=== PATIENT | female | born 1960 | race American Indian/Alaskan Native ===

== ENCOUNTER 2020-08-31 18:46 | Inpatient (IN) | payer OTHER ==
--- NOTE | 2020-08-31 21:41 | XRay Report ---
CHEST 1 VIEW INDICATION: weakness COMPARISON: (none FINDINGS: SUPPORT DEVICES: None. HEART / MEDIASTINUM: No significant abnormality. LUNGS / PLEURA: Bronchovascular markings are prominent. Increased lung volumes are noted. No pneumoth orax. ADDITIONAL FINDINGS: IMPRESSION: 1. Prominent bronchovascular markings. Increased lung volumes-COPD Signer Name: Sreekanth Galvan MD Signed: 08/31/2020 9:37 PM Workstation Name: [id number]
[2020-08-31 21:43] LABS: Basophils % (Auto) 0.4 % (0.0-1.8); Hemoglobin 7.6 gm/dl (10.1-14.3); Lymphocytes # (Auto) 0.9 K/mm3 (1.2-5.4); Mean Corpuscular HGB Conc 33 % (30-34); Mean Corpuscular Volume 99 fl (79-97); Monocytes # (Auto) 0.8 K/mm3 (0.0-0.8); Monocytes % (Auto) 8.8 % (0.0-7.3); Platelet Count 153 K/mm3 (140-440); Red Blood Count 2.32 M/mm3 (3.65-5.03); Red Cell Distribution Width 18.9 % (13.2-15.2)
--- NOTE | 2020-08-31 21:53 | Emergency Department Report ---
- General Chief complaint: Weakness Stated complaint: WEAKNESS Time Seen by Provider: 08/31/20 21:11 Source: patient, EMS Mode of arrival: Stretcher Limitations: No Limitations - History of Present Illness Initial comments: 60-year-old female, history of hypertension, presents to ED with generalized weakness for several weeks. Patient states her sister made her come to the ED today to be evaluated. Patient denies any headache, fever, chest pain, shortness of breath, abdominal pain, vomiting, diarrhea, urinary frequency. Patient has obvious periorbital edema. She states it has been present for quite some time. Patient states "I am swollen all over." MD Complaint: generalized weakness -: week(s) (1) Location: generalized Consistency: constant Improves with: none Worsens with: none Associated Symptoms: denies: chest pain, fever/chills, headaches, nausea/vomiting, shortness of breath - Related Data Home Medications Medication Instructions Recorded Confirmed Last Taken Lasix TAB 40 mg PO ONCE 09/01/20 09/01/20 08/31/20 Lopressor 50 mg PO BID 09/01/20 09/01/20 08/31/20 Pantoprazole 40 mg PO ONCE 09/01/20 09/01/20 08/31/20 amLODIPine 10 mg PO ONCE 09/01/20 09/01/20 08/31/20 hydrALAZINE 25 mg PO TID 09/01/20 09/01/20 08/31/20 Allergies Allergy/AdvReac Type Severity Reaction Status Date / Time No Known Allergies Allergy Unverified 08/31/20 22:07 ED Review of Systems ROS: Stated complaint: WEAKNESS Other details as noted in HPI Comment: All other systems reviewed and negative Constitutional: denies: fever Respiratory: denies: cough, shortness of breath Cardiovascular: edema. denies: chest pain Gastrointestinal: denies: abdominal pain, vomiting, diarrhea Genitourinary: denies: frequency Neurological: denies: headache ED Past Medical Hx - Past Medical History Previous Medical History?: Yes Hx Hypertension: Yes - Social History Smoking Status: Never Smoker Substance Use Type: None - Medications Home Medications: Home Medications Medication Instructions Recorded Confirmed Last Taken Type Lasix TAB 40 mg PO ONCE 09/01/20 09/01/20 08/31/20 History Lopressor 50 mg PO BID 09/01/20 09/01/20 08/31/20 History Pantoprazole 40 mg PO ONCE 09/01/20 09/01/20 08/31/20 History amLODIPine 10 mg PO ONCE 09/01/20 09/01/20 08/31/20 History hydrALAZINE 25 mg PO TID 09/01/20 09/01/20 08/31/20 History ED Physical Exam - General Limitations: No Limitations General appearance: alert, in no apparent distress - Head Head exam: Present: atraumatic, normocephalic - Eye Eye exam: Present: other (Periorbital edema bilaterally) - ENT ENT exam: Present: mucous membranes moist - Neck Neck exam: Present: normal inspection - Respiratory Respiratory exam: Present: normal lung sounds bilaterally. Absent: respiratory distress - Cardiovascular Cardiovascular Exam: Present: regular rate, normal rhythm - GI/Abdominal GI/Abdominal exam: Present: soft. Absent: distended, tenderness - Extremities Exam Extremities exam: Present: other (Slight edema to bilateral hands; no significant edema to lower extremities) - Neurological Exam Neurological exam: Present: alert, oriented X3 - Psychiatric Psychiatric exam: Present: normal affect, normal mood - Skin Skin exam: Present: warm, dry, intact, normal color ED Course Vital Signs 08/31/20 08/31/20 08/31/20 21:00 21:15 21:31 Temperature 98.7 F Pulse Rate 86 82 86 Pulse Rate [ Apical] Pulse Rate [ Left Radial] Pulse Rate [ Right Radial] Respiratory 12 20 13 Rate Blood Pressure 153/75 153/75 Blood Pressure 155/85 [Left] O2 Sat by Pulse 98 Oximetry 08/31/20 08/31/20 08/31/20 21:45 22:01 22:15 Temperature Pulse Rate 83 78 80 Pulse Rate [ Apical] Pulse Rate [ Left Radial] Pulse Rate [ Right Radial] Respiratory 22 22 21 Rate Blood Pressure 153/75 153/75 153/75 Blood Pressure [Left] O2 Sat by Pulse Oximetry 08/31/20 08/31/20 08/31/20 22:31 22:45 23:01 Temperature Pulse Rate 87 97 H 91 H Pulse Rate [ Apical] Pulse Rate [ Left Radial] Pulse Rate [ Right Radial] Respiratory 12 21 19 Rate Blood Pressure 153/75 153/75 153/75 Blood Pressure [Left] O2 Sat by Pulse Oximetry 08/31/20 08/31/20 08/31/20 23:15 23:31 23:45 Temperature Pulse Rate 96 H 89 85 Pulse Rate [ Apical] Pulse Rate [ Left Radial] Pulse Rate [ Right Radial] Respiratory 17 13 17 Rate Blood Pressure 153/75 153/75 153/71 Blood Pressure [Left] O2 Sat by Pulse Oximetry 09/01/20 09/01/20 09/01/20 00:00 00:15 00:30 Temperature Pulse Rate 83 92 H 98 H Pulse Rate [ Apical] Pulse Rate [ Left Radial] Pulse Rate [ Right Radial] Respiratory 15 12 14 Rate Blood Pressure 139/71 137/82 162/84 Blood Pressure [Left] O2 Sat by Pulse Oximetry 09/01/20 09/01/20 09/01/20 00:45 01:00 01:15 Temperature Pulse Rate 87 85 85 Pulse Rate [ Apical] Pulse Rate [ Left Radial] Pulse Rate [ Right Radial] Respiratory 19 20 20 Rate Blood Pressure 164/79 180/86 180/86 Blood Pressure [Left] O2 Sat by Pulse Oximetry 09/01/20 09/01/20 09/01/20 01:30 02:00 05:00 Temperature Pulse Rate 87 90 81 Pulse Rate [ Apical] Pulse Rate [ Left Radial] Pulse Rate [ Right Radial] Respiratory 17 21 19 Rate Blood Pressure 159/81 172/84 147/80 Blood Pressure [Left] O2 Sat by Pulse Oximetry 09/01/20 09/01/20 09/01/20 05:24 06:00 07:00 Temperature Pulse Rate 86 87 Pulse Rate [ Apical] Pulse Rate [ Left Radial] Pulse Rate [ Right Radial] Respiratory 19 19 Rate Blood Pressure 166/85 186/91 Blood Pressure [Left] O2 Sat by Pulse 85 Oximetry 09/01/20 09/01/20 09/01/20 07:56 08:01 08:53 Temperature 98.9 F Pulse Rate 93 H Pulse Rate [ 98 H Apical] Pulse Rate [ 98 H Left Radial] Pulse Rate [ 98 H Right Radial] Respiratory 19 17 Rate Blood Pressure 153/88 Blood Pressure [Left] O2 Sat by Pulse 98 Oximetry 09/01/20 09/01/20 09/01/20 09:00 09:11 09:21 Temperature Pulse Rate 88 91 H 87 Pulse Rate [ Apical] Pulse Rate [ Left Radial] Pulse Rate [ Right Radial] Respiratory 17 17 18 Rate Blood Pressure 162/75 162/75 162/75 Blood Pressure [Left] O2 Sat by Pulse Oximetry 09/01/20 09/01/20 09/01/20 09:31 09:41 09:51 Temperature Pulse Rate 94 H 86 87 Pulse Rate [ Apical] Pulse Rate [ Left Radial] Pulse Rate [ Right Radial] Respiratory 10 L 17 14 Rate Blood Pressure 143/75 143/75 162/75 Blood Pressure [Left] O2 Sat by Pulse Oximetry 09/01/20 09/01/20 09/01/20 10:00 10:11 10:21 Temperature Pulse Rate 86 86 89 Pulse Rate [ Apical] Pulse Rate [ Left Radial] Pulse Rate [ Right Radial] Respiratory 17 17 19 Rate Blood Pressure 139/74 139/74 139/74 Blood Pressure [Left] O2 Sat by Pulse Oximetry 09/01/20 09/01/20 09/01/20 10:30 10:41 10:51 Temperature Pulse Rate 84 87 84 Pulse Rate [ Apical] Pulse Rate [ Left Radial] Pulse Rate [ Right Radial] Respiratory 18 18 20 Rate Blood Pressure 148/79 148/79 148/79 Blood Pressure [Left] O2 Sat by Pulse Oximetry 09/01/20 09/01/20 09/01/20 11:00 11:11 11:14 Temperature Pulse Rate 83 86 77 Pulse Rate [ Apical] Pulse Rate [ Left Radial] Pulse Rate [ Right Radial] Respiratory 19 18 17 Rate Blood Pressure 159/78 159/78 Blood Pressure 159/78 [Left] O2 Sat by Pulse 100 Oximetry 09/01/20 11:21 Temperature Pulse Rate 76 Pulse Rate [ Apical] Pulse Rate [ Left Radial] Pulse Rate [ Right Radial] Respiratory 19 Rate Blood Pressure 159/78 Blood Pressure [Left] O2 Sat by Pulse Oximetry ED Medical Decision Making - Lab Data Result diagrams: 09/01/20 11:02 09/01/20 00:09 - EKG Data -: EKG Interpreted by Pa EKG shows normal: sinus rhythm, axis, intervals, QRS complexes, ST-T waves Rate: normal - EKG Data Interpretation: no acute changes - Radiology Data Radiology results: report reviewed, image reviewed - Medical Decision Making 60-year-old female, only history of hypertension, presents to ED with generalized weakness for several weeks. O2 sats 85% on room air. Patient placed on 2 L O2 via nasal cannula. She is afebrile. Chest x-ray shows evidence of COPD with some increased bronchovascular markings. On exam, patient has periorbital edema and some trace edema to bilateral hands. Patient states this edema has been present for "a while." BNP is elevated. Labs show evidence of hypokalemia with potassium of 2.9. With decreased O2 sats and elevated BNP, Lasix given, as patient may have some pulmonary edema that is not on x-ray. Patient also has elevated troponin. EKG shows no ST changes. Patient denies any chest pain. Aspirin given. Patient will be admitted to hospitalist, Dr. Sanders, for further management. - Differential Diagnosis Infection, electrolyte abnormality, dehydration Critical care attestation.: If time is entered above; I have spent that time in minutes in the direct care of this critically ill patient, excluding procedure time. ED Disposition Clinical Impression: Hypoxia, Hypokalemia, Elevated troponin Disposition: OP ADMIT IP TO THIS HOSP Is pt being admited?: Yes Condition: Stable Time of Disposition: 05:25
[2020-08-31 21:59] LABS: INR 1.25 (0.87-1.13)
[2020-08-31 22:00] LABS: Partial Thromboplastin Time 37.3 Sec. (24.2-36.6)
[2020-08-31 22:07] LABS: Free T4 (Free Thyroxine) 0.82 ng/dL (0.76-1.46)
[2020-08-31 22:09] LABS: BUN/Creatinine Ratio TNR
[2020-08-31 22:10] LABS: Alanine Aminotransferase TNR units/L (7-56); Albumin TNR g/dL (3.9-5); Blood Urea Nitrogen TNR mg/dL (7-17); Calcium TNR mg/dL (8.4-10.2)
[2020-08-31 22:11] LABS: Hemolysis Index TNR
[2020-09-01 00:48] LABS: Alanine Aminotransferase 7 units/L (7-56); Albumin 1.6 g/dL (3.9-5); BUN/Creatinine Ratio 12; Blood Urea Nitrogen 13 mg/dL (7-17); Calcium 6.2 mg/dL (8.4-10.2); Hemolysis Index 2
[2020-09-01] MEDS ORDERED: POTASSIUM CHLORIDE ER 20 MEQ TAB PO ONE (01:46)
[2020-09-01 01:48] LABS: Bacteria,Urine 2+ /HPF (Negative); Bilirubin,Urine NEG (Negative); Blood,Urine LG (Negative); Color,Urine Yellow (Yellow); Mucus,Urine FEW /HPF
[2020-09-01 02:31] LABS: Chol/HDL Ratio 3.52 %; HDL Cholesterol 21 mg/dL (40-59); LDL Cholesterol,Direct 20 mg/dL (50-130)
[2020-09-01] MEDS ORDERED: FUROSEMIDE 40 MG/4 ML INJ IV ONE (04:55)
[2020-09-01] MEDS ORDERED: ASPIRIN 325 MG TAB PO ONE (04:57)
--- NOTE | 2020-09-01 07:09 | History and Physical Report ---
History of Present Illness Date of examination: 09/01/20 Date of admission: 09/01/20 05:26 Chief complaint: And generalized weakness and low oxygen saturation History of present illness: 60-year-old female with history of hypertension and not a non-smoker comes in fo r generalized weakness and swelling of the lower extremities. But during my examination the swelling of the lower extremities was minimal. Patient had low oxygen saturations of 85% on room air in the emergency room. There is no cough no shortness of breath. No fever. No exposure to coronavirus. No diarrhea vomiting etc. Patient says that she is swollen all over but physical exam did not show any swelling. No exposure to coronavirus. - Past Medical History Previous Medical History?: Yes --Hypertension: Yes Surgical history not available Family history Htn - Social History Smoking Status: Never Smoker Substance Use Type: None Review of Systems ROS: Stated complaint: WEAKNESS Other details as noted in HPI Comment: All other systems reviewed and negative Constitutional: denies: fever Respiratory: denies: cough, shortness of breath Cardiovascular: edema. denies: chest pain Gastrointestinal: denies: abdominal pain, vomiting, diarrhea Genitourinary: denies: frequency Neurological: denies: headache Medications and Allergies Allergies Allergy/AdvReac Type Severity Reaction Status Date / Time No Known Allergies Allergy Unverified 08/31/20 22:07 Exam - Constitutional Vitals: Temp Pulse Resp BP Pulse Ox 98.7 F 81 19 147/80 85 08/31/20 21:00 09/01/20 05:00 09/01/20 05:00 09/01/20 05:00 09/01/20 05:24 General appearance: Present: no acute distress, well-nourished - EENT Eyes: Present: PERRL ENT: hearing intact, clear oral mucosa - Neck Neck: Present: supple, normal ROM - Respiratory Respiratory effort: normal Respiratory: bilateral: CTA - Cardiovascular Heart rate: 78 Rhythm: regular Heart Sounds: Present: S1 & S2. Absent: rub, click - Extremities Extremities: no ischemia, pulses intact, pulses symmetrical, No edema Extremity abnormal: other (Slight swelling of both lower extremities present) Peripheral Pulses: within normal limits - Abdominal General gastrointestinal: Present: soft, non-tender, non-distended, normal bowel sounds Female genitourinary: Present: normal - Rectal Rectal Exam: deferred - Integumentary Integumentary: Present: clear, warm, dry - Musculoskeletal Musculoskeletal: gait normal, strength equal bilaterally - Psychiatric Psychiatric: appropriate mood/affect, intact judgment & insight - Neurologic Neurologic: CNII-XII intact, moves all extremities - Allied Health Allied health notes reviewed: nursing, case management HEART Score - HEART Score History: Moderately suspicious Age: 45-65 Risk factors: 1-2 risk factors Troponin: Troponin T 0.067 ng/mL (0.00-0.029) H 09/01/20 03:07 Troponin: 1-3x normal limit - Critical Actions Critical Actions: 4-6 pts:12-16.6% risk of adverse cardiac event. Should be ad mitted Results - Labs CBC & Chem 7: 08/31/20 21:20 09/01/20 00:09 Labs: Laboratory Last Values WBC 9.3 K/mm3 (4.5-11.0) 08/31/20 21:20 RBC 2.32 M/mm3 (3.65-5.03) L 08/31/20 21:20 Hgb 7.6 gm/dl (10.1-14.3) L 08/31/20 21:20 Hct 23.0 % (30.3-42.9) L 08/31/20 21:20 MCV 99 fl (79-97) H 08/31/20 21:20 MCH 33 pg (28-32) H 08/31/20 21:20 MCHC 33 % (30-34) 08/31/20 21:20 RDW 18.9 % (13.2-15.2) H 08/31/20 21:20 Plt Count 153 K/mm3 (140-440) 08/31/20 21:20 Lymph % (Auto) 10.0 % (13.4-35.0) L 08/31/20 21:20 [place] % (Auto) 8.8 % (0.0-7.3) H 08/31/20 21:20 Eos % (Auto) 0.0 % (0.0-4.3) 08/31/20 21:20 Baso % (Auto) 0.4 % (0.0-1.8) 08/31/20 21: Lymph # (Auto) 0.9 K/mm3 (1.2-5.4) L 08/31/20 21:20 [place] # (Auto) 0.8 K/mm3 (0.0-0.8) 08/31/20 21:20 Eos # (Auto) 0.0 K/mm3 (0.0-0.4) 08/31/20 21:20 Baso # (Auto) 0.0 K/mm3 (0.0-0.1) 08/31/20 21:20 Seg Neutrophils % 80.8 % (40.0-70.0) H 08/31/20 21:20 Seg Neutrophils # 7.5 K/mm3 (1.8-7.7) 08/31/20 21:20 PT 15.7 Sec. (12.2-14.9) H 08/31/20 21:20 INR 1.25 (0.87-1.13) H 08/31/20 21:20 APTT 37.3 Sec. (24.2-36.6) H 08/31/20 21:20 Sodium 140 mmol/L (137-145) 09/01/20 00:09 Potassium 2.9 mmol/L (3.6-5.0) L* 09/01/20 00:09 Chloride 102.6 mmol/L (98-107) 09/01/20 00:09 Carbon Dioxide 31 mmol/L (22-30) H 09/01/20 00:09 Anion Gap 9 mmol/L 09/01/20 00:09 BUN 13 mg/dL (7-17) 09/01/20 00:09 Creatinine 1.1 mg/dL (0.6-1.2) 09/01/20 00:09 Estimated GFR > 60 ml/min 09/01/20 00:09 BUN/Creatinine Ratio 12 % 09/01/20 00:09 Glucose 107 mg/dL (65-100) H 09/01/20 00:09 Calcium 6.2 mg/dL (8.4-10.2) L 09/01/20 00:09 Total Bilirubin 0.80 mg/dL (0.1-1.2) 09/01/20 00:09 AST 49 units/L (5-40) H 09/01/20 00:09 ALT 7 units/L (7-56) 09/01/20 00:09 Alkaline Phosphatase 91 units/L (35-129) 09/01/20 00:09 Troponin T 0.067 ng/mL (0.00-0.029) H 09/01/20 03:07 NT-Pro-B Natriuret Pep 2196 pg/mL (0-900) H 09/01/20 00:09 Total Protein 7.2 g/dL (6.3-8.2) 09/01/20 00:09 Albumin 1.6 g/dL (3.9-5) L 09/01/20 00:09 Albumin/Globulin Ratio 0.3 % 09/01/20 00:09 Triglycerides 105 mg/dL (2-149) 09/01/20 00:09 Cholesterol 74 mg/dL (50-199) 09/01/20 00:09 LDL Cholesterol Direct 20 mg/dL (50-130) L 09/01/20 00:09 HDL Cholesterol 21 mg/dL (40-59) L 09/01/20 00:09 Cholesterol/HDL Ratio 3.52 % 09/01/20 00:09 TSH 2.030 mlU/mL (0.270-4.200) 08/31/20 21:20 Free T4 0.82 ng/dL (0.76-1.46) 08/31/20 21:20 Urine Color Yellow (Yellow) 09/01/20 01:00 Urine Turbidity Clear (Clear) 09/01/20 01:00 Urine pH 5.0 (5.0-7.0) 09/01/20 01:00 Ur Specific Malcolm 1.013 (1.003-1.030) 09/01/20 01:00 Urine Protein 100 mg/dl mg/dL (Negative) 09/01/20 01:00 Urine Glucose (UA) Neg mg/dL (Negative) 09/01/20 01:00 Urine Ketones Neg mg/dL (Negative) 09/01/20 01:00 Urine Blood Lg (Negative) 09/01/20 01:00 Urine Nitrite Neg (Negative) 09/01/20 01:00 Urine Bilirubin Neg (Negative) 09/01/20 01:00 Urine Urobilinogen 2.0 mg/dL (<2.0) 09/01/20 01:00 Ur Leukocyte Esterase Neg (Negative) 09/01/20 01:00 Urine WBC (Auto) 5.0 /HPF (0.0-6.0) 09/01/20 01:00 Urine RBC (Auto) 20.0 /HPF (0.0-6.0) 09/01/20 01:00 U Epithel Cells (Auto) < 1.0 /HPF (0-13.0) 09/01/20 01:00 Urine Bacteria (Auto) 2+ /HPF (Negative) 09/01/20 01:00 Urine Mucus Few /HPF 09/01/20 01:00 Short CBC 08/31/20 Range/Units 21:20 WBC 9.3 (4.5-11.0) K/mm3 Hgb 7.6 L (10.1-14.3) gm/dl Hct 23.0 L (30.3-42.9) % Plt Count 153 (140-440) K/mm3 BMP 08/31/20 09/01/20 21:20 00:09 Sodium TNR 140 Potassium TNR 2.9 L* Chloride TNR 102.6 Carbon Dioxide TNR 31 H BUN TNR 13 Creatinine TNR 1.1 Glucose TNR 107 H Calcium TNR 6.2 L Cardiac Enzymes 08/31/20 09/01/20 09/01/20 Range/Units 21:20 00:09 03:07 Troponin T TNR 0.074 H 0.067 H Liver Function 08/31/20 09/01/20 Range/Units 21:20 00:09 Total Bilirubin TNR 0.80 AST TNR 49 H ALT TNR 7 Alkaline Phosphatase TNR 91 Albumin TNR 1.6 L Urine 09/01/20 Range/Units 01:00 Urine Color Yellow (Yellow) Urine pH 5.0 (5.0-7.0) Ur Specific Malcolm 1.013 (1.003-1.030) Urine Protein 100 mg/dl (Negative) mg/dL Urine Glucose (UA) Neg (Negative) mg/dL - Imaging and Cardiology EKG: report reviewed (Sinus rhythm, heart rate of 83/min no acute ST-T wave changes.) Chest x-ray: report reviewed Imaging and Cardiology: CXR IMPRESSION: 1. Prominent bronchovascular markings. Increased lung volumes-COPD Assessment and Plan Advance Directives: Yes (Full code) VTE prophylaxis?: Chemical Plan of care discussed with patient/family: Yes - Patient Problems (1) NSTEMI (non-ST elevated myocardial infarction) Current Visit: Yes Status: Acute Plan to address problem: No EKG changes Patient started IV heparin Cardiology consult requested (2) Elevated troponin Current Visit: Yes Status: Acute Plan to address problem: May be nonspecific but heparin started and cardiology consult requested (3) Hypokalemia Current Visit: Yes Status: Acute Plan to address problem: Supplemented (4) Hypocalcemia Current Visit: Yes Status: Acute Plan to address problem: Supplemented (5) Malnutrition Current Visit: Yes Status: Chronic Qualifiers: Protein-calorie malnutrition severity: severe Plan to address problem: Albumin is 1.6 Dietitian consult requested (6) CHF (congestive heart failure) Current Visit: Yes Status: Chronic Qualifiers: Heart failure type: combined systolic and diastolic Plan to address problem: BNP is 2197 Echocardiogram for ejection fraction and valvular function (7) COPD (chronic obstructive pulmonary disease) Current Visit: Yes Status: Chronic Plan to address problem: Will get a blood gas and duo nebs as needed (8) DVT prophylaxis Current Visit: Yes Status: Acute Plan to address problem: On heparin and GI prophylaxis
[2020-09-01] MEDS ORDERED: METOCLOPRAMIDE 10 MG/2 ML INJ IV PRN (07:24)
[2020-09-01] MEDS ORDERED: ACETAMINOPHEN 325 MG TAB PO PRN (07:24)
[2020-09-01] MEDS ORDERED: HYDROmorphone 1 MG/1 ML INJ IV PRN (07:24)
[2020-09-01] MEDS ORDERED: ONDANSETRON 4 MG/2 ML INJ IV PRN (07:24)
[2020-09-01] MEDS ORDERED: HEPARIN 10,000 UNITS/10 ML VIAL IV NR (07:27)
[2020-09-01] MEDS ORDERED: IPRATROPIUM/ALBUTEROL SULFATE 3 ML AMPUL.NEB IH PRN (07:29)
[2020-09-01] MEDS ORDERED: CALCIUM GLUCONATE 2,000 MG in SODIUM CHLORIDE 0.9% 100 ML IV ONE (08:00)
[2020-09-01] MEDS ORDERED: HEPARIN/ 0.45% NACL DRIP 25,000 UNIT/500 ML BAG IV SCH (08:00)
[2020-09-01] MEDS ORDERED: ALBUTEROL 2.5 MG/3 ML NEBU IH PRN (08:28)
[2020-09-01] MEDS ORDERED: HEPARIN 10,000 UNITS/10 ML VIAL IV PRN (09:00)
--- NOTE | 2020-09-01 09:22 | Consultation ---
History of Present Illness Consult date: 09/01/20 Requesting physician: GEORGETTE JURADO Consult reason: abnormal cardiac enzymes History of present illness: Patient is a 60-year-old being consulted for elevated cardiac enzymes. Unfortunately patient is a very poor historian. Patient presented to the hospital with generalized weakness and swelling both on her face and legs. She was noted to have mildly elevated cardiac enzymes and hence cardiology has been consulted. Patient reports no prior cardiac problems. She reports she has been gradually gaining weight and lately has noticed significant swelling of her face. She reports no chest pain. She reports she gets occasional shortness of breath but apparently is not very active. There are no symptoms of orthopnea or PND. No prior cardiac evaluations. Denies history of drug abuse or alcohol abuse. Past History Past Medical History: other (No known past medical history) Medications and Allergies Allergies Allergy/AdvReac Type Severity Reaction Status Date / Time No Known Allergies Allergy Unverified 08/31/20 22:07 Active Meds: Active Medications Acetaminophen (Acetaminophen 325 Mg Tab) 650 mg PO Q4H PRN PRN Reason: Pain MILD(1-3)/Fever >100.5/LORA Albuterol (Albuterol 2.5 Mg/3 Ml Nebu) 2.5 mg IH Q4HRT PRN PRN Reason: Shortness Of Breath Famotidine (Famotidine 20 Mg Tab) 20 mg PO BID CINTHIA Heparin Sodium (Porcine) (Heparin 10,000 Units/10 Ml Vial) 2,400 unit 40 unit/kg (2400 unit) IV Q6H PRN PRN Reason: Anti-Xa Assay < 0.1 units/ml Hydromorphone HCl (Hydromorphone 1 Mg/1 Ml Inj) 0.25 mg IV Q3H PRN PRN Reason: Pain, Moderate (4-6) Potassium Chloride (Kcl 10meq/100ml) 10 meq in 100 mls @ 100 mls/hr IV Q1H CINTHIA Stop: 09/01/20 12:59 Heparin Sodium/Sodium Chloride (Heparin/ 0.45% Nacl-25,000 Unit/500 Ml) 25,000 unit in 500 mls @ 18 mls/hr IV TITRATE CINTHIA; Protocol Metoclopramide HCl (Metoclopramide 10 Mg/2 Ml Inj) 10 mg IV Q6H PRN PRN Reason: Nausea And Vomiting Ondansetron HCl (Ondansetron 4 Mg/2 Ml Inj) 4 mg IV Q8H PRN PRN Reason: Nausea And Vomiting Oxycodone/Acetaminophen (Oxycodone /Acetaminophen 5-325mg Tab) 1 tab PO Q6H PRN PRN Reason: Pain, Moderate (4-6) Potassium Chloride (Potassium Chloride Er 20 Meq Tab) 40 meq PO Q4H CINTHIA Stop: 09/01/20 16:31 Sodium Chloride (Sodium Chloride 0.9% 10 Ml Flush Syringe) 10 ml IV BID CINTHIA Sodium Chloride (Sodium Chloride 0.9% 10 Ml Flush Syringe) 10 ml IV PRN PRN PRN Reason: LINE FLUSH Review of Systems All systems: negative (As mentioned in the H&P) Physical Examination Vital Signs Temp Pulse Resp BP Pulse Ox 98.7 F 88 16 155/85 98 08/31/20 21:00 08/31/20 21:00 08/31/20 21:00 08/31/20 21:00 08/31/20 21:00 General appearance: other (Anasarca noted) HEENT: Positive: Normocephaly Neck: Positive: neck supple Cardiac: Positive: Reg Rate and Rhythm Lungs: Positive: clear to auscultation Neuro: Positive: Grossly Intact Abdomen: Positive: Unremarkable Female genitourinary: deferred Extremities: Present: +1 Edema (Bilaterally) Results 08/31/20 21:09/01/20 00:09 Cardiac Enzymes 08/31/20 09/01/20 Range/Units 21:20 00:09 AST TNR 49 H Coagulation 08/31/20 Range/Units 21:20 PT 15.7 H (12.2-14.9) Sec. INR 1.25 H (0.87-1.13) APTT 37.3 H (24.2-36.6) Sec. Lipids 09/01/20 Range/Units 00:09 Triglycerides 105 (2-149) mg/dL Cholesterol 74 (50-199) mg/dL HDL Cholesterol 21 L (40-59) mg/dL Cholesterol/HDL Ratio 3.52 % CBC 08/31/20 Range/Units 21:20 WBC 9.3 (4.5-11.0) K/mm3 RBC 2.32 L (3.65-5.03) M/mm3 Hgb 7.6 L (10.1-14.3) gm/dl Hct 23.0 L (30.3-42.9) % Plt Count 153 (140-440) K/mm3 Lymph # (Auto) 0.9 L (1.2-5.4) K/mm3 [place] # (Auto) 0.8 (0.0-0.8) K/mm3 Eos # (Auto) 0.0 (0.0-0.4) K/mm3 Baso # (Auto) 0.0 (0.0-0.1) K/mm3 Comprehensive Metabolic Panel 08/31/20 09/01/20 Range/Units 21:20 00:09 Sodium TNR 140 Potassium TNR 2.9 L* Chloride TNR 102.6 Carbon Dioxide TNR 31 H BUN TNR 13 Creatinine TNR 1.1 Glucose TNR 107 H Calcium TNR 6.2 L AST TNR 49 H ALT TNR 7 Alkaline Phosphatase TNR 91 Total Protein TNR 7.2 Albumin TNR 1.6 L EKG interpretations - Telemetry EKG Rhythm: Sinus Rhythm (No acute ST-T wave changes noted) Assessment and Plan Impression 1. Elevated cardiac enzymes likely non-MT troponin etiology unclear 2. Anasarca elevated BNP likely congestive heart failure new onset 3. Severe hypoalbuminemia this with anemia will have to rule out nephrotic syndrome 4. Severe hypokalemia 5. Hypocalcemia studious in the setting of low albumin 6. Severe anemia Plan 1. Discontinue heparin no need for heparin 2. Cautious use of IV diuretics in the setting of hypokalemia. 3. Once potassium is replaced then consider diuresis 4. Diuresis will be held with replacing albumin 5. Evaluate for causes of hypoalbuminemia 6. 2D echo to evaluate LV function
[2020-09-01] MEDS: POTASSIUM CHLORIDE ER 20 MEQ TAB PO SCH ×3 (09:41→17:19)
--- NOTE | 2020-09-01 10:29 | Progress Note ---
Assessment and Plan Assessment and plan: Acute hypoxic respiratory failure. Etiology secondary to volume overload/mild CHF and COPD exacerbation. Continue O2 to maintain sats greater than 92% Acute COPD exacerbation. Patient has never had diagnosis of COPD but she is a poor historian. Patient does report 30 pack year history. Hypoalbuminemia. Nephrology consultation for 24-hour urine possible nephrotic syndrome Elevated troponin. ?NSTEMI. Follow-up echocardiogram. Cardiology following. Hypokalemia. Replete potassium. Hypocalcemia. Replete calcium. Anemia. Check Hemoccult of stool and transfuse for hemoglobin less than 7. History Interval history: No new issues overnight. Hospitalist Physical - Constitutional Vitals: Temp Pulse Resp BP Pulse Ox 98.9 F 93 H 17 153/88 85 09/01/20 08:53 09/01/20 08:01 09/01/20 08:01 09/01/20 08:01 09/01/20 05:24 General appearance: Present: other (Anasarca noted) - EENT Eyes: Present: PERRL, EOM intact ENT: hearing intact, clear oral mucosa, dentition normal - Neck Neck: Present: supple, normal ROM - Respiratory Respiratory effort: normal Respiratory: bilateral: CTA - Cardiovascular Rhythm: regular Heart Sounds: Present: S1 & S2. Absent: gallop, rub - Extremities Extremities: no ischemia, No edema, Full ROM - Abdominal General gastrointestinal: soft, non-tender, non-distended, normal bowel sounds - Integumentary Integumentary: Present: clear, warm, dry - Neurologic Neurologic: CNII-XII intact, moves all extremities HEART Score - HEART Score Age: 45-65 Risk factors: 1-2 risk factors Troponin: Troponin T 0.067 ng/mL (0.00-0.029) H 09/01/20 03:07 Troponin: 1-3x normal limit - Critical Actions Critical Actions: 4-6 pts:12-16.6% risk of adverse cardiac event. Should be admitted Results - Labs CBC & Chem 7: 08/31/20 21:20 09/01/20 00:09 Labs: Laboratory Last Values WBC 9.3 K/mm3 (4.5-11.0) 08/31/20 21:20 RBC 2.32 M/mm3 (3.65-5.03) L 08/31/20 21:20 Hgb 7.6 gm/dl (10.1-14.3) L 08/31/20 21:20 Hct 23.0 % (30.3-42.9) L 08/31/20 21:20 MCV 99 fl (79-97) H 08/31/20 21:20 MCH 33 pg (28-32) H 08/31/20 21:20 MCHC 33 % (30-34) 08/31/20 21:20 RDW 18.9 % (13.2-15.2) H 08/31/20 21:20 Plt Count 153 K/mm3 (140-440) 08/31/20 21:20 Lymph % (Auto) 10.0 % (13.4-35.0) L 08/31/20 21:20 [place] % (Auto) 8.8 % (0.0-7.3) H 08/31/20 21:20 Eos % (Auto) 0.0 % (0.0-4.3) 08/31/20 21: Baso % (Auto) 0.4 % (0.0-1.8) 08/31/20 21:20 Lymph # (Auto) 0.9 K/mm3 (1.2-5.4) L 08/31/20 21:20 Cascade # (Auto) 0.8 K/mm3 (0.0-0.8) 08/31/20 21:20 Eos # (Auto) 0.0 K/mm3 (0.0-0.4) 08/31/20 21:20 Baso # (Auto) 0.0 K/mm3 (0.0-0.1) 08/31/20 21: Seg Neutrophils % 80.8 % (40.0-70.0) H 08/31/20 21:20 Seg Neutrophils # 7.5 K/mm3 (1.8-7.7) 08/31/20 21:20 PT 15.7 Sec. (12.2-14.9) H 08/31/20 21:20 INR 1.25 (0.87-1.13) H 08/31/20 21:20 APTT 37.3 Sec. (24.2-36.6) H 08/31/20 21:20 Sodium 140 mmol/L (137-145) 09/01/20 00:09 Potassium 2.9 mmol/L (3.6-5.0) L* 09/01/20 00:09 Chloride 102.6 mmol/L (98-107) 09/01/20 00:09 Carbon Dioxide 31 mmol/L (22-30) H 09/01/20 00:09 Anion Gap 9 mmol/L 09/01/20 00:09 BUN 13 mg/dL (7-17) 09/01/20 00:09 Creatinine 1.1 mg/dL (0.6-1.2) 09/01/20 00:09 Estimated GFR > 60 ml/min 09/01/20 00:09 BUN/Creatinine Ratio 12 % 09/01/20 00:09 Glucose 107 mg/dL (65-100) H 09/01/20 00:09 Calcium 6.2 mg/dL (8.4-10.2) L 09/01/20 00:09 Total Bilirubin 0.80 mg/dL (0.1-1.2) 09/01/20 00:09 AST 49 units/L (5-40) H 09/01/20 00:09 ALT 7 units/L (7-56) 09/01/20 00:09 Alkaline Phosphatase 91 units/L (35-129) 09/01/20 00:09 Troponin T 0.067 ng/mL (0.00-0.029) H 09/01/20 03:07 NT-Pro-B Natriuret Pep 2196 pg/mL (0-900) H 09/01/20 00:09 Total Protein 7.2 g/dL (6.3-8.2) 09/01/20 00:09 Albumin 1.6 g/dL (3.9-5) L 09/01/20 00:09 Albumin/Globulin Ratio 0.3 % 09/01/20 00:09 Triglycerides 105 mg/dL (2-149) 09/01/20 00:09 Cholesterol 74 mg/dL (50-199) 09/01/20 00:09 LDL Cholesterol Direct 20 mg/dL (50-130) L 09/01/20 00:09 HDL Cholesterol 21 mg/dL (40-59) L 09/01/20 00:09 Cholesterol/HDL Ratio 3.52 % 09/01/20 00:09 TSH 2.030 mlU/mL (0.270-4.200) 08/31/20 21:20 Free T4 0.82 ng/dL (0.76-1.46) 08/31/20 21:20 Urine Color Yellow (Yellow) 09/01/20 01:00 Urine Turbidity Clear (Clear) 09/01/20 01:00 Urine pH 5.0 (5.0-7.0) 09/01/20 01:00 Ur Specific Perry 1.013 (1.003-1.030) 09/01/20 01:00 Urine Protein 100 mg/dl mg/dL (Negative) 09/01/20 01:00 Urine Glucose (UA) Neg mg/dL (Negative) 09/01/20 01:00 Urine Ketones Neg mg/dL (Negative) 09/01/20 01:00 Urine Blood Lg (Negative) 09/01/20 01:00 Urine Nitrite Neg (Negative) 09/01/20 01:00 Urine Bilirubin Neg (Negative) 09/01/20 01:00 Urine Urobilinogen 2.0 mg/dL (<2.0) 09/01/20 01:00 Ur Leukocyte Esterase Neg (Negative) 09/01/20 01:00 Urine WBC (Auto) 5.0 /HPF (0.0-6.0) 09/01/20 01:00 Urine RBC (Auto) 20.0 /HPF (0.0-6.0) 09/01/20 01:00 U Epithel Cells (Auto) < 1.0 /HPF (0-13.0) 09/01/20 01:00 Urine Bacteria (Auto) 2+ /HPF (Negative) 09/01/20 01:00 Urine Mucus Few /HPF 09/01/20 01:00 Active Medications - Current Medications Current Medications: Generic Name Dose Route Start Last Admin Trade Name Freq PRN Reason Stop Dose Admin Acetaminophen 650 mg 09/01/20 07:24 Acetaminophen 325 Mg Tab PO Q4H PRN Pain MILD(1-3)/Fever >100.5/LORA Albuterol 2.5 mg 09/01/20 08:28 Albuterol 2.5 Mg/3 Ml Nebu IH Q4HRT PRN Shortness Of Breath Famotidine 20 mg 09/01/20 10:00 Famotidine 20 Mg Tab PO BID CINTHIA Heparin Sodium (Porcine) 5,000 unit 09/01/20 14:00 Heparin 5,000 Unit/1 Ml Vial SUB-Q Q8HR CINTHIA Hydromorphone HCl 0.25 mg 09/01/20 07:24 Hydromorphone 1 Mg/1 Ml Inj IV Q3H PRN Pain, Moderate (4-6) Potassium Chloride 10 meq in 100 mls @ 100 mls/hr 09/01/20 09:00 Kcl 10meq/100ml IV 09/01/20 12:59 Q1H CINTHIA Metoclopramide HCl 10 mg 09/01/20 07:24 Metoclopramide 10 Mg/2 Ml Inj IV Q6H PRN Nausea And Vomiting Ondansetron HCl 4 mg 09/01/20 07:24 Ondansetron 4 Mg/2 Ml Inj IV Q8H PRN Nausea And Vomiting Oxycodone/Acetaminophen 1 tab 09/01/20 09:00 Oxycodone /Acetaminophen 5-325mg Tab PO Q6H PRN Pain, Moderate (4-6) Potassium Chloride 40 meq 09/01/20 08:30 09/01/20 09:41 Potassium Chloride Er 20 Meq Tab PO 09/01/20 16:31 40 meq Q4H CINTHIA Administration Sodium Chloride 10 ml 09/01/20 10:00 Sodium Chloride 0.9% 10 Ml Flush Syringe IV BID CINTHIA Sodium Chloride 10 ml 09/01/20 07:24 Sodium Chloride 0.9% 10 Ml Flush Syringe IV PRN PRN LINE FLUSH
[2020-09-01 12:11] LABS: Hemoglobin 6.4 gm/dl (10.1-14.3)
[2020-09-01 12:21] LABS: INR 1.31 (0.87-1.13)
[2020-09-01 12:29] LABS: % Iron Saturation 120.41 %
[2020-09-01] MEDS: cefTRIAXone/NS 1 GM/50 ML 1 GM/50 ML BAG IV SCH (13:00)
[2020-09-01] MEDS: HEPARIN 5,000 UNIT/1 ML VIAL SUB-Q SCH ×2 (13:00→22:17)
[2020-09-01] MEDS: FAMOTIDINE 20 MG TAB PO SCH ×2 (13:01→22:15)
[2020-09-01] MEDS: methylPREDNISolone Sod Succinate 40 MG/1 ML INJ IV SCH ×2 (13:02→22:15)
[2020-09-01] MEDS: IPRATROPIUM/ALBUTEROL SULFATE 3 ML AMPUL.NEB IH SCH (13:05)
[2020-09-01] MEDS: POTASSIUM CHLORIDE 10 MEQ 10 MEQ/100 ML BAG IV SCH ×4 (14:00→17:20)
[2020-09-01] MEDS ORDERED: SODIUM CHLORIDE 0.9% 500 ML 500 ML IV SCH (15:04)
--- NOTE | 2020-09-01 15:27 | Consultation ---
History of Present Illness - Reason for Consult Consult date: 09/01/20 other (Low albumin) - History of Present Illness The patient is a 60 YO AAF with history significant for Hypertension, Anemia, Fatty Liver, HFpEF and Tobacco smoking who presented to [facility] ED with c/o generalized weakness and swelling of the lower extremities. Patient is a very poor historian due to AMS. Patient had low oxygen saturations of 85% on room air in the emergency room. Patient denies any cough, shortness of breath, fever, chills, cp, N, V, D, abd pain or exposure to coronavirus. On further evaluation he was found to have Acute hypoxic respiratory failure 2/2 volume overload & COPD exacerbation, Hypoalbuminemia and elevated troponin. Nephrology was consulted to r/o renal cause for hypoalbuminemia. Past History Past Medical History: other (No known past medical history) Medications and Allergies Allergies Allergy/AdvReac Type Severity Reaction Status Date / Time No Known Allergies Allergy Unverified 08/31/20 22:07 Home Medications Medication Instructions Recorded Confirmed Last Taken Type Lasix TAB 40 mg PO ONCE 09/01/20 09/01/20 08/31/20 History Lopressor 50 mg PO BID 09/01/20 09/01/20 08/31/20 History Pantoprazole 40 mg PO ONCE 09/01/20 09/01/20 08/31/20 History amLODIPine 10 mg PO ONCE 09/01/20 09/01/20 08/31/20 History hydrALAZINE 25 mg PO TID 09/01/20 09/01/20 08/31/20 History Active Meds: Active Medications Acetaminophen (Acetaminophen 325 Mg Tab) 650 mg PO Q4H PRN PRN Reason: Pain MILD(1-3)/Fever >100.5/LORA Albuterol (Albuterol 2.5 Mg/3 Ml Nebu) 2.5 mg IH Q4HRT PRN PRN Reason: Shortness Of Breath Albuterol/Ipratropium (Ipratropium/Albuterol Sulfate 3 Ml Ampul.Neb) 1 ampul IH Q6HRT [facility], [facility]1983 Last Admin: 09/01/20 13:05 Dose: 1 ampul Documented by: Famotidine (Famotidine 20 Mg Tab) 20 mg PO BID [facility], [facility]1983 Last Admin: 09/01/20 13:01 Dose: 20 mg Documented by: Heparin Sodium (Porcine) (Heparin 5,000 Unit/1 Ml Vial) 5,000 unit SUB-Q Q8HR [facility], [facility]1983 Last Admin: 09/01/20 13:00 Dose: 5,000 unit Documented by: Hydromorphone HCl (Hydromorphone 1 Mg/1 Ml Inj) 0.25 mg IV Q3H PRN PRN Reason: Pain, Moderate (4-6) Ceftriaxone Sodium (Rocephin/Ns 1 Gm/50 Ml) 1 gm in 50 mls @ 100 mls/hr IV Q24H [facility], [facility]1983; Protocol Last Admin: 09/01/20 13:00 Dose: 100 mls/hr Documented by: Sodium Chloride (Nacl 0.9% 500 Ml) 500 mls @ 0 mls/hr IV ONCE [facility], [facility]1983 Methylprednisolone Sodium Succinate (Methylprednisolone Sod Succinate 40 Mg/1 Ml Inj) 40 mg IV Q8HR [facility], [facility] Last Admin: 09/01/20 13:02 Dose: 40 mg Documented by: Metoclopramide HCl (Metoclopramide 10 Mg/2 Ml Inj) 10 mg IV Q6H PRN PRN Reason: Nausea And Vomiting Ondansetron HCl (Ondansetron 4 Mg/2 Ml Inj) 4 mg IV Q8H PRN PRN Reason: Nausea And Vomiting Oxycodone/Acetaminophen (Oxycodone /Acetaminophen 5-325mg Tab) 1 tab PO Q6H PRN PRN Reason: Pain, Moderate (4-6) Potassium Chloride (Potassium Chloride Er 20 Meq Tab) 40 meq PO Q4H [facility] Stop: 09/01/20 16:31 Last Admin: 09/01/20 14:13 Dose: 40 meq Documented by: Sodium Chloride (Sodium Chloride 0.9% 10 Ml Flush Syringe) 10 ml IV BID [facility], [facility]1983 Last Admin: 09/01/20 13:01 Dose: 10 ml Documented by: Sodium Chloride (Sodium Chloride 0.9% 10 Ml Flush Syringe) 10 ml IV PRN PRN PRN Reason: LINE FLUSH Review of Systems ROS unobtainable: due to mental status Exam - Vital Signs Vital signs: Vital Signs Temp Pulse Resp BP Pulse Ox 98.7 F 88 16 155/85 98 08/31/20 21:00 08/31/20 21:00 08/31/20 21:00 08/31/20 21:00 08/31/20 21:00 Results - Lab Results 09/01/20 11:02 09/01/20 00:09 Most recent lab results Calcium 6.2 mg/dL (8.4-10.2) L 09/01/20 00:09 Assessment and Plan 1. Hypoalbuminemia: Albumin level 1.6 on admission. During the recent admission (06/2020) to [facility] albumin level was between 1.4 and 1.6. UA showed minimal proteinuria. Urine protein quantification ordered. Likely secondary to Liver disease. 2. FEN: Volume overload, on Lasix. Replete K. Monitor lytes and volume status. 3. Acute hypoxic respiratory failure, POA: 2/2 volume overload/CHF and COPD exacerbation. Continue O2 to maintain sats greater than 92%. 4. Acute COPD exacerbation: Patient does report 30 pack year history. Per primary. 5. HFpEF: Seen by Cards. 6. Elevated troponin: Cardiology following. 7. Acute on chronic anemia: PRBC ordered. 8. Acute metabolic encephalopathy. Will sign off. Please call with any questions. Subjective: Patient was seen and examined at the bedside. Examination: General appearance: well-developed, appears stated age, no distress HEENT: ATNC, facial plethora noted Neck: neck supple, trachea midline Respiratory: Clear to Auscultation Heart: S1S2, no murmur Abdomen: soft, normoactive bowel sounds, not tender, not distended Integumentary: no obvious rash Neurologic: alert, confused, moving extremities Musculoskeletal: no joint swelling or edema noted
[2020-09-02] MEDS: LOSARTAN 50 MG TAB PO SCH ×2 (02:21→10:34)
[2020-09-02] MEDS: amLODIPine 10 MG TAB PO SCH ×2 (02:21→10:34)
[2020-09-02] MEDS: IPRATROPIUM/ALBUTEROL SULFATE 3 ML AMPUL.NEB IH SCH ×5 (03:50→20:02)
[2020-09-02] MEDS: methylPREDNISolone Sod Succinate 40 MG/1 ML INJ IV SCH ×3 (05:28→23:33)
[2020-09-02] MEDS: HEPARIN 5,000 UNIT/1 ML VIAL SUB-Q SCH ×3 (05:29→23:33)
--- NOTE | 2020-09-02 08:39 | Progress Note ---
Assessment and Plan Echocardiogram 06/2020 - EF normal, grade 1 diastolic dysfunction mild to moderate pulmonary hypertension Impression 1. Elevated cardiac enzymes likely non-DE troponin 2. Anasarca elevated BNP likely congestive heart failure possibly diastolic congestive heart failure. Recent echo at [facility] revealed normal LV systolic function grade 1 diastolic dysfunction mild pulmonary hypertension. Patient also has liver disease anemia thrombocytopenia and hypoalbuminemia likely secondary to liver disease 3. Severe hypoalbuminemia probably secondary to liver disease patient with history of remote alcohol abuse 4. Severe hypokalemia 5. Hypocalcemia Spurious in the setting of low albumin 6. Severe anemia 7. Hypertension uncontrolled Plan 1. Start patient on spironolactone in view of the elevated blood pressure and persistent hypokalemia. Continue amlodipine and losartan. Blood pressure still elevated start carvedilol. 2. Cautious use of IV diuretics in the setting of hypokalemia. 3. Replete potassium 4. Consider IV albumin with diuretics 5. No need to repeat echocardiogram echo recently done at [facility], report as above Subjective Date of service: 09/02/20 Principal diagnosis: Anasarca Interval history: Patient reports she is feeling much better. Wants to go home Objective Vital Signs Temp Pulse Pulse Pulse Pulse Pulse Resp 09/02/20 08:00 97.8 F 68 18 09/02/20 04:59 98.4 F 66 20 09/02/20 04:29 98.3 F 73 20 09/02/20 04:22 75 09/02/20 03:59 98.8 F 75 20 09/02/20 03:29 98.8 F 75 20 09/02/20 02:59 98.7 F 88 20 09/02/20 02:44 98.6 F 79 20 09/02/20 02:21 79 09/01/20 23:15 98.4 F 110 H 20 09/01/20 23:00 66 09/01/20 21:05 78 09/01/20 20:10 99.0 F 93 H 20 09/01/20 19:56 98 H 98 H 98 H 19 09/01/20 19:21 57 L 13 09/01/20 19:11 55 L 13 09/01/20 19:00 55 L 26 H 09/01/20 18:51 53 L 20 09/01/20 18:41 53 L 18 12/26/20 18:31 52 L 19 09/01/20 18:29 55 L 13 09/01/20 17:19 97.9 F 91 H 18 09/01/20 15:56 67 09/01/20 13:08 77 09/01/20 11:30 77 20 09/01/20 11:21 76 19 09/01/20 11:14 77 17 09/01/20 11:11 86 18 09/01/20 11:00 83 19 09/01/20 10:51 84 20 09/01/20 10:41 87 18 09/01/20 10:30 84 18 09/01/20 10:21 89 19 09/01/20 10:11 86 17 09/01/20 10:00 86 17 09/01/20 09:51 87 14 09/01/20 09:41 86 17 09/01/20 09:31 94 H 10 L 09/01/20 09:21 87 18 09/01/20 09:11 91 H 17 09/01/20 09:00 88 17 09/01/20 08:53 98.9 F Resp BP BP Pulse Ox 09/02/20 08:00 170/97 100 09/02/20 04:59 183/104 98 09/02/20 04:29 188/102 99 09/02/20 04:22 182/99 09/02/20 03:59 182/99 100 09/02/20 03:29 181/97 100 09/02/20 02:59 177/102 100 09/02/20 02:44 182/96 09/02/20 02:21 182/96 09/01/20 23:15 127/77 99 09/01/20 23:00 09/01/20 21:05 18 09/01/20 20:10 168/99 99 09/01/20 19:56 99 09/01/20 19:21 249/106 94 09/01/20 19:11 249/106 95 09/01/20 19:00 249/106 96 09/01/20 18:51 234/105 95 09/01/20 18:41 151/82 09/01/20 18:31 151/82 09/01/20 18:29 151/82 09/01/20 17:19 176/90 100 09/01/20 15:56 09/01/20 13:08 18 09/01/20 11:30 151/82 09/01/20 11:21 159/78 09/01/20 11:14 159/78 100 09/01/20 11:11 159/78 09/01/20 11:00 159/78 09/01/20 10:51 148/79 09/01/20 10:41 148/79 09/01/20 10:30 148/79 09/01/20 10:21 139/74 09/01/20 10:11 139/74 09/01/20 10:00 139/74 09/01/20 09:51 162/75 09/01/20 09:41 143/75 09/01/20 09:31 143/75 09/01/20 09:21 162/75 09/01/20 09:11 162/75 09/01/20 09:00 162/75 09/01/20 08:53 - Physical Examination Narrative exam: Anasarca noted HEENT: Positive: Normocephaly Neck: Positive: neck supple Cardiac: Positive: Reg Rate and Rhythm Lungs: Positive: clear to auscultation Neuro: Positive: Grossly Intact Abdomen: Positive: Unremarkable Extremities: Present: +1 Edema (Bilaterally) - Labs and Meds Coagulation 09/01/20 Range/Units 11:02 PT 16.3 H (12.2-14.9) Sec. INR 1.31 H (0.87-1.13) APTT 40.0 H (24.2-36.6) Sec. CBC 09/01/20 Range/Units 11:02 Hgb 6.4 L (10.1-14.3) gm/dl Hct 19.0 L* (30.3-42.9) % Plt Count 131 L (140-440) K/mm3 - Imaging and Cardiology EKG: report reviewed (Sinus rhythm, heart rate of 83/min no acute ST-T wave changes.)
--- NOTE | 2020-09-02 09:18 | Progress Note ---
Assessment and Plan Assessment and plan: Acute hypoxic respiratory failure. Etiology secondary to volume overload/mild CHF and COPD exacerbation. Continue O2 to maintain sats greater than 92% Acute COPD exacerbation. Patient has never had diagnosis of COPD but she is a poor historian. Patient does report 30 pack year history. Hypoalbuminemia. Nephrology consultation for 24-hour urine possible nephrotic syndrome Elevated troponin. ?NSTEMI. Follow-up echocardiogram. Cardiology following. Hypokalemia. Replete potassium. Hypocalcemia. Replete calcium. Anemia. Check Hemoccult of stool and transfuse for hemoglobin less than 7. 09/02/2020. Cardiology started the patient on spironolactone. Continue Norvasc and losartan for blood pressure control. Albumin level on admission 1.6. During a recent admission (06/2020) to [facility] albumin level was between 1.4 and 1.6. Urinalysis at that time showed minimal proteinuria. Continue steroids, bronchodilators/nebulizers for COPD. History Interval history: No new issues overnight. Hospitalist Physical - Constitutional Vitals: Temp Pulse Resp BP Pulse Ox 97.8 F 68 18 170/97 100 09/02/20 08:00 09/02/20 08:00 09/02/20 08:00 09/02/20 08:00 09/02/20 08:00 General appearance: Present: other (Anasarca noted) - EENT Eyes: Present: PERRL, EOM intact ENT: hearing intact, clear oral mucosa, dentition normal - Neck Neck: Present: supple, normal ROM - Respiratory Respiratory effort: normal Respiratory: bilateral: CTA - Cardiovascular Rhythm: regular Heart Sounds: Present: S1 & S2. Absent: gallop, rub - Extremities Extremities: no ischemia, No edema, Full ROM - Abdominal General gastrointestinal: soft, non-tender, non-distended, normal bowel sounds - Integumentary Integumentary: Present: clear, warm, dry - Neurologic Neurologic: CNII-XII intact, moves all extremities HEART Score - HEART Score Age: 45-65 Risk factors: 1-2 risk factors Troponin: Troponin T 0.067 ng/mL (0.00-0.029) H 09/01/20 03:07 Troponin: 1-3x normal limit - Critical Actions Critical Actions: 4-6 pts:12-16.6% risk of adverse cardiac event. Should be admitted Results - Labs CBC & Chem 7: 09/01/20 11:02 09/01/20 00:09 Labs: Laboratory Last Values WBC 9.3 K/mm3 (4.5-11.0) 08/31/20 21: RBC 2.32 M/mm3 (3.65-5.03) L 08/31/20 21:20 Hgb 6.4 gm/dl (10.1-14.3) L 09/01/20 11:02 Hct 19.0 % (30.3-42.9) L* 09/01/20 11:02 MCV 99 fl (79-97) H 08/31/20 21:20 MCH 33 pg (28-32) H 08/31/20 21: MCHC 33 % (30-34) 08/31/20 21: RDW 18.9 % (13.2-15.2) H 08/31/20 21:20 Plt Count 131 K/mm3 (140-440) L 09/01/20 11:02 Lymph % (Auto) 10.0 % (13.4-35.0) L 08/31/20 21:20 [place] % (Auto) 8.8 % (0.0-7.3) H 08/31/20 21: Eos % (Auto) 0.0 % (0.0-4.3) 08/31/20 21: Baso % (Auto) 0.4 % (0.0-1.8) 08/31/20 21: Lymph # (Auto) 0.9 K/mm3 (1.2-5.4) L 08/31/20 21: [place] # (Auto) 0.8 K/mm3 (0.0-0.8) 08/31/20 21:20 Eos # (Auto) 0.0 K/mm3 (0.0-0.4) 08/31/20 21: Baso # (Auto) 0.0 K/mm3 (0.0-0.1) 08/31/20 21: Seg Neutrophils % 80.8 % (40.0-70.0) H 08/31/20 21: Seg Neutrophils # 7.5 K/mm3 (1.8-7.7) 08/31/20 21:20 PT 16.3 Sec. (12.2-14.9) H 09/01/20 11:02 INR 1.31 (0.87-1.13) H 09/01/20 11:02 APTT 40.0 Sec. (24.2-36.6) H 09/01/20 11:02 Sodium 140 mmol/L (137-145) 09/01/20 00:09 Potassium 2.9 mmol/L (3.6-5.0) L* 09/01/20 00:09 Chloride 102.6 mmol/L (98-107) 09/01/20 00:09 Carbon Dioxide 31 mmol/L (22-30) H 09/01/20 00:09 Anion Gap 9 mmol/L 09/01/20 00:09 BUN 13 mg/dL (7-17) 09/01/20 00:09 Creatinine 1.1 mg/dL (0.6-1.2) 09/01/20 00:09 Estimated GFR > 60 ml/min 09/01/20 00:09 BUN/Creatinine Ratio 12 % 09/01/20 00:09 Glucose 107 mg/dL (65-100) H 09/01/20 00:09 Hemoglobin A1c 4.1 % (4-6) 09/01/20 11:02 Calcium 6.2 mg/dL (8.4-10.2) L 09/01/20 00:09 Iron 59 ug/dL (37-170) 09/01/20 11:02 TIBC 49 mcg/dL (250-450) L 09/01/20 11:02 % Saturation 120.41 % 09/01/20 11:02 Transferrin 50 mg/dl (192-382) L 09/01/20 11:02 Total Bilirubin 0.80 mg/dL (0.1-1.2) 09/01/20 00:09 AST 49 units/L (5-40) H 09/01/20 00:09 ALT 7 units/L (7-56) 09/01/20 00:09 Alkaline Phosphatase 91 units/L (35-129) 09/01/20 00:09 Troponin T 0.067 ng/mL (0.00-0.029) H 09/01/20 03:07 NT-Pro-B Natriuret Pep 2196 pg/mL (0-900) H 09/01/20 00:09 Total Protein 7.2 g/dL (6.3-8.2) 09/01/20 00:09 Albumin 1.6 g/dL (3.9-5) L 09/01/20 00:09 Albumin/Globulin Ratio 0.3 % 09/01/20 00:09 Triglycerides 105 mg/dL (2-149) 09/01/20 00:09 Cholesterol 74 mg/dL (50-199) 09/01/20 00:09 LDL Cholesterol Direct 20 mg/dL (50-130) L 09/01/20 00:09 HDL Cholesterol 21 mg/dL (40-59) L 09/01/20 00:09 Cholesterol/HDL Ratio 3.52 % 09/01/20 00:09 Vitamin B12 1202 pg/mL (211-911) H 09/01/20 11:02 TSH 2.030 mlU/mL (0.270-4.200) 08/31/20 21:20 Free T4 0.82 ng/dL (0.76-1.46) 08/31/20 21:20 Urine Color Yellow (Yellow) 09/01/20 01:00 Urine Turbidity Clear (Clear) 09/01/20 01:00 Urine pH 5.0 (5.0-7.0) 09/01/20 01:00 Ur Specific [place] 1.013 (1.003-1.030) 09/01/20 01:00 Urine Protein 100 mg/dl mg/dL (Negative) 09/01/20 01:00 Urine Glucose (UA) Neg mg/dL (Negative) 09/01/20 01:00 Urine Ketones Neg mg/dL (Negative) 09/01/20 01:00 Urine Blood Lg (Negative) 09/01/20 01:00 Urine Nitrite Neg (Negative) 09/01/20 01:00 Urine Bilirubin Neg (Negative) 09/01/20 01:00 Urine Urobilinogen 2.0 mg/dL (<2.0) 09/01/20 01:00 Ur Leukocyte Esterase Neg (Negative) 09/01/20 01:00 Urine WBC (Auto) 5.0 /HPF (0.0-6.0) 09/01/20 01:00 Urine RBC (Auto) 20.0 /HPF (0.0-6.0) 09/01/20 01:00 U Epithel Cells (Auto) < 1.0 /HPF (0-13.0) 09/01/20 01:00 Urine Bacteria (Auto) 2+ /HPF (Negative) 09/01/20 01:00 Urine Mucus Few /HPF 09/01/20 01:00 Blood Type O POSITIVE 09/01/20 18:23 Antibody Screen Negative 09/01/20 18:23 Crossmatch See Detail 09/01/20 18:23 - Diagnostic Impressions Diagnostic Impressions: Echocardiogram 09/01/20 07:28 Transthoracic Echocardiogram Indication: Swelling BP: 147/80 HR: 118 Conclusions *Global left ventricular wall motion and contractility are within normal limits. *The estimated ejection fraction is 60-65%. *Abnormal left ventricular diastolic filling is observed, consistent with grade 1 diastolic dysfunction. *The right ventricular global systolic function is normal. Findings Left Ventricle: The left ventricular chamber size is normal. There is no left ventricular hypertrophy. Global left ventricular wall motion and contractility are within normal limits. Global left ventricular systolic function is normal. The estimated ejection fraction is 60-65%. Abnormal left ventricular diastolic filling is observed, consistent with impaired relaxation. Left Atrium: The left atrial chamber size is normal. Right Ventricle: The right ventricular cavity size is normal. The right ventricular global systolic function is normal. Right Atrium: The right atrial cavity size is normal. Aortic Valve: There is no evidence of aortic valve thickening. There is no evidence of aortic regurgitation. Mitral Valve: The mitral valve leaflets are mildly thickened. There is mild mitral regurgitation. Tricuspid Valve: The tricuspid valve leaflets are normal. There is trace tricuspid regurgitation. Pulmonic Valve: There is no evidence of pulmonic valve thickening. There is no evidence of pulmonic regurgitation. Pericardium: There is no pericardial effusion. Aorta: The aorta appears normal. Venous: The inferior vena cava appears normal in size. Measurements Chambers 2D Name Value Normal Range IVSd (2D) 0.93 cm (0.6 - 1.1) LVPWd (2D) 1.02 cm (0.6 - 1.1) LVIDd (2D) 3.88 cm (3.7 - 5.6) LVIDs (2D) 2.31 cm (2 - 3.8) LV FS (2D) 40.42 % - EF Teichholz (2D) 71.8 % - Ao root diameter (2D) 2.47 cm (2 - 3.7) Volumes/Mass Name Value Normal Range LA ESV SP 4CH (A/L) 41.67 ml - LA ESV SP 2CH (A/L) 65.13 ml - LA ESV BP (A/L) 52.57 ml - LA ESV BP (A/L) index 33.27 ml/m2 - LA ESV SP 4CH (MOD) 36.67 ml - LA ESV SP 2CH (MOD) 61.15 ml - LA ESV BP (MOD) 47.5 ml - LA ESV BP (MOD) index 30.06 ml/m2 - Diastolic/Systolic Function Name Value Normal Range MV E-wave Vmax 0.91 m/sec - MV deceleration time 205.61 msec - MV A-wave Vmax 0.88 m/sec - MV E:A ratio 1.04 ratio - Aortic Valve Name Value Normal Range AV Vmax 1.29 m/sec - AV VTI 22.77 cm - AV peak gradient 6.61 mmHg - AV mean gradient 3.23 mmHg - LVOT diameter 2.02 cm - LVOT Vmax 1.15 m/sec - LVOT VTI 23.01 cm - LVOT peak gradient 5.32 mmHg - LVOT mean gradient 2.65 mmHg - SV LVOT 73.73 ml - AUBREY (continuity Vmax) 2.87 cm2 - AUBREY (continuity VTI) 3.24 cm2 - Tricuspid Valve Name Value Normal Range TR Vmax 2.67 m/sec - TR peak gradient 29 mmHg - RAP 3 mmHg - RVSP 32 mmHg - IVC diameter 1.42 cm (1.2 - 2.3) Pulmonic Valve/Qp:Qs Name Value Normal Range PV Vmax 0.94 m/sec - PV peak gradient 3.51 mmHg - PV acceleration time 98.95 msec - [place]/IV: Voiding Method Incontinent IV Catheter Type [Left Hand] INT / Saline Lock Active Medications - Current Medications Current Medications: Generic Name Dose Route Start Last Admin Trade Name Freq PRN Reason Stop Dose Admin Acetaminophen 650 mg 09/01/20 07:24 Acetaminophen 325 Mg Tab PO Q4H PRN Pain MILD(1-3)/Fever >100.5/LORA Albuterol 2.5 mg 09/01/20 08:28 Albuterol 2.5 Mg/3 Ml Nebu IH Q4HRT PRN Shortness Of Breath Albuterol/Ipratropium 1 ampul 09/01/20 14:00 09/02/20 07:40 Ipratropium/Albuterol Sulfate 3 Ml Ampul.Neb IH 1 ampul Q6HRT CINTHIA Administration Amlodipine Besylate 10 mg 09/02/20 02:31 09/02/20 02:21 Amlodipine 10 Mg Tab PO 10 mg QDAY CINTHIA Administration Famotidine 20 mg 09/01/20 10:00 09/01/20 22:15 Famotidine 20 Mg Tab PO 20 mg BID CINTHIA Administration Heparin Sodium (Porcine) 5,000 unit 09/01/20 14:00 09/02/20 05:29 Heparin 5,000 Unit/1 Ml Vial SUB-Q 5,000 unit Q8HR CINTHIA Administration Hydromorphone HCl 0.25 mg 09/01/20 07:24 Hydromorphone 1 Mg/1 Ml Inj IV Q3H PRN Pain, Moderate (4-6) Ceftriaxone Sodium 1 gm in 50 mls @ 100 mls/hr 09/01/20 11:00 09/01/20 13:00 Rocephin/Ns 1 Gm/50 Ml IV 100 mls/hr Q24H CINTHIA Administration Protocol Sodium Chloride 500 mls @ 0 mls/hr 09/01/20 15:04 09/02/20 01:53 Nacl 0.9% 500 Ml IV 50 mls/hr ONCE CINTHIA Administration As Directed Labetalol HCl 10 mg 09/02/20 02:12 09/02/20 04:22 Labetalol 20 Mg/4 Ml Inj IV 10 mg Q2H PRN Administration Hypertension Losartan Potassium 100 mg 09/02/20 02:30 09/02/20 02:21 Losartan 50 Mg Tab PO 100 mg QDAY CINTHIA Administration Methylprednisolone Sodium Succinate 40 mg 09/01/20 14:00 09/02/20 05:28 Methylprednisolone Sod Succinate 40 Mg/1 Ml Inj IV 40 mg Q8HR CINTHIA Administration Metoclopramide HCl 10 mg 09/01/20 07:24 Metoclopramide 10 Mg/2 Ml Inj IV Q6H PRN Nausea And Vomiting Ondansetron HCl 4 mg 09/01/20 07:24 Ondansetron 4 Mg/2 Ml Inj IV Q8H PRN Nausea And Vomiting Oxycodone/Acetaminophen 1 tab 09/01/20 09:00 Oxycodone /Acetaminophen 5-325mg Tab PO Q6H PRN Pain, Moderate (4-6) Sodium Chloride 10 ml 09/01/20 10:00 09/01/20 22:17 Sodium Chloride 0.9% 10 Ml Flush Syringe IV 10 ml BID CINTHIA Administration Sodium Chloride 10 ml 09/01/20 07:24 Sodium Chloride 0.9% 10 Ml Flush Syringe IV PRN PRN LINE FLUSH Spironolactone 25 mg 09/02/20 10:00 Spironolactone 25 Mg Tab PO QDAY CINTHIA
[2020-09-02] MEDS: SPIRONOLACTONE 25 MG TAB PO SCH (10:34)
[2020-09-02] MEDS: FAMOTIDINE 20 MG TAB PO SCH ×2 (10:34→23:33)
[2020-09-02 14:09] LABS: Hematocrit 27.1 % (30.3-42.9); Hemoglobin 9.3 gm/dl (10.1-14.3); Mean Corpuscular HGB Conc 35 % (30-34); Mean Corpuscular Volume 97 fl (79-97); Platelet Count 158 K/mm3 (140-440); Red Blood Count 2.81 M/mm3 (3.65-5.03)
[2020-09-02 14:10] LABS: Red Cell Distribution Width 20.8 % (13.2-15.2)
[2020-09-02 14:26] LABS: Alanine Aminotransferase 8 units/L (7-56); Albumin 1.6 g/dL (3.9-5); BUN/Creatinine Ratio 18; Blood Urea Nitrogen 16 mg/dL (7-17); Calcium 7.3 mg/dL (8.4-10.2); Hemolysis Index 30
[2020-09-02 15:09] LABS: Band Neutrophils # (Manual) 0.1 K/mm3; Total Cells Counted 100
[2020-09-02 15:10] LABS: Anisocytosis 1+
[2020-09-02] MEDS: cefTRIAXone/NS 1 GM/50 ML 1 GM/50 ML BAG IV SCH (18:03)
[2020-09-02] MEDS ORDERED: MAGNESIUM SULFATE 1 GM in SODIUM CHLORIDE 0.9% 50 ML IV ONE (21:42)
[2020-09-03] MEDS: IPRATROPIUM/ALBUTEROL SULFATE 3 ML AMPUL.NEB IH SCH ×4 (01:36→20:50)
[2020-09-03 05:42] LABS: Hematocrit 34.6 % (30.3-42.9); Hemoglobin 11.7 gm/dl (10.1-14.3)
[2020-09-03] MEDS: methylPREDNISolone Sod Succinate 40 MG/1 ML INJ IV SCH ×3 (05:59→22:23)
[2020-09-03] MEDS: HEPARIN 5,000 UNIT/1 ML VIAL SUB-Q SCH ×3 (05:59→22:23)
[2020-09-03 06:01] LABS: Calcium 7.5 mg/dL (8.4-10.2); Hemolysis Index 4
[2020-09-03 06:19] LABS: BUN/Creatinine Ratio 20; Blood Urea Nitrogen 16 mg/dL (7-17)
--- NOTE | 2020-09-03 08:51 | Progress Note ---
Assessment and Plan Assessment and plan: Acute hypoxic respiratory failure. Etiology secondary to volume overload/mild CHF and COPD exacerbation. Continue O2 to maintain sats greater than 92% Acute COPD exacerbation. Patient has never had diagnosis of COPD but she is a poor historian. Patient does report 30 pack year history. Hypoalbuminemia. Nephrology consultation for 24-hour urine possible nephrotic syndrome Elevated troponin. ?NSTEMI. Follow-up echocardiogram. Cardiology following. Hypokalemia. Replete potassium. Hypocalcemia. Replete calcium. Anemia. Check Hemoccult of stool and transfuse for hemoglobin less than 7. 09/02/2020. Cardiology started the patient on spironolactone. Continue Norvasc and losartan for blood pressure control. Albumin level on admission 1.6. During a recent admission (06/2020) to [facility] albumin level was between 1.4 and 1.6. Urinalysis at that time showed minimal proteinuria. Continue steroids, bronchodilators/nebulizers for COPD. 08/26/2020. Respiratory failure has improved back to baseline. Patient currently satting 98% on room air. Etiology secondary to volume overload/diastolic heart failure & COPD exacerbation. Taper steroids. Nephrology was consulted to r/o renal cause for hypoalbuminemia. Consider IV albumin with diuretics as needed. Continue spironolactone per cardiology recommendations. Anemia resolved with 2 units PRBCs. H&H stable. No evidence of active bleeding. Cardiology following for elevated troponin and diastolic heart failure. History Interval history: No new issues overnight. Hospitalist Physical - Constitutional Vitals: Temp Pulse Resp BP Pulse Ox 97.7 F 74 18 184/97 98 09/03/20 07:33 09/03/20 08:00 09/03/20 07:38 09/03/20 07:33 09/03/20 07:38 General appearance: Present: other (Anasarca noted) - EENT Eyes: Present: PERRL, EOM intact ENT: hearing intact, clear oral mucosa, dentition normal - Neck Neck: Present: supple, normal ROM - Respiratory Respiratory effort: normal Respiratory: bilateral: CTA - Cardiovascular Rhythm: regular Heart Sounds: Present: S1 & S2. Absent: gallop, rub - Extremities Extremities: no ischemia, No edema, Full ROM - Abdominal General gastrointestinal: soft, non-tender, non-distended, normal bowel sounds - Integumentary Integumentary: Present: clear, warm, dry - Neurologic Neurologic: CNII-XII intact, moves all extremities HEART Score - HEART Score Age: 45-65 Risk factors: 1-2 risk factors Troponin: Troponin T 0.067 ng/mL (0.00-0.029) H 09/01/20 03:07 Troponin: 1-3x normal limit - Critical Actions Critical Actions: 4-6 pts:12-16.6% risk of adverse cardiac event. Should be admitted Results - Labs CBC & Chem 7: 09/03/20 04:59 09/03/20 04:59 Labs: Laboratory Last Values WBC 5.2 K/mm3 (4.5-11.0) 09/02/20 13:36 RBC 2.81 M/mm3 (3.65-5.03) L 09/02/20 13:36 Hgb 11.7 gm/dl (10.1-14.3) 09/03/20 04:59 Hct 34.6 % (30.3-42.9) D 09/03/20 04:59 MCV 97 fl (79-97) 09/02/20 13:36 MCH 33 pg (28-32) H 09/02/20 13:36 MCHC 35 % (30-34) H 09/02/20 13:36 RDW 20.8 % (13.2-15.2) H 09/02/20 13:36 Plt Count 159 K/mm3 (140-440) 09/03/20 04:59 Lymph % (Auto) 10.0 % (13.4-35.0) L 08/31/20 21:20 [place] % (Auto) 8.8 % (0.0-7.3) H 08/31/20 21:20 Eos % (Auto) 0.0 % (0.0-4.3) 08/31/20 21:20 Baso % (Auto) 0.4 % (0.0-1.8) 08/31/20 21:20 Lymph # (Auto) 0.9 K/mm3 (1.2-5.4) L 08/31/20 21:20 [place] # (Auto) 0.8 K/mm3 (0.0-0.8) 08/31/20 21:20 Eos # (Auto) 0.0 K/mm3 (0.0-0.4) 08/31/20 21:20 Baso # (Auto) 0.0 K/mm3 (0.0-0.1) 08/31/20 21:20 Add Manual Diff Complete 09/02/20 13:36 Total Counted 100 09/02/20 13:36 Seg Neutrophils % 80.8 % (40.0-70.0) H 08/31/20 21:20 Seg Neuts % (Manual) 92.0 % (40.0-70.0) H 09/02/20 13:36 Band Neutrophils % 2.0 % 09/02/20 13:36 Lymphocytes % (Manual) 4.0 % (13.4-35.0) L 09/02/20 13:36 Monocytes % (Manual) 2.0 % (0.0-7.3) 09/02/20 13:36 Nucleated RBC % Not Reportable 09/02/20 13:36 Seg Neutrophils # 7.5 K/mm3 (1.8-7.7) 08/31/20 21:20 Seg Neutrophils # Man 4.8 K/mm3 (1.8-7.7) 09/02/20 13:36 Band Neutrophils # 0.1 K/mm3 09/02/20 13:36 Lymphocytes # (Manual) 0.2 K/mm3 (1.2-5.4) L 09/02/20 13:36 Abs React Lymphs (Man) 0.0 K/mm3 09/02/20 13:36 Monocytes # (Manual) 0.1 K/mm3 (0.0-0.8) 09/02/20 13:36 Eosinophils # (Manual) 0.0 K/mm3 (0.0-0.4) 09/02/20 13:36 Basophils # (Manual) 0.0 K/mm3 (0.0-0.1) 09/02/20 13:36 Metamyelocytes # 0.0 K/mm3 09/02/20 13:36 Myelocytes # 0.0 K/mm3 09/02/20 13:36 Promyelocytes # 0.0 K/mm3 09/02/20 13:36 Blast Cells # 0.0 K/mm3 09/02/20 13:36 WBC Morphology Not Reportable 09/02/20 13:36 WBC Morphology TNR 09/02/20 13:36 Hypersegmented Neuts Not Reportable 09/02/20 13:36 Hyposegmented Neuts Not Reportable 09/02/20 13:36 Hypogranular Neuts Not Reportable 09/02/20 13:36 Smudge Cells Not Reportable 09/02/20 13:36 Toxic Granulation Not Reportable 09/02/20 13:36 Toxic Vacuolation Not Reportable 09/02/20 13:36 Dohle Bodies Not Reportable 09/02/20 13:36 Pelger-Huet Anomaly Not Reportable 09/02/20 13:36 Elsy Rods Not Reportable 09/02/20 13:36 Platelet Estimate Not Reportable 09/02/20 13:36 Clumped Platelets Not Reportable 09/02/20 13:36 Plt Clumps, EDTA Not Reportable 09/02/20 13:36 Large Platelets Not Reportable 09/02/20 13:36 Giant Platelets Not Reportable 09/02/20 13:36 Platelet Satelliting Not Reportable 09/02/20 13:36 Plt Morphology Comment Not Reportable 09/02/20 13:36 RBC Morphology Not Reportable 09/02/20 13:36 Dimorphic RBCs Not Reportable 09/02/20 13:36 Polychromasia Not Reportable 09/02/20 13:36 Hypochromasia Not Reportable 09/02/20 13:36 Poikilocytosis Not Reportable 09/02/20 13:36 Anisocytosis 1+ 09/02/20 13:36 Microcytosis Not Reportable 09/02/20 13:36 Macrocytosis Not Reportable 09/02/20 13:36 Spherocytes Not Reportable 09/02/20 13:36 Pappenheimer Bodies Not Reportable 09/02/20 13:36 Sickle Cells Not Reportable 09/02/20 13:36 Target Cells Not Reportable 09/02/20 13:36 Tear Drop Cells Not Reportable 09/02/20 13:36 Ovalocytes Not Reportable 09/02/20 13:36 Helmet Cells Not Reportable 09/02/20 13:36 [place] Bodies Not Reportable 09/02/20 13:36 [place] Rings Not Reportable 09/02/20 13:36 [place] Cells Not Reportable 09/02/20 13:36 Bite Cells Not Reportable 09/02/20 13:36 Crenated Cell Not Reportable 09/02/20 13:36 Elliptocytes Not Reportable 09/02/20 13:36 Acanthocytes (Spur) Not Reportable 09/02/20 13:36 Rouleaux Not Reportable 09/02/20 13:36 Hemoglobin C Crystals Not Reportable 09/02/20 13:36 Schistocytes Not Reportable 09/02/20 13:36 Malaria parasites Not Reportable 09/02/20 13:36 David Bodies Not Reportable 09/02/20 13:36 Hem Pathologist Commnt No 09/02/20 13:36 PT 16.3 Sec. (12.2-14.9) H 09/01/20 11:02 INR 1.31 (0.87-1.13) H 09/01/20 11:02 APTT 40.0 Sec. (24.2-36.6) H 09/01/20 11:02 Sodium 141 mmol/L (137-145) 09/03/20 04:59 Potassium 4.9 mmol/L (3.6-5.0) 09/03/20 04:59 Chloride 107.0 mmol/L (98-107) 09/03/20 04:59 Carbon Dioxide 25 mmol/L (22-30) 09/03/20 04:59 Anion Gap 14 mmol/L 09/03/20 04:59 BUN 16 mg/dL (7-17) 09/03/20 04:59 Creatinine 0.8 mg/dL (0.6-1.2) 09/03/20 04:59 Estimated GFR > 60 ml/min 09/03/20 04:59 BUN/Creatinine Ratio 20 % 09/03/20 04:59 Glucose 149 mg/dL (65-100) H 09/03/20 04:59 Hemoglobin A1c 4.1 % (4-6) 09/01/20 11:02 Calcium 7.5 mg/dL (8.4-10.2) L 09/03/20 04:59 Magnesium 1.70 mg/dL (1.7-2.3) 09/03/20 04:59 Iron 59 ug/dL (37-170) 09/01/20 11:02 TIBC 49 mcg/dL (250-450) L 09/01/20 11:02 % Saturation 120.41 % 09/01/20 11:02 Transferrin 50 mg/dl (192-382) L 09/01/20 11:02 Total Bilirubin 0.30 mg/dL (0.1-1.2) 09/02/20 13:36 AST 56 units/L (5-40) H 09/02/20 13:36 ALT 8 units/L (7-56) 09/02/20 13:36 Alkaline Phosphatase 112 units/L (35-129) 09/02/20 13:36 Troponin T 0.067 ng/mL (0.00-0.029) H 09/01/20 03:07 NT-Pro-B Natriuret Pep 2196 pg/mL (0-900) H 09/01/20 00:09 Total Protein 7.9 g/dL (6.3-8.2) 09/02/20 13:36 Albumin 1.6 g/dL (3.9-5) L 09/02/20 13:36 Albumin/Globulin Ratio 0.3 % 09/02/20 13:36 Triglycerides 105 mg/dL (2-149) 09/01/20 00:09 Cholesterol 74 mg/dL (50-199) 09/01/20 00:09 LDL Cholesterol Direct 20 mg/dL (50-130) L 09/01/20 00:09 HDL Cholesterol 21 mg/dL (40-59) L 09/01/20 00:09 Cholesterol/HDL Ratio 3.52 % 09/01/20 00:09 Vitamin B12 1202 pg/mL (211-911) H 09/01/20 11:02 TSH 2.030 mlU/mL (0.270-4.200) 08/31/20 21:20 Free T4 0.82 ng/dL (0.76-1.46) 08/31/20 21:20 Urine Color Yellow (Yellow) 09/01/20 01:00 Urine Turbidity Clear (Clear) 09/01/20 01:00 Urine pH 5.0 (5.0-7.0) 09/01/20 01:00 Ur Specific [place] 1.013 (1.003-1.030) 09/01/20 01:00 Urine Protein 100 mg/dl mg/dL (Negative) 09/01/20 01:00 Urine Glucose (UA) Neg mg/dL (Negative) 09/01/20 01:00 Urine Ketones Neg mg/dL (Negative) 09/01/20 01:00 Urine Blood Lg (Negative) 09/01/20 01:00 Urine Nitrite Neg (Negative) 09/01/20 01:00 Urine Bilirubin Neg (Negative) 09/01/20 01:00 Urine Urobilinogen 2.0 mg/dL (<2.0) 09/01/20 01:00 Ur Leukocyte Esterase Neg (Negative) 09/01/20 01:00 Urine WBC (Auto) 5.0 /HPF (0.0-6.0) 09/01/20 01:00 Urine RBC (Auto) 20.0 /HPF (0.0-6.0) 09/01/20 01:00 U Epithel Cells (Auto) < 1.0 /HPF (0-13.0) 09/01/20 01:00 Urine Bacteria (Auto) 2+ /HPF (Negative) 09/01/20 01:00 Urine Mucus Few /HPF 09/01/20 01:00 Blood Type O POSITIVE 09/01/20 18:23 Antibody Screen Negative 09/01/20 18:23 Crossmatch See Detail 09/01/20 18:23 - Diagnostic Impressions Diagnostic Impressions: Echocardiogram 09/01/20 07:28 Transthoracic Echocardiogram Indication: Swelling BP: 147/80 HR: 118 Conclusions *Global left ventricular wall motion and contractility are within normal limits. *The estimated ejection fraction is 60-65%. *Abnormal left ventricular diastolic filling is observed, consistent with grade 1 diastolic dysfunction. *The right ventricular global systolic function is normal. Findings Left Ventricle: The left ventricular chamber size is normal. There is no left ventricular hypertrophy. Global left ventricular wall motion and contractility are within normal limits. Global left ventricular systolic function is normal. The estimated ejection fraction is 60-65%. Abnormal left ventricular diastolic filling is observed, consistent with impaired relaxation. Left Atrium: The left atrial chamber size is normal. Right Ventricle: The right ventricular cavity size is normal. The right ventricular global systolic function is normal. Right Atrium: The right atrial cavity size is normal. Aortic Valve: There is no evidence of aortic valve thickening. There is no evidence of aortic regurgitation. Mitral Valve: The mitral valve leaflets are mildly thickened. There is mild mitral regurgitation. Tricuspid Valve: The tricuspid valve leaflets are normal. There is trace tricuspid regurgitation. Pulmonic Valve: There is no evidence of pulmonic valve thickening. There is no evidence of pulmonic regurgitation. Pericardium: There is no pericardial effusion. Aorta: The aorta appears normal. Venous: The inferior vena cava appears normal in size. Measurements Chambers 2D Name Value Normal Range IVSd (2D) 0.93 cm (0.6 - 1.1) LVPWd (2D) 1.02 cm (0.6 - 1.1) LVIDd (2D) 3.88 cm (3.7 - 5.6) LVIDs (2D) 2.31 cm (2 - 3.8) LV FS (2D) 40.42 % - EF Teichholz (2D) 71.8 % - Ao root diameter (2D) 2.47 cm (2 - 3.7) Volumes/Mass Name Value Normal Range LA ESV SP 4CH (A/L) 41.67 ml - LA ESV SP 2CH (A/L) 65.13 ml - LA ESV BP (A/L) 52.57 ml - LA ESV BP (A/L) index 33.27 ml/m2 - LA ESV SP 4CH (MOD) 36.67 ml - LA ESV SP 2CH (MOD) 61.15 ml - LA ESV BP (MOD) 47.5 ml - LA ESV BP (MOD) index 30.06 ml/m2 - Diastolic/Systolic Function Name Value Normal Range MV E-wave Vmax 0.91 m/sec - MV deceleration time 205.61 msec - MV A-wave Vmax 0.88 m/sec - MV E:A ratio 1.04 ratio - Aortic Valve Name Value Normal Range AV Vmax 1.29 m/sec - AV VTI 22.77 cm - AV peak gradient 6.61 mmHg - AV mean gradient 3.23 mmHg - LVOT diameter 2.02 cm - LVOT Vmax 1.15 m/sec - LVOT VTI 23.01 cm - LVOT peak gradient 5.32 mmHg - LVOT mean gradient 2.65 mmHg - SV LVOT 73.73 ml - AUBREY (continuity Vmax) 2.87 cm2 - AUBREY (continuity VTI) 3.24 cm2 - Tricuspid Valve Name Value Normal Range TR Vmax 2.67 m/sec - TR peak gradient 29 mmHg - RAP 3 mmHg - RVSP 32 mmHg - IVC diameter 1.42 cm (1.2 - 2.3) Pulmonic Valve/Qp:Qs Name Value Normal Range PV Vmax 0.94 m/sec - PV peak gradient 3.51 mmHg - PV acceleration time 98.95 msec - [place]/IV: Voiding Method External Female Catheter IV Catheter Type [Left Hand] INT / Saline Lock Active Medications - Current Medications Current Medications: Generic Name Dose Route Start Last Admin Trade Name Freq PRN Reason Stop Dose Admin Acetaminophen 650 mg 09/01/20 07:24 Acetaminophen 325 Mg Tab PO Q4H PRN Pain MILD(1-3)/Fever >100.5/LORA Albuterol 2.5 mg 09/01/20 08:28 Albuterol 2.5 Mg/3 Ml Nebu IH Q4HRT PRN Shortness Of Breath Albuterol/Ipratropium 1 ampul 09/01/20 14:00 09/03/20 07:38 Ipratropium/Albuterol Sulfate 3 Ml Ampul.Neb IH 1 ampul Q6HRT CINTHIA Administration Amlodipine Besylate 10 mg 09/02/20 02:31 09/02/20 10:34 Amlodipine 10 Mg Tab PO 10 mg QDAY CINTHIA Administration Famotidine 20 mg 09/01/20 10:00 09/02/20 23:33 Famotidine 20 Mg Tab PO 20 mg BID CINTHIA Administration Heparin Sodium (Porcine) 5,000 unit 09/01/20 14:00 09/03/20 05:59 Heparin 5,000 Unit/1 Ml Vial SUB-Q 5,000 unit Q8HR CINTHIA Administration Hydromorphone HCl 0.25 mg 09/01/20 07:24 Hydromorphone 1 Mg/1 Ml Inj IV Q3H PRN Pain, Moderate (4-6) Ceftriaxone Sodium 1 gm in 50 mls @ 100 mls/hr 09/01/20 11:00 09/02/20 18:03 Rocephin/Ns 1 Gm/50 Ml IV Not Given Q24H CINTHIA Protocol Sodium Chloride 500 mls @ 0 mls/hr 09/01/20 15:04 09/02/20 01:53 Nacl 0.9% 500 Ml IV 50 mls/hr ONCE CINTHIA Administration As Directed Labetalol HCl 10 mg 09/02/20 02:12 09/02/20 04:22 Labetalol 20 Mg/4 Ml Inj IV 10 mg Q2H PRN Administration Hypertension Losartan Potassium 100 mg 09/02/20 02:30 09/02/20 10:34 Losartan 50 Mg Tab PO 100 mg QDAY CINTHIA Administration Methylprednisolone Sodium Succinate 40 mg 09/01/20 14:00 09/03/20 05:59 Methylprednisolone Sod Succinate 40 Mg/1 Ml Inj IV 40 mg Q8HR CINTHIA Administration Metoclopramide HCl 10 mg 09/01/20 07:24 Metoclopramide 10 Mg/2 Ml Inj IV Q6H PRN Nausea And Vomiting Ondansetron HCl 4 mg 09/01/20 07:24 Ondansetron 4 Mg/2 Ml Inj IV Q8H PRN Nausea And Vomiting Oxycodone/Acetaminophen 1 tab 09/01/20 09:00 Oxycodone /Acetaminophen 5-325mg Tab PO Q6H PRN Pain, Moderate (4-6) Sodium Chloride 10 ml 09/01/20 10:00 09/02/20 23:34 Sodium Chloride 0.9% 10 Ml Flush Syringe IV 10 ml BID CINTHIA Administration Sodium Chloride 10 ml 09/01/20 07:24 Sodium Chloride 0.9% 10 Ml Flush Syringe IV PRN PRN LINE FLUSH Spironolactone 25 mg 09/02/20 10:00 09/02/20 10:34 Spironolactone 25 Mg Tab PO 25 mg QDAY CINTHIA Administration Nutrition/Malnutrition Assess - Dietary Evaluation Nutrition/Malnutrition Findings: Nutrition Notes Start: 09/02/20 10:16 Freq: Status: Active Protocol: Document 09/02/20 10:19 (Rec: 09/02/20 10:29 [email or web address]) Nutrition Notes Need for Assessment generated from: MD Order Initial or Follow up Assessment Current Diagnosis COPD,Hypertension Other Pertinent Diagnosis fatty liver disease, acute respiratory failure Current Diet Cardiac Labs/Tests 09/01: K 2.9 Pertinent Medications Solu Medrol NS at 50 ml/hr Height 5 ft Weight 61.23 kg Usual Body Weight 63.63 kg [place] Body Weight (kg) 45.45 BMI 26.3 Intake Prior to Admission Poor Weight change and time frame 3.7% wt loss in 2-3 months Weight Status Overweight Subjective/Other Information MD order for ONS. Pt with anascara due to fluid overload . Pt reports not eating well [employer] due to general feeling of sickness but unsure how much and for how long. Pt reports UBW of 140lbs 2-3 months ago. Pt states she ate 100% of meals yesterday and was eating breakfast at time of visit. Pt likes Ensures and would like to continue them. Burn Absent Trauma Absent GI Symptoms None Current % PO Good (75-100%) Minimum of two criteria No Energy Intake (non-severe) <75% Estimated Energy Requirement >7 days #1 Nutrition Diagnosis Inadequate oral intake Etiology chronic disease As Evidenced by Signs and Symptoms pt eating less than normal [employer] , 3.7% wt loss in 2-3 months Is patient on ventilator? No Is Patient Ambulatory and/or Out of Bed No REE-([facility]-confined to bed) 4949.580 Calculation Used for Recommendations [facility] Additional Notes Pro: 61-73g (1-1.2g/kg) Fluid: 1 ml/kcal or per MD Nutrition Intervention Change Diet Order: Continue Add Supplement/Snack (indicate name/kcal Ensure Enlive TID /protein ) Provides kCal: 1,050 Provides Protein (gm) 60 Goal #1 Meet at least 80% of protein and energy needs via PO intakes Anticipated Discharge Needs: Cardiac with ONS PRN Follow-Up By: 09/05/20 Additional Comments FU for stable intakes
--- NOTE | 2020-09-03 10:52 | Progress Note ---
Assessment and Plan Acute hypoxic respiratory failure Hypertension, uncontrolled Severe hypoalbuminemia Severe hypokalemia -resolved Severe anemia s/p transfusion of PRBCs Noncompliant with medications Normal LVEF 60-65% by echo this presentation. Subjective Date of service: 09/03/20 Principal diagnosis: Anasarca Interval history: Patient is resting in bed comfortably. She denies chest pain and unusual shortness of breath. There is no lower extremity edema. Blood pressure is uncontrolled, 184 systolic. Objective Vital Signs Temp Pulse Pulse Resp Resp BP BP 09/03/20 08:00 74 09/03/20 07:38 75 18 09/03/20 07:33 97.7 F 80 18 184/97 09/03/20 04:00 98.1 F 83 16 161/89 09/03/20 03:33 92 H 09/02/20 23:24 97.7 F 92 H 16 158/95 09/02/20 20:10 84 16 09/02/20 19:50 92 H 09/02/20 19:18 98.1 F 88 16 161/99 09/02/20 18:00 81 09/02/20 16:04 97.4 F L 95 H 18 157/99 09/02/20 11:44 98.1 F 81 18 144/95 Pulse Ox 09/03/20 08:00 09/03/20 07:38 98 09/03/20 07:33 97 09/03/20 04:00 99 09/03/20 03:33 09/02/20 23:24 95 09/02/20 20:10 94 09/02/20 19:50 09/02/20 19:18 95 09/02/20 18:00 09/02/20 16:04 94 09/02/20 11:44 97 - Physical Examination General: No Apparent Distress HEENT: Positive: PERRL Neck: Positive: neck supple Cardiac: Positive: Reg Rate and Rhythm Lungs: Positive: Decreased Breath Sounds Neuro: Positive: Grossly Intact Extremities: Absent: edema - Labs and Meds Cardiac Enzymes 09/02/20 Range/Units 13:36 AST 56 H (5-40) units/L CBC 09/02/20 09/03/20 Range/Units 13:36 04:59 WBC 5.2 (4.5-11.0) K/mm3 RBC 2.81 L (3.65-5.03) M/mm3 Hgb 9.3 L 11.7 (10.1-14.3) gm/dl Hct 27.1 L D 34.6 D (30.3-42.9) % Plt Count 158 159 (140-440) K/mm3 Comprehensive Metabolic Panel 09/02/20 09/03/20 Range/Units 13:36 04:59 Sodium 141 141 (137-145) mmol/L Potassium 5.3 H D 4.9 (3.6-5.0) mmol/L Chloride 107.0 107.0 (98-107) mmol/L Carbon Dioxide 27 25 (22-30) mmol/L BUN 16 16 (7-17) mg/dL Creatinine 0.9 0.8 (0.6-1.2) mg/dL Glucose 198 H 149 H (65-100) mg/dL Calcium 7.3 L D 7.5 L (8.4-10.2) mg/dL AST 56 H (5-40) units/L ALT 8 (7-56) units/L Alkaline Phosphatase 112 (35-129) units/L Total Protein 7.9 (6.3-8.2) g/dL Albumin 1.6 L (3.9-5) g/dL
[2020-09-03] MEDS: LOSARTAN 50 MG TAB PO SCH (11:19)
[2020-09-03] MEDS: FAMOTIDINE 20 MG TAB PO SCH ×2 (11:19→22:23)
[2020-09-03] MEDS: SPIRONOLACTONE 25 MG TAB PO SCH (11:20)
[2020-09-03] MEDS: amLODIPine 10 MG TAB PO SCH (11:20)
[2020-09-03] MEDS: cefTRIAXone/NS 1 GM/50 ML 1 GM/50 ML BAG IV SCH (15:41)
[2020-09-04 06:06] LABS: Hematocrit 32.4 % (30.3-42.9); Hemoglobin 10.7 gm/dl (10.1-14.3); Mean Corpuscular HGB Conc 33 % (30-34); Mean Corpuscular Volume 94 fl (79-97); Platelet Count 179 K/mm3 (140-440); Red Blood Count 3.44 M/mm3 (3.65-5.03); Red Cell Distribution Width 18.6 % (13.2-15.2)
[2020-09-04 06:11] LABS: Basophils % (Auto) 0.3 % (0.0-1.8); Lymphocytes # (Auto) 0.5 K/mm3 (1.2-5.4); Lymphocytes % (Auto) 8.4 % (13.4-35.0); Monocytes # (Auto) 0.5 K/mm3 (0.0-0.8); Monocytes % (Auto) 7.4 % (0.0-7.3)
[2020-09-04 06:19] LABS: BUN/Creatinine Ratio 27; Blood Urea Nitrogen 24 mg/dL (7-17); Calcium 7.7 mg/dL (8.4-10.2); Hemolysis Index 23
[2020-09-04] MEDS: HEPARIN 5,000 UNIT/1 ML VIAL SUB-Q SCH (06:38)
[2020-09-04] MEDS: methylPREDNISolone Sod Succinate 40 MG/1 ML INJ IV SCH ×3 (06:38→22:33)
[2020-09-04] MEDS: IPRATROPIUM/ALBUTEROL SULFATE 3 ML AMPUL.NEB IH SCH ×3 (08:15→21:16)
[2020-09-04] MEDS: FAMOTIDINE 20 MG TAB PO SCH ×2 (10:59→22:33)
[2020-09-04] MEDS: SPIRONOLACTONE 25 MG TAB PO SCH (10:59)
[2020-09-04] MEDS: amLODIPine 10 MG TAB PO SCH (11:00)
[2020-09-04] MEDS: cefTRIAXone/NS 1 GM/50 ML 1 GM/50 ML BAG IV SCH (11:00)
[2020-09-04] MEDS: oxyCODONE /ACETAMINOPHEN 5-325MG TAB PO PRN (11:03)
--- NOTE | 2020-09-04 15:48 | Progress Note ---
Assessment and Plan Assessment and plan: Acute hypoxic respiratory failure. Etiology secondary to volume overload/mild CHF and COPD exacerbation. Continue O2 to maintain sats greater than 92% Acute COPD exacerbation. Patient has never had diagnosis of COPD but she is a poor historian. Patient does report 30 pack year history. Hypoalbuminemia. Nephrology consultation for 24-hour urine possible nephrotic syndrome Elevated troponin. ?NSTEMI. Follow-up echocardiogram. Cardiology following. Hyperkalemia. Stop losartan for now. Hypocalcemia. Replete calcium. Anemia. Stool guaiac test still pending. Received 2 unit PRBCs her hemoglobin has remained stable since then. Patient will need follow-up with GI for routine colonoscopy and possible EGD. 09/02/2020. Cardiology started the patient on spironolactone. Continue Norvasc and losartan for blood pressure control. Albumin level on admission 1.6. During a recent admission (06/2020) to [facility] albumin level was between 1.4 and 1.6. Urinalysis at that time showed minimal proteinuria. Continue steroids, bronchodilators/nebulizers for COPD. 09/04. Labs reviewed. Discontinued losartan due to hyperkalemia. DC planning. History Interval history: No event noted overnight Hospitalist Physical - Physical exam Narrative exam: VITAL SIGNS: Reviewed. GENERAL: Awake HEAD: No signs of head trauma. EYES: Pupils are equal. Extraocular motions intact. MOUTH: Oropharynx is normal. NECK: No adenopathy, no JVD. CHEST: Chest with diminished breath sounds bilaterally. No wheezes, rales, or rhonchi. CARDIAC: normal S1 and S2, without murmurs, gallops, or rubs. ABDOMEN: Soft, non tender and non distended. No rebound or guarding, and no masses palpated. Bowel Sounds normal. MUSCULOSKELETAL: No edema NEUROLOGIC EXAM: Alert and oriented x3. No focal neurologic deficits SKIN: No obvious lesions - Constitutional Vitals: Temp Pulse Resp BP Pulse Ox 98.1 F 89 20 159/96 95 09/04/20 12:04 09/04/20 14:00 09/04/20 14:00 09/04/20 12:04 09/04/20 12:04 General appearance: Present: other (Anasarca noted) HEART Score - HEART Score Age: 45-65 Risk factors: 1-2 risk factors Troponin: Troponin T 0.067 ng/mL (0.00-0.029) H 09/01/20 03:07 Troponin: 1-3x normal limit - Critical Actions Critical Actions: 4-6 pts:12-16.6% risk of adverse cardiac event. Should be admitted Results - Labs CBC & Chem 7: 09/05/20 04:50 09/05/20 08:31 Labs: Laboratory Last Values WBC 6.2 K/mm3 (4.5-11.0) 09/04/20 05:23 RBC 3.44 M/mm3 (3.65-5.03) L 09/04/20 05:23 Hgb 10.7 gm/dl (10.1-14.3) 09/04/20 05:23 Hct 32.4 % (30.3-42.9) 09/04/20 05:23 MCV 94 fl (79-97) 09/04/20 05:23 MCH 31 pg (28-32) 09/04/20 05:23 MCHC 33 % (30-34) 09/04/20 05:23 RDW 18.6 % (13.2-15.2) H 09/04/20 05:23 Plt Count 179 K/mm3 (140-440) 09/04/20 05:23 Lymph % (Auto) 8.4 % (13.4-35.0) L 09/04/20 05:23 [place] % (Auto) 7.4 % (0.0-7.3) H 09/04/20 05:23 Eos % (Auto) 0.0 % (0.0-4.3) 09/04/20 05:23 Baso % (Auto) 0.3 % (0.0-1.8) 09/04/20 05:23 Lymph # (Auto) 0.5 K/mm3 (1.2-5.4) L 09/04/20 05:23 [place] # (Auto) 0.5 K/mm3 (0.0-0.8) 09/04/20 05:23 Eos # (Auto) 0.0 K/mm3 (0.0-0.4) 09/04/20 05:23 Baso # (Auto) 0.0 K/mm3 (0.0-0.1) 09/04/20 05:23 Add Manual Diff Complete 09/02/20 13:36 Total Counted 100 09/02/20 13:36 Seg Neutrophils % 83.9 % (40.0-70.0) H 09/04/20 05:23 Seg Neuts % (Manual) 92.0 % (40.0-70.0) H 09/02/20 13:36 Band Neutrophils % 2.0 % 09/02/20 13:36 Lymphocytes % (Manual) 4.0 % (13.4-35.0) L 09/02/20 13:36 Monocytes % (Manual) 2.0 % (0.0-7.3) 09/02/20 13:36 Nucleated RBC % Not Reportable 09/02/20 13:36 Seg Neutrophils # 5.2 K/mm3 (1.8-7.7) 09/04/20 05:23 Seg Neutrophils # Man 4.8 K/mm3 (1.8-7.7) 09/02/20 13:36 Band Neutrophils # 0.1 K/mm3 09/02/20 13:36 Lymphocytes # (Manual) 0.2 K/mm3 (1.2-5.4) L 09/02/20 13:36 Abs React Lymphs (Man) 0.0 K/mm3 09/02/20 13:36 Monocytes # (Manual) 0.1 K/mm3 (0.0-0.8) 09/02/20 13:36 Eosinophils # (Manual) 0.0 K/mm3 (0.0-0.4) 09/02/20 13:36 Basophils # (Manual) 0.0 K/mm3 (0.0-0.1) 09/02/20 13:36 Metamyelocytes # 0.0 K/mm3 09/02/20 13:36 Myelocytes # 0.0 K/mm3 09/02/20 13:36 Promyelocytes # 0.0 K/mm3 09/02/20 13:36 Blast Cells # 0.0 K/mm3 09/02/20 13:36 WBC Morphology Not Reportable 09/02/20 13:36 WBC Morphology TNR 09/02/20 13:36 Hypersegmented Neuts Not Reportable 09/02/20 13:36 Hyposegmented Neuts Not Reportable 09/02/20 13:36 Hypogranular Neuts Not Reportable 09/02/20 13:36 Smudge Cells Not Reportable 09/02/20 13:36 Toxic Granulation Not Reportable 09/02/20 13:36 Toxic Vacuolation Not Reportable 09/02/20 13:36 Dohle Bodies Not Reportable 09/02/20 13:36 Pelger-Huet Anomaly Not Reportable 09/02/20 13:36 Elsy Rods Not Reportable 09/02/20 13:36 Platelet Estimate Not Reportable 09/02/20 13:36 Clumped Platelets Not Reportable 09/02/20 13:36 Plt Clumps, EDTA Not Reportable 09/02/20 13:36 Large Platelets Not Reportable 09/02/20 13:36 Giant Platelets Not Reportable 09/02/20 13:36 Platelet Satelliting Not Reportable 09/02/20 13:36 Plt Morphology Comment Not Reportable 09/02/20 13:36 RBC Morphology Not Reportable 09/02/20 13:36 Dimorphic RBCs Not Reportable 09/02/20 13:36 Polychromasia Not Reportable 09/02/20 13:36 Hypochromasia Not Reportable 09/02/20 13:36 Poikilocytosis Not Reportable 09/02/20 13:36 Anisocytosis 1+ 09/02/20 13:36 Microcytosis Not Reportable 09/02/20 13:36 Macrocytosis Not Reportable 09/02/20 13:36 Spherocytes Not Reportable 09/02/20 13:36 Pappenheimer Bodies Not Reportable 09/02/20 13:36 Sickle Cells Not Reportable 09/02/20 13:36 Target Cells Not Reportable 09/02/20 13:36 Tear Drop Cells Not Reportable 09/02/20 13:36 Ovalocytes Not Reportable 09/02/20 13:36 Helmet Cells Not Reportable 09/02/20 13:36 Singleton-Needles Bodies Not Reportable 09/02/20 13:36 [place] Rings Not Reportable 09/02/20 13:36 Sen Cells Not Reportable 09/02/20 13:36 Bite Cells Not Reportable 09/02/20 13:36 Crenated Cell Not Reportable 09/02/20 13:36 Elliptocytes Not Reportable 09/02/20 13:36 Acanthocytes (Spur) Not Reportable 09/02/20 13:36 Rouleaux Not Reportable 09/02/20 13:36 Hemoglobin C Crystals Not Reportable 09/02/20 13:36 Schistocytes Not Reportable 09/02/20 13:36 Malaria parasites Not Reportable 09/02/20 13:36 David Bodies Not Reportable 09/02/20 13:36 Hem Pathologist Commnt No 09/02/20 13:36 PT 16.3 Sec. (12.2-14.9) H 09/01/20 11:02 INR 1.31 (0.87-1.13) H 09/01/20 11:02 APTT 40.0 Sec. (24.2-36.6) H 09/01/20 11:02 Sodium 136 mmol/L (137-145) L 09/04/20 05:23 Potassium 5.1 mmol/L (3.6-5.0) H 09/04/20 05:23 Chloride 104.0 mmol/L (98-107) 09/04/20 05:23 Carbon Dioxide 32 mmol/L (22-30) H D 09/04/20 05:23 Anion Gap 5 mmol/L 09/04/20 05:23 BUN 24 mg/dL (7-17) H 09/04/20 05:23 Creatinine 0.9 mg/dL (0.6-1.2) 09/04/20 05:23 Estimated GFR > 60 ml/min 09/04/20 05:23 BUN/Creatinine Ratio 27 % 09/04/20 05:23 Glucose 153 mg/dL (65-100) H 09/04/20 05:23 POC Glucose 144 mg/dL (70-105) H 09/04/20 07:17 Hemoglobin A1c 4.1 % (4-6) 09/01/20 11:02 Calcium 7.7 mg/dL (8.4-10.2) L 09/04/20 05:23 Magnesium 1.70 mg/dL (1.7-2.3) 09/03/20 04:59 Iron 59 ug/dL (37-170) 09/01/20 11:02 TIBC 49 mcg/dL (250-450) L 09/01/20 11:02 % Saturation 120.41 % 09/01/20 11:02 Transferrin 50 mg/dl (192-382) L 09/01/20 11:02 Total Bilirubin 0.30 mg/dL (0.1-1.2) 09/02/20 13:36 AST 56 units/L (5-40) H 09/02/20 13:36 ALT 8 units/L (7-56) 09/02/20 13:36 Alkaline Phosphatase 112 units/L (35-129) 09/02/20 13:36 Troponin T 0.067 ng/mL (0.00-0.029) H 09/01/20 03:07 NT-Pro-B Natriuret Pep 2196 pg/mL (0-900) H 09/01/20 00:09 Total Protein 7.9 g/dL (6.3-8.2) 09/02/20 13:36 Albumin 1.6 g/dL (3.9-5) L 09/02/20 13:36 Albumin/Globulin Ratio 0.3 % 09/02/20 13:36 Triglycerides 105 mg/dL (2-149) 09/01/20 00:09 Cholesterol 74 mg/dL (50-199) 09/01/20 00:09 LDL Cholesterol Direct 20 mg/dL (50-130) L 09/01/20 00:09 HDL Cholesterol 21 mg/dL (40-59) L 09/01/20 00:09 Cholesterol/HDL Ratio 3.52 % 09/01/20 00:09 Vitamin B12 1202 pg/mL (211-911) H 09/01/20 11:02 RBC Folic Acid >1000 ng/mL (>280) 09/01/20 11:02 TSH 2.030 mlU/mL (0.270-4.200) 08/31/20 21:20 Free T4 0.82 ng/dL (0.76-1.46) 08/31/20 21:20 Urine Color Yellow (Yellow) 09/01/20 01:00 Urine Turbidity Clear (Clear) 09/01/20 01:00 Urine pH 5.0 (5.0-7.0) 09/01/20 01:00 Ur Specific [place] 1.013 (1.003-1.030) 09/01/20 01:00 Urine Protein 100 mg/dl mg/dL (Negative) 09/01/20 01:00 Urine Glucose (UA) Neg mg/dL (Negative) 09/01/20 01:00 Urine Ketones Neg mg/dL (Negative) 09/01/20 01:00 Urine Blood Lg (Negative) 09/01/20 01:00 Urine Nitrite Neg (Negative) 09/01/20 01:00 Urine Bilirubin Neg (Negative) 09/01/20 01:00 Urine Urobilinogen 2.0 mg/dL (<2.0) 09/01/20 01:00 Ur Leukocyte Esterase Neg (Negative) 09/01/20 01:00 Urine WBC (Auto) 5.0 /HPF (0.0-6.0) 09/01/20 01:00 Urine RBC (Auto) 20.0 /HPF (0.0-6.0) 09/01/20 01:00 U Epithel Cells (Auto) < 1.0 /HPF (0-13.0) 09/01/20 01:00 Urine Bacteria (Auto) 2+ /HPF (Negative) 09/01/20 01:00 Urine Mucus Few /HPF 09/01/20 01:00 Nasal Screen MRSA (PCR) Negative (Negative) 09/01/20 15:58 Blood Type O POSITIVE 09/01/20 18:23 Antibody Screen Negative 09/01/20 18:23 Crossmatch See Detail 09/01/20 18:23 - Diagnostic Impressions Diagnostic Impressions: Echocardiogram 09/01/20 07:28 Transthoracic Echocardiogram Indication: Swelling BP: 147/80 HR: 118 Conclusions *Global left ventricular wall motion and contractility are within normal limits. *The estimated ejection fraction is 60-65%. *Abnormal left ventricular diastolic filling is observed, consistent with grade 1 diastolic dysfunction. *The right ventricular global systolic function is normal. Findings Left Ventricle: The left ventricular chamber size is normal. There is no left ventricular hypertrophy. Global left ventricular wall motion and contractility are within normal limits. Global left ventricular systolic function is normal. The estimated ejection fraction is 60-65%. Abnormal left ventricular diastolic filling is observed, consistent with impaired relaxation. Left Atrium: The left atrial chamber size is normal. Right Ventricle: The right ventricular cavity size is normal. The right ventricular global systolic function is normal. Right Atrium: The right atrial cavity size is normal. Aortic Valve: There is no evidence of aortic valve thickening. There is no evidence of aortic regurgitation. Mitral Valve: The mitral valve leaflets are mildly thickened. There is mild mitral regurgitation. Tricuspid Valve: The tricuspid valve leaflets are normal. There is trace tricuspid regurgitation. Pulmonic Valve: There is no evidence of pulmonic valve thickening. There is no evidence of pulmonic regurgitation. Pericardium: There is no pericardial effusion. Aorta: The aorta appears normal. Venous: The inferior vena cava appears normal in size. Measurements Chambers 2D Name Value Normal Range IVSd (2D) 0.93 cm (0.6 - 1.1) LVPWd (2D) 1.02 cm (0.6 - 1.1) LVIDd (2D) 3.88 cm (3.7 - 5.6) LVIDs (2D) 2.31 cm (2 - 3.8) LV FS (2D) 40.42 % - EF Teichholz (2D) 71.8 % - Ao root diameter (2D) 2.47 cm (2 - 3.7) Volumes/Mass Name Value Normal Range LA ESV SP 4CH (A/L) 41.67 ml - LA ESV SP 2CH (A/L) 65.13 ml - LA ESV BP (A/L) 52.57 ml - LA ESV BP (A/L) index 33.27 ml/m2 - LA ESV SP 4CH (MOD) 36.67 ml - LA ESV SP 2CH (MOD) 61.15 ml - LA ESV BP (MOD) 47.5 ml - LA ESV BP (MOD) index 30.06 ml/m2 - Diastolic/Systolic Function Name Value Normal Range MV E-wave Vmax 0.91 m/sec - MV deceleration time 205.61 msec - MV A-wave Vmax 0.88 m/sec - MV E:A ratio 1.04 ratio - Aortic Valve Name Value Normal Range AV Vmax 1.29 m/sec - AV VTI 22.77 cm - AV peak gradient 6.61 mmHg - AV mean gradient 3.23 mmHg - LVOT diameter 2.02 cm - LVOT Vmax 1.15 m/sec - LVOT VTI 23.01 cm - LVOT peak gradient 5.32 mmHg - LVOT mean gradient 2.65 mmHg - SV LVOT 73.73 ml - AUBREY (continuity Vmax) 2.87 cm2 - AUBREY (continuity VTI) 3.24 cm2 - Tricuspid Valve Name Value Normal Range TR Vmax 2.67 m/sec - TR peak gradient 29 mmHg - RAP 3 mmHg - RVSP 32 mmHg - IVC diameter 1.42 cm (1.2 - 2.3) Pulmonic Valve/Qp:Qs Name Value Normal Range PV Vmax 0.94 m/sec - PV peak gradient 3.51 mmHg - PV acceleration time 98.95 msec - [place]/IV: Voiding Method External Female Catheter IV Catheter Type [Left Forearm INT / Saline Lock ] IV Catheter Type [Left Hand] INT / Saline Lock Active Medications - Current Medications Current Medications: Generic Name Dose Route Start Last Admin Trade Name Freq PRN Reason Stop Dose Admin Acetaminophen 650 mg 09/01/20 07:24 Acetaminophen 325 Mg Tab PO Q4H PRN Pain MILD(1-3)/Fever >100.5/LORA Albuterol 2.5 mg 09/01/20 08:28 Albuterol 2.5 Mg/3 Ml Nebu IH Q4HRT PRN Shortness Of Breath Albuterol/Ipratropium 1 ampul 09/04/20 08:00 09/04/20 15:16 Ipratropium/Albuterol Sulfate 3 Ml Ampul.Neb IH 1 ampul TIDRT CINTHIA Administration Amlodipine Besylate 10 mg 09/02/20 02:31 09/04/20 11:00 Amlodipine 10 Mg Tab PO 10 mg QDAY CINTHIA Administration Famotidine 20 mg 09/01/20 10:00 09/04/20 10:59 Famotidine 20 Mg Tab PO 20 mg BID CINTHIA Administration Hydromorphone HCl 0.25 mg 09/01/20 07:24 Hydromorphone 1 Mg/1 Ml Inj IV Q3H PRN Pain, Moderate (4-6) Ceftriaxone Sodium 1 gm in 50 mls @ 100 mls/hr 09/01/20 11:00 09/04/20 11:00 Rocephin/Ns 1 Gm/50 Ml IV 09/05/20 11:29 100 mls/hr Q24H CINTHIA Administration Protocol Sodium Chloride 500 mls @ 0 mls/hr 09/01/20 15:04 09/02/20 01:53 Nacl 0.9% 500 Ml IV 50 mls/hr ONCE CINTHIA Administration As Directed Labetalol HCl 10 mg 09/02/20 02:12 09/04/20 11:05 Labetalol 20 Mg/4 Ml Inj IV 10 mg Q2H PRN Administration Hypertension Methylprednisolone Sodium Succinate 40 mg 09/01/20 14:00 09/04/20 14:56 Methylprednisolone Sod Succinate 40 Mg/1 Ml Inj IV 40 mg Q8HR CINTHIA Administration Metoclopramide HCl 10 mg 09/01/20 07:24 Metoclopramide 10 Mg/2 Ml Inj IV Q6H PRN Nausea And Vomiting Ondansetron HCl 4 mg 09/01/20 07:24 Ondansetron 4 Mg/2 Ml Inj IV Q8H PRN Nausea And Vomiting Oxycodone/Acetaminophen 1 tab 09/01/20 09:00 09/04/20 11:03 Oxycodone /Acetaminophen 5-325mg Tab PO 1 tab Q6H PRN Administration Pain, Moderate (4-6) Sodium Chloride 10 ml 09/01/20 10:00 09/04/20 11:00 Sodium Chloride 0.9% 10 Ml Flush Syringe IV 10 ml BID CINTHIA Administration Sodium Chloride 10 ml 09/01/20 07:24 09/04/20 06:39 Sodium Chloride 0.9% 10 Ml Flush Syringe IV 10 ml PRN PRN Administration LINE FLUSH Spironolactone 25 mg 09/02/20 10:00 09/04/20 10:59 Spironolactone 25 Mg Tab PO 25 mg QDAY CINTHIA Administration Nutrition/Malnutrition Assess - Dietary Evaluation Nutrition/Malnutrition Findings: Nutrition Notes Start: 09/02/20 10:16 Freq: Status: Active Protocol: Document 09/02/20 10:19 (Rec: 09/02/20 10:29 [id number]) Nutrition Notes Need for Assessment generated from: MD Order Initial or Follow up Assessment Current Diagnosis COPD,Hypertension Other Pertinent Diagnosis fatty liver disease, acute respiratory failure Current Diet Cardiac Labs/Tests 09/01: K 2.9 Pertinent Medications Solu Medrol NS at 50 ml/hr Height 5 ft Weight 61.23 kg Usual Body Weight 63.63 kg [place] Body Weight (kg) 45.45 BMI 26.3 Intake Prior to Admission Poor Weight change and time frame 3.7% wt loss in 2-3 months Weight Status Overweight Subjective/Other Information MD order for ONS. Pt with anascara due to fluid overload . Pt reports not eating well [employer] due to general feeling of sickness but unsure how much and for how long. Pt reports UBW of 140lbs 2-3 months ago. Pt states she ate 100% of meals yesterday and was eating breakfast at time of visit. Pt likes Ensures and would like to continue them. Burn Absent Trauma Absent GI Symptoms None Current % PO Good (75-100%) Minimum of two criteria No Energy Intake (non-severe) <75% Estimated Energy Requirement >7 days #1 Nutrition Diagnosis Inadequate oral intake Etiology chronic disease As Evidenced by Signs and Symptoms pt eating less than normal [employer] , 3.7% wt loss in 2-3 months Is patient on ventilator? No Is Patient Ambulatory and/or Out of Bed No REE-([place]-St. Jeor-confined to bed) 1329.581 Calculation [facility]ations [facility] Additional Notes Pro: 61-73g (1-1.2g/kg) Fluid: 1 ml/kcal or per MD Nutrition Intervention Change Diet Order: Continue Add Supplement/Snack (indicate name/kcal Ensure Enlive TID /protein ) Provides kCal: 1,050 Provides Protein (gm) 60 Goal #1 Meet at least 80% of protein and energy needs via PO intakes Anticipated Discharge Needs: Cardiac with ONS PRN Follow-Up By: 09/05/20 Additional Comments FU for stable intakes
[2020-09-05 05:45] LABS: Hematocrit 33.6 % (30.3-42.9)
[2020-09-05] MEDS: methylPREDNISolone Sod Succinate 40 MG/1 ML INJ IV SCH ×2 (06:45→22:00)
[2020-09-05] MEDS: IPRATROPIUM/ALBUTEROL SULFATE 3 ML AMPUL.NEB IH SCH ×3 (07:59→21:03)
[2020-09-05] MEDS: FAMOTIDINE 20 MG TAB PO SCH ×2 (11:00→22:00)
[2020-09-05] MEDS: amLODIPine 10 MG TAB PO SCH (11:00)
[2020-09-05] MEDS: SPIRONOLACTONE 25 MG TAB PO SCH (11:00)
[2020-09-05] MEDS: cefTRIAXone/NS 1 GM/50 ML 1 GM/50 ML BAG IV SCH (11:03)
[2020-09-05 11:22] LABS: BUN/Creatinine Ratio 34; Blood Urea Nitrogen 27 mg/dL (7-17); Calcium 8.1 mg/dL (8.4-10.2); Hemolysis Index 5
--- NOTE | 2020-09-05 13:16 | Progress Note ---
Assessment and Plan Assessment and plan: Acute hypoxic respiratory failure. Etiology secondary to volume overload/mild CHF and COPD exacerbation. Continue O2 to maintain sats greater than 92%. Improved. Taper steroids. Acute COPD exacerbation. Patient has never had diagnosis of COPD but she is a poor historian. Patient does report 30 pack year history. Taper steroids Hypoalbuminemia. Nephrology consultation for 24-hour urine possible nephrotic syndrome Elevated troponin. ?NSTEMI. Follow-up echocardiogram. Cardiology following. Hyperkalemia. Resolved Hypocalcemia. Replete calcium. Anemia. Stool guaiac test still pending. Received 2 unit PRBCs her hemoglobin has remained stable since then. Patient will need follow-up with GI for routine colonoscopy and possible EGD. Disposition : PT pending. DC planning 09/02/2020. Cardiology started the patient on spironolactone. Continue Norvasc and losartan for blood pressure control. Albumin level on admission 1.6. During a recent admission (06/2020) to [facility] albumin level was between 1.4 and 1.6. Urinalysis at that time showed minimal proteinuria. Continue steroids, bronchodilators/nebulizers for COPD. 09/04. Labs reviewed. Discontinued losartan due to hyperkalemia. DC planning. 09/05. BP is elevated. Patient was placed on aldactone as she was hypokalemic on admission. Since K has improved, will dc aldactone and resume losartan to help with her elevated BP. Taper steroids. PT ordered. History Interval history: No event noted overnight Labs ok Hospitalist Physical - Physical exam Narrative exam: VITAL SIGNS: Reviewed. GENERAL: Awake HEAD: No signs of head trauma. EYES: Pupils are equal. Extraocular motions intact. MOUTH: Oropharynx is normal. NECK: No adenopathy, no JVD. CHEST: Chest with diminished breath sounds bilaterally. No wheezes, rales, or rhonchi. CARDIAC: normal S1 and S2, without murmurs, gallops, or rubs. ABDOMEN: Soft, non tender and non distended. No rebound or guarding, and no masses palpated. Bowel Sounds normal. MUSCULOSKELETAL: No edema NEUROLOGIC EXAM: Alert and oriented x3. No focal neurologic deficits SKIN: No obvious lesions - Constitutional Vitals: Temp Pulse Resp BP Pulse Ox 97.9 F 71 16 190/106 99 09/05/20 04:30 09/05/20 12:00 09/05/20 04:30 09/05/20 08:42 09/05/20 04:30 General appearance: Present: other (Anasarca noted) HEART Score - HEART Score Age: 45-65 Risk factors: 1-2 risk factors Troponin: Troponin T 0.067 ng/mL (0.00-0.029) H 09/01/20 03:07 Troponin: 1-3x normal limit - Critical Actions Critical Actions: 4-6 pts:12-16.6% risk of adverse cardiac event. Should be admitted Results - Labs CBC & Chem 7: 09/05/20 04:50 09/05/20 08:31 Labs: Laboratory Last Values WBC 6.2 K/mm3 (4.5-11.0) 09/04/20 05:23 RBC 3.44 M/mm3 (3.65-5.03) L 09/04/20 05:23 Hgb 11.0 gm/dl (10.1-14.3) 09/05/20 04:50 Hct 33.6 % (30.3-42.9) 09/05/20 04:50 MCV 94 fl (79-97) 09/04/20 05:23 MCH 31 pg (28-32) 09/04/20 05:23 MCHC 33 % (30-34) 09/04/20 05:23 RDW 18.6 % (13.2-15.2) H 09/04/20 05:23 Plt Count 183 K/mm3 (140-440) 09/05/20 04:50 Lymph % (Auto) 8.4 % (13.4-35.0) L 09/04/20 05:23 Forrest % (Auto) 7.4 % (0.0-7.3) H 09/04/20 05:23 Eos % (Auto) 0.0 % (0.0-4.3) 09/04/20 05:23 Baso % (Auto) 0.3 % (0.0-1.8) 09/04/20 05:23 Lymph # (Auto) 0.5 K/mm3 (1.2-5.4) L 09/04/20 05:23 Forrest # (Auto) 0.5 K/mm3 (0.0-0.8) 09/04/20 05:23 Eos # (Auto) 0.0 K/mm3 (0.0-0.4) 09/04/20 05:23 Baso # (Auto) 0.0 K/mm3 (0.0-0.1) 09/04/20 05:23 Add Manual Diff Complete 09/02/20 13:36 Total Counted 100 09/02/20 13:36 Seg Neutrophils % 83.9 % (40.0-70.0) H 09/04/20 05:23 Seg Neuts % (Manual) 92.0 % (40.0-70.0) H 09/02/20 13:36 Band Neutrophils % 2.0 % 09/02/20 13:36 Lymphocytes % (Manual) 4.0 % (13.4-35.0) L 09/02/20 13:36 Monocytes % (Manual) 2.0 % (0.0-7.3) 09/02/20 13:36 Nucleated RBC % Not Reportable 09/02/20 13:36 Seg Neutrophils # 5.2 K/mm3 (1.8-7.7) 09/04/20 05:23 Seg Neutrophils # Man 4.8 K/mm3 (1.8-7.7) 09/02/20 13:36 Band Neutrophils # 0.1 K/mm3 09/02/20 13:36 Lymphocytes # (Manual) 0.2 K/mm3 (1.2-5.4) L 09/02/20 13:36 Abs React Lymphs (Man) 0.0 K/mm3 09/02/20 13:36 Monocytes # (Manual) 0.1 K/mm3 (0.0-0.8) 09/02/20 13:36 Eosinophils # (Manual) 0.0 K/mm3 (0.0-0.4) 09/02/20 13:36 Basophils # (Manual) 0.0 K/mm3 (0.0-0.1) 09/02/20 13:36 Metamyelocytes # 0.0 K/mm3 09/02/20 13:36 Myelocytes # 0.0 K/mm3 09/02/20 13:36 Promyelocytes # 0.0 K/mm3 09/02/20 13:36 Blast Cells # 0.0 K/mm3 09/02/20 13:36 WBC Morphology Not Reportable 09/02/20 13:36 WBC Morphology TNR 09/02/20 13:36 Hypersegmented Neuts Not Reportable 09/02/20 13:36 Hyposegmented Neuts Not Reportable 09/02/20 13:36 Hypogranular Neuts Not Reportable 09/02/20 13:36 Smudge Cells Not Reportable 09/02/20 13:36 Toxic Granulation Not Reportable 09/02/20 13:36 Toxic Vacuolation Not Reportable 09/02/20 13:36 Dohle Bodies Not Reportable 09/02/20 13:36 Pelger-Huet Anomaly Not Reportable 09/02/20 13:36 Elsy Rods Not Reportable 09/02/20 13:36 Platelet Estimate Not Reportable 09/02/20 13:36 Clumped Platelets Not Reportable 09/02/20 13:36 Plt Clumps, EDTA Not Reportable 09/02/20 13:36 Large Platelets Not Reportable 09/02/20 13:36 Giant Platelets Not Reportable 09/02/20 13:36 Platelet Satelliting Not Reportable 09/02/20 13:36 Plt Morphology Comment Not Reportable 09/02/20 13:36 RBC Morphology Not Reportable 09/02/20 13:36 Dimorphic RBCs Not Reportable 09/02/20 13:36 Polychromasia Not Reportable 09/02/20 13:36 Hypochromasia Not Reportable 09/02/20 13:36 Poikilocytosis Not Reportable 09/02/20 13:36 Anisocytosis 1+ 09/02/20 13:36 Microcytosis Not Reportable 09/02/20 13:36 Macrocytosis Not Reportable 09/02/20 13:36 Spherocytes Not Reportable 09/02/20 13:36 Pappenheimer Bodies Not Reportable 09/02/20 13:36 Sickle Cells Not Reportable 09/02/20 13:36 Target Cells Not Reportable 09/02/20 13:36 Tear Drop Cells Not Reportable 09/02/20 13:36 Ovalocytes Not Reportable 09/02/20 13:36 Helmet Cells Not Reportable 09/02/20 13:36 [place] Bodies Not Reportable 09/02/20 13:36 [place] Rings Not Reportable 09/02/20 13:36 [place] Cells Not Reportable 09/02/20 13:36 Bite Cells Not Reportable 09/02/20 13:36 Crenated Cell Not Reportable 09/02/20 13:36 Elliptocytes Not Reportable 09/02/20 13:36 Acanthocytes (Spur) Not Reportable 09/02/20 13:36 Rouleaux Not Reportable 09/02/20 13:36 Hemoglobin C Crystals Not Reportable 09/02/20 13:36 Schistocytes Not Reportable 09/02/20 13:36 Malaria parasites Not Reportable 09/02/20 13:36 David Bodies Not Reportable 09/02/20 13:36 Hem Pathologist Commnt No 09/02/20 13:36 PT 16.3 Sec. (12.2-14.9) H 09/01/20 11:02 INR 1.31 (0.87-1.13) H 09/01/20 11:02 APTT 40.0 Sec. (24.2-36.6) H 09/01/20 11:02 Sodium 137 mmol/L (137-145) 09/05/20 08:31 Potassium 4.8 mmol/L (3.6-5.0) 09/05/20 08:31 Chloride 101.2 mmol/L (98-107) 09/05/20 08:31 Carbon Dioxide 32 mmol/L (22-30) H 09/05/20 08:31 Anion Gap 9 mmol/L 09/05/20 08:31 BUN 27 mg/dL (7-17) H 09/05/20 08:31 Creatinine 0.8 mg/dL (0.6-1.2) 09/05/20 08:31 Estimated GFR > 60 ml/min 09/05/20 08:31 BUN/Creatinine Ratio 34 % 09/05/20 08:31 Glucose 275 mg/dL (65-100) H 09/05/20 08:31 POC Glucose 144 mg/dL (70-105) H 09/04/20 07:17 Hemoglobin A1c 4.1 % (4-6) 09/01/20 11:02 Calcium 8.1 mg/dL (8.4-10.2) L 09/05/20 08:31 Magnesium 1.70 mg/dL (1.7-2.3) 09/03/20 04:59 Iron 59 ug/dL (37-170) 09/01/20 11:02 TIBC 49 mcg/dL (250-450) L 09/01/20 11:02 % Saturation 120.41 % 09/01/20 11:02 Transferrin 50 mg/dl (192-382) L 09/01/20 11:02 Total Bilirubin 0.30 mg/dL (0.1-1.2) 09/02/20 13:36 AST 56 units/L (5-40) H 09/02/20 13:36 ALT 8 units/L (7-56) 09/02/20 13:36 Alkaline Phosphatase 112 units/L (35-129) 09/02/20 13:36 Troponin T 0.067 ng/mL (0.00-0.029) H 09/01/20 03:07 NT-Pro-B Natriuret Pep 2196 pg/mL (0-900) H 09/01/20 00:09 Total Protein 7.9 g/dL (6.3-8.2) 09/02/20 13:36 Albumin 1.6 g/dL (3.9-5) L 09/02/20 13:36 Albumin/Globulin Ratio 0.3 % 09/02/20 13:36 Triglycerides 105 mg/dL (2-149) 09/01/20 00:09 Cholesterol 74 mg/dL (50-199) 09/01/20 00:09 LDL Cholesterol Direct 20 mg/dL (50-130) L 09/01/20 00:09 HDL Cholesterol 21 mg/dL (40-59) L 09/01/20 00:09 Cholesterol/HDL Ratio 3.52 % 09/01/20 00:09 Vitamin B12 1202 pg/mL (211-911) H 09/01/20 11:02 RBC Folic Acid >1000 ng/mL (>280) 09/01/20 11:02 TSH 2.030 mlU/mL (0.270-4.200) 08/31/20 21:20 Free T4 0.82 ng/dL (0.76-1.46) 08/31/20 21:20 Urine Color Yellow (Yellow) 09/01/20 01:00 Urine Turbidity Clear (Clear) 09/01/20 01:00 Urine pH 5.0 (5.0-7.0) 09/01/20 01:00 Ur Specific [place] 1.013 (1.003-1.030) 09/01/20 01:00 Urine Protein 100 mg/dl mg/dL (Negative) 09/01/20 01:00 Urine Glucose (UA) Neg mg/dL (Negative) 09/01/20 01:00 Urine Ketones Neg mg/dL (Negative) 09/01/20 01:00 Urine Blood Lg (Negative) 09/01/20 01:00 Urine Nitrite Neg (Negative) 09/01/20 01:00 Urine Bilirubin Neg (Negative) 09/01/20 01:00 Urine Urobilinogen 2.0 mg/dL (<2.0) 09/01/20 01:00 Ur Leukocyte Esterase Neg (Negative) 09/01/20 01:00 Urine WBC (Auto) 5.0 /HPF (0.0-6.0) 09/01/20 01:00 Urine RBC (Auto) 20.0 /HPF (0.0-6.0) 09/01/20 01:00 U Epithel Cells (Auto) < 1.0 /HPF (0-13.0) 09/01/20 01:00 Urine Bacteria (Auto) 2+ /HPF (Negative) 09/01/20 01:00 Urine Mucus Few /HPF 09/01/20 01:00 Nasal Screen MRSA (PCR) Negative (Negative) 09/01/20 15:58 Blood Type O POSITIVE 09/01/20 18:23 Antibody Screen Negative 09/01/20 18:23 Crossmatch See Detail 09/01/20 18:23 - Diagnostic Impressions Diagnostic Impressions: Echocardiogram 09/01/20 07:28 Transthoracic Echocardiogram Indication: Swelling BP: 147/80 HR: 118 Conclusions *Global left ventricular wall motion and contractility are within normal limits. *The estimated ejection fraction is 60-65%. *Abnormal left ventricular diastolic filling is observed, consistent with grade 1 diastolic dysfunction. *The right ventricular global systolic function is normal. Findings Left Ventricle: The left ventricular chamber size is normal. There is no left ventricular hypertrophy. Global left ventricular wall motion and contractility are within normal limits. Global left ventricular systolic function is normal. The estimated ejection fraction is 60-65%. Abnormal left ventricular diastolic filling is observed, consistent with impaired relaxation. Left Atrium: The left atrial chamber size is normal. Right Ventricle: The right ventricular cavity size is normal. The right ventricular global systolic function is normal. Right Atrium: The right atrial cavity size is normal. Aortic Valve: There is no evidence of aortic valve thickening. There is no evidence of aortic regurgitation. Mitral Valve: The mitral valve leaflets are mildly thickened. There is mild mitral regurgitation. Tricuspid Valve: The tricuspid valve leaflets are normal. There is trace tricuspid regurgitation. Pulmonic Valve: There is no evidence of pulmonic valve thickening. There is no evidence of pulmonic regurgitation. Pericardium: There is no pericardial effusion. Aorta: The aorta appears normal. Venous: The inferior vena cava appears normal in size. Measurements Chambers 2D Name Value Normal Range IVSd (2D) 0.93 cm (0.6 - 1.1) LVPWd (2D) 1.02 cm (0.6 - 1.1) LVIDd (2D) 3.88 cm (3.7 - 5.6) LVIDs (2D) 2.31 cm (2 - 3.8) LV FS (2D) 40.42 % - EF Teichholz (2D) 71.8 % - Ao root diameter (2D) 2.47 cm (2 - 3.7) Volumes/Mass Name Value Normal Range LA ESV SP 4CH (A/L) 41.67 ml - LA ESV SP 2CH (A/L) 65.13 ml - LA ESV BP (A/L) 52.57 ml - LA ESV BP (A/L) index 33.27 ml/m2 - LA ESV SP 4CH (MOD) 36.67 ml - LA ESV SP 2CH (MOD) 61.15 ml - LA ESV BP (MOD) 47.5 ml - LA ESV BP (MOD) index 30.06 ml/m2 - Diastolic/Systolic Function Name Value Normal Range MV E-wave Vmax 0.91 m/sec - MV deceleration time 205.61 msec - MV A-wave Vmax 0.88 m/sec - MV E:A ratio 1.04 ratio - Aortic Valve Name Value Normal Range AV Vmax 1.29 m/sec - AV VTI 22.77 cm - AV peak gradient 6.61 mmHg - AV mean gradient 3.23 mmHg - LVOT diameter 2.02 cm - LVOT Vmax 1.15 m/sec - LVOT VTI 23.01 cm - LVOT peak gradient 5.32 mmHg - LVOT mean gradient 2.65 mmHg - SV LVOT 73.73 ml - AUBREY (continuity Vmax) 2.87 cm2 - AUBREY (continuity VTI) 3.24 cm2 - Tricuspid Valve Name Value Normal Range TR Vmax 2.67 m/sec - TR peak gradient 29 mmHg - RAP 3 mmHg - RVSP 32 mmHg - IVC diameter 1.42 cm (1.2 - 2.3) Pulmonic Valve/Qp:Qs Name Value Normal Range PV Vmax 0.94 m/sec - PV peak gradient 3.51 mmHg - PV acceleration time 98.95 msec - Sterling/IV: Voiding Method External Female Catheter IV Catheter Type [Left Forearm INT / Saline Lock ] IV Catheter Type [Left Hand] INT / Saline Lock Active Medications - Current Medications Current Medications: Generic Name Dose Route Start Last Admin Trade Name Freq PRN Reason Stop Dose Admin Acetaminophen 650 mg 09/01/20 07:24 Acetaminophen 325 Mg Tab PO Q4H PRN Pain MILD(1-3)/Fever >100.5/LORA Albuterol 2.5 mg 09/01/20 08:28 Albuterol 2.5 Mg/3 Ml Nebu IH Q4HRT PRN Shortness Of Breath Albuterol/Ipratropium 1 ampul 09/04/20 08:00 09/05/20 07:59 Ipratropium/Albuterol Sulfate 3 Ml Ampul.Neb IH 1 ampul TIDRT CINTHIA Administration Amlodipine Besylate 10 mg 09/02/20 02:31 09/05/20 11:00 Amlodipine 10 Mg Tab PO 10 mg QDAY CINTHIA Administration Famotidine 20 mg 09/01/20 10:00 09/05/20 11:00 Famotidine 20 Mg Tab PO 20 mg BID CINTHIA Administration Hydralazine HCl 50 mg 09/05/20 14:00 Hydralazine 25 Mg Tab PO Q8HR CINTHIA Hydromorphone HCl 0.25 mg 09/01/20 07:24 Hydromorphone 1 Mg/1 Ml Inj IV Q3H PRN Pain, Moderate (4-6) Sodium Chloride 500 mls @ 0 mls/hr 09/01/20 15:04 09/02/20 01:53 Nacl 0.9% 500 Ml IV 50 mls/hr ONCE CINTHIA Administration As Directed Methylprednisolone Sodium 100 mls @ 200 mls/hr 09/05/20 22:00 Succinate 40 mg/ Sodium IV Chloride Q12HR CINTHIA Labetalol HCl 10 mg 09/02/20 02:12 09/05/20 06:45 Labetalol 20 Mg/4 Ml Inj IV 10 mg Q2H PRN Administration Hypertension Losartan Potassium 50 mg 09/05/20 14:00 Losartan 50 Mg Tab PO QDAY CINTHIA Metoclopramide HCl 10 mg 09/01/20 07:24 Metoclopramide 10 Mg/2 Ml Inj IV Q6H PRN Nausea And Vomiting Ondansetron HCl 4 mg 09/01/20 07:24 Ondansetron 4 Mg/2 Ml Inj IV Q8H PRN Nausea And Vomiting Oxycodone/Acetaminophen 1 tab 09/01/20 09:00 09/04/20 11:03 Oxycodone /Acetaminophen 5-325mg Tab PO 1 tab Q6H PRN Administration Pain, Moderate (4-6) Sodium Chloride 10 ml 09/01/20 10:00 09/05/20 11:00 Sodium Chloride 0.9% 10 Ml Flush Syringe IV 10 ml BID CINTHIA Administration Sodium Chloride 10 ml 09/01/20 07:24 09/05/20 06:46 Sodium Chloride 0.9% 10 Ml Flush Syringe IV 10 ml PRN PRN Administration LINE FLUSH Nutrition/Malnutrition Assess - Dietary Evaluation Nutrition/Malnutrition Findings: Nutrition Notes Start: 09/02/20 10:16 Freq: Status: Active Protocol: Document 09/05/20 11:05 LM (Rec: 09/05/20 11:09 LM [id number]) Nutrition Notes Initial or Follow up Reassessment Current Diagnosis COPD,Hypertension Other Pertinent Diagnosis fatty liver disease, acute respiratory failure Current Diet Cardiac Labs/Tests Na 136 K 5.1 BUN 24 Pertinent Medications Solu-Medrol Height 5 ft Weight 56.5 kg [place] Body Weight (kg) 45.45 BMI 24.3 Weight change and time frame Wt change noted Weight Status Appropriate Subjective/Other Information Pt stated she ate all of her breakfast this AM and is drinking Ensure and enjoys them. Percent of energy/protein needs met: 100%/100% Burn Absent Trauma Absent GI Symptoms None Current % PO Good (75-100%) Minimum of two criteria No Energy Intake (non-severe) <75% Estimated Energy Requirement >7 days #1 Nutrition Diagnosis Inadequate oral intake As Evidenced by Signs and Symptoms Pt eating 100% Diagnosis Progress(for reassessment Improved documentation) Is patient on ventilator? No Is Patient Ambulatory and/or Out of Bed No REE-([facility]-confined to bed) 7932.184 Calculation Used for Recommendations [facility] Additional Notes Pro: 61-73g (1-1.2g/kg) Fluid: 1 ml/kcal or per MD Nutrition Intervention Change Diet Order: Continue Add Supplement/Snack (indicate name/kcal D/C until K in normal range /protein ) Goal #1 Meet at least 80% of protein and energy needs via PO intakes Anticipated Discharge Needs: Cardiac with ONS PRN Follow-Up By: 09/12/20 Additional Comments F/U for stable intakes, K
--- NOTE | 2020-09-05 13:51 | Progress Note ---
Assessment and Plan - Patient Problems (1) Anemia Current Visit: Yes Status: Acute Plan to address problem: Patient was admitted with symptomatic, severe anemia. There are no active cardiac issues. Echocardiogram done on this presentation was normal left ventricular systolic function, ejection fraction 60%. No further cardiac work- up is indicated, will follow on a as needed basis. Defer to internal medicine service for further evaluation of the patient's p resenting anemia. Subjective Date of service: 09/05/20 Principal diagnosis: Anasarca Interval history: Patient is comfortable, no cardiac complaints. Objective Vital Signs Temp Pulse Pulse Resp Resp BP Pulse Ox 09/05/20 12:24 98.3 F 76 20 176/96 97 09/05/20 12:00 71 09/05/20 08:42 190/106 09/05/20 06:45 164/92 09/05/20 04:30 97.9 F 79 16 164/92 99 09/04/20 23:37 97.7 F 89 14 163/88 97 09/04/20 21:16 88 16 97 09/04/20 19:56 97.6 F 81 16 162/91 98 09/04/20 14:00 89 20 - Physical Examination General: No Apparent Distress HEENT: Positive: PERRL Neck: Positive: neck supple Cardiac: Positive: Reg Rate and Rhythm Lungs: Positive: Decreased Breath Sounds Neuro: Positive: Grossly Intact Abdomen: Positive: Unremarkable Extremities: Absent: edema - Labs and Meds CBC 09/05/20 Range/Units 04:50 Hgb 11.0 (10.1-14.3) gm/dl Hct 33.6 (30.3-42.9) % Plt Count 183 (140-440) K/mm3 Comprehensive Metabolic Panel 09/05/20 Range/Units 08:31 Sodium 137 (137-145) mmol/L Potassium 4.8 (3.6-5.0) mmol/L Chloride 101.2 (98-107) mmol/L Carbon Dioxide 32 H (22-30) mmol/L BUN 27 H (7-17) mg/dL Creatinine 0.8 (0.6-1.2) mg/dL Glucose 275 H (65-100) mg/dL Calcium 8.1 L (8.4-10.2) mg/dL - Imaging and Cardiology EKG: report reviewed (Sinus rhythm, heart rate of 83/min no acute ST-T wave changes.)
[2020-09-05] MEDS: hydrALAZINE 25 MG TAB PO SCH ×2 (14:32→22:01)
[2020-09-05] MEDS: LOSARTAN 50 MG TAB PO SCH (14:32)
--- NOTE | 2020-09-05 15:15 | Discharge Summary ---
Providers - Providers Date of Admission: 09/03/20 11:11 Date of discharge: 09/05/20 Attending physician: AMY JUNIOR 09/01/20 07:24 Consult to Physician [CONS] Routine Comment: Consulting Provider: MAAME HERNANDEZ Physician Instructions: Reason For Exam: chf 09/01/20 10:29 Consult to Physician [CONS] Routine Comment: Consulting Provider: ADELAIDE SANON Physician Instructions: Reason For Exam: hypoalbuminemia 09/05/20 11:49 Physical Therapy Evaluation and Treat [CONS] Routine Comment: Reason For Exam: Debility Primary care physician: RUG CLIPPER Hospitalization Condition: Stable Hospital course: 60-year-old female with history of hypertension and not a non-smoker comes in for generalized weakness and swelling of the lower extremities. But during my examination the swelling of the lower extremities was minimal. Patient had low oxygen saturations of 85% on room air in the emergency room. There is no cough no shortness of breath. No fever. No exposure to coronavirus. No diarrhea vomiting etc. Patient says that she is swollen all over but physical exam did not show any swelling. No exposure to coronavirus. On examination, patient was found to have wheezing and patient was admitted for hyper acute hypoxic respiratory failure secondary to COPD exacerbation. Patient had anemia on presentation and received 2 units of packed RBCs. Stool guaiac ordered. Her hemoglobin has been stable and is currently 11. Acute hypoxic respiratory failure. Etiology secondary to volume overload/mild CHF and COPD exacerbation. Continue O2 to maintain sats greater than 92%. Improved. Taper steroids. Acute COPD exacerbation. Patient has never had diagnosis of COPD but she is a poor historian. Patient does report 30 pack year history. Taper steroids Hypoalbuminemia. Nephrology consultation for 24-hour urine possible nephrotic syndrome Elevated troponin. ?NSTEMI. Follow-up echocardiogram. Cardiology following. Hyperkalemia. Resolved Hypocalcemia. Replete calcium. Anemia. Stool guaiac test still pending. Received 2 unit PRBCs her hemoglobin has remained stable since then. Patient will need follow-up with GI for routine colonoscopy and possible EGD. Disposition : PT pending. DC planning 09/02/2020. Cardiology started the patient on spironolactone. Continue Norvasc and losartan for blood pressure control. Albumin level on admission 1.6. During a recent admission (06/2020) to [facility] albumin level was between 1.4 and 1.6. Urinalysis at that time showed minimal proteinuria. Continue steroids, bronchodilators/nebulizers for COPD. 09/04. Labs reviewed. Discontinued losartan due to hyperkalemia. DC planning. 09/05. BP is elevated. Patient was placed on aldactone as she was hypokalemic on admission. Since K has improved, will dc aldactone and resume losartan to help with her elevated BP. Taper steroids. PT ordered. Disposition: DC-30 STILL A PATIENT Exam - Constitutional Vitals: Temp Pulse Resp BP Pulse Ox 98.3 F 76 20 176/96 97 09/05/20 12:24 09/05/20 12:24 09/05/20 12:24 09/05/20 12:24 09/05/20 12:24 Plan Follow up with: PRIMARY CAREMD [Primary Care Provider] - 3-5 Days
--- NOTE | 2020-09-05 17:02 | Cat Scan Report ---
CT CHEST ABDOMEN AND PELVIS WITHOUT CONTRAST INDICATION / CLINICAL INFORMATION: Evaluate for any mass. + weight loss and anorexia. TECHNIQUE: Axial CT images were obtained through the chest, abdomen and pelvis without IV contrast. All CT sca ns at this location are performed using CT dose reduction for ALARA by means of automated exposure co ntrol. COMPARISON: None available. FINDINGS: Lack of intravenous contrast as well as the patient's thin body habitus limits the exam diagnostic ac curacy HEART: No significant abnormality. THORACIC AORTA: No significant abnormality. MEDIASTINUM and KIMMY: No significant abnormality. LUNGS: Airspace consolidation-mass right lower lobe with pleural thickening. PLEURA: No significant pleural effusion. No pneumothorax. LIVER: No significant abnormality. GALLBLADDER: No significant abnormality. BILE DUCTS: No significant abnormality. PANCREAS: No significant abnormality. SPLEEN: No significant abnormality. ADRENALS: No significant abnormality. RIGHT KIDNEY and URETER: No significant abnormality. LEFT KIDNEY and URETER: No significant abnormality. STOMACH and SMALL BOWEL: No significant abnormality. COLON: Diverticulosis sigmoid colon APPENDIX: No significant abnormality. PERITONEUM: No free fluid. No free air. No fluid collection. LYMPH NODES: Poor imaging planes secondary to lack of body fat in the retroperitoneum limits the excl usion of retroperitoneal adenopathy. Several small lymph nodes are present in the inguinal region AORTA and ARTERIES: No significant abnormality. IVC and VEINS: No significant abnormality. URINARY BLADDER: No significant abnormality. REPRODUCTIVE ORGANS: No significant abnormality. ADDITIONAL FINDINGS: None. SKELETAL SYSTEM: No significant abnormality. IMPRESSION: 1. Very difficult imaging as described 2. Airspace process-mass right lower lobe with pleural thickening cannot exclude neoplastic process 3. Diverticulosis sigmoid colon Signer Name: Sreekanth Galvan MD Signed: 09/05/2020 4:57 PM Workstation Name: [id number]
[2020-09-05] MEDS ORDERED: methylPREDNISolone Sod Suc 40 MG in SODIUM CHLORIDE 0.9% 100 ML IV SCH (22:00)
[2020-09-05] MEDS: oxyCODONE /ACETAMINOPHEN 5-325MG TAB PO PRN (22:13)
[2020-09-06] MEDS: hydrALAZINE 25 MG TAB PO SCH ×3 (07:02→21:48)
[2020-09-06] MEDS: LOSARTAN 50 MG TAB PO SCH (10:41)
[2020-09-06] MEDS: FAMOTIDINE 20 MG TAB PO SCH ×2 (10:42→21:43)
[2020-09-06] MEDS: amLODIPine 10 MG TAB PO SCH (10:42)
[2020-09-06] MEDS: methylPREDNISolone Sod Succinate 40 MG/1 ML INJ IV SCH ×3 (10:43→22:00)
--- NOTE | 2020-09-06 13:22 | Progress Note ---
Assessment and Plan Assessment and plan: Acute hypoxic respiratory failure. Etiology secondary to volume overload/mild CHF and COPD exacerbation. Continue O2 to maintain sats greater than 92%. Improved. Taper steroids. Acute COPD exacerbation. Patient has never had diagnosis of COPD but she is a poor historian. Patient does report 30 pack year history. Taper steroids Hypoalbuminemia. Likely from low p.o. intake. Elevated troponin. ?NSTEMI. No further work-up as per cardiology Anemia. Stool guaiac test still pending. Received 2 unit PRBCs her hemoglobin has remained stable since then. Patient will need follow-up with GI for routine colonoscopy and possible EGD. Anorexia, weakness and weight loss.-Malignancy work-up, patient found to have questionable mass on CT chest-plan to have a CT with contrast to further evaluate. Patient initially refused but has consented to test. Discussed with patient's family Disposition : PT recommends subacute rehab patient has no insurance. Plan will be for patient to go home when stable 09/02/2020. Cardiology started the patient on spironolactone. Continue Norvasc and losartan for blood pressure control. Albumin level on admission 1.6. During a recent admission (06/2020) to [facility] albumin level was between 1.4 and 1.6. Urinalysis at that time showed minimal proteinuria. Continue steroids, bronchodilators/nebulizers for COPD. 09/04. Labs reviewed. Discontinued losartan due to hyperkalemia. DC planning. 09/05. BP is elevated. Patient was placed on aldactone as she was hypokalemic on admission. Since K has improved, will dc aldactone and resume losartan to help with her elevated BP. Taper steroids. PT ordered. Due to progressive decline in function, weight loss and poor appetite, malignancy work-up initiated with a CT chest abdomen and pelvis. TSH and free T4 also ordered 09/06. PT recommends rehab but patient has no payer source. CT of the abdomen/pelvis shows no acute pathology but CT chest showed possible mass in the right lower lobe. CT with IV contrast ordered to further evaluate. Discussed patients condition with her family: Marco Yoder on [phone] and Rojelio and Ms Bunch on [phone], patient will ultimately have to go home as she has no payer source when she is stable. She will need to outpatient GI follow- up for colonoscopy. Family trying to arrange insurance. Case management on board History Interval history: Patient seen and examined at bedside this morning Plan to have a CT with contrast to further evaluate right lower lobe abnormality Patient initially refusing but after my discussion with patient's family, patient now agrees Proceed with CT with contrast studies. Hospitalist Physical - Physical exam Narrative exam: VITAL SIGNS: Reviewed. GENERAL: Awake HEAD: No signs of head trauma. EYES: Pupils are equal. Extraocular motions intact. MOUTH: Oropharynx is normal. NECK: No adenopathy, no JVD. CHEST: Chest with diminished breath sounds bilaterally. No wheezes, rales, or rhonchi. CARDIAC: normal S1 and S2, without murmurs, gallops, or rubs. ABDOMEN: Soft, non tender and non distended. No rebound or guarding, and no masses palpated. Bowel Sounds normal. MUSCULOSKELETAL: No edema NEUROLOGIC EXAM: Alert and oriented x3. No focal neurologic deficits SKIN: No obvious lesions - Constitutional Vitals: Temp Pulse Resp BP Pulse Ox 97.5 F L 73 18 158/94 96 09/06/20 08:56 09/06/20 10:42 09/06/20 08:56 09/06/20 10:42 09/06/20 08:56 General appearance: Present: other (Anasarca noted) HEART Score - HEART Score Age: 45-65 Risk factors: 1-2 risk factors Troponin: Troponin T 0.067 ng/mL (0.00-0.029) H 09/01/20 03:07 Troponin: 1-3x normal limit - Critical Actions Critical Actions: 4-6 pts:12-16.6% risk of adverse cardiac event. Should be admitted Results - Labs CBC & Chem 7: 09/05/20 04:50 09/05/20 08:31 Labs: Laboratory Last Values WBC 6.2 K/mm3 (4.5-11.0) 09/04/20 05:23 RBC 3.44 M/mm3 (3.65-5.03) L 09/04/20 05:23 Hgb 11.0 gm/dl (10.1-14.3) 09/05/20 04:50 Hct 33.6 % (30.3-42.9) 09/05/20 04:50 MCV 94 fl (79-97) 09/04/20 05:23 MCH 31 pg (28-32) 09/04/20 05:23 MCHC 33 % (30-34) 09/04/20 05:23 RDW 18.6 % (13.2-15.2) H 09/04/20 05:23 Plt Count 183 K/mm3 (140-440) 09/05/20 04:50 Lymph % (Auto) 8.4 % (13.4-35.0) L 09/04/20 05:23 [place] % (Auto) 7.4 % (0.0-7.3) H 09/04/20 05:23 Eos % (Auto) 0.0 % (0.0-4.3) 09/04/20 05:23 Baso % (Auto) 0.3 % (0.0-1.8) 09/04/20 05:23 Lymph # (Auto) 0.5 K/mm3 (1.2-5.4) L 09/04/20 05:23 [place] # (Auto) 0.5 K/mm3 (0.0-0.8) 09/04/20 05:23 Eos # (Auto) 0.0 K/mm3 (0.0-0.4) 09/04/20 05:23 Baso # (Auto) 0.0 K/mm3 (0.0-0.1) 09/04/20 05:23 Add Manual Diff Complete 09/02/20 13:36 Total Counted 100 09/02/20 13:36 Seg Neutrophils % 83.9 % (40.0-70.0) H 09/04/20 05:23 Seg Neuts % (Manual) 92.0 % (40.0-70.0) H 09/02/20 13:36 Band Neutrophils % 2.0 % 09/02/20 13:36 Lymphocytes % (Manual) 4.0 % (13.4-35.0) L 09/02/20 13:36 Monocytes % (Manual) 2.0 % (0.0-7.3) 09/02/20 13:36 Nucleated RBC % Not Reportable 09/02/20 13:36 Seg Neutrophils # 5.2 K/mm3 (1.8-7.7) 09/04/20 05:23 Seg Neutrophils # Man 4.8 K/mm3 (1.8-7.7) 09/02/20 13:36 Band Neutrophils # 0.1 K/mm3 09/02/20 13:36 Lymphocytes # (Manual) 0.2 K/mm3 (1.2-5.4) L 09/02/20 13:36 Abs React Lymphs (Man) 0.0 K/mm3 09/02/20 13:36 Monocytes # (Manual) 0.1 K/mm3 (0.0-0.8) 09/02/20 13:36 Eosinophils # (Manual) 0.0 K/mm3 (0.0-0.4) 09/02/20 13:36 Basophils # (Manual) 0.0 K/mm3 (0.0-0.1) 09/02/20 13:36 Metamyelocytes # 0.0 K/mm3 09/02/20 13:36 Myelocytes # 0.0 K/mm3 09/02/20 13:36 Promyelocytes # 0.0 K/mm3 09/02/20 13:36 Blast Cells # 0.0 K/mm3 09/02/20 13:36 WBC Morphology Not Reportable 09/02/20 13:36 WBC Morphology TNR 09/02/20 13:36 Hypersegmented Neuts Not Reportable 09/02/20 13:36 Hyposegmented Neuts Not Reportable 09/02/20 13:36 Hypogranular Neuts Not Reportable 09/02/20 13:36 Smudge Cells Not Reportable 09/02/20 13:36 Toxic Granulation Not Reportable 09/02/20 13:36 Toxic Vacuolation Not Reportable 09/02/20 13:36 Dohle Bodies Not Reportable 09/02/20 13:36 Pelger-Huet Anomaly Not Reportable 09/02/20 13:36 Elsy Rods Not Reportable 09/02/20 13:36 Platelet Estimate Not Reportable 09/02/20 13:36 Clumped Platelets Not Reportable 09/02/20 13:36 Plt Clumps, EDTA Not Reportable 09/02/20 13:36 Large Platelets Not Reportable 09/02/20 13:36 Giant Platelets Not Reportable 09/02/20 13:36 Platelet Satelliting Not Reportable 09/02/20 13:36 Plt Morphology Comment Not Reportable 09/02/20 13:36 RBC Morphology Not Reportable 09/02/20 13:36 Dimorphic RBCs Not Reportable 09/02/20 13:36 Polychromasia Not Reportable 09/02/20 13:36 Hypochromasia Not Reportable 09/02/20 13:36 Poikilocytosis Not Reportable 09/02/20 13:36 Anisocytosis 1+ 09/02/20 13:36 Microcytosis Not Reportable 09/02/20 13:36 Macrocytosis Not Reportable 09/02/20 13:36 Spherocytes Not Reportable 09/02/20 13:36 Pappenheimer Bodies Not Reportable 09/02/20 13:36 Sickle Cells Not Reportable 09/02/20 13:36 Target Cells Not Reportable 09/02/20 13:36 Tear Drop Cells Not Reportable 09/02/20 13:36 Ovalocytes Not Reportable 09/02/20 13:36 Helmet Cells Not Reportable 09/02/20 13:36 Singleton-Seboyeta Bodies Not Reportable 09/02/20 13:36 Colton Rings Not Reportable 09/02/20 13:36 Sen Cells Not Reportable 09/02/20 13:36 Bite Cells Not Reportable 09/02/20 13:36 Crenated Cell Not Reportable 09/02/20 13:36 Elliptocytes Not Reportable 09/02/20 13:36 Acanthocytes (Spur) Not Reportable 09/02/20 13:36 Rouleaux Not Reportable 09/02/20 13:36 Hemoglobin C Crystals Not Reportable 09/02/20 13:36 Schistocytes Not Reportable 09/02/20 13:36 Malaria parasites Not Reportable 09/02/20 13:36 David Bodies Not Reportable 09/02/20 13:36 Hem Pathologist Commnt No 09/02/20 13:36 PT 16.3 Sec. (12.2-14.9) H 09/01/20 11:02 INR 1.31 (0.87-1.13) H 09/01/20 11:02 APTT 40.0 Sec. (24.2-36.6) H 09/01/20 11:02 Sodium 137 mmol/L (137-145) 09/05/20 08:31 Potassium 4.8 mmol/L (3.6-5.0) 09/05/20 08:31 Chloride 101.2 mmol/L (98-107) 09/05/20 08:31 Carbon Dioxide 32 mmol/L (22-30) H 09/05/20 08:31 Anion Gap 9 mmol/L 09/05/20 08:31 BUN 27 mg/dL (7-17) H 09/05/20 08:31 Creatinine 0.8 mg/dL (0.6-1.2) 09/05/20 08:31 Estimated GFR > 60 ml/min 09/05/20 08:31 BUN/Creatinine Ratio 34 % 09/05/20 08:31 Glucose 275 mg/dL (65-100) H 09/05/20 08:31 POC Glucose 144 mg/dL (70-105) H 09/04/20 07:17 Hemoglobin A1c 4.1 % (4-6) 09/01/20 11:02 Calcium 8.1 mg/dL (8.4-10.2) L 09/05/20 08:31 Magnesium 1.70 mg/dL (1.7-2.3) 09/03/20 04:59 Iron 59 ug/dL (37-170) 09/01/20 11:02 TIBC 49 mcg/dL (250-450) L 09/01/20 11:02 % Saturation 120.41 % 09/01/20 11:02 Transferrin 50 mg/dl (192-382) L 09/01/20 11:02 Total Bilirubin 0.30 mg/dL (0.1-1.2) 09/02/20 13:36 AST 56 units/L (5-40) H 09/02/20 13:36 ALT 8 units/L (7-56) 09/02/20 13:36 Alkaline Phosphatase 112 units/L (35-129) 09/02/20 13:36 Troponin T 0.067 ng/mL (0.00-0.029) H 09/01/20 03:07 NT-Pro-B Natriuret Pep 2196 pg/mL (0-900) H 09/01/20 00:09 Total Protein 7.9 g/dL (6.3-8.2) 09/02/20 13:36 Albumin 1.6 g/dL (3.9-5) L 09/02/20 13:36 Albumin/Globulin Ratio 0.3 % 09/02/20 13:36 Triglycerides 105 mg/dL (2-149) 09/01/20 00:09 Cholesterol 74 mg/dL (50-199) 09/01/20 00:09 LDL Cholesterol Direct 20 mg/dL (50-130) L 09/01/20 00:09 HDL Cholesterol 21 mg/dL (40-59) L 09/01/20 00:09 Cholesterol/HDL Ratio 3.52 % 09/01/20 00:09 Vitamin B12 1202 pg/mL (211-911) H 09/01/20 11:02 RBC Folic Acid >1000 ng/mL (>280) 09/01/20 11:02 TSH 2.180 mlU/mL (0.270-4.200) 09/06/20 06:55 Free T4 0.72 ng/dL (0.76-1.46) L 09/06/20 06:55 Urine Color Yellow (Yellow) 09/01/20 01:00 Urine Turbidity Clear (Clear) 09/01/20 01:00 Urine pH 5.0 (5.0-7.0) 09/01/20 01:00 Ur Specific Mineral 1.013 (1.003-1.030) 09/01/20 01:00 Urine Protein 100 mg/dl mg/dL (Negative) 09/01/20 01:00 Urine Glucose (UA) Neg mg/dL (Negative) 09/01/20 01:00 Urine Ketones Neg mg/dL (Negative) 09/01/20 01:00 Urine Blood Lg (Negative) 09/01/20 01:00 Urine Nitrite Neg (Negative) 09/01/20 01:00 Urine Bilirubin Neg (Negative) 09/01/20 01:00 Urine Urobilinogen 2.0 mg/dL (<2.0) 09/01/20 01:00 Ur Leukocyte Esterase Neg (Negative) 09/01/20 01:00 Urine WBC (Auto) 5.0 /HPF (0.0-6.0) 09/01/20 01:00 Urine RBC (Auto) 20.0 /HPF (0.0-6.0) 09/01/20 01:00 U Epithel Cells (Auto) < 1.0 /HPF (0-13.0) 09/01/20 01:00 Urine Bacteria (Auto) 2+ /HPF (Negative) 09/01/20 01:00 Urine Mucus Few /HPF 09/01/20 01:00 Nasal Screen MRSA (PCR) Negative (Negative) 09/01/20 15:58 Blood Type O POSITIVE 09/01/20 18:23 Antibody Screen Negative 09/01/20 18:23 Crossmatch See Detail 09/01/20 18:23 - Diagnostic Impressions Diagnostic Impressions: Echocardiogram 09/01/20 07:28 Transthoracic Echocardiogram Indication: Swelling BP: 147/80 HR: 118 Conclusions *Global left ventricular wall motion and contractility are within normal limits. *The estimated ejection fraction is 60-65%. *Abnormal left ventricular diastolic filling is observed, consistent with grade 1 diastolic dysfunction. *The right ventricular global systolic function is normal. Findings Left Ventricle: The left ventricular chamber size is normal. There is no left ventricular hypertrophy. Global left ventricular wall motion and contractility are within normal limits. Global left ventricular systolic function is normal. The estimated ejection fraction is 60-65%. Abnormal left ventricular diastolic filling is observed, consistent with impaired relaxation. Left Atrium: The left atrial chamber size is normal. Right Ventricle: The right ventricular cavity size is normal. The right ventricular global systolic function is normal. Right Atrium: The right atrial cavity size is normal. Aortic Valve: There is no evidence of aortic valve thickening. There is no evidence of aortic regurgitation. Mitral Valve: The mitral valve leaflets are mildly thickened. There is mild mitral regurgitation. Tricuspid Valve: The tricuspid valve leaflets are normal. There is trace tricuspid regurgitation. Pulmonic Valve: There is no evidence of pulmonic valve thickening. There is no evidence of pulmonic regurgitation. Pericardium: There is no pericardial effusion. Aorta: The aorta appears normal. Venous: The inferior vena cava appears normal in size. Measurements Chambers 2D Name Value Normal Range IVSd (2D) 0.93 cm (0.6 - 1.1) LVPWd (2D) 1.02 cm (0.6 - 1.1) LVIDd (2D) 3.88 cm (3.7 - 5.6) LVIDs (2D) 2.31 cm (2 - 3.8) LV FS (2D) 40.42 % - EF Teichholz (2D) 71.8 % - Ao root diameter (2D) 2.47 cm (2 - 3.7) Volumes/Mass Name Value Normal Range LA ESV SP 4CH (A/L) 41.67 ml - LA ESV SP 2CH (A/L) 65.13 ml - LA ESV BP (A/L) 52.57 ml - LA ESV BP (A/L) index 33.27 ml/m2 - LA ESV SP 4CH (MOD) 36.67 ml - LA ESV SP 2CH (MOD) 61.15 ml - LA ESV BP (MOD) 47.5 ml - LA ESV BP (MOD) index 30.06 ml/m2 - Diastolic/Systolic Function Name Value Normal Range MV E-wave Vmax 0.91 m/sec - MV deceleration time 205.61 msec - MV A-wave Vmax 0.88 m/sec - MV E:A ratio 1.04 ratio - Aortic Valve Name Value Normal Range AV Vmax 1.29 m/sec - AV VTI 22.77 cm - AV peak gradient 6.61 mmHg - AV mean gradient 3.23 mmHg - LVOT diameter 2.02 cm - LVOT Vmax 1.15 m/sec - LVOT VTI 23.01 cm - LVOT peak gradient 5.32 mmHg - LVOT mean gradient 2.65 mmHg - SV LVOT 73.73 ml - AUBREY (continuity Vmax) 2.87 cm2 - AUBREY (continuity VTI) 3.24 cm2 - Tricuspid Valve Name Value Normal Range TR Vmax 2.67 m/sec - TR peak gradient 29 mmHg - RAP 3 mmHg - RVSP 32 mmHg - IVC diameter 1.42 cm (1.2 - 2.3) Pulmonic Valve/Qp:Qs Name Value Normal Range PV Vmax 0.94 m/sec - PV peak gradient 3.51 mmHg - PV acceleration time 98.95 msec - Sterling/IV: Voiding Method External Female Catheter IV Catheter Type [Left Wrist] INT / Saline Lock IV Catheter Type [Left Forearm INT / Saline Lock ] IV Catheter Type [Left Hand] INT / Saline Lock Active Medications - Current Medications Current Medications: Generic Name Dose Route Start Last Admin Trade Name Freq PRN Reason Stop Dose Admin Acetaminophen 650 mg 09/01/20 07:24 Acetaminophen 325 Mg Tab PO Q4H PRN Pain MILD(1-3)/Fever >100.5/LORA Albuterol 2.5 mg 09/01/20 08:28 Albuterol 2.5 Mg/3 Ml Nebu IH Q4HRT PRN Shortness Of Breath Albuterol/Ipratropium 1 ampul 09/04/20 08:00 09/05/20 21:03 Ipratropium/Albuterol Sulfate 3 Ml Ampul.Neb IH 1 ampul TIDRT CINTHIA Administration Amlodipine Besylate 10 mg 09/02/20 02:31 09/06/20 10:42 Amlodipine 10 Mg Tab PO 10 mg QDAY CINTHIA Administration Famotidine 20 mg 09/01/20 10:00 09/06/20 10:42 Famotidine 20 Mg Tab PO 20 mg BID CINTHIA Administration Hydralazine HCl 50 mg 09/05/20 14:00 09/06/20 07:02 Hydralazine 25 Mg Tab PO 50 mg Q8HR CINTHIA Administration Hydromorphone HCl 0.25 mg 09/01/20 07:24 Hydromorphone 1 Mg/1 Ml Inj IV Q3H PRN Pain, Moderate (4-6) Sodium Chloride 500 mls @ 0 mls/hr 09/01/20 15:04 09/02/20 01:53 Nacl 0.9% 500 Ml IV 50 mls/hr ONCE CINTHIA Administration As Directed Labetalol HCl 10 mg 09/02/20 02:12 09/05/20 06:45 Labetalol 20 Mg/4 Ml Inj IV 10 mg Q2H PRN Administration Hypertension Losartan Potassium 50 mg 09/05/20 14:00 09/06/20 10:41 Losartan 50 Mg Tab PO 50 mg QDAY [facility] Administration Methylprednisolone Sodium Succinate 40 mg 09/05/20 22:00 09/06/20 10:58 Methylprednisolone Sod Succinate 40 Mg/1 Ml Inj IV Not Given Q12HR [facility] Metoclopramide HCl 10 mg 09/01/20 07:24 Metoclopramide 10 Mg/2 Ml Inj IV Q6H PRN Nausea And Vomiting Ondansetron HCl 4 mg 09/01/20 07:24 Ondansetron 4 Mg/2 Ml Inj IV Q8H PRN Nausea And Vomiting Oxycodone/Acetaminophen 1 tab 09/01/20 09:00 09/05/20 22:13 Oxycodone /Acetaminophen 5-325mg Tab PO 1 tab Q6H PRN Administration Pain, Moderate (4-6) Sodium Chloride 10 ml 09/01/20 10:00 09/06/20 10:57 Sodium Chloride 0.9% 10 Ml Flush Syringe IV Not Given BID CINTHIA Sodium Chloride 10 ml 09/01/20 07:24 09/05/20 06:46 Sodium Chloride 0.9% 10 Ml Flush Syringe IV 10 ml PRN PRN Administration LINE FLUSH Nutrition/Malnutrition Assess - Dietary Evaluation Nutrition/Malnutrition Findings: Nutrition Notes Start: 09/02/20 10:16 Freq: Status: Active Protocol: Document 09/05/20 11:05 LM (Rec: 09/05/20 11:09 LM [id number]) Nutrition Notes Initial or Follow up Reassessment Current Diagnosis COPD,Hypertension Other Pertinent Diagnosis fatty liver disease, acute respiratory failure Current Diet Cardiac Labs/Tests Na 136 K 5.1 BUN 24 Pertinent Medications Solu-Medrol Height 5 ft Weight 56.5 kg [place] Body Weight (kg) 45.45 BMI 24.3 Weight change and time frame Wt change noted Weight Status Appropriate Subjective/Other Information Pt stated she ate all of her breakfast this AM and is drinking Ensure and enjoys them. Percent of energy/protein needs met: 100%/100% Burn Absent Trauma Absent GI Symptoms None Current % PO Good (75-100%) Minimum of two criteria No Energy Intake (non-severe) <75% Estimated Energy Requirement >7 days #1 Nutrition Diagnosis Inadequate oral intake As Evidenced by Signs and Symptoms Pt eating 100% Diagnosis Progress(for reassessment Improved documentation) Is patient on ventilator? No Is Patient Ambulatory and/or Out of Bed No REE-([facility]-confined to bed) 1272.888 Calculation Used for Recommendations [facility] Additional Notes Pro: 61-73g (1-1.2g/kg) Fluid: 1 ml/kcal or per MD Nutrition Intervention Change Diet Order: Continue Add Supplement/Snack (indicate name/kcal D/C until K in normal range /protein ) Goal #1 Meet at least 80% of protein and energy needs via PO intakes Anticipated Discharge Needs: Cardiac with ONS PRN Follow-Up By: 09/12/20 Additional Comments F/U for stable intakes, K
[2020-09-06] MEDS: oxyCODONE /ACETAMINOPHEN 5-325MG TAB PO PRN (13:48)
--- NOTE | 2020-09-06 13:51 | Progress Note ---
Assessment and Plan - Patient Problems (1) Anemia Current Visit: Yes Status: Acute Plan to address problem: Patient was admitted with symptomatic, severe anemia. There are no active cardiac issues. Echocardiogram done on this presentation was normal left ventricular systolic function, ejection fraction 60%. No further cardiac work- up is indicated, will follow on a as needed basis. Defer to internal medicine service for further evaluation of the patient's p resenting anemia. Subjective Date of service: 09/06/20 Principal diagnosis: Anasarca Interval history: Patient is comfortable, no cardiac complaints. Objective Vital Signs Temp Pulse Pulse Resp Resp BP Pulse Ox 09/06/20 13:39 97 H 182/106 09/06/20 10:42 73 158/94 09/06/20 10:41 73 158/94 09/06/20 08:56 97.5 F L 73 18 158/94 96 09/06/20 04:28 97.4 F L 86 16 162/96 99 09/05/20 23:44 97.6 F 83 16 178/112 99 09/05/20 22:01 95 H 166/93 09/05/20 21:06 98 09/05/20 21:03 97 H 18 09/05/20 19:53 81 09/05/20 19:28 98.2 F 100 H 18 166/93 97 09/05/20 17:26 98.4 F 88 163/105 97 - Physical Examination General: No Apparent Distress HEENT: Positive: PERRL Neck: Positive: neck supple Cardiac: Positive: Reg Rate and Rhythm Lungs: Positive: Decreased Breath Sounds Neuro: Positive: Grossly Intact Abdomen: Positive: Unremarkable Extremities: Absent: edema - Imaging and Cardiology EKG: report reviewed (Sinus rhythm, heart rate of 83/min no acute ST-T wave changes.)
[2020-09-06] MEDS: IPRATROPIUM/ALBUTEROL SULFATE 3 ML AMPUL.NEB IH SCH ×3 (14:23→21:15)
[2020-09-07 05:43] LABS: Hematocrit 32.1 % (30.3-42.9); Hemoglobin 10.7 gm/dl (10.1-14.3)
[2020-09-07] MEDS: hydrALAZINE 25 MG TAB PO SCH ×3 (06:20→23:26)
[2020-09-07] MEDS: IPRATROPIUM/ALBUTEROL SULFATE 3 ML AMPUL.NEB IH SCH ×3 (07:54→20:09)
[2020-09-07] MEDS: methylPREDNISolone Sod Succinate 40 MG/1 ML INJ IV SCH (10:00)
--- NOTE | 2020-09-07 13:15 | Cat Scan Report ---
CT CHEST, ABDOMEN, AND PELVIS WITH IV CONTRAST INDICATION / CLINICAL INFORMATION: Evaluate for Malignancy. TECHNIQUE: Axial CT images were obtained through the chest, abdomen, and pelvis after 100 cc Omni [address] All CT scans at this location are performed using CT dose reduction for ALARA by means of automate d exposure control. COMPARISON: 09/05/2020 CT chest abdomen pelvis FINDINGS: NECK BASE: Multiple normal and upper limits normal sized cervical and supra clavicular lymph node. HEART: Mild cardiomegaly. MEDIASTINUM and KIMMY: No significant adenopathy. LUNGS/PLEURA: Focal consolidation in the right lower lobe overall similar compared to yesterday's CT examination. No definite evidence of pulmonary mass. No effusion or pneumothorax. HEPATOBILIARY: No significant abnormality. PANCREAS/SPLEEN/ADRENALS: No significant abnormality. GENITOURINARY: No significant abnormality. GASTROINTESTINAL/MESENTERY: 7 cm stool ball in the rectum. Diverticulosis coli without evidence of di verticulitis. Moderate amount of stool throughout the colon suggests constipation. Appendix demonstra stacy no significant abnormality. No obstruction or inflammation. No free air or significant free fluid . RETROPERITONEUM: No significant adenopathy. REPRODUCTIVE ORGANS: No significant abnormality. VASCULAR: Moderate atherosclerotic calcification without acute abnormality. BODY WALL: Mild anasarca. Fluid collection in the right gluteus eve not well visualized on yester day's examination. Finding measures approximately 1.9 x 7.8 x 2.3 cm in AP by TV by CC dimension and extends out of the [id number]. Upper limits normal size axillary and inguinal lymph nodes. SKELETAL SYSTEM: 1 cm focal sclerosis adjacent to the right sacroiliac joint likely representing a dick [place]. IMPRESSION: 1. Focal consolidation in the right lower lobe concerning for pneumonia. Recommend continued follow-u p until resolution. Underlying mass not excluded. Consider further evaluation once this process has c leared. 2. 7 cm stool ball the rectum with findings suggestive of constipation. 3. Fluid collection in the right gluteus eve, as detailed above. Finding could represent hematoma , however abscess is not completely excluded. Recommend clinical correlation and further evaluation a s warranted. Signer Name: Kareem Langston MD Signed: 09/07/2020 1:11 PM Workstation Name: [id number]
--- NOTE | 2020-09-07 13:18 | Progress Note ---
Subjective Date of service: 09/07/20 Principal diagnosis: Anasarca Interval history: Assessment and plan: Acute hypoxic respiratory failure. Etiology secondary to volume overload/mild CHF and COPD exacerbation. Continue O2 to maintain sats greater than 92%. Improved. Stop IV Solu-Medrol Start on prednisone 20 mg daily Acute COPD exacerbation. Patient has never had diagnosis of COPD but she is a poor historian. Patient does report 30 pack year history. Resolved Stop IV steroids and start on prednisone p.o. 20 mg Hypoalbuminemia. Likely from low p.o. intake. Elevated troponin. ?NSTEMI. No further work-up as per cardiology Anemia. Stool guaiac test still pending. Received 2 unit PRBCs her hemoglobin has remained stable since then. Patient will need follow-up with GI for routine colonoscopy and possible EGD. Anorexia, weakness and weight loss.-Malignancy work-up, patient found to have questionable mass on CT chest-plan to have a CT with contrast to further evaluate. Patient initially refused but has consented to test. Discussed with patient's family Disposition : PT recommends subacute rehab patient has no insurance. Plan will be for patient to go home when stable 09/02/2020. Cardiology started the patient on spironolactone. Continue Norvasc and losartan for blood pressure control. Albumin level on admission 1.6. During a recent admission (06/2020) to [facility] albumin level was between 1.4 and 1.6. Urinalysis at that time showed minimal proteinuria. Continue steroids, bronchodilators/nebulizers for COPD. 09/04. Labs reviewed. Discontinued losartan due to hyperkalemia. DC planning. 09/05. BP is elevated. Patient was placed on aldactone as she was hypokalemic on admission. Since K has improved, will dc aldactone and resume losartan to help with her elevated BP. Taper steroids. PT ordered. Due to progressive decline in function, weight loss and poor appetite, malignancy work-up initiated with a CT chest abdomen and pelvis. TSH and free T4 also ordered 09/06. PT recommends rehab but patient has no payer source. CT of the abdomen/pelvis shows no acute pathology but CT chest showed possible mass in the right lower lobe. CT with IV contrast ordered to further evaluate. Discussed patients condition with her family: Marco Yoder on [phone] and Rojelio and Ms Bunch on [phone], patient will ultimately have to go home as she has no payer source when she is stable. She will need to outpatient GI follow- up for colonoscopy. Family trying to arrange insurance. Case management on board 09/07/20 patient is awake and alert and wants to go home, poor historian Awaiting CT of the chest with contrast For subacute rehab placement versus home History Interval history: Patient seen and examined at bedside this morning Plan to have a CT with contrast to further evaluate right lower lobe abnormality Patient initially refusing but after my discussion with patient's family, patient now agrees Proceed with CT with contrast studies Hospitalist Physical - Physical exam Narrative exam: VITAL SIGNS: Reviewed. GENERAL: Awake HEAD: No signs of head trauma. EYES: Pupils are equal. EOMI NECK: No adenopathy, no JVD. CHEST: Chest with diminished breath sounds bilaterally. CARDIAC: Regular rate and rhythm ABDOMEN: Soft, non tender and non distended. MUSCULOSKELETAL: No edema NEUROLOGIC EXAM: Alert and oriented x3. No focal deficits SKIN: No obvious lesions Objective - Constitutional Vitals: Vital Signs - 12hr 09/07/20 09/07/20 09/07/20 06:18 06:20 07:54 Temperature 98.5 F Pulse Rate 88 88 Pulse Rate [ 79 Anterior Bilateral Throughout] Respiratory 20 Rate Respiratory 18 Rate [Anterior Bilateral Throughout] Blood Pressure 151/88 Blood Pressure 151/88 [Left] O2 Sat by Pulse 100 97 Oximetry 09/07/20 08:51 Temperature 96.9 F L Pulse Rate 98 H Pulse Rate [ Anterior Bilateral Throughout] Respiratory 18 Rate Respiratory Rate [Anterior Bilateral Throughout] Blood Pressure Blood Pressure 145/77 [Left] O2 Sat by Pulse 100 Oximetry - Labs CBC & Chem 7: 09/07/20 04:59 09/05/20 08:31 HEART Score - HEART Score Age: 45-65 Risk factors: 1-2 risk factors Troponin: Troponin T 0.067 ng/mL (0.00-0.029) H 09/01/20 03:07 Troponin: 1-3x normal limit - Critical Actions Critical Actions: 4-6 pts:12-16.6% risk of adverse cardiac event. Should be admitted
[2020-09-07] MEDS: LOSARTAN 50 MG TAB PO SCH (14:27)
[2020-09-07] MEDS: FAMOTIDINE 20 MG TAB PO SCH ×2 (14:27→23:26)
[2020-09-07] MEDS: oxyCODONE /ACETAMINOPHEN 5-325MG TAB PO PRN (14:28)
[2020-09-07] MEDS: amLODIPine 10 MG TAB PO SCH (14:28)
--- NOTE | 2020-09-07 15:00 | Progress Note ---
Assessment and Plan - Patient Problems (1) Anemia Current Visit: Yes Status: Acute Plan to address problem: Patient was admitted with symptomatic, severe anemia. There are no active cardiac issues. Echocardiogram done on this presentation was normal left ventricular systolic function, ejection fraction 60%. No further cardiac work- up is indicated, will follow on a as needed basis. Defer to internal medicine service for further evaluation of the patient's p resenting anemia. Subjective Date of service: 09/07/20 Principal diagnosis: Anasarca Interval history: Patient is comfortable, no cardiac complaints. Objective Vital Signs Temp Pulse Pulse Resp Resp BP BP 09/07/20 10:00 85 18 09/07/20 08:51 96.9 F L 98 H 18 145/77 09/07/20 07:54 79 18 09/07/20 06:20 88 151/88 09/07/20 06:18 98.5 F 88 20 151/88 09/07/20 00:06 98.0 F 88 18 167/88 09/06/20 21:48 80 147/80 09/06/20 21:16 09/06/20 19:56 98.2 F 85 18 173/93 09/06/20 17:00 97.4 F L 74 18 148/92 Pulse Ox 09/07/20 10:00 09/07/20 08:51 100 09/07/20 07:54 97 09/07/20 06:20 09/07/20 06:18 100 09/07/20 00:06 96 09/06/20 21:48 09/06/20 21:16 96 09/06/20 19:56 99 09/06/20 17:00 96 - Physical Examination General: No Apparent Distress HEENT: Positive: PERRL Neck: Positive: neck supple Cardiac: Positive: Reg Rate and Rhythm Lungs: Positive: Decreased Breath Sounds Neuro: Positive: Grossly Intact Abdomen: Positive: Unremarkable Extremities: Absent: edema - Labs and Meds CBC 09/07/20 Range/Units 04:59 Hgb 10.7 (10.1-14.3) gm/dl Hct 32.1 (30.3-42.9) % Plt Count 207 (140-440) K/mm3 - Imaging and Cardiology EKG: report reviewed (Sinus rhythm, heart rate of 83/min no acute ST-T wave ch anges.)
[2020-09-07] MEDS ORDERED: QUEtiapine 25 MG TAB PO SCH (22:00)
[2020-09-08] MEDS ORDERED: LORazepam 2 MG/ML VIAL IV ONE (01:25)
[2020-09-08] MEDS: hydrALAZINE 25 MG TAB PO SCH ×3 (06:44→22:24)
[2020-09-08] MEDS: IPRATROPIUM/ALBUTEROL SULFATE 3 ML AMPUL.NEB IH SCH ×3 (08:06→19:22)
[2020-09-08] MEDS: LOSARTAN 50 MG TAB PO SCH (09:55)
[2020-09-08] MEDS: FAMOTIDINE 20 MG TAB PO SCH ×2 (09:55→22:24)
[2020-09-08] MEDS: amLODIPine 10 MG TAB PO SCH (09:55)
[2020-09-08] MEDS: predniSONE 20 MG TAB PO SCH (09:56)
--- NOTE | 2020-09-08 10:11 | Progress Note ---
Assessment and Plan - Patient Problems (1) Anemia Current Visit: Yes Status: Acute Plan to address problem: Patient was admitted with symptomatic, severe anemia. There are no active cardiac issues. Echocardiogram done on this presentation was normal left ventricular systolic function, ejection fraction 60%. No further cardiac work- up is indicated, will follow on a as needed basis. Defer to internal medicine service for further evaluation of the patient's p resenting anemia. Subjective Date of service: 09/08/20 Principal diagnosis: Anasarca Interval history: Patient is comfortable, no cardiac complaints. Objective Vital Signs Temp Pulse Pulse Pulse Resp Resp BP 09/08/20 08:06 95 H 18 09/08/20 07:44 98.5 F 89 18 143/85 09/08/20 06:44 98 H 140/86 09/08/20 04:14 98.6 F 98 H 16 140/86 09/07/20 23:46 97.8 F 86 16 169/97 09/07/20 23:26 109 H 157/75 09/07/20 22:30 105 H 18 09/07/20 20:58 111 H 09/07/20 20:40 97.8 F 109 H 16 157/95 09/07/20 20:19 09/07/20 20:09 120 H 19 09/07/20 15:15 91 H 18 162/87 09/07/20 14:27 92 H 20 Pulse Ox 09/08/20 08:06 98 09/08/20 07:44 99 09/08/20 06:44 09/08/20 04:14 96 09/07/20 23:46 100 09/07/20 23:26 09/07/20 22:30 96 09/07/20 20:58 09/07/20 20:40 96 09/07/20 20:19 97 09/07/20 20:09 09/07/20 15:15 96 09/07/20 14:27 - Physical Examination General: No Apparent Distress HEENT: Positive: PERRL Neck: Positive: neck supple Cardiac: Positive: Reg Rate and Rhythm Lungs: Positive: Decreased Breath Sounds Neuro: Positive: Grossly Intact Abdomen: Positive: Unremarkable Extremities: Absent: edema - Imaging and Cardiology EKG: report reviewed (Sinus rhythm, heart rate of 83/min no acute ST-T wave changes.)
--- NOTE | 2020-09-08 15:17 | Progress Note ---
Subjective Date of service: 09/08/20 Principal diagnosis: Anasarca Interval history: Assessment and plan: Acute hypoxic respiratory failure. Etiology secondary to volume overload/mild CHF and COPD exacerbation. Continue O2 to maintain sats greater than 92%. Improved. Stop IV Solu-Medrol Start on prednisone 20 mg daily Acute COPD exacerbation. Patient has never had diagnosis of COPD but she is a poor historian. Patient does report 30 pack year history. Resolved Stop IV steroids and start on prednisone p.o. 20 mg Hypoalbuminemia. Likely from low p.o. intake. Elevated troponin. ?NSTEMI. No further work-up as per cardiology Anemia. Stool guaiac test still pending. Received 2 unit PRBCs her hemoglobin has remained stable since then. Patient will need follow-up with GI for routine colonoscopy and possible EGD. Anorexia, weakness and weight loss.-Malignancy work-up, patient found to have questionable mass on CT chest-plan to have a CT with contrast to further evaluate. Patient initially refused but has consented to test. Discussed with patient's family Agitation Will increase Seroquel to 25 mg at at bedtime and 12.5 mg in daytime Await psych evaluation Disposition : PT recommends subacute rehab patient has no insurance. Plan will be for patient to go home when stable 09/02/2020. Cardiology started the patient on spironolactone. Continue Norvasc and losartan for blood pressure control. Albumin level on admission 1.6. During a recent admission (06/2020) to [facility] albumin level was between 1.4 and 1.6. Urinalysis at that time showed minimal proteinuria. Continue steroids, bronchodilators/nebulizers for COPD. 09/04. Labs reviewed. Discontinued losartan due to hyperkalemia. DC planning. 09/05. BP is elevated. Patient was placed on aldactone as she was hypokalemic on admission. Since K has improved, will dc aldactone and resume losartan to help with her elevated BP. Taper steroids. PT ordered. Due to progressive decline in function, weight loss and poor appetite, malignancy work-up initiated with a CT chest abdomen and pelvis. TSH and free T4 also ordered 09/06. PT recommends rehab but patient has no payer source. CT of the abdomen/pelvis shows no acute pathology but CT chest showed possible mass in the right lower lobe. CT with IV contrast ordered to further evaluate. Discussed patients condition with her family: Marco Yoder on [phone] and Rojelio and Ms Bunch on [phone], patient will ultimately have to go home as she has no payer source when she is stable. She will need to outpatient GI follow- up for colonoscopy. Family trying to arrange insurance. Case management on board 09/07/20 patient is awake and alert and wants to go home, poor historian Awaiting CT of the chest with contrast For subacute rehab placement versus home 09/08 patient has wrist restraints. Has been frequently agitating and having hallucinations and yelling. Will request psych evaluation. For subacute rehab placement History Interval history: Patient seen and examined at bedside this morning Plan to have a CT with contrast to further evaluate right lower lobe abnormality Patient initially refusing but after my discussion with patient's family, patient now agrees Proceed with CT with contrast studies Hospitalist Physical - Physical exam Narrative exam: VITAL SIGNS: Reviewed. GENERAL: Awake HEAD: No signs of head trauma. EYES: Pupils are equal. EOMI NECK: No adenopathy, no JVD. CHEST: Chest with diminished breath sounds bilaterally. CARDIAC: Regular rate and rhythm ABDOMEN: Soft, non tender and non distended. MUSCULOSKELETAL: No edema NEUROLOGIC EXAM: Alert and oriented x3. No focal deficits SKIN: No obvious lesions Objective - Constitutional Vitals: Vital Signs - 12hr 09/08/20 09/08/20 09/08/20 04:14 06:44 07:44 Temperature 98.6 F 98.5 F Pulse Rate 98 H 98 H 89 Pulse Rate [ Anterior Bilateral Throughout] Respiratory 16 18 Rate Respiratory Rate [Anterior Bilateral Throughout] Blood Pressure 140/86 140/86 143/85 O2 Sat by Pulse 96 99 Oximetry 09/08/20 09/08/20 09/08/20 08:06 10:00 11:04 Temperature 98.1 F Pulse Rate 110 H Pulse Rate [ 95 H Anterior Bilateral Throughout] Respiratory 18 18 Rate Respiratory 18 Rate [Anterior Bilateral Throughout] Blood Pressure 145/83 O2 Sat by Pulse 98 96 Oximetry 09/08/20 13:51 Temperature Pulse Rate Pulse Rate [ 93 H Anterior Bilateral Throughout] Respiratory Rate Respiratory 16 Rate [Anterior Bilateral Throughout] Blood Pressure O2 Sat by Pulse Oximetry - Labs CBC & Chem 7: 09/07/20 04:59 09/05/20 08:31 HEART Score - HEART Score Age: 45-65 Risk factors: 1-2 risk factors Troponin: Troponin T 0.067 ng/mL (0.00-0.029) H 09/01/20 03:07 Troponin: 1-3x normal limit - Critical Actions Critical Actions: 4-6 pts:12-16.6% risk of adverse cardiac event. Should be admitted
[2020-09-08] MEDS: HALOPERIDOL LACTATE 5 MG/1 ML INJ IM PRN (17:31)
[2020-09-08] MEDS: QUEtiapine 25 MG TAB PO SCH (22:24)
[2020-09-09] MEDS: HALOPERIDOL LACTATE 5 MG/1 ML INJ IM PRN ×2 (00:58→16:24)
[2020-09-09] MEDS: hydrALAZINE 25 MG TAB PO SCH ×3 (05:25→21:42)
[2020-09-09] MEDS: IPRATROPIUM/ALBUTEROL SULFATE 3 ML AMPUL.NEB IH SCH ×3 (08:12→19:15)
[2020-09-09 08:50] LABS: Hematocrit 32.5 % (30.3-42.9)
[2020-09-09] MEDS ORDERED: QUEtiapine 25 MG TAB PO SCH (10:00)
[2020-09-09] MEDS: predniSONE 20 MG TAB PO SCH (10:32)
[2020-09-09] MEDS: amLODIPine 10 MG TAB PO SCH (10:33)
[2020-09-09] MEDS: FAMOTIDINE 20 MG TAB PO SCH ×2 (10:33→21:44)
[2020-09-09] MEDS: LOSARTAN 50 MG TAB PO SCH (10:33)
--- NOTE | 2020-09-09 13:56 | Progress Note ---
Subjective Date of service: 09/09/20 Principal diagnosis: Anasarca Interval history: Assessment and plan: Acute hypoxic respiratory failure. Etiology secondary to volume overload/mild CHF and COPD exacerbation. Continue O2 to maintain sats greater than 92%. Improved. Stop IV Solu-Medrol Start on prednisone 20 mg daily Acute COPD exacerbation. Patient has never had diagnosis of COPD but she is a poor historian. Patient does report 30 pack year history. Resolved Stop IV steroids and start on prednisone p.o. 20 mg Hypoalbuminemia. Likely from low p.o. intake. Elevated troponin. ?NSTEMI. No further work-up as per cardiology Anemia. Stool guaiac test still pending. Received 2 unit PRBCs her hemoglobin has remained stable since then. Patient will need follow-up with GI for routine colonoscopy and possible EGD. Anorexia, weakness and weight loss.-Malignancy work-up, patient found to have questionable mass on CT chest-plan to have a CT with contrast to further evaluate. Patient initially refused but has consented to test. Discussed with patient's family Agitation Will increase Seroquel to 25 mg at at bedtime and 12.5 mg in daytime Await psych evaluation Disposition : PT recommends subacute rehab patient has no insurance. Plan will be for patient to go home when stable 09/02/2020. Cardiology started the patient on spironolactone. Continue Norvasc and losartan for blood pressure control. Albumin level on admission 1.6. During a recent admission (06/2020) to [facility] albumin level was between 1.4 and 1.6. Urinalysis at that time showed minimal proteinuria. Continue steroids, bronchodilators/nebulizers for COPD. 09/04. Labs reviewed. Discontinued losartan due to hyperkalemia. DC planning. 09/05. BP is elevated. Patient was placed on aldactone as she was hypokalemic on admission. Since K has improved, will dc aldactone and resume losartan to help with her elevated BP. Taper steroids. PT ordered. Due to progressive decline in function, weight loss and poor appetite, malignancy work-up initiated with a CT chest abdomen and pelvis. TSH and free T4 also ordered 09/06. PT recommends rehab but patient has no payer source. CT of the abdomen/pelvis shows no acute pathology but CT chest showed possible mass in the right lower lobe. CT with IV contrast ordered to further evaluate. Discussed patients condition with her family: Marco Yoder on [phone] and Rojelio and Ms Bunch on [phone], patient will ultimately have to go home as she has no payer source when she is stable. She will need to outpatient GI follow- up for colonoscopy. Family trying to arrange insurance. Case management on board 09/07/20 patient is awake and alert and wants to go home, poor historian Awaiting CT of the chest with contrast For subacute rehab placement versus home 09/08 patient has wrist restraints. Has been frequently agitating and having hallucinations and yelling. Will request psych evaluation. For subacute rehab placement 09/09 patient remains in restraints. discussed with nursing staff. patient is intermittently agitated and yelling. started on seroquel. psych consulted Hospitalist Physical - Physical exam Narrative exam: VITAL SIGNS: Reviewed. GENERAL: Awake HEAD: No signs of head trauma. EYES: Pupils are equal. EOMI NECK: No adenopathy, no JVD. CHEST: Chest with diminished breath sounds bilaterally. CARDIAC: Regular rate and rhythm ABDOMEN: Soft, non tender and non distended. MUSCULOSKELETAL: No edema NEUROLOGIC EXAM: Alert and oriented x3. No focal deficits SKIN: No obvious lesions Objective - Constitutional Vitals: Vital Signs - 12hr 09/09/20 09/09/20 09/09/20 04:30 05:25 07:51 Temperature 98.5 F 98.2 F Pulse Rate 107 H 107 H 105 H Pulse Rate [ Anterior Bilateral Throughout] Pulse Rate [ Apical] Respiratory 16 18 Rate Respiratory Rate [Anterior Bilateral Throughout] Blood Pressure 167/108 167/108 173/98 O2 Sat by Pulse 98 95 Oximetry 09/09/20 09/09/20 09/09/20 08:09 08:10 11:18 Temperature 98.3 F Pulse Rate 121 H Pulse Rate [ 99 H Anterior Bilateral Throughout] Pulse Rate [ Apical] Respiratory 18 Rate Respiratory 18 Rate [Anterior Bilateral Throughout] Blood Pressure 139/78 O2 Sat by Pulse 98 98 Oximetry 09/09/20 11:20 Temperature Pulse Rate Pulse Rate [ Anterior Bilateral Throughout] Pulse Rate [ 114 H Apical] Respiratory 18 Rate Respiratory Rate [Anterior Bilateral Throughout] Blood Pressure O2 Sat by Pulse 94 Oximetry - Labs CBC & Chem 7: 09/09/20 07:41 09/05/20 08:31 HEART Score - HEART Score Age: 45-65 Risk factors: 1-2 risk factors Troponin: Troponin T 0.067 ng/mL (0.00-0.029) H 09/01/20 03:07 Troponin: 1-3x normal limit - Critical Actions Critical Actions: 4-6 pts:12-16.6% risk of adverse cardiac event. Should be admitted
--- NOTE | 2020-09-09 18:48 | Progress Note ---
Assessment and Plan - Patient Problems (1) Anemia Current Visit: Yes Status: Acute Plan to address problem: Patient was admitted with symptomatic, severe anemia. There are no active cardiac issues. Echocardiogram done on this presentation was normal left ventricular systolic function, ejection fraction 60%. No further cardiac work- up is indicated, will follow on a as needed basis. Defer to internal medicine service for further evaluation of the patient's p resenting anemia. Subjective Date of service: 09/09/20 Principal diagnosis: Anasarca Interval history: Patient is comfortable, no cardiac complaints. Objective Vital Signs Temp Pulse Pulse Pulse Resp Resp BP 09/09/20 14:43 99 H 16 09/09/20 11:20 114 H 18 09/09/20 11:18 98.3 F 121 H 18 139/78 09/09/20 08:10 99 H 18 09/09/20 08:09 09/09/20 07:51 98.2 F 105 H 18 173/98 09/09/20 05:25 107 H 167/108 09/09/20 04:30 98.5 F 107 H 16 167/108 09/08/20 23:51 114 H 178/102 09/08/20 23:32 97.9 F 114 H 18 178/102 09/08/20 22:30 114 H 18 09/08/20 22:24 124 H 156/89 09/08/20 20:21 98.2 F 124 H 16 156/89 09/08/20 20:02 133 H 09/08/20 19:57 95 H 16 Pulse Ox 09/09/20 14:43 09/09/20 11:20 94 09/09/20 11:18 98 09/09/20 08:10 09/09/20 08:09 98 09/09/20 07:51 95 09/09/20 05:25 09/09/20 04:30 98 09/08/20 23:51 09/08/20 23:32 97 09/08/20 22:30 94 09/08/20 22:24 09/08/20 20:21 93 09/08/20 20:02 09/08/20 19:57 98 - Physical Examination General: No Apparent Distress HEENT: Positive: PERRL Neck: Positive: neck supple Cardiac: Positive: Reg Rate and Rhythm Lungs: Positive: Decreased Breath Sounds Neuro: Positive: Grossly Intact Abdomen: Positive: Unremarkable Extremities: Absent: edema - Labs and Meds CBC 09/09/20 Range/Units 07:41 Hgb 11.0 (10.1-14.3) gm/dl Hct 32.5 (30.3-42.9) % Plt Count 250 (140-440) K/mm3 - Imaging and Cardiology EKG: report reviewed (Sinus rhythm, heart rate of 83/min no acute ST-T wave changes.)
[2020-09-09] MEDS: QUEtiapine 25 MG TAB PO SCH (21:42)
[2020-09-10] MEDS: hydrALAZINE 25 MG TAB PO SCH ×3 (05:50→21:51)
[2020-09-10] MEDS: IPRATROPIUM/ALBUTEROL SULFATE 3 ML AMPUL.NEB IH SCH ×3 (07:48→23:06)
--- NOTE | 2020-09-10 09:49 | Consultation ---
History of Present Illness - Reason for Consult Consult date: 09/10/20 Reason for consult: agitation - History of Present Psychiatric Illness Oliva Diez is a 60y/o female patient who presented to the ER for generalized weakness. Psych was consulted for agitation and restlessness. The patient states she has a history of depression. She is in restraints. She is calm and cooperative. She is confused. The patient doesn't know why she was admitted into the hospital. When asked if she knew why psychiatry was consulted. She states "I guess they think I'm crazy." The patient denies SI/HI or ever having a suicidal attempt. She also denies hallucinations of any kind. Outside of depression, she says she has a history of hypertension and DM. The patient denies any illicit drug use, alcohol or nicotine. PAST PSYCHIATRIC HISTORY Diagnoses: Depression Suicide attempts or Self-harm behavior: Denies Prior psychiatric hospitalizations: Denies Substance Abuse history: Denies Previous psychiatric medications tried: "for depression" Outpatient treatment: Denies PAST MEDICAL HISTORY: None reported Family Psychiatric History: None reported or documented SOCIAL HISTORY Marital status: Living arrangement: correction Employment status: Retired/Disabled Legal history: Denies REVIEW OF SYSTEMS Constitutional: Negative for weight loss ENT: Negative for stridor Respiratory: Negative for cough or hemoptysis All other systems reviewed and are negative MENTAL STATUS EXAMINATION General Appearance and Behavior: Age appropriate, good hygiene, wearing appropriate clothes, poor eye contact Cooperation: Participating/engaged Psychomotor Behavior: Psychomotor normal Mood: "alright" Affect and affective range: congruent with stated mood Thought Process: impaired Thought Content: none Speech: Normal rate, volume and rhythm Suicidal Ideation: Denies at present Homicidal Ideation: Denies Hallucinations: Denies Delusions: None elicited Impulse Control: Impaired Insight and Judgment: impaired insight and judgment Memory: Impaired Attention: impaired Orientation: Alert, oriented Assessment and Plan (1) Delirium (2) Hx of Depression TREATMENT D/c seroquel 12.5 am, and 25 qhs Start Haldol 2mg po BID Agree with prn IM haldol Start Melatonin 5mg po scheduled to improve sleep Sitter: Defer to primary Medical: per primary Disposition: Do not recommend acute inpatient psychiatric treatment. Will follow for agitation and med management Thank you for this consult Case staffed with Dr. Lam Medications and Allergies Allergies Allergy/AdvReac Type Severity Reaction Status Date / Time No Known Allergies Allergy Unverified 08/31/20 22:07 Home Medications Medication Instructions Recorded Confirmed Last Taken Type Lasix TAB 40 mg PO ONCE 09/01/20 09/01/20 08/31/20 History Lopressor 50 mg PO BID 09/01/20 09/01/20 08/31/20 History Pantoprazole 40 mg PO ONCE 09/01/20 09/01/20 08/31/20 History amLODIPine 10 mg PO ONCE 09/01/20 09/01/20 08/31/20 History hydrALAZINE 25 mg PO TID 09/01/20 09/01/20 08/31/20 History Active Meds: Active Medications Acetaminophen (Acetaminophen 325 Mg Tab) 650 mg PO Q4H PRN PRN Reason: Pain MILD(1-3)/Fever >100.5/LORA Albuterol (Albuterol 2.5 Mg/3 Ml Nebu) 2.5 mg IH Q4HRT PRN PRN Reason: Shortness Of Breath Albuterol/Ipratropium (Ipratropium/Albuterol Sulfate 3 Ml Ampul.Neb) 1 ampul IH BID [facility] Amlodipine Besylate (Amlodipine 10 Mg Tab) 10 mg PO QDAY [facility] Last Admin: 09/09/20 10:33 Dose: 10 mg Documented by: Famotidine (Famotidine 20 Mg Tab) 20 mg PO BID [facility] Last Admin: 09/09/20 21:44 Dose: 20 mg Documented by: Furosemide (Furosemide 40 Mg Tab) 40 mg PO QDAY [facility] Haloperidol Lactate (Haloperidol Lactate 5 Mg/1 Ml Inj) 2 mg IM Q6H PRN PRN Reason: Agitation Last Admin: 09/09/20 16:24 Dose: 2 mg Documented by: Hydralazine HCl (Hydralazine 25 Mg Tab) 50 mg PO Q8HR [facility] Last Admin: 09/10/20 05:50 Dose: 50 mg Documented by: Hydromorphone HCl (Hydromorphone 1 Mg/1 Ml Inj) 0.25 mg IV Q3H PRN PRN Reason: Pain, Moderate (4-6) Labetalol HCl (Labetalol 20 Mg/4 Ml Inj) 10 mg IV Q2H PRN PRN Reason: Hypertension Last Admin: 09/08/20 23:51 Dose: 10 mg Documented by: Metoclopramide HCl (Metoclopramide 10 Mg/2 Ml Inj) 10 mg IV Q6H PRN PRN Reason: Nausea And Vomiting Metoprolol Tartrate (Metoprolol Tartrate 50 Mg Tab) 50 mg PO BID [facility] Ondansetron HCl (Ondansetron 4 Mg/2 Ml Inj) 4 mg IV Q8H PRN PRN Reason: Nausea And Vomiting Oxycodone/Acetaminophen (Oxycodone /Acetaminophen 5-325mg Tab) 1 tab PO Q6H PRN PRN Reason: Pain, Moderate (4-6) Last Admin: 09/07/20 14:28 Dose: 1 tab Documented by: Prednisone (Prednisone 20 Mg Tab) 20 mg PO QDAY [facility] Last Admin: 09/09/20 10:32 Dose: 20 mg Documented by: Quetiapine Fumarate (Quetiapine 25 Mg Tab) 25 mg PO QHS [facility] Last Admin: 09/09/20 21:42 Dose: 25 mg Documented by: Quetiapine Fumarate (Quetiapine 25 Mg Tab) 12.5 mg PO QAM [facility] Last Admin: 09/09/20 10:33 Dose: 12.5 mg Documented by: Sodium Chloride (Sodium Chloride 0.9% 10 Ml Flush Syringe) 10 ml IV BID [facility] Last Admin: 09/09/20 21:43 Dose: 10 ml Documented by: Sodium Chloride (Sodium Chloride 0.9% 10 Ml Flush Syringe) 10 ml IV PRN PRN PRN Reason: LINE FLUSH Last Admin: 09/05/20 06:46 Dose: 10 ml Documented by: Mental Status Exam - Vital signs Last Vital Signs Temp 97.8 F 09/10/20 08:41 Pulse 107 H 09/10/20 08:41 Resp 18 09/10/20 08:41 BP 162/85 09/10/20 08:41 Pulse Ox 95 09/10/20 08:59 Results Result Diagrams: 09/09/20 07:41 09/05/20 08:31 All other labs normal.
[2020-09-10] MEDS: FAMOTIDINE 20 MG TAB PO SCH ×2 (10:18→21:52)
[2020-09-10] MEDS: predniSONE 20 MG TAB PO SCH (10:18)
[2020-09-10] MEDS: amLODIPine 10 MG TAB PO SCH (10:18)
[2020-09-10] MEDS: FUROSEMIDE 40 MG TAB PO SCH (10:19)
[2020-09-10] MEDS: METOPROLOL TARTRATE 50 MG TAB PO SCH ×2 (10:52→21:52)
[2020-09-10] MEDS: HALOPERIDOL 2 MG TAB PO SCH ×2 (10:53→21:53)
--- NOTE | 2020-09-10 12:44 | Progress Note ---
Assessment and Plan - Patient Problems (1) Anemia Current Visit: Yes Status: Acute Plan to address problem: Patient was admitted with symptomatic, severe anemia. There are no active cardiac issues. Echocardiogram done on this presentation was normal left ventricular systolic function, ejection fraction 60%. No further cardiac work- up is indicated, will follow on a as needed basis. Subjective Date of service: 09/10/20 Principal diagnosis: Anasarca Interval history: Patient is comfortable, no cardiac complaints. Objective Vital Signs Temp Pulse Pulse Resp Resp BP Pulse Ox 09/10/20 10:00 107 H 09/10/20 08:59 95 09/10/20 08:41 97.8 F 107 H 18 162/85 98 09/10/20 07:48 92 H 16 09/10/20 05:50 95 H 174/86 09/10/20 04:52 98.0 F 18 174/86 09/10/20 00:11 98.0 F 18 145/83 09/09/20 21:42 88 160/87 09/09/20 19:32 98.0 F 98 H 20 160/87 97 09/09/20 19:16 101 H 16 99 09/09/20 16:33 98.0 F 109 H 18 156/81 98 09/09/20 14:43 99 H 16 - Physical Examination General: No Apparent Distress HEENT: Positive: PERRL Neck: Positive: neck supple Cardiac: Positive: Reg Rate and Rhythm Lungs: Positive: Decreased Breath Sounds Neuro: Positive: Grossly Intact Abdomen: Positive: Unremarkable Extremities: Absent: edema - Imaging and Cardiology EKG: report reviewed (Sinus rhythm, heart rate of 83/min no acute ST-T wave changes.)
--- NOTE | 2020-09-10 14:44 | Progress Note ---
Assessment and Plan - Patient Problems (1) COPD (chronic obstructive pulmonary disease) Current Visit: Yes Status: Chronic Qualifiers: COPD type: COPD with acute exacerbation Qualified Code(s): J44.1 - Chronic obstructive pulmonary disease with (acute) exacerbation Plan to address problem: -Patient has a 30 pack/year history -08/31 CXR shows prominent bronchovascular markings and increased lung volumes evidence of COPD -09/05 CT chest, abdomen and pelvis without contrast shows airspace process-mass right lower lobe with pleural thickening sigmoid diverticulitis -09/07 CT chest, abdomen and pelvis with IV contrast shows a 4, no upper limits of normal, mild cardiomegaly, focal calcification in the right lower lobe, 7 cm stool ball consistent with constipation -Steroid taper -Supplemental oxygen as needed -Pulmonary hygiene (2) Anemia Current Visit: Yes Status: Acute Qualifiers: Anemia type: iron deficiency Iron deficiency anemia type: inadequate dietary iron intake Qualified Code(s): D50.8 - Other iron deficiency anemias Plan to address problem: -Presented with H/H of 7.6/ -09/01 H/H 6.4/19 -09/02 s/p 2 units transfusion -09/02 H/H 9.3/27.1 -09/03 H/H 11.7/34.6 -Transfuse for hemoglobin less than 7 -Supportive care (3) Acute respiratory failure with hypoxia Current Visit: Yes Status: Acute Plan to address problem: -Supplemental oxygen as needed -Presented with COPD exacerbation -Spot SPO2 monitoring -Pulmonary hygiene -Supportive care (4) Elevated troponin Current Visit: Yes Status: Acute Plan to address problem: -09/01 troponin 0.074, 0.067 -Cardiology consulted, appreciate recommendations -09/01 echocardiogram shows global left ventricular wall motion the contracted TM within normal limits, estimated ejection fraction 60 to 65%, abnormal left ventricular diastolic filling consistent with grade 1 diastolic dysfunction, right ventricular global systolic function is normal, mild MR, trace TR and no pericardial effusion -No further testing warranted by cardiology -Cardiology has signed off (5) Malnutrition Current Visit: Yes Status: Chronic Qualifiers: Protein-calorie malnutrition severity: severe Plan to address problem: -Secondary to malnutrition -Dietary supplementation (6) Depression Current Visit: Yes Status: Chronic Plan to address problem: -Psych consult, appreciate recommendations -Continue antidepressants as prescribed -Supportive care (7) Hypoalbuminemia Current Visit: Yes Status: Acute Plan to address problem: -Secondary to decreased p.o. intake -Dietary supplementation (8) Mass in chest Current Visit: Yes Status: Acute Plan to address problem: -09/05 CT chest, abdomen and pelvis without contrast shows airspace process-mass right lower lobe with pleural thickening sigmoid diverticulitis -09/07 CT chest, abdomen and pelvis with IV contrast shows a 4, no upper limits of normal, mild cardiomegaly, focal calcification in the right lower lobe, 7 cm sto ol ball's vaccines which were removed hematoma or abscess -Supportive care (9) Tobacco abuse Current Visit: Yes Status: Acute Plan to address problem: -Patient is a current smoker -Consider NicoDerm patch while inpatient and continuation outpatient for smoking cessation (10) DVT prophylaxis Current Visit: Yes Status: Acute Plan to address problem: -SCDs to bilateral to bilateral from swelling in bed -Lovenox subcu (11) Discharge planning issues Current Visit: Yes Status: Acute Plan to address problem: -PT/OT recommended subacute rehab -Patient is under funded -Case management working on placement History Interval history: 60-year-old female with hypertension, diabetes and depression who presented the ED for generalized weakness and swelling of the lower extremities on 09/03. Patient had low oxygen saturations of 85% on room air in the emergency room. Patient was admitted to the hospitalist service with COPD exacerbation,hypokalemia, anemia, elevated proBNP. Cardiology, nephrology were consulted and later psychiatric consult was obtained. The time of my exam patient has no complaints is on room air. Patient is a poor historian. No acute events reported overnight. 09/02/2020. Cardiology started the patient on spironolactone. Continue Norvasc and losartan for blood pressure control. Albumin level on admission 1.6. During a recent admission (06/2020) to [facility] albumin level was between 1.4 and 1.6. Urinalysis at that time showed minimal proteinuria. Continue steroids, bronchodilators/nebulizers for COPD. 09/04. Labs reviewed. Discontinued losartan due to hyperkalemia. DC planning. 09/05. BP is elevated. Patient was placed on aldactone as she was hypokalemic on admission. Since K has improved, will dc aldactone and resume losartan to help with her elevated BP. Taper steroids. PT ordered. Due to progressive decline in function, weight loss and poor appetite, malignancy work-up initiated with a CT chest abdomen and pelvis. TSH and free T4 also ordered 09/06. PT recommends rehab but patient has no payer source. CT of the abdomen/pelvis shows no acute pathology but CT chest showed possible mass in the right lower lobe. CT with IV contrast ordered to further evaluate. Discussed patients condition with her family: Marco Yoder on [phone] and Rojelio and Ms Bunch on [phone], patient will ultimately have to go home as she has no payer source when she is stable. She will need to outpatient GI follow- up for colonoscopy. Family trying to arrange insurance. Case management on board 09/07/20 patient is awake and alert and wants to go home, poor historian Awaiting CT of the chest with contrast For subacute rehab placement versus home 09/08 patient has wrist restraints. Has been frequently agitating and having hallucinations and yelling. Will request psych evaluation. For subacute rehab placement 09/09 patient remains in restraints. discussed with nursing staff. patient is intermittently agitated and yelling. started on seroquel. psych consulted Hospitalist Physical - Constitutional Vitals: Temp Pulse Resp BP Pulse Ox 97.8 F 107 H 18 162/85 95 09/10/20 08:41 09/10/20 10:00 09/10/20 08:41 09/10/20 08:41 09/10/20 08:59 General appearance: Present: no acute distress, other (Anasarca noted) - EENT Eyes: Present: PERRL, EOM intact ENT: hearing intact, poor dentition - Neck Neck: Present: supple, normal ROM - Respiratory Respiratory effort: normal Respiratory: bilateral: CTA - Cardiovascular Rhythm: regular Heart Sounds: Present: S1 & S2. Absent: systolic murmur, diastolic murmur - Extremities Extremities: no ischemia, pulses intact, pulses symmetrical, No edema, normal temperature, normal color, Full ROM Peripheral Pulses: within normal limits - Abdominal General gastrointestinal: soft, non-tender, non-distended, normal bowel sounds - Integumentary Integumentary: Present: clear, warm, dry - Psychiatric Psychiatric: cooperative, depressed - Neurologic Neurologic: CNII-XII intact, no focal deficits, moves all extremities HEART Score - HEART Score Age: 45-65 Risk factors: 1-2 risk factors Troponin: Troponin T 0.067 ng/mL (0.00-0.029) H 09/01/20 03:07 Troponin: 1-3x normal limit - Critical Actions Critical Actions: 4-6 pts:12-16.6% risk of adverse cardiac event. Should be admitted Results - Labs CBC & Chem 7: 09/09/20 07:41 09/05/20 08:31 Labs: Laboratory Last Values WBC 6.2 K/mm3 (4.5-11.0) 09/04/20 05:23 RBC 3.44 M/mm3 (3.65-5.03) L 09/04/20 05:23 Hgb 11.0 gm/dl (10.1-14.3) 09/09/20 07:41 Hct 32.5 % (30.3-42.9) 09/09/20 07:41 MCV 94 fl (79-97) 09/04/20 05:23 MCH 31 pg (28-32) 09/04/20 05:23 MCHC 33 % (30-34) 09/04/20 05:23 RDW 18.6 % (13.2-15.2) H 09/04/20 05:23 Plt Count 250 K/mm3 (140-440) 09/09/20 07:41 Lymph % (Auto) 8.4 % (13.4-35.0) L 09/04/20 05:23 [place] % (Auto) 7.4 % (0.0-7.3) H 09/04/20 05:23 Eos % (Auto) 0.0 % (0.0-4.3) 09/04/20 05:23 Baso % (Auto) 0.3 % (0.0-1.8) 09/04/20 05:23 Lymph # (Auto) 0.5 K/mm3 (1.2-5.4) L 09/04/20 05:23 [place] # (Auto) 0.5 K/mm3 (0.0-0.8) 09/04/20 05:23 Eos # (Auto) 0.0 K/mm3 (0.0-0.4) 09/04/20 05:23 Baso # (Auto) 0.0 K/mm3 (0.0-0.1) 09/04/20 05:23 Add Manual Diff Complete 09/02/20 13:36 Total Counted 100 09/02/20 13:36 Seg Neutrophils % 83.9 % (40.0-70.0) H 09/04/20 05:23 Seg Neuts % (Manual) 92.0 % (40.0-70.0) H 09/02/20 13:36 Band Neutrophils % 2.0 % 09/02/20 13:36 Lymphocytes % (Manual) 4.0 % (13.4-35.0) L 09/02/20 13:36 Monocytes % (Manual) 2.0 % (0.0-7.3) 09/02/20 13:36 Nucleated RBC % Not Reportable 09/02/20 13:36 Seg Neutrophils # 5.2 K/mm3 (1.8-7.7) 09/04/20 05:23 Seg Neutrophils # Man 4.8 K/mm3 (1.8-7.7) 09/02/20 13:36 Band Neutrophils # 0.1 K/mm3 09/02/20 13:36 Lymphocytes # (Manual) 0.2 K/mm3 (1.2-5.4) L 09/02/20 13:36 Abs React Lymphs (Man) 0.0 K/mm3 09/02/20 13:36 Monocytes # (Manual) 0.1 K/mm3 (0.0-0.8) 09/02/20 13:36 Eosinophils # (Manual) 0.0 K/mm3 (0.0-0.4) 09/02/20 13:36 Basophils # (Manual) 0.0 K/mm3 (0.0-0.1) 09/02/20 13:36 Metamyelocytes # 0.0 K/mm3 09/02/20 13:36 Myelocytes # 0.0 K/mm3 09/02/20 13:36 Promyelocytes # 0.0 K/mm3 09/02/20 13:36 Blast Cells # 0.0 K/mm3 09/02/20 13:36 WBC Morphology Not Reportable 09/02/20 13:36 WBC Morphology TNR 09/02/20 13:36 Hypersegmented Neuts Not Reportable 09/02/20 13:36 Hyposegmented Neuts Not Reportable 09/02/20 13:36 Hypogranular Neuts Not Reportable 09/02/20 13:36 Smudge Cells Not Reportable 09/02/20 13:36 Toxic Granulation Not Reportable 09/02/20 13:36 Toxic Vacuolation Not Reportable 09/02/20 13:36 Dohle Bodies Not Reportable 09/02/20 13:36 Pelger-Huet Anomaly Not Reportable 09/02/20 13:36 Elsy Rods Not Reportable 09/02/20 13:36 Platelet Estimate Not Reportable 09/02/20 13:36 Clumped Platelets Not Reportable 09/02/20 13:36 Plt Clumps, EDTA Not Reportable 09/02/20 13:36 Large Platelets Not Reportable 09/02/20 13:36 Giant Platelets Not Reportable 09/02/20 13:36 Platelet Satelliting Not Reportable 09/02/20 13:36 Plt Morphology Comment Not Reportable 09/02/20 13:36 RBC Morphology Not Reportable 09/02/20 13:36 Dimorphic RBCs Not Reportable 09/02/20 13:36 Polychromasia Not Reportable 09/02/20 13:36 Hypochromasia Not Reportable 09/02/20 13:36 Poikilocytosis Not Reportable 09/02/20 13:36 Anisocytosis 1+ 09/02/20 13:36 Microcytosis Not Reportable 09/02/20 13:36 Macrocytosis Not Reportable 09/02/20 13:36 Spherocytes Not Reportable 09/02/20 13:36 Pappenheimer Bodies Not Reportable 09/02/20 13:36 Sickle Cells Not Reportable 09/02/20 13:36 Target Cells Not Reportable 09/02/20 13:36 Tear Drop Cells Not Reportable 09/02/20 13:36 Ovalocytes Not Reportable 09/02/20 13:36 Helmet Cells Not Reportable 09/02/20 13:36 [place] Bodies Not Reportable 09/02/20 13:36 [place] Rings Not Reportable 09/02/20 13:36 [place] Cells Not Reportable 09/02/20 13:36 Bite Cells Not Reportable 09/02/20 13:36 Crenated Cell Not Reportable 09/02/20 13:36 Elliptocytes Not Reportable 09/02/20 13:36 Acanthocytes (Spur) Not Reportable 09/02/20 13:36 Rouleaux Not Reportable 09/02/20 13:36 Hemoglobin C Crystals Not Reportable 09/02/20 13:36 Schistocytes Not Reportable 09/02/20 13:36 Malaria parasites Not Reportable 09/02/20 13:36 David Bodies Not Reportable 09/02/20 13:36 Hem Pathologist Commnt No 09/02/20 13:36 PT 16.3 Sec. (12.2-14.9) H 09/01/20 11:02 INR 1.31 (0.87-1.13) H 09/01/20 11:02 APTT 40.0 Sec. (24.2-36.6) H 09/01/20 11:02 Sodium 137 mmol/L (137-145) 09/05/20 08:31 Potassium 4.8 mmol/L (3.6-5.0) 09/05/20 08:31 Chloride 101.2 mmol/L (98-107) 09/05/20 08:31 Carbon Dioxide 32 mmol/L (22-30) H 09/05/20 08:31 Anion Gap 9 mmol/L 09/05/20 08:31 BUN 27 mg/dL (7-17) H 09/05/20 08:31 Creatinine 0.8 mg/dL (0.6-1.2) 09/05/20 08:31 Estimated GFR > 60 ml/min 09/05/20 08:31 BUN/Creatinine Ratio 34 % 09/05/20 08:31 Glucose 275 mg/dL (65-100) H 09/05/20 08:31 POC Glucose 144 mg/dL (70-105) H 09/04/20 07:17 Hemoglobin A1c 4.1 % (4-6) 09/01/20 11:02 Calcium 8.1 mg/dL (8.4-10.2) L 09/05/20 08:31 Magnesium 1.70 mg/dL (1.7-2.3) 09/03/20 04:59 Iron 59 ug/dL (37-170) 09/01/20 11:02 TIBC 49 mcg/dL (250-450) L 09/01/20 11:02 % Saturation 120.41 % 09/01/20 11:02 Transferrin 50 mg/dl (192-382) L 09/01/20 11:02 Total Bilirubin 0.30 mg/dL (0.1-1.2) 09/02/20 13:36 AST 56 units/L (5-40) H 09/02/20 13:36 ALT 8 units/L (7-56) 09/02/20 13:36 Alkaline Phosphatase 112 units/L (35-129) 09/02/20 13:36 Troponin T 0.067 ng/mL (0.00-0.029) H 09/01/20 03:07 NT-Pro-B Natriuret Pep 2196 pg/mL (0-900) H 09/01/20 00:09 Total Protein 7.9 g/dL (6.3-8.2) 09/02/20 13:36 Albumin 1.6 g/dL (3.9-5) L 09/02/20 13:36 Albumin/Globulin Ratio 0.3 % 09/02/20 13:36 Triglycerides 105 mg/dL (2-149) 09/01/20 00:09 Cholesterol 74 mg/dL (50-199) 09/01/20 00:09 LDL Cholesterol Direct 20 mg/dL (50-130) L 09/01/20 00:09 HDL Cholesterol 21 mg/dL (40-59) L 09/01/20 00:09 Cholesterol/HDL Ratio 3.52 % 09/01/20 00:09 Vitamin B12 1202 pg/mL (211-911) H 09/01/20 11:02 RBC Folic Acid >1000 ng/mL (>280) 09/01/20 11:02 TSH 2.180 mlU/mL (0.270-4.200) 09/06/20 06:55 Free T4 0.72 ng/dL (0.76-1.46) L 09/06/20 06:55 Urine Color Yellow (Yellow) 09/01/20 01:00 Urine Turbidity Clear (Clear) 09/01/20 01:00 Urine pH 5.0 (5.0-7.0) 09/01/20 01:00 Ur Specific [place] 1.013 (1.003-1.030) 09/01/20 01:00 Urine Protein 100 mg/dl mg/dL (Negative) 09/01/20 01:00 Urine Glucose (UA) Neg mg/dL (Negative) 09/01/20 01:00 Urine Ketones Neg mg/dL (Negative) 09/01/20 01:00 Urine Blood Lg (Negative) 09/01/20 01:00 Urine Nitrite Neg (Negative) 09/01/20 01:00 Urine Bilirubin Neg (Negative) 09/01/20 01:00 Urine Urobilinogen 2.0 mg/dL (<2.0) 09/01/20 01:00 Ur Leukocyte Esterase Neg (Negative) 09/01/20 01:00 Urine WBC (Auto) 5.0 /HPF (0.0-6.0) 09/01/20 01:00 Urine RBC (Auto) 20.0 /HPF (0.0-6.0) 09/01/20 01:00 U Epithel Cells (Auto) < 1.0 /HPF (0-13.0) 09/01/20 01:00 Urine Bacteria (Auto) 2+ /HPF (Negative) 09/01/20 01:00 Urine Mucus Few /HPF 09/01/20 01:00 Nasal Screen MRSA (PCR) Negative (Negative) 09/01/20 15:58 Blood Type O POSITIVE 09/01/20 18:23 Antibody Screen Negative 09/01/20 18:23 Crossmatch See Detail 09/01/20 18:23 - Diagnostic Impressions Diagnostic Impressions: Echocardiogram 09/01/20 07:28 Transthoracic Echocardiogram Indication: Swelling BP: 147/80 HR: 118 Conclusions *Global left ventricular wall motion and contractility are within normal limits. *The estimated ejection fraction is 60-65%. *Abnormal left ventricular diastolic filling is observed, consistent with grade 1 diastolic dysfunction. *The right ventricular global systolic function is normal. Findings Left Ventricle: The left ventricular chamber size is normal. There is no left ventricular hypertrophy. Global left ventricular wall motion and contractility are within normal limits. Global left ventricular systolic function is normal. The estimated ejection fraction is 60-65%. Abnormal left ventricular diastolic filling is observed, consistent with impaired relaxation. Left Atrium: The left atrial chamber size is normal. Right Ventricle: The right ventricular cavity size is normal. The right ventricular global systolic function is normal. Right Atrium: The right atrial cavity size is normal. Aortic Valve: There is no evidence of aortic valve thickening. There is no evidence of aortic regurgitation. Mitral Valve: The mitral valve leaflets are mildly thickened. There is mild mitral regurgitation. Tricuspid Valve: The tricuspid valve leaflets are normal. There is trace tricuspid regurgitation. Pulmonic Valve: There is no evidence of pulmonic valve thickening. There is no evidence of pulmonic regurgitation. Pericardium: There is no pericardial effusion. Aorta: The aorta appears normal. Venous: The inferior vena cava appears normal in size. Measurements Chambers 2D Name Value Normal Range IVSd (2D) 0.93 cm (0.6 - 1.1) LVPWd (2D) 1.02 cm (0.6 - 1.1) LVIDd (2D) 3.88 cm (3.7 - 5.6) LVIDs (2D) 2.31 cm (2 - 3.8) LV FS (2D) 40.42 % - EF Teichholz (2D) 71.8 % - Ao root diameter (2D) 2.47 cm (2 - 3.7) Volumes/Mass Name Value Normal Range LA ESV SP 4CH (A/L) 41.67 ml - LA ESV SP 2CH (A/L) 65.13 ml - LA ESV BP (A/L) 52.57 ml - LA ESV BP (A/L) index 33.27 ml/m2 - LA ESV SP 4CH (MOD) 36.67 ml - LA ESV SP 2CH (MOD) 61.15 ml - LA ESV BP (MOD) 47.5 ml - LA ESV BP (MOD) index 30.06 ml/m2 - Diastolic/Systolic Function Name Value Normal Range MV E-wave Vmax 0.91 m/sec - MV deceleration time 205.61 msec - MV A-wave Vmax 0.88 m/sec - MV E:A ratio 1.04 ratio - Aortic Valve Name Value Normal Range AV Vmax 1.29 m/sec - AV VTI 22.77 cm - AV peak gradient 6.61 mmHg - AV mean gradient 3.23 mmHg - LVOT diameter 2.02 cm - LVOT Vmax 1.15 m/sec - LVOT VTI 23.01 cm - LVOT peak gradient 5.32 mmHg - LVOT mean gradient 2.65 mmHg - SV LVOT 73.73 ml - AUBREY (continuity Vmax) 2.87 cm2 - AUBREY (continuity VTI) 3.24 cm2 - Tricuspid Valve Name Value Normal Range TR Vmax 2.67 m/sec - TR peak gradient 29 mmHg - RAP 3 mmHg - RVSP 32 mmHg - IVC diameter 1.42 cm (1.2 - 2.3) Pulmonic Valve/Qp:Qs Name Value Normal Range PV Vmax 0.94 m/sec - PV peak gradient 3.51 mmHg - PV acceleration time 98.95 msec - [place]/IV: Voiding Method External Female Catheter IV Catheter Type [Right Mid-line Antecubital] IV Catheter Type [Left Wrist] INT / Saline Lock IV Catheter Type [Left Forearm INT / Saline Lock ] IV Catheter Type [Left Hand] INT / Saline Lock Active Medications - Current Medications Current Medications: Generic Name Dose Route Start Last Admin Trade Name Freq PRN Reason Stop Dose Admin Acetaminophen 650 mg 09/01/20 07:24 Acetaminophen 325 Mg Tab PO Q4H PRN Pain MILD(1-3)/Fever >100.5/LORA Albuterol 2.5 mg 09/01/20 08:28 Albuterol 2.5 Mg/3 Ml Nebu IH Q4HRT PRN Shortness Of Breath Albuterol/Ipratropium 1 ampul 09/10/20 20:00 Ipratropium/Albuterol Sulfate 3 Ml Ampul.Neb IH BID CINTHIA Amlodipine Besylate 10 mg 09/02/20 02:31 09/10/20 10:18 Amlodipine 10 Mg Tab PO 10 mg QDAY CINTHIA Administration Famotidine 20 mg 09/01/20 10:00 09/10/20 10:18 Famotidine 20 Mg Tab PO 20 mg BID CINTHIA Administration Furosemide 40 mg 09/10/20 10:00 09/10/20 10:19 Furosemide 40 Mg Tab PO 40 mg QDAY CINTHIA Administration Haloperidol 2 mg 09/10/20 11:00 09/10/20 10:53 Haloperidol 2 Mg Tab PO 2 mg BID CINTHIA Administration Haloperidol Lactate 2 mg 09/08/20 17:23 09/09/20 16:24 Haloperidol Lactate 5 Mg/1 Ml Inj IM 2 mg Q6H PRN Administration Agitation Hydralazine HCl 50 mg 09/05/20 14:00 09/10/20 14:25 Hydralazine 25 Mg Tab PO 50 mg Q8HR CINTHIA Administration Hydromorphone HCl 0.25 mg 09/01/20 07:24 Hydromorphone 1 Mg/1 Ml Inj IV Q3H PRN Pain, Moderate (4-6) Labetalol HCl 10 mg 09/02/20 02:12 09/08/20 23:51 Labetalol 20 Mg/4 Ml Inj IV 10 mg Q2H PRN Administration Hypertension Melatonin 5 mg 09/10/20 22:00 Melatonin 5 Mg Tab PO QHS CINTHIA Metoclopramide HCl 10 mg 09/01/20 07:24 Metoclopramide 10 Mg/2 Ml Inj IV Q6H PRN Nausea And Vomiting Metoprolol Tartrate 50 mg 09/10/20 10:00 09/10/20 10:52 Metoprolol Tartrate 50 Mg Tab PO 50 mg BID CINTHIA Administration Ondansetron HCl 4 mg 09/01/20 07:24 Ondansetron 4 Mg/2 Ml Inj IV Q8H PRN Nausea And Vomiting Oxycodone/Acetaminophen 1 tab 09/01/20 09:00 09/07/20 14:28 Oxycodone /Acetaminophen 5-325mg Tab PO 1 tab Q6H PRN Administration Pain, Moderate (4-6) Prednisone 20 mg 09/08/20 10:00 09/10/20 10:18 Prednisone 20 Mg Tab PO 20 mg QDAY CINTHIA Administration Sodium Chloride 10 ml 09/01/20 10:00 09/10/20 10:19 Sodium Chloride 0.9% 10 Ml Flush Syringe IV 10 ml BID CINTHIA Administration Sodium Chloride 10 ml 09/01/20 07:24 09/05/20 06:46 Sodium Chloride 0.9% 10 Ml Flush Syringe IV 10 ml PRN PRN Administration LINE FLUSH Nutrition/Malnutrition Assess - Dietary Evaluation Nutrition/Malnutrition Findings: Nutrition Notes Start: 09/02/20 10:16 Freq: Status: Active Protocol: Document 09/05/20 11:05 LM (Rec: 09/05/20 11:09 LM [id number]) Nutrition Notes Initial or Follow up Reassessment Current Diagnosis COPD,Hypertension Other Pertinent Diagnosis fatty liver disease, acute respiratory failure Current Diet Cardiac Labs/Tests Na 136 K 5.1 BUN 24 Pertinent Medications Solu-Medrol Height 5 ft Weight 56.5 kg Man[place] Body Weight (kg) 45.45 BMI 24.3 Weight change and time frame Wt change noted Weight Status Appropriate Subjective/Other Information Pt stated she ate all of her breakfast this AM and is drinking Ensure and enjoys them. Percent of energy/protein needs met: 100%/100% Burn Absent Trauma Absent GI Symptoms None Current % PO Good (75-100%) Minimum of two criteria No Energy Intake (non-severe) <75% Estimated Energy Requirement >7 days #1 Nutrition Diagnosis Inadequate oral intake As Evidenced by Signs and Symptoms Pt eating 100% Diagnosis Progress(for reassessment Improved documentation) Is patient on ventilator? No Is Patient Ambulatory and/or Out of Bed No REE-(Woodruff-St. Jeor-confined to bed) 1272.886 Calculation Used for Recommendations Woodruff-St Jeor Additional Notes Pro: 61-73g (1-1.2g/kg) Fluid: 1 ml/kcal or per MD Nutrition Intervention Change Diet Order: Continue Add Supplement/Snack (indicate name/kcal D/C until K in normal range /protein ) Goal #1 Meet at least 80% of protein and energy needs via PO intakes Anticipated Discharge Needs: Cardiac with ONS PRN Follow-Up By: 09/12/20 Additional Comments F/U for stable intakes, K
[2020-09-10] MEDS ORDERED: MELATONIN 5 MG TAB PO SCH (22:00)
[2020-09-11] MEDS: hydrALAZINE 25 MG TAB PO SCH ×2 (05:29→13:38)
[2020-09-11] MEDS: IPRATROPIUM/ALBUTEROL SULFATE 3 ML AMPUL.NEB IH SCH ×2 (06:32→11:14)
[2020-09-11 08:45] LABS: Hematocrit 33.9 % (30.3-42.9); Hemoglobin 11.4 gm/dl (10.1-14.3); Mean Corpuscular HGB Conc 34 % (30-34); Mean Corpuscular Volume 96 fl (79-97); Platelet Count 243 K/mm3 (140-440); Red Blood Count 3.55 M/mm3 (3.65-5.03); Red Cell Distribution Width 18.4 % (13.2-15.2)
[2020-09-11 09:06] LABS: BUN/Creatinine Ratio 33; Blood Urea Nitrogen 26 mg/dL (7-17); Calcium 8.7 mg/dL (8.4-10.2); Hemolysis Index 3
[2020-09-11] MEDS: amLODIPine 10 MG TAB PO SCH (09:37)
[2020-09-11] MEDS: FUROSEMIDE 40 MG TAB PO SCH (09:37)
[2020-09-11] MEDS: METOPROLOL TARTRATE 50 MG TAB PO SCH (09:37)
[2020-09-11] MEDS: HALOPERIDOL 2 MG TAB PO SCH (09:37)
[2020-09-11] MEDS: predniSONE 20 MG TAB PO SCH (09:37)
[2020-09-11] MEDS: FAMOTIDINE 20 MG TAB PO SCH (09:37)
[2020-09-11] MEDS ORDERED: ENOXAPARIN 40 MG/0.4 ML INJ SUB-Q SCH (10:00)
[2020-09-11] MEDS ORDERED: ENOXAPARIN 30 MG/0.3 ML INJ SUB-Q SCH (10:00)
--- NOTE | 2020-09-11 10:50 | Progress Note ---
Subjective - Reason for Consult Consult date: 09/11/20 Reason for consult: confusion, agitation - Chief Complaint Chief complaint: The patient resting in bed quietly. She is awake and calm. She is confused. The patient is in restraints. Her affect is flat. She appears depressed. She says she's doing "okay." She denies SI/HI. The patient did not remember being in the hospital. REVIEW OF SYSTEMS Constitutional: Negative for weight loss ENT: Negative for stridor Respiratory: Negative for cough or hemoptysis All other systems reviewed and are negative MENTAL STATUS EXAMINATION General Appearance and Behavior: Age appropriate, good hygiene, wearing appropriate clothes, fair eye contact Cooperation: Participating/engaged Psychomotor Behavior: Psychomotor normal Mood: "alright" Affect and affective range: flat Thought Process: impaired Thought Content: none Speech: Normal rate, volume and rhythm Suicidal Ideation: Denies at present Homicidal Ideation: Denies Hallucinations: Denies Delusions: None elicited Impulse Control: Impaired Insight and Judgment: impaired insight and judgment Memory: Impaired Attention: impaired Orientation: Alert, oriented Assessment and Plan (1) Delirium (2) MDD TREATMENT Start Zoloft 25mg po daily Continue Haldol Agree with prn IM haldol Start Melatonin 5mg po scheduled to improve sleep Sitter: Defer to primary Medical: per primary Disposition: Do not recommend acute inpatient psychiatric treatment. Will follow for agitation and med management Thank you for this consult Case staffed with Dr. Lam Mental Status Exam - Vital signs Last Vital Signs Temp 98.2 F 09/11/20 08:25 Pulse 73 09/11/20 08:25 Resp 18 09/11/20 08:25 BP 149/87 09/11/20 08:25 Pulse Ox 100 09/11/20 08:25
[2020-09-11] MEDS ORDERED: SERTRALINE 25 MG TAB PO SCH (11:00)
--- NOTE | 2020-09-11 12:07 | Progress Note ---
Assessment and Plan - Patient Problems (1) Anemia Current Visit: Yes Status: Acute Qualifiers: Anemia type: iron deficiency Iron deficiency anemia type: inadequate dietary iron intake Qualified Code(s): D50.8 - Other iron deficiency anemias Plan to address problem: Patient was admitted with symptomatic, severe anemia. There are no active cardiac issues. Echocardiogram done on this presentation was normal left ventricular systolic function, ejection fraction 60%. No further cardiac work- up is indicated, will follow on a as needed basis. Subjective Date of service: 09/11/20 Principal diagnosis: Anasarca Interval history: Patient is comfortable, no cardiac complaints. Objective Vital Signs Temp Pulse Pulse Resp Resp BP Pulse Ox 09/11/20 08:25 98.2 F 73 18 149/87 100 09/11/20 06:33 99 09/11/20 06:32 74 16 09/11/20 05:29 78 183/106 09/11/20 04:03 98.2 F 78 19 183/106 96 09/10/20 23:21 97.4 F L 74 16 150/86 97 09/10/20 22:00 16 99 09/10/20 21:52 79 158/89 09/10/20 21:51 79 158/89 09/10/20 21:38 88 16 100 09/10/20 19:39 98.5 F 79 16 158/89 99 09/10/20 17:11 97.9 F 81 18 139/82 100 09/10/20 12:42 98.4 F 97 H 18 149/77 97 - Physical Examination General: No Apparent Distress HEENT: Positive: PERRL Neck: Positive: neck supple Cardiac: Positive: Reg Rate and Rhythm Lungs: Positive: Decreased Breath Sounds Neuro: Positive: Grossly Intact Abdomen: Positive: Unremarkable Extremities: Absent: edema - Labs and Meds CBC 09/11/20 Range/Units 08:09 WBC 5.5 (4.5-11.0) K/mm3 RBC 3.55 L (3.65-5.03) M/mm3 Hgb 11.4 (10.1-14.3) gm/dl Hct 33.9 (30.3-42.9) % Plt Count 243 (140-440) K/mm3 Comprehensive Metabolic Panel 09/11/20 Range/Units 08:09 Sodium 142 (137-145) mmol/L Potassium 3.0 L (3.6-5.0) mmol/L Chloride 106.7 (98-107) mmol/L Carbon Dioxide 29 (22-30) mmol/L BUN 26 H (7-17) mg/dL Creatinine 0.8 (0.6-1.2) mg/dL Glucose 94 (65-100) mg/dL Calcium 8.7 (8.4-10.2) mg/dL - Imaging and Cardiology EKG: report reviewed (Sinus rhythm, heart rate of 83/min no acute ST-T wave changes.)
--- NOTE | 2020-09-11 13:21 | Discharge Summary ---
Providers - Providers Date of Admission: 09/03/20 11:11 Date of discharge: 09/11/20 Attending physician: GUSTAVO PROCTOR 09/01/20 07:24 Consult to Physician [CONS] Routine Comment: Consulting Provider: MAAME HERNANDEZ Physician Instructions: Reason For Exam: chf 09/01/20 10:29 Consult to Physician [CONS] Routine Comment: Consulting Provider: ADELAIDE SANON Physician Instructions: Reason For Exam: hypoalbuminemia 09/05/20 11:49 Physical Therapy Evaluation and Treat [CONS] Routine Comment: Reason For Exam: Debility 09/06/20 21:43 Consult to PICC Line RN [CONS] Routine Reason For Exam: Needs IV access for contrast imaging Type Line:: Midline 09/08/20 15:14 Consult Geriatric-Psych [CONS] Routine Consulting Provider: Reason For Exam: agitation Primary care physician: FERRY ENGINEER Hospitalization Condition: Stable Pertinent studies: 08/31 CXR: Prominent bronchovascular markings, increased lung volumes consistent with COPD 09/05 CT chest, abdomen, pelvis without contrast shows airspace process-mass right lower lobe with pleural thickening cannot exclude neoplastic process, diverticulitis of sigmoid colon 09/05 CT chest, abdomen and pelvis without contrast shows airspace consolidation-mass right lower lobe with pleural thickening, sigmoid diverticulitis, several small lymph nodes are present in the region 09/07/2020 CT chest, abdomen and pelvis with IV contrast shows focal consolidation in the right lower lobe concerning for pneumonia, 7 cm stool ball in the rectum with findings suggestive of constipation, with a collection in the right gluteal eve which could represent hematoma or abscess Hospital course: 60-year-old female with hypertension, diabetes and depression who presented the ED for generalized weakness and swelling of the lower extremities on 09/03. Patient had low oxygen saturations of 85% on room air in the emergency room. Patient was admitted to the hospitalist service with COPD exacerbation,hypokalemia, anemia, elevated proBNP. Cardiology, nephrology were consulted and later psychiatric consult was obtained. Cardiology started the patient on spironolactone. Continue Norvasc and losartan for blood pressure control. Albumin level on admission 1.6. During a recent admission (06/2020) to [facility] albumin level was between 1.4 and 1.6. Urinalysis at that time showed minimal proteinuria. Continue steroids, bronchodilators/nebulizers for COPD. Patient was placed on aldactone as she was hypokalemic on admission. Since K has improved, will dc aldactone and resume losartan to help with her elevated BP. Taper steroids. PT ordered. Due to progressive decline in function, weight loss and poor appetite, malignancy work- up initiated with a CT chest abdomen and pelvis. PT recommends rehab but patient has no payer source. CT of the abdomen/pelvis shows no acute pathology but CT chest showed possible mass in the right lower lobe. CT with IV contrast ordered to further evaluate. Discussed patients condition with her family: Marco Yoder on [phone] and Rojelio and Ms Bunch on [phone], patient will ultimately have to go home as she has no payer source when she is stable. She will need to outpatient GI follow-up for colonoscopy. Psychiatry was consulted and the patient was started on Zoloft and on melatonin for sleep hygiene. Patient will be discharged with home health physical therapy and she will need to follow-up with her primary care physician, gastroenterology and continue outpatient psychiatric services. - Patient Problems (1) COPD (chronic obstructive pulmonary disease) Current Visit: Yes Status: Chronic Qualifiers: COPD type: COPD with acute exacerbation Qualified Code(s): J44.1 - Chronic obstructive pulmonary disease with (acute) exacerbation Plan to address problem: -Patient has a 30 pack/year history -08/31 CXR shows prominent bronchovascular markings and increased lung volumes evidence of COPD -09/05 CT chest, abdomen and pelvis without contrast shows airspace process-mass right lower lobe with pleural thickening sigmoid diverticulitis -09/07 CT chest, abdomen and pelvis with IV contrast shows a 4, no upper limits of normal, mild cardiomegaly, focal calcification in the right lower lobe, 7 cm stool ball consistent with constipation -Discharged with steroid taper (2) Anemia Current Visit: Yes Status: Acute Qualifiers: Anemia type: iron deficiency Iron deficiency anemia type: inadequate dietary iron intake Qualified Code(s): D50.8 - Other iron deficiency anemias Plan to address problem: -Presented with H/H of 7.6/23 -09/01 H/H 6.4/19 -09/02 s/p 2 units transfusion -09/02 H/H 9.3/27.1 -09/03 H/H 11.7/34.6 -Continue iron supplementation and multivitamin daily which can be found [id number] (3) Acute respiratory failure with hypoxia Current Visit: Yes Status: Resolved Plan to address problem: -Supplemental oxygen as needed -Presented with COPD exacerbation -Spot SPO2 monitoring -Pulmonary hygiene -Supportive care (4) Elevated troponin Current Visit: Yes Status: Resolved Plan to address problem: -09/01 troponin 0.074, 0.067 -Cardiology consulted, appreciate recommendations -09/01 echocardiogram shows global left ventricular wall motion the contracted TM within normal limits, estimated ejection fraction 60 to 65%, abnormal left ventricular diastolic filling consistent with grade 1 diastolic dysfunction, right ventricular global systolic function is normal, mild MR, trace TR and no pericardial effusion -No further testing warranted by cardiology -Cardiology has signed off (5) Malnutrition Current Visit: Yes Status: Chronic Qualifiers: Protein-calorie malnutrition severity: severe Plan to address problem: -Secondary to malnutrition -Continue dietary supplementation (6) Depression Current Visit: Yes Status: Chronic Plan to address problem: -Psych consult, appreciate recommendations -Continue antidepressants as prescribed: Zoloft -Continue melatonin for sleep hygiene -Seek outpatient psychiatric services (7) Hypoalbuminemia Current Visit: Yes Status: Acute Plan to address problem: -Secondary to decreased p.o. intake -Continue dietary supplementation (8) Mass in chest Current Visit: Yes Status: Acute Plan to address problem: -09/05 CT chest, abdomen and pelvis without contrast shows airspace process-mass right lower lobe with pleural thickening sigmoid diverticulitis -09/07 CT chest, abdomen and pelvis with IV contrast shows a 4, no upper limits of normal, mild cardiomegaly, focal calcification in the right lower lobe, 7 cm stool ball's vaccines which were removed hematoma or abscess -Supportive care -Follow-up with primary care physician (9) Tobacco abuse Current Visit: Yes Status: Acute Plan to address problem: -Patient is a current smoker -Consider NicoDerm patch while inpatient and continuation outpatient for smoking cessation (10) Discharge planning issues Current Visit: Yes Status: Acute Plan to address problem: -PT/OT recommended subacute rehab -Patient is under funded -Patient will be discharged home with home health physical therapy (11) Hypokalemia Current Visit: Yes Status: Acute Plan to address problem: -09/11 potassium 3 -P.o. supplementation -Will be discharged with potassium for 3 days Disposition: DC-01 TO HOME OR SELFCARE Time spent for discharge: 35 Core Measure Documentation - Palliative Care Palliative Care/ Comfort Measures: Palliative Care/Comfort Measures - Core Measures Any of the following diagnoses?: none Exam - Constitutional Vitals: Temp Pulse Resp BP Pulse Ox 98.2 F 73 18 149/87 100 09/11/20 08:25 09/11/20 08:25 09/11/20 08:25 09/11/20 08:25 09/11/20 08:25 General appearance: Present: no acute distress - EENT Eyes: Present: PERRL, EOM intact ENT: hearing decreased, poor dentition - Neck Neck: Present: normal ROM - Respiratory Respiratory effort: normal Respiratory: bilateral: CTA - Cardiovascular Rhythm: regular Heart Sounds: Present: S1 & S2. Absent: systolic murmur, diastolic murmur - Extremities Extremities: no ischemia, pulses intact, pulses symmetrical, No edema, normal temperature, normal color, Full ROM Peripheral Pulses: within normal limits - Abdominal General gastrointestinal: Present: soft, non-tender, non-distended, normal bowel sounds - Integumentary Integumentary: Present: clear, warm, dry - Musculoskeletal Musculoskeletal: strength equal bilaterally - Psychiatric Psychiatric: cooperative - Neurologic Neurologic: CNII-XII intact, no focal deficits, moves all extremities - Allied Health Allied health notes reviewed: nursing Plan Activity: advance as tolerated Diet: regular Special Instructions: smoking cessation, physical therapy Additional Instructions: Present to your nearest emergency department or contact your primary care physician if you experience worsening symptoms. You will be discharged with home health physical therapy and 3 days of potassium chloride. You will need to follow-up with primary care physician and continue outpatient psychiatric services. Follow up with: PRIMARY CARE, [Primary Care Provider] - 3-5 Days [facility] [Outside] - 7 Days Prescriptions: amLODIPine 10 mg PO QDAY #30 tablet hydrALAZINE [Apresoline TAB] 50 mg PO Q8HR #90 tablet Potassium Chloride [Klor-Con M15] 15 meq PO QDAY #3 tab.er.prt Furosemide [Lasix TAB] 40 mg PO QDAY #30 tablet Metoprolol [Lopressor TAB] 50 mg PO BID #60 tablet
[2020-09-11] MEDS: POTASSIUM CHLORIDE ER 20 MEQ TAB PO SCH ×2 (13:38→14:59)
[2020-09-11 20:27] VITALS: BP 152/86
[2020-09-12] MEDS ORDERED: predniSONE 10 MG TAB PO SCH (10:00)
== END 2020-09-11 20:20 | disposition home health service (06) | DRG 189 ==
LOC: ED 18:46 → 4A 09-01 05:26 → OBSVTOIN 09-03 11:11
PROVIDERS: ADMIT Internal Medicine; ATTEND Internal Medicine
PROC: 30233N1 Transfusion of Nonautologous Red Blood Cells into Peripheral Vein, Percutaneous Approach (ICD-10-PCS; principal; 2020-09-02)
DX: J96.01 Acute respiratory failure with hypoxia (principal); E43 Unspecified severe protein-calorie malnutrition; G93.41 Metabolic encephalopathy; J44.1 Chronic obstructive pulmonary disease with (acute) exacerbation; I50.42 Chronic combined systolic (congestive) and diastolic (congestive) heart failure; I11.0 Hypertensive heart disease with heart failure; E87.5 Hyperkalemia; F32.9 Major depressive disorder, single episode, unspecified; E87.6 Hypokalemia; D53.9 Nutritional anemia, unspecified; E88.09 Other disorders of plasma-protein metabolism, not elsewhere classified; E83.51 Hypocalcemia; Z79.899 Other long term (current) drug therapy; Z68.23 Body mass index [BMI] 23.0-23.9, adult; Z79.52 Long term (current) use of systemic steroids
CPT/HCPCS: 36415; 71045; 71250; 71260; 74176; 74177; 80048; 80053; 80061; 81001; 82607; 82747; 82962; 83036; 83550; 83735; 83880; 84439; 84443; 84484; 85007; 85014; 85018; 85025; 85027; 85049; 85610; 85730; 86850; 86900; 86901; 86920; 87641; 93005; 93306; 94640; 94644; 94760; 96365; 96366; 96367; 96375; 96376; G0378; J0610; J0696; J1170; J1630; J1644; J1650; J1940; J2060; J2920; J3475; J3480; J7040; J7512; P9016; Q9967

== ENCOUNTER 2020-09-27 12:12 | Inpatient (IN) | payer OTHER ==
[2020-09-27] MEDS ORDERED: SODIUM CHLORIDE 0.9% 1000 ML 1,000 ML IV ONE (12:49)
[2020-09-27] MEDS ORDERED: ACETAMINOPHEN 325 MG TAB PO ONE (12:50)
--- NOTE | 2020-09-27 13:00 | Emergency Department Report ---
ED General Adult HPI - General Chief complaint: Altered Mental Status Stated complaint: AMS Time Seen by Provider: 09/27/20 12:38 Source: patient, EMS Mode of arrival: Stretcher Limitations: Altered Mental Status - History of Present Illness Initial comments: Patient is 60 years old female with history of hypertension, schizophrenia and COPD. Patient brought to the emergency room for evaluation of altered mental status started today according to the EMS report. Patient was recently discharged from the hospital for pneumonia. EMS stated patient was evaluated by fire department and stated that patient was lethargic with an oxygen saturation of 60% that improved to 100% on nonrebreather. EMS stated that patient started to wake up after that. Upon arrival to the ER patient is alert however is confused. Patient only know her name. Patient found to be febrile with a temperature of 101.2. Sepsis protocol initiated. COVID-19 infection is pos sible also isolation precaution implemented. -: days(s) Severity scale (0 -10): 0 - Related Data Home Medications Medication Instructions Recorded Confirmed Last Taken Pantoprazole 40 mg PO ONCE 09/01/20 09/30/20 09/30/20 10:09 amLODIPine 10 mg PO ONCE 09/01/20 09/30/20 09/30/20 10:10 Previous Rx's Medication Instructions Recorded Last Taken Type Acetaminophen [Acetaminophen TAB] 650 mg PO Q4H PRN tablet 09/11/20 Unknown Rx Melatonin [Melatonin 5MG TAB] 5 mg PO QHS tablet 09/11/20 Unknown Rx Potassium Chloride [Klor-Con M15] 15 meq PO QDAY #3 tab.er.prt 09/11/20 09/30/20 10:09 Rx Sertraline [Zoloft] 25 mg PO QDAY tablet 09/11/20 09/30/20 10:09 Rx oxyCODONE /ACETAMINOPHEN [Percocet 1 tab PO Q6H PRN tablet 09/11/20 Unknown Rx 5/325 mg] predniSONE 10 mg PO QDAY #3 tab 09/11/20 Unknown Rx Ascorbic Acid [Vitamin C] 500 mg PO BID #60 tablet 10/02/20 Unknown Rx Cholecalciferol Vit D3 [Vitamin D3 1,000 unit PO QDAY #30 tablet 10/02/20 Unknown Rx 1,000 UNIT TAB] Famotidine [Pepcid] 20 mg PO BID #60 tablet 10/02/20 Unknown Rx ISOSORBIDE MONOnitrate [Imdur ER] 30 mg PO QDAY #30 tablet 10/02/20 Unknown Rx Metoprolol [Lopressor TAB] 25 mg PO BID #60 tablet 10/02/20 Unknown Rx VALPROIC ACID Liq [DepaKENE Liq] 500 mg PO BID 30 Days oral.liqd 10/02/20 Unknown Rx levoFLOXacin [Levaquin] 750 mg PO QDAY #5 tablet 10/02/20 Unknown Rx risperiDONE [RisperDAL ORAL LIQD] 2 mg PO BID 30 Days ml 10/02/20 Unknown Rx Allergies Allergy/AdvReac Type Severity Reaction Status Date / Time No Known Allergies Allergy Unverified 08/31/20 22:07 ED Review of Systems ROS: Stated complaint: AMS Other details as noted in HPI Comment: All other systems reviewed and negative Constitutional: chills, fever Respiratory: cough, shortness of breath, SOB with exertion. denies: wheezing Cardiovascular: denies: chest pain Gastrointestinal: denies: abdominal pain ED Past Medical Hx - Past Medical History Hx Hypertension: Yes Additional medical history: anemia - Social History Smoking Status: Never Smoker Substance Use Type: None - Medications Home Medications: Home Medications Medication Instructions Recorded Confirmed Last Taken Type Pantoprazole 40 mg PO ONCE 09/01/20 09/30/20 09/30/20 10:09 History amLODIPine 10 mg PO ONCE 09/01/20 09/30/20 09/30/20 10:10 History Acetaminophen [Acetaminophen TAB] 650 mg PO Q4H PRN tablet 09/11/20 09/30/20 Unknown Rx Melatonin [Melatonin 5MG TAB] 5 mg PO QHS tablet 09/11/20 09/30/20 Unknown Rx Potassium Chloride [Klor-Con M15] 15 meq PO QDAY #3 tab.er.prt 09/11/20 09/30/20 09/30/20 10:09 Rx Sertraline [Zoloft] 25 mg PO QDAY tablet 09/11/20 09/30/20 09/30/20 10:09 Rx oxyCODONE /ACETAMINOPHEN [Percocet 1 tab PO Q6H PRN tablet 09/11/20 09/30/20 Unknown Rx 5/325 mg] predniSONE 10 mg PO QDAY #3 tab 09/11/20 09/30/20 Unknown Rx Ascorbic Acid [Vitamin C] 500 mg PO BID #60 tablet 10/02/20 Unknown Rx Cholecalciferol Vit D3 [Vitamin D3 1,000 unit PO QDAY #30 tablet 10/02/20 Unknown Rx 1,000 UNIT TAB] Famotidine [Pepcid] 20 mg PO BID #60 tablet 10/02/20 Unknown Rx ISOSORBIDE MONOnitrate [Imdur ER] 30 mg PO QDAY #30 tablet 10/02/20 Unknown Rx Metoprolol [Lopressor TAB] 25 mg PO BID #60 tablet 10/02/20 Unknown Rx VALPROIC ACID Liq [DepaKENE Liq] 500 mg PO BID 30 Days oral.liqd 10/02/20 Unknown Rx levoFLOXacin [Levaquin] 750 mg PO QDAY #5 tablet 10/02/20 Unknown Rx risperiDONE [RisperDAL ORAL LIQD] 2 mg PO BID 30 Days ml 10/02/20 Unknown Rx ED Physical Exam - General Limitations: Altered Mental Status General appearance: alert, in no apparent distress - Head Head exam: Present: atraumatic, normocephalic, normal inspection - Eye Eye exam: Present: normal appearance, PERRL - ENT ENT exam: Present: normal exam, mucous membranes dry - Neck Neck exam: Present: normal inspection, full ROM. Absent: tenderness, meningismus - Respiratory Respiratory exam: Present: normal lung sounds bilaterally - Cardiovascular Cardiovascular Exam: Present: regular rate, normal rhythm, normal heart sounds - GI/Abdominal GI/Abdominal exam: Present: soft, normal bowel sounds. Absent: distended, tenderness, guarding, rebound, rigid, organomegaly, mass, bruit, pulsatile mass, hernia - Extremities Exam Extremities exam: Present: normal inspection, full ROM, normal capillary refill - Neurological Exam Neurological exam: Present: alert, altered - Skin Skin exam: Present: warm, dry ED Course Vital Signs 09/27/20 09/27/20 09/27/20 12:21 12:23 12:30 Temperature 101.9 F H Pulse Rate 90 87 88 Respiratory 21 18 14 Rate Blood Pressure 114/74 114/74 Blood Pressure 114/74 [Left] O2 Sat by Pulse 100 100 100 Oximetry 09/27/20 09/27/20 09/27/20 12:45 13:00 13:15 Temperature Pulse Rate 91 H 91 H 91 H Respiratory 18 19 11 L Rate Blood Pressure 119/65 119/65 120/63 Blood Pressure [Left] O2 Sat by Pulse 100 100 100 Oximetry 09/27/20 09/27/20 09/27/20 13:30 13:40 13:46 Temperature Pulse Rate 91 H 95 H Respiratory 25 H 20 17 Rate Blood Pressure 120/63 109/56 Blood Pressure [Left] O2 Sat by Pulse 86 100 75 L Oximetry 09/27/20 09/27/20 09/27/20 14:00 14:15 14:30 Temperature Pulse Rate 91 H 87 86 Respiratory 12 12 20 Rate Blood Pressure 129/60 119/69 119/69 Blood Pressure [Left] O2 Sat by Pulse 69 L 100 100 Oximetry 09/27/20 09/27/20 09/27/20 14:45 15:00 15:15 Temperature Pulse Rate 88 97 H 95 H Respiratory 19 15 15 Rate Blood Pressure 118/62 118/62 101/62 Blood Pressure [Left] O2 Sat by Pulse 98 Oximetry 09/27/20 09/27/20 09/27/20 15:31 15:45 16:00 Temperature Pulse Rate 84 88 Respiratory 19 14 Rate Blood Pressure 111/72 106/67 106/67 Blood Pressure [Left] O2 Sat by Pulse 99 100 Oximetry 09/27/20 09/27/20 09/27/20 16:15 16:30 16:45 Temperature Pulse Rate 82 82 84 Respiratory 20 19 16 Rate Blood Pressure 103/60 89/53 88/55 Blood Pressure [Left] O2 Sat by Pulse 96 99 Oximetry 09/27/20 09/27/20 09/27/20 17:00 17:15 17:30 Temperature Pulse Rate 85 86 84 Respiratory 20 15 17 Rate Blood Pressure 91/55 101/60 113/65 Blood Pressure [Left] O2 Sat by Pulse 95 94 Oximetry 09/27/20 09/27/20 09/27/20 17:45 18:00 18:15 Temperature Pulse Rate Respiratory Rate Blood Pressure 122/71 130/72 127/67 Blood Pressure [Left] O2 Sat by Pulse 98 97 87 Oximetry 09/27/20 09/27/20 09/27/20 18:30 18:45 19:00 Temperature Pulse Rate 81 78 80 Respiratory 22 13 16 Rate Blood Pressure 136/80 126/75 128/75 Blood Pressure [Left] O2 Sat by Pulse 98 98 97 Oximetry 09/27/20 09/27/2021 19:15 19:30 19:45 Temperature Pulse Rate 82 83 83 Respiratory 19 21 20 Rate Blood Pressure 128/75 120/74 116/70 Blood Pressure [Left] O2 Sat by Pulse 98 100 97 Oximetry 09/27/20 09/27/20 09/27/20 19:58 20:00 20:15 Temperature Pulse Rate 83 87 Respiratory 21 21 Rate Blood Pressure 116/72 116/72 Blood Pressure [Left] O2 Sat by Pulse 96 98 92 Oximetry 09/27/20 09/27/20 09/27/20 20:30 20:45 21:00 Temperature Pulse Rate 82 76 77 Respiratory 13 18 20 Rate Blood Pressure 119/78 104/59 107/58 Blood Pressure [Left] O2 Sat by Pulse 94 96 Oximetry 09/27/20 09/27/20 09/27/20 21:15 21:30 21:45 Temperature Pulse Rate 79 74 75 Respiratory 13 21 21 Rate Blood Pressure 111/79 110/61 110/61 Blood Pressure [Left] O2 Sat by Pulse 92 Oximetry 09/27/20 09/27/20 09/27/20 22:00 22:15 22:30 Temperature Pulse Rate 78 78 79 Respiratory 13 18 16 Rate Blood Pressure 113/69 123/78 127/70 Blood Pressure [Left] O2 Sat by Pulse 100 93 Oximetry 09/27/20 09/27/20 09/27/20 22:51 23:00 23:04 Temperature Pulse Rate 78 80 79 Respiratory 16 13 18 Rate Blood Pressure 130/77 140/79 140/79 Blood Pressure [Left] O2 Sat by Pulse 94 98 100 Oximetry ED Medical Decision Making - Lab Data Result diagrams: 09/28/20 05:26 10/02/20 05:12 - EKG Data -: EKG Interpreted by Ia EKG shows normal: sinus rhythm Rate: normal - EKG Data Interpretation: no acute changes - Radiology Data Radiology results: report reviewed - Medical Decision Making Patient is 60 years old female with history of hypertension and COPD. Patient brought to the emergency room for evaluation of altered mental status started today according to the EMS report. Patient was recently discharged from the hospital for pneumonia. EMS stated patient was evaluated by fire department and stated that patient was lethargic with an oxygen saturation of 60% that improved to 100% on nonrebreather. EMS stated that patient started to wake up after that. Upon arrival to the ER patient is alert however is confused. Patient only know her name. Patient found to be febrile with a temperature of 101.2. Sepsis protocol initiated. COVID-19 infection is possible also isolation precaution implemented. Patient oxygen saturation remained in the 100% on a nonrebreather. Chest x-ray showed left lower lobe infiltrate consistent with pneumonia. Patient given Levaquin, Decadron. Possibility of COVID-19 is high. COVID-19 test has been ordered. I discussed the patient with Dr. Haddad, he agreed to admit the patient to medical service for further management. Critical Care Time: Yes Critical care time in (mins) excluding proc time.: 30 Critical care attestation.: If time is entered above; I have spent that time in minutes in the direct care of this critically ill patient, excluding procedure time. ED Disposition Clinical Impression: Acute respiratory failure due to COVID-19, Suspected COVID-19 virus infection, Left lower lobe pneumonia Disposition: OP ADMIT IP TO THIS HOSP Is pt being admited?: Yes Condition: Stable
--- NOTE | 2020-09-27 13:29 | XRay Report ---
CHEST 1 VIEW 09/27/2020 12:53 PM INDICATION / CLINICAL INFORMATION: Dyspnea. COMPARISON: 08/31/2020 FINDINGS: SUPPORT DEVICES: None. HEART / MEDIASTINUM: No significant abnormality. LUNGS / PLEURA: Underlying increased interstitial markings remain. Superimposed opacity left base. No pneumothorax or pleural fluid. ADDITIONAL FINDINGS: No significant additional findings. IMPRESSION: 1. Chronic increased interstitial markings diffusely. 2. Superimposed pneumonia left base. Signer Name: Souleymane Holliday MD Signed: 09/27/2020 1:24 PM Workstation Name: [id number]
[2020-09-27 14:12] LABS: Basophils % (Auto) 0.7 % (0.0-1.8); Eosinophils % (Auto) 0.3 % (0.0-4.3); Hematocrit 27.7 % (30.3-42.9); Hemoglobin 9.5 gm/dl (10.1-14.3); Lymphocytes # (Auto) 0.7 K/mm3 (1.2-5.4); Lymphocytes % (Auto) 12.8 % (13.4-35.0); Mean Corpuscular HGB Conc 34 % (30-34); Mean Corpuscular Volume 93 fl (79-97); Monocytes # (Auto) 0.5 K/mm3 (0.0-0.8); Monocytes % (Auto) 8.2 % (0.0-7.3); Red Blood Count 2.99 M/mm3 (3.65-5.03); Red Cell Distribution Width 16.2 % (13.2-15.2)
[2020-09-27 14:18] LABS: Platelet Count 279 K/mm3 (140-440)
[2020-09-27 14:22] LABS: INR 0.99 (0.87-1.13)
[2020-09-27 14:23] LABS: Partial Thromboplastin Time 28.1 Sec. (24.2-36.6)
[2020-09-27 14:33] LABS: Alanine Aminotransferase 14 units/L (7-56); Albumin 2.5 g/dL (3.9-5); BUN/Creatinine Ratio 29; Blood Urea Nitrogen 44 mg/dL (7-17); Calcium 7.9 mg/dL (8.4-10.2); Hemolysis Index 9
[2020-09-27 14:41] LABS: Bilirubin,Direct < 0.2 mg/dL (0-0.2)
[2020-09-27] MEDS ORDERED: ALBUTEROL 2.5 MG/3 ML NEBU IH PRN (15:22)
[2020-09-27] MEDS ORDERED: ACETAMINOPHEN 325 MG TAB PO PRN ×3 (15:22→17:00)
[2020-09-27] MEDS ORDERED: ONDANSETRON 4 MG/2 ML INJ IV PRN (15:22)
[2020-09-27] MEDS ORDERED: oxyCODONE /ACETAMINOPHEN 5-325MG TAB PO PRN (15:23)
[2020-09-27] MEDS ORDERED: ZIPRASIDONE MESYLATE 20 MG VIAL IM ONE ×2 (15:23→15:30)
[2020-09-27] MEDS ORDERED: WATER FOR INJ Sterile (PF) 10 ML ONE (15:23)
[2020-09-27] MEDS ORDERED: NON-FORMULARY EACH (Pantoprazole 40 MG) PO SCH (15:30)
[2020-09-27] MEDS ORDERED: NON-FORMULARY EACH (Amlodipine 10 MG) PO SCH (15:30)
[2020-09-27 15:31] LABS: C-Reactive Protein 3.4 mg/dL (0.00-1.30)
[2020-09-27 15:32] LABS: Chol/HDL Ratio 2.92 %; HDL Cholesterol 40 mg/dL (40-59); LDL Cholesterol,Direct 59 mg/dL (50-130)
--- NOTE | 2020-09-27 15:38 | History and Physical Report ---
History of Present Illness Chief complaint: Confused and cannot breathe History of present illness: 60 YO Female with HTN, COPD, Schizophrenia, GERD, Severe Malnutrution, Diastolic CHF presents to ED for evaluation. Patient is confused and lethargic and unable to provide detailed history at the time of my evaluation. Patient history taken from EMS staff as well as ED staff. As per staff EMS was notified for confusion and difficulty breathing. Upon arrival the patient was found to be in distress and placed on supplemental oxygen and transported to [facility] for further care and evaluation of the aforementioned symptoms. The patient was seen and evaluated in the emergency department. All lab and imaging studies reviewed. Patient found to have a pulse oximetry of 60% on room air which is consistent with acute hypoxemic respiratory failure. The patient was treated with supplemental oxygen with mild improvement in symptoms. The patient was subsequently placed on nonrebreather oxygen with improvement of pulse oximetry. Chest x-ray revealed pneumonia. Patient found to have sepsis, toxic metabolic encephalopathy, acute kidney injury. Patient admitted to medical floor and initiated on sepsis protocol, coronavirus protocol. No further history is obtainable. Patient is confused and lethargic but has a positive gag reflex and is able to protect her airway without difficulty. Prior admission on 09/03/2020 reviewed. All medication listed at time of admission has been reconciled. Advanced care plan paul conducted in ED. Past History Past Medical History: COPD, GERD, heart failure, hypertension, other (See HPI) Past Surgical History: No surgical history, Other (Reviewed) Social history: single. denies: smoking, alcohol abuse, prescription drug abuse Family history: hypertension Medications and Allergies Allergies Allergy/AdvReac Type Severity Reaction Status Date / Time No Known Allergies Allergy Unverified 08/31/20 22:07 Home Medications Medication Instructions Recorded Confirmed Last Taken Type Lasix TAB 40 mg PO ONCE 09/01/20 09/01/20 08/31/20 History Lopressor 50 mg PO BID 09/01/20 09/01/20 08/31/20 History Pantoprazole 40 mg PO ONCE 09/01/20 09/01/20 08/31/20 History amLODIPine 10 mg PO ONCE 09/01/20 09/01/20 08/31/20 History hydrALAZINE 25 mg PO TID 09/01/20 09/01/20 08/31/20 History Acetaminophen [Acetaminophen TAB] 650 mg PO Q4H PRN tablet 09/11/20 Unknown Rx Furosemide [Lasix TAB] 40 mg PO QDAY #30 tablet 09/11/20 Unknown Rx Melatonin [Melatonin 5MG TAB] 5 mg PO QHS tablet 09/11/20 Unknown Rx Metoprolol [Lopressor TAB] 50 mg PO BID #60 tablet 09/11/20 Unknown Rx Potassium Chloride [Klor-Con M15] 15 meq PO QDAY #3 tab.er.prt 09/11/20 Unknown Rx Sertraline [Zoloft] 25 mg PO QDAY tablet 09/11/20 Unknown Rx amLODIPine 10 mg PO QDAY #30 tablet 09/11/20 Unknown Rx hydrALAZINE [Apresoline TAB] 50 mg PO Q8HR #90 tablet 09/11/20 Unknown Rx oxyCODONE /ACETAMINOPHEN [Percocet 1 tab PO Q6H PRN tablet 09/11/20 Unknown Rx 5/325 mg] predniSONE 10 mg PO QDAY #3 tab 09/11/20 Unknown Rx Active Meds: Active Medications Acetaminophen (Acetaminophen 325 Mg Tab) 650 mg PO Q4H PRN PRN Reason: Pain MILD(1-3)/Fever >100.5/[facility] Albuterol (Albuterol 2.5 Mg/3 Ml Nebu) 2.5 mg IH Q4HRT PRN PRN Reason: Shortness Of Breath Ascorbic Acid (Ascorbic Acid 500 Mg Tab) 500 mg PO BID [facility] Cholecalciferol (Cholecalciferol (Vit D3) 1000 Unit (25 Mcg) Tab) 1,000 unit PO QDAY [facility] Famotidine (Famotidine 20 Mg Tab) 20 mg PO BID [facility] Furosemide (Furosemide 40 Mg Tab) 40 mg PO QDAY [facility] Heparin Sodium (Porcine) (Heparin 5,000 Unit/1 Ml Vial) 5,000 unit SUB-Q Q12HR [facility] Ceftriaxone Sodium (Rocephin/Ns 2 Gm/100 Ml) 2 gm in 100 mls @ 200 mls/hr IV Q24H [facility]; Protocol Azithromycin (Zithromax/Ns) 500 mg in 250 mls @ 250 mls/hr IV Q24H [facility]; Protocol Melatonin (Melatonin 5 Mg Tab) 5 mg PO QHS [facility] Methylprednisolone Sodium Succinate (Methylprednisolone Sod Succinate 40 Mg/1 Ml Inj) 40 mg IV Q8H [facility] Metoprolol Tartrate (Metoprolol Tartrate 50 Mg Tab) 50 mg PO BID [facility] Miscellaneous Medication (Amlodipine) 10 mg PO ONCE [facility] Miscellaneous Medication (Hydralazine) 25 mg PO TID [facility] Miscellaneous Medication (Pantoprazole) 40 mg PO ONCE [facility] Miscellaneous Medication (Potassium Chloride [Klor-Con M15]) 15 meq PO QDAY [facility] Ondansetron HCl (Ondansetron 4 Mg/2 Ml Inj) 4 mg IV Q8H PRN PRN Reason: Nausea And Vomiting Oxycodone/Acetaminophen (Oxycodone /Acetaminophen 5-325mg Tab) 1 tab PO Q6H PRN PRN Reason: Pain, Moderate (4-6) Sertraline HCl (Sertraline 25 Mg Tab) 25 mg PO QDAY [facility] Sodium Chloride (Sodium Chloride 0.9% 10 Ml Flush Syringe) 10 ml IV BID [facility] Sodium Chloride (Sodium Chloride 0.9% 10 Ml Flush Syringe) 10 ml IV PRN PRN PRN Reason: LINE FLUSH Zinc Sulfate (Zinc Sulfate 220 Mg Cap) 220 mg PO QDAY [facility] Review of Systems ROS unobtainable: due to mental status Exam - Constitutional Vitals: Temp Pulse Resp BP Pulse Ox 101.9 F H 87 18 114/74 100 09/27/20 12:23 09/27/20 12:23 09/27/20 12:23 09/27/20 12:23 09/27/20 12:23 General appearance: Present: mild distress, cachectic - EENT Eyes: Present: PERRL ENT: clear oral mucosa, hearing decreased - Neck Neck: Present: supple, normal ROM - Respiratory Respiratory effort: labored, accessory muscle use Respiratory: bilateral: diminished, rhonchi - Cardiovascular Rhythm: other (Tachycardia) Heart Sounds: Present: S1 & S2. Absent: rub, click - Extremities Extremities: pulses symmetrical, No edema Peripheral Pulses: abnormal (Capillary refill greater than 3.5 seconds) - Abdominal General gastrointestinal: Present: soft, non-tender, non-distended - Integumentary Integumentary: Present: clear, dry - Musculoskeletal Musculoskeletal: generalized weakness - Psychiatric Psychiatric: no appropriate mood/affect, no intact judgment & insight, no memory intact - Neurologic Neurologic: CNII-XII intact, no focal deficits, moves all extremities, no gait normal HEART Score - HEART Score Troponin: Troponin T 0.076 ng/mL (0.00-0.029) H 09/27/20 13:26 Results - Labs CBC & Chem 7: 09/27/20 13:26 09/27/20 13:26 Labs: Abnormal lab results 09/27/20 09/27/20 09/27/20 Range/Units 13:26 13: 13:26 RBC 2.99 L (3.65-5.03) M/mm3 Hgb 9.5 L (10.1-14.3) gm/dl Hct 27.7 L (30.3-42.9) % RDW 16.2 H (13.2-15.2) % Lymph % (Auto) 12.8 L (13.4-35.0) % [place] % (Auto) 8.2 H (0.0-7.3) % Lymph # (Auto) 0.7 L (1.2-5.4) K/mm3 Seg Neutrophils % 78.0 H (40.0-70.0) % D-Dimer 1208.69 H (0-234) ng/mlDDU BUN 44 H (7-17) mg/dL Creatinine 1.5 H (0.6-1.2) mg/dL Calcium 7.9 L (8.4-10.2) mg/dL AST 42 H (5-40) units/L Lactate Dehydrogenase (91-180) units/L Troponin T 0.076 H (0.00-0.029) ng/mL C-Reactive Protein (0.00-1.30) mg/dL Albumin 2.5 L (3.9-5) g/dL 09/27/20 Range/Units 13:40 RBC (3.65-5.03) M/mm3 Hgb (10.1-14.3) gm/dl Hct (30.3-42.9) % RDW (13.2-15.2) % Lymph % (Auto) (13.4-35.0) % [place] % (Auto) (0.0-7.3) % Lymph # (Auto) (1.2-5.4) K/mm3 Seg Neutrophils % (40.0-70.0) % D-Dimer (0-234) ng/mlDDU BUN (7-17) mg/dL Creatinine (0.6-1.2) mg/dL Calcium (8.4-10.2) mg/dL AST (5-40) units/L Lactate Dehydrogenase 267 H (91-180) units/L Troponin T (0.00-0.029) ng/mL C-Reactive Protein 3.40 H (0.00-1.30) mg/dL Albumin (3.9-5) g/dL Assessment and Plan - Patient Problems (1) Sepsis Current Visit: Yes Status: Acute Qualifiers: Severe sepsis acute organ dysfunction type: acute respiratory failure Plan to address problem: Sepsis protocol: CBC, CMP, chest x-ray, urinalysis, IV antibiotic therapy, IV fluid resuscitation therapy as clinically indicated. Care is taken to avoid fluid overload and worsening respiratory failure as well as flash pulmonary edema and patient with suspected coronavirus infection. Maintain mean arterial pressure greater than or equal to 65, monitor urine output every shift, monitor fluid balance, blood culture. (2) Acute hypoxemic respiratory failure Current Visit: Yes Status: Acute Plan to address problem: Supplemental oxygen, pulse oximetry, if patient is unable to maintain pulse oximetry with current level of oxygen support will place patient on high flow supplemental oxygen. Chest x-ray, pulmonary toilet. (3) Pneumonia Current Visit: Yes Status: Acute Plan to address problem: Pneumonia protocol: Chest x-ray, CBC, CMP, IV antibiotic therapy, supplemental oxygen, pulse oximetry, blood culture. (4) Toxic metabolic encephalopathy Current Visit: Yes Status: Acute Plan to address problem: Supportive care, treat sepsis, seizure precautions, aspiration precautions, fall precautions, neuro check. (5) Suspected COVID-19 virus infection Current Visit: Yes Status: Acute Plan to address problem: Coronavirus protocol: Contact precautions, isolation precaution, droplet precautions, IV antibiotic therapy, IV steroid therapy, pulmonary toilet, prone positioning while in bed, supportive care. (6) Acute kidney injury (KAITLYNN) with acute tubular necrosis (ATN) Current Visit: Yes Status: Acute Plan to address problem: IV fluid resuscitation therapy, monitor fluid balance, monitor urine output every shift, repeat BMP in a.m. to monitor serum creatinine as well as GFR. (7) Severe malnutrition Current Visit: Yes Status: Acute Plan to address problem: Increase protein intake when awake and alert only, dietary supplementation. (8) DVT prophylaxis Current Visit: Yes Status: Acute Plan to address problem: SCD to bilateral lower extremities while in bed, prophylactic anticoagulation. (9) Advance care planning Current Visit: Yes Status: Acute Plan to address problem: Disease education conducted, patient is full code, prognosis discussed, care plan discussed, +30 minutes.
[2020-09-27] MEDS ORDERED: AZITHROMYCIN/NS 500 MG/250 ML 500 MG/250 ML BAG IV SCH (16:00)
[2020-09-27] MEDS: cefTRIAXone/NS 2 GM/100 ML 2 GM/100 ML BAG IV SCH (16:55)
[2020-09-27] MEDS ORDERED: SODIUM CHLORIDE 0.9% 1000 ML IV SOLN IV ONE (17:00)
[2020-09-27] MEDS: methylPREDNISolone Sod Succinate 40 MG/1 ML INJ IV SCH (17:20)
[2020-09-27] MEDS: HYDROmorphone 1 MG/1 ML INJ IV PRN ×2 (17:40→21:55)
[2020-09-27] MEDS ORDERED: NON-FORMULARY EACH (Hydralazine 25 MG) PO SCH (20:00)
[2020-09-27] MEDS: hydrALAZINE 25 MG TAB PO SCH (20:51)
[2020-09-27] MEDS ORDERED: METOPROLOL TARTRATE 50 MG TAB PO SCH (22:00)
[2020-09-28] MEDS: FAMOTIDINE 20 MG TAB PO SCH ×3 (00:36→22:15)
[2020-09-28] MEDS: methylPREDNISolone Sod Succinate 40 MG/1 ML INJ IV SCH ×3 (00:37→22:15)
[2020-09-28] MEDS: HEPARIN 5,000 UNIT/1 ML VIAL SUB-Q SCH ×3 (00:37→22:10)
[2020-09-28] MEDS: ASCORBIC ACID 500 MG TAB PO SCH ×3 (00:37→22:10)
[2020-09-28] MEDS: MELATONIN 5 MG TAB PO SCH ×2 (00:37→22:10)
[2020-09-28 06:21] LABS: Basophils # (Auto) 0.1 K/mm3 (0.0-0.1); Basophils % (Auto) 1.4 % (0.0-1.8); Hematocrit 29.2 % (30.3-42.9); Hemoglobin 9.7 gm/dl (10.1-14.3); Lymphocytes # (Auto) 0.3 K/mm3 (1.2-5.4); Lymphocytes % (Auto) 8.1 % (13.4-35.0); Mean Corpuscular HGB Conc 33 % (30-34); Mean Corpuscular Volume 94 fl (79-97); Monocytes # (Auto) 0.2 K/mm3 (0.0-0.8); Platelet Count 304 K/mm3 (140-440); Red Blood Count 3.11 M/mm3 (3.65-5.03); Red Cell Distribution Width 16.4 % (13.2-15.2)
[2020-09-28 06:46] LABS: BUN/Creatinine Ratio 32; Blood Urea Nitrogen 35 mg/dL (7-17); Calcium 7.7 mg/dL (8.4-10.2); Hemolysis Index 1
[2020-09-28 09:15] LABS: Bacteria,Urine 1+ /HPF (Negative); Bilirubin,Urine NEG (Negative); Blood,Urine SM (Negative); Color,Urine Yellow (Yellow); Urobilinogen,Urine < 2.0 mg/dL (<2.0)
[2020-09-28] MEDS ORDERED: POTASSIUM CHLORIDE ER 10 MEQ TAB PO SCH (10:00)
[2020-09-28] MEDS ORDERED: POTASSIUM CHLORIDE 15 MEQ PO SCH (10:00)
[2020-09-28] MEDS ORDERED: FUROSEMIDE 40 MG TAB PO SCH (10:00)
[2020-09-28] MEDS ORDERED: LOPRESSOR 25 MG PO SCH (10:00)
--- NOTE | 2020-09-28 11:54 | Consultation ---
History of Present Illness Consult date: 09/28/20 Consult reason: elevated troponin History of present illness: Patient is a 60-year-old woman admitted with fever, maximum temperature of 101.9 F and acute hypoxic respiratory failure, oxygen saturation of 60% reported upon EMS arrival. Chest x-ray reported findings of chronic lung disease and left base opacity. No report of interstitial edema. A cardiac consultation has been requested for mild, nonspecific elevation of troponin. Of note, patient was admitted to this hospital 3 weeks ago with acute hypoxic respiratory failure, COPD exacebation and severe anemia with a hematocrit of 19-23. Workup with an echocardiogram reported normal left ventricular systolic function with ejection fraction 60 to 65%. Troponin measurements are unchanged from prior admission, ranging 0.067 - 0.076. Patient denies chest pain, and denies palpitations. 12 lead ECG is benign, normal sinus rhythm. Past History Past Medical History: anemia, COPD, GERD, hypertension Past Surgical History: No surgical history Social history: single. denies: smoking, alcohol abuse, prescription drug abuse Family history: hypertension Medications and Allergies Allergies Allergy/AdvReac Type Severity Reaction Status Date / Time No Known Allergies Allergy Unverified 08/31/20 22:07 Home Medications Medication Instructions Recorded Confirmed Last Taken Type Lasix TAB 40 mg PO ONCE 09/01/20 09/01/20 08/31/20 History Lopressor 50 mg PO BID 09/01/20 09/01/20 08/31/20 History Pantoprazole 40 mg PO ONCE 09/01/20 09/01/20 08/31/20 History amLODIPine 10 mg PO ONCE 09/01/20 09/01/20 08/31/20 History hydrALAZINE 25 mg PO TID 09/01/20 09/01/20 08/31/20 History Acetaminophen [Acetaminophen TAB] 650 mg PO Q4H PRN tablet 09/11/20 Unknown Rx Furosemide [Lasix TAB] 40 mg PO QDAY #30 tablet 09/11/20 Unknown Rx Melatonin [Melatonin 5MG TAB] 5 mg PO QHS tablet 09/11/20 Unknown Rx Metoprolol [Lopressor TAB] 50 mg PO BID #60 tablet 09/11/20 Unknown Rx Potassium Chloride [Klor-Con M15] 15 meq PO QDAY #3 tab.er.prt 09/11/20 Unknown Rx Sertraline [Zoloft] 25 mg PO QDAY tablet 09/11/20 Unknown Rx amLODIPine 10 mg PO QDAY #30 tablet 09/11/20 Unknown Rx hydrALAZINE [Apresoline TAB] 50 mg PO Q8HR #90 tablet 09/11/20 Unknown Rx oxyCODONE /ACETAMINOPHEN [Percocet 1 tab PO Q6H PRN tablet 09/11/20 Unknown Rx 5/325 mg] predniSONE 10 mg PO QDAY #3 tab 09/11/20 Unknown Rx Active Meds: Active Medications Acetaminophen (Acetaminophen 325 Mg Tab) 650 mg PO Q4H PRN PRN Reason: Pain MILD(1-3)/Fever >100.5/[place] Albuterol (Albuterol 2.5 Mg/3 Ml Nebu) 2.5 mg IH Q4HRT PRN PRN Reason: Shortness Of Breath Amlodipine Besylate (Amlodipine 10 Mg Tab) 10 mg PO DAILY [facility] Ascorbic Acid (Ascorbic Acid 500 Mg Tab) 500 mg PO BID [facility] Last Admin: 09/28/20 00:37 Dose: 500 mg Documented by: Azithromycin (Azithromycin 250 Mg Tab) 500 mg PO QPM [facility] Stop: 10/01/20 18:01 Cholecalciferol (Cholecalciferol (Vit D3) 1000 Unit (25 Mcg) Tab) 1,000 unit PO QDAY [facility] Famotidine (Famotidine 20 Mg Tab) 20 mg PO BID [facility] Last Admin: 09/28/20 00:36 Dose: 20 mg Documented by: Furosemide (Furosemide 40 Mg/4 Ml Inj) 40 mg IV ONCE ONE Stop: 09/28/20 11:49 Heparin Sodium (Porcine) (Heparin 5,000 Unit/1 Ml Vial) 5,000 unit SUB-Q Q12HR [facility] Last Admin: 09/28/20 00:37 Dose: 5,000 unit Documented by: Hydralazine HCl (Hydralazine 25 Mg Tab) 25 mg PO TID [facility] Last Admin: 09/27/20 20:51 Dose: Not Given Documented by: Hydromorphone HCl (Hydromorphone 1 Mg/1 Ml Inj) 0.25 mg IV Q4H PRN PRN Reason: Pain, Moderate (4-6) Last Admin: 09/27/20 21:55 Dose: 0.25 mg Documented by: Ceftriaxone Sodium (Rocephin/Ns 2 Gm/100 Ml) 2 gm in 100 mls @ 200 mls/hr IV Q24H [facility]; Protocol Last Admin: 09/27/20 16:55 Dose: 200 mls/hr Documented by: Melatonin (Melatonin 5 Mg Tab) 5 mg PO QHS [facility] Last Admin: 09/28/20 00:37 Dose: 5 mg Documented by: Methylprednisolone Sodium Succinate (Methylprednisolone Sod Succinate 40 Mg/1 Ml Inj) 40 mg IV Q8H [facility] Last Admin: 09/28/20 00:37 Dose: 40 mg Documented by: Metoprolol Tartrate (Metoprolol Tartrate 25 Mg Tab) 25 mg PO BID [facility] Ondansetron HCl (Ondansetron 4 Mg/2 Ml Inj) 4 mg IV Q8H PRN PRN Reason: Nausea And Vomiting Oxycodone/Acetaminophen (Oxycodone /Acetaminophen 5-325mg Tab) 1 tab PO Q6H PRN PRN Reason: Pain, Moderate (4-6) Potassium Chloride (Potassium Chloride Er 8 Meq Tab) 16 meq PO QDAY [facility] Sertraline HCl (Sertraline 25 Mg Tab) 25 mg PO QDAY [facility] Sodium Chloride (Sodium Chloride 0.9% 10 Ml Flush Syringe) 10 ml IV BID [facility] Last Admin: 09/27/20 22:17 Dose: 10 ml Documented by: Sodium Chloride (Sodium Chloride 0.9% 10 Ml Flush Syringe) 10 ml IV PRN PRN PRN Reason: LINE FLUSH Zinc Sulfate (Zinc Sulfate 220 Mg Cap) 220 mg PO QDAY [facility] Review of Systems Cardiovascular: no chest pain, no palpitations Physical Examination Vital Signs Pulse Resp BP Pulse Ox 90 21 114/74 100 09/27/20 12:21 09/27/20 12:21 09/27/20 12:21 09/27/20 12:21 General appearance: no acute distress HEENT: Positive: PERRL Cardiac: Positive: Reg Rate and Rhythm Results 09/28/20 05:26 09/28/20 05:26 Cardiac Enzymes 09/27/20 09/27/20 09/27/20 Range/Units 13:26 13:40 17:16 AST 42 H (5-40) units/L Lactate Dehydrogenase 267 H 290 H (91-180) units/L Coagulation 09/27/20 Range/Units 13:26 PT 13.0 (12.2-14.9) Sec. INR 0.99 (0.87-1.13) APTT 28.1 (24.2-36.6) Sec. Lipids 09/27/20 Range/Units 13:26 Triglycerides 108 (2-149) mg/dL Cholesterol 117 (50-199) mg/dL HDL Cholesterol 40 (40-59) mg/dL Cholesterol/HDL Ratio 2.92 % CBC 09/27/20 09/28/20 Range/Units 13:26 05:26 WBC 5.6 3.8 L (4.5-11.0) K/mm3 RBC 2.99 L 3.11 L (3.65-5.03) M/mm3 Hgb 9.5 L 9.7 L (10.1-14.3) gm/dl Hct 27.7 L 29.2 L (30.3-42.9) % Plt Count 279 304 (140-440) K/mm3 Lymph # (Auto) 0.7 L 0.3 L (1.2-5.4) K/mm3 [place] # (Auto) 0.5 0.2 (0.0-0.8) K/mm3 Eos # (Auto) 0.0 0.0 (0.0-0.4) K/mm3 Baso # (Auto) 0.0 0.1 (0.0-0.1) K/mm3 Comprehensive Metabolic Panel 09/27/20 09/27/20 09/28/20 Range/Units 13:26 17:16 05:26 Sodium 138 142 (137-145) mmol/L Potassium 4.5 4.5 (3.6-5.0) mmol/L Chloride 102.5 107.9 H (98-107) mmol/L Carbon Dioxide 25 26 (22-30) mmol/L BUN 44 H 35 H (7-17) mg/dL Creatinine 1.5 H 1.1 (0.6-1.2) mg/dL Glucose 100 130 H 138 H (65-100) mg/dL Calcium 7.9 L 7.7 L (8.4-10.2) mg/dL Direct Bilirubin < 0.2 (0-0.2) mg/dL Indirect Bilirubin 0.1 mg/dL AST 42 H (5-40) units/L ALT 14 (7-56) units/L Alkaline Phosphatase 71 (35-129) units/L Total Protein 7.3 (6.3-8.2) g/dL Albumin 2.5 L (3.9-5) g/dL Assessment and Plan Nonspecific elevation of troponin unchanged from prior admission. pt denies chest pain ECG is benign, normal sinus rhythm 08/2020 Echo: normal left ventricular systolic function with ejection fraction 60 to 65%. Acute hypoxic respiratory failure Fever - chest x-ray reported findings of chronic lung disease and left base opacity. Chronic Anemia No cardiac workup indicated. Will follow intermittently.
--- NOTE | 2020-09-28 11:55 | Consultation ---
History of Present Illness Consult date: 09/28/20 Requesting physician: WILIAM MIXON Reason for consult: COPD, hypoxemia History of present illness: 60 y/o female, recently admitted here at the end of August with hypoxemia secondary to volume overload, presents to the ED yesterday confused and combative and non-cooperative. Unable to obtain history from patient currently so all comes from chart. Has not psych issues. In the ED was found to be hypoxic in the 60's on room air. She was awake enough to protect her airway so luckily was not intubated. She improved with NRB and is now on 2 liters NC with good sats. CXR appears to show volume overload and possible left lower lobe airspace disease. Pulmonary has been consulted secondary to hypoxemia and po ssible pneumonia. Patient had no white count on admit, but did have fever up to 101.2. Past History Past Medical History: COPD, GERD, heart failure, hypertension, other (See HPI) Past Surgical History: No surgical history, Other (Reviewed) Social history: single. denies: smoking, alcohol abuse, prescription drug abuse Family history: hypertension Medications and Allergies Allergies Allergy/AdvReac Type Severity Reaction Status Date / Time No Known Allergies Allergy Unverified 08/31/20 22:07 Home Medications Medication Instructions Recorded Confirmed Last Taken Type Lasix TAB 40 mg PO ONCE 09/01/20 09/01/20 08/31/20 History Lopressor 50 mg PO BID 09/01/20 09/01/20 08/31/20 History Pantoprazole 40 mg PO ONCE 09/01/20 09/01/20 08/31/20 History amLODIPine 10 mg PO ONCE 09/01/20 09/01/20 08/31/20 History hydrALAZINE 25 mg PO TID 09/01/20 09/01/20 08/31/20 History Acetaminophen [Acetaminophen TAB] 650 mg PO Q4H PRN tablet 09/11/20 Unknown Rx Furosemide [Lasix TAB] 40 mg PO QDAY #30 tablet 09/11/20 Unknown Rx Melatonin [Melatonin 5MG TAB] 5 mg PO QHS tablet 09/11/20 Unknown Rx Metoprolol [Lopressor TAB] 50 mg PO BID #60 tablet 09/11/20 Unknown Rx Potassium Chloride [Klor-Con M15] 15 meq PO QDAY #3 tab.er.prt 09/11/20 Unknown Rx Sertraline [Zoloft] 25 mg PO QDAY tablet 09/11/20 Unknown Rx amLODIPine 10 mg PO QDAY #30 tablet 09/11/20 Unknown Rx hydrALAZINE [Apresoline TAB] 50 mg PO Q8HR #90 tablet 09/11/20 Unknown Rx oxyCODONE /ACETAMINOPHEN [Percocet 1 tab PO Q6H PRN tablet 09/11/20 Unknown Rx 5/325 mg] predniSONE 10 mg PO QDAY #3 tab 09/11/20 Unknown Rx Active Meds: Active Medications Acetaminophen (Acetaminophen 325 Mg Tab) 650 mg PO Q4H PRN PRN Reason: Pain MILD(1-3)/Fever >100.5/LORA Albuterol (Albuterol 2.5 Mg/3 Ml Nebu) 2.5 mg IH Q4HRT PRN PRN Reason: Shortness Of Breath Amlodipine Besylate (Amlodipine 10 Mg Tab) 10 mg PO DAILY [facility] Ascorbic Acid (Ascorbic Acid 500 Mg Tab) 500 mg PO BID [facility] Last Admin: 09/28/20 00:37 Dose: 500 mg Documented by: Azithromycin (Azithromycin 250 Mg Tab) 500 mg PO QPM [facility] Stop: 10/01/20 18:01 Cholecalciferol (Cholecalciferol (Vit D3) 1000 Unit (25 Mcg) Tab) 1,000 unit PO QDAY [facility] Famotidine (Famotidine 20 Mg Tab) 20 mg PO BID [facility] Last Admin: 09/28/20 00:36 Dose: 20 mg Documented by: Furosemide (Furosemide 40 Mg/4 Ml Inj) 40 mg IV ONCE ONE Stop: 09/28/20 11:49 Heparin Sodium (Porcine) (Heparin 5,000 Unit/1 Ml Vial) 5,000 unit SUB-Q Q12HR [facility] Last Admin: 09/28/20 00:37 Dose: 5,000 unit Documented by: Hydralazine HCl (Hydralazine 25 Mg Tab) 25 mg PO TID [facility] Last Admin: 09/27/20 20:51 Dose: Not Given Documented by: Hydromorphone HCl (Hydromorphone 1 Mg/1 Ml Inj) 0.25 mg IV Q4H PRN PRN Reason: Pain, Moderate (4-6) Last Admin: 09/27/20 21:55 Dose: 0.25 mg Documented by: Ceftriaxone Sodium (Rocephin/Ns 2 Gm/100 Ml) 2 gm in 100 mls @ 200 mls/hr IV Q24H [facility]; Protocol Last Admin: 09/27/20 16:55 Dose: 200 mls/hr Documented by: Melatonin (Melatonin 5 Mg Tab) 5 mg PO QHS [facility] Last Admin: 09/28/20 00:37 Dose: 5 mg Documented by: Methylprednisolone Sodium Succinate (Methylprednisolone Sod Succinate 40 Mg/1 Ml Inj) 40 mg IV Q8H [facility] Last Admin: 09/28/20 00:37 Dose: 40 mg Documented by: Metoprolol Tartrate (Metoprolol Tartrate 25 Mg Tab) 25 mg PO BID [facility] Ondansetron HCl (Ondansetron 4 Mg/2 Ml Inj) 4 mg IV Q8H PRN PRN Reason: Nausea And Vomiting Oxycodone/Acetaminophen (Oxycodone /Acetaminophen 5-325mg Tab) 1 tab PO Q6H PRN PRN Reason: Pain, Moderate (4-6) Potassium Chloride (Potassium Chloride Er 8 Meq Tab) 16 meq PO QDAY [facility] Sertraline HCl (Sertraline 25 Mg Tab) 25 mg PO QDAY [facility] Sodium Chloride (Sodium Chloride 0.9% 10 Ml Flush Syringe) 10 ml IV BID [facility] Last Admin: 09/27/20 22:17 Dose: 10 ml Documented by: Sodium Chloride (Sodium Chloride 0.9% 10 Ml Flush Syringe) 10 ml IV PRN PRN PRN Reason: LINE FLUSH Zinc Sulfate (Zinc Sulfate 220 Mg Cap) 220 mg PO QDAY [facility] Physical Examination Vital signs: Vital Signs Pulse Resp BP Pulse Ox 90 21 114/74 100 09/27/20 12:21 09/27/20 12:21 09/27/20 12:21 09/27/20 12:21 Deferred to preserve PPE as patient is a PUI during the global pandemic of COVID 19 Results - Laboratory Findings CBC and BMP: 09/28/20 05:26 09/28/20 05:26 PT/INR, D-dimer PT 13.0 Sec. (12.2-14.9) 09/27/20 13:26 INR 0.99 (0.87-1.13) 09/27/20 13:26 D-Dimer 1047.78 ng/mlDDU (0-234) H 09/27/20 17:16 Abnormal lab findings: Abnormal Labs 09/27/20 09/27/20 09/27/20 13:26 13:26 13:26 WBC RBC 2.99 L Hgb 9.5 L Hct 27.7 L RDW 16.2 H Lymph % (Auto) 12.8 L [place] % (Auto) 8.2 H Lymph # (Auto) 0.7 L Seg Neutrophils % 78.0 H D-Dimer 1208.69 H Chloride BUN 44 H Creatinine 1.5 H Glucose Calcium 7.9 L Ferritin AST 42 H Lactate Dehydrogenase Troponin T 0.076 H C-Reactive Protein Albumin 2.5 L 09/27/20 09/27/20 09/27/20 13:26 13:40 17:16 WBC RBC Hgb Hct RDW Lymph % (Auto) [place] % (Auto) Lymph # (Auto) Seg Neutrophils % D-Dimer Chloride BUN Creatinine Glucose Calcium Ferritin > 2000.0 H AST Lactate Dehydrogenase 267 H Troponin T 0.069 H C-Reactive Protein 3.40 H Albumin 09/27/20 09/27/20 09/27/20 17:16 17:16 17:16 WBC RBC Hgb Hct RDW Lymph % (Auto) [place] % (Auto) Lymph # (Auto) Seg Neutrophils % D-Dimer 1047.78 H Chloride BUN Creatinine Glucose 130 H Calcium Ferritin 1998.0 H AST Lactate Dehydrogenase 290 H Troponin T C-Reactive Protein 3.00 H Albumin 09/28/20 09/28/20 05:26 05:26 WBC 3.8 L RBC 3.11 L Hgb 9.7 L Hct 29.2 L RDW 16.4 H Lymph % (Auto) 8.1 L [place] % (Auto) Lymph # (Auto) 0.3 L Seg Neutrophils % 86.5 H D-Dimer Chloride 107.9 H BUN 35 H Creatinine Glucose 138 H Calcium 7.7 L Ferritin AST Lactate Dehydrogenase Troponin T C-Reactive Protein Albumin - Diagnostic Findings Chest x-ray: image reviewed Assessment and Plan 60 y/o female with acute hypoxic respiratory failure, possibly secondary to volume overload with questionable area of left lower lobe airspace disease concerning for pneumonia. 1. Obtain sputum sample of if possible 2. By definition, this would be hospital acquired pneumonia given her recent stay. Clinically she does not appear to have severe pneumonia so OK with CAP coverage for now. IF her clinical picture changes would broaden abx. 3. Agree with current dose of steroids, but with psych issues, would taper rapidly. 4. Was not able to tell if the patient was discharged with oxygen at last visit but would need walk test if she will cooperate prior to discharge 5. Will place on bID pulmicort for now. Patient needs a formal work up as an outpatient if possible. Per chart has no funding so not sure what medications she would be able to afford 6. WEan FiO2 as tolerated for sats >88% 7. Given CXR appearance ordered a BNP, may need to consider echo if patient will cooperate. 8. Changed oral lasix to IV but patient has pulled out IV access.
[2020-09-28] MEDS ORDERED: FUROSEMIDE 40 MG/4 ML INJ IV ONE (12:00)
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
--- NOTE | 2020-09-28 13:29 | Consultation ---
History of Present Illness - Reason for Consult Consult date: 09/28/20 R/o COVID Requesting physician: WILIAM MIXON - History of Present Illness 60 years old female with history of hypertension, COPD, GERD, schizophrenia, malnutrition, CHF, admitted on 09/27/2020 secondary to shortness of breath and confusion. Patient is no able to provide a history. On arrival, temperature 101.9, HR 90, RR 21, O2 sat 100%, BP 114/79. Initial WBC 5.6. Hemoglobin 8.5. Platelets 279. D-dimer 1208. Ferritin> 2000. CRP 3.4. Creatinine 1.5. AST 42. Urinalysis negative. Procalcitonin 0.05. Chest x-ray with increased interstitial markings and left-sided consolidation. O2 sat was down to 60% on room air in the ED. patient currently on 2 L nasal cannula. Review of Systems: reviewed ED and H&P notes. Review of system deferred to minimize COVID-19 transmission. Past History Past Medical History: anemia, COPD, GERD, hypertension Past Surgical History: No surgical history Social history: single. denies: smoking, alcohol abuse, prescription drug abuse Family history: hypertension Medications and Allergies Allergies Allergy/AdvReac Type Severity Reaction Status Date / Time No Known Allergies Allergy Unverified 08/31/20 22:07 Home Medications Medication Instructions Recorded Confirmed Last Taken Type Lasix TAB 40 mg PO ONCE 09/01/20 09/01/20 08/31/20 History Lopressor 50 mg PO BID 09/01/20 09/01/20 08/31/20 History Pantoprazole 40 mg PO ONCE 09/01/20 09/01/20 08/31/20 History amLODIPine 10 mg PO ONCE 09/01/20 09/01/20 08/31/20 History hydrALAZINE 25 mg PO TID 09/01/20 09/01/20 08/31/20 History Acetaminophen [Acetaminophen TAB] 650 mg PO Q4H PRN tablet 09/11/20 Unknown Rx Furosemide [Lasix TAB] 40 mg PO QDAY #30 tablet 09/11/20 Unknown Rx Melatonin [Melatonin 5MG TAB] 5 mg PO QHS tablet 09/11/20 Unknown Rx Metoprolol [Lopressor TAB] 50 mg PO BID #60 tablet 09/11/20 Unknown Rx Potassium Chloride [Klor-Con M15] 15 meq PO QDAY #3 tab.er.prt 09/11/20 Unknown Rx Sertraline [Zoloft] 25 mg PO QDAY tablet 09/11/20 Unknown Rx amLODIPine 10 mg PO QDAY #30 tablet 09/11/20 Unknown Rx hydrALAZINE [Apresoline TAB] 50 mg PO Q8HR #90 tablet 09/11/20 Unknown Rx oxyCODONE /ACETAMINOPHEN [Percocet 1 tab PO Q6H PRN tablet 09/11/20 Unknown Rx 5/325 mg] predniSONE 10 mg PO QDAY #3 tab 09/11/20 Unknown Rx Active Meds: Active Medications Acetaminophen (Acetaminophen 325 Mg Tab) 650 mg PO Q4H PRN PRN Reason: Pain MILD(1-3)/Fever >100.5/[place]OR[place] Albuterol (Albuterol 2.5 Mg/3 Ml Nebu) 2.5 mg IH Q4HRT PRN PRN Reason: Shortness Of Breath Amlodipine Besylate (Amlodipine 10 Mg Tab) 10 mg PO DAILY [facility] Ascorbic Acid (Ascorbic Acid 500 Mg Tab) 500 mg PO BID [facility] Last Admin: 09/28/20 00:37 Dose: 500 mg Documented by: Azithromycin (Azithromycin 250 Mg Tab) 500 mg PO QPM [facility] Stop: 10/01/20 18:01 Cholecalciferol (Cholecalciferol (Vit D3) 1000 Unit (25 Mcg) Tab) 1,000 unit PO QDAY [facility] Famotidine (Famotidine 20 Mg Tab) 20 mg PO BID [facility] Last Admin: 09/28/20 00:36 Dose: 20 mg Documented by: Heparin Sodium (Porcine) (Heparin 5,000 Unit/1 Ml Vial) 5,000 unit SUB-Q Q12HR [facility] Last Admin: 09/28/20 00:37 Dose: 5,000 unit Documented by: Ceftriaxone Sodium (Rocephin/Ns 2 Gm/100 Ml) 2 gm in 100 mls @ 200 mls/hr IV Q24H [facility]; Protocol Last Admin: 09/27/20 16:55 Dose: 200 mls/hr Documented by: Isosorbide Mononitrate (Isosorbide Mononitrate Er 30 Mg Tab) 30 mg PO QDAY [facility] Melatonin (Melatonin 5 Mg Tab) 5 mg PO QHS [facility] Last Admin: 09/28/20 00:37 Dose: 5 mg Documented by: Methylprednisolone Sodium Succinate (Methylprednisolone Sod Succinate 40 Mg/1 Ml Inj) 40 mg IV Q8H [facility] Last Admin: 09/28/20 00:37 Dose: 40 mg Documented by: Metoprolol Tartrate (Metoprolol Tartrate 25 Mg Tab) 25 mg PO BID [facility] Ondansetron HCl (Ondansetron 4 Mg/2 Ml Inj) 4 mg IV Q8H PRN PRN Reason: Nausea And Vomiting Oxycodone/Acetaminophen (Oxycodone /Acetaminophen 5-325mg Tab) 1 tab PO Q6H PRN PRN Reason: Pain, Moderate (4-6) Potassium Chloride (Potassium Chloride Er 8 Meq Tab) 16 meq PO QDAY [facility] Sertraline HCl (Sertraline 25 Mg Tab) 25 mg PO QDAY [facility] Sodium Chloride (Sodium Chloride 0.9% 10 Ml Flush Syringe) 10 ml IV BID [facility] Last Admin: 09/27/20 22:17 Dose: 10 ml Documented by: Sodium Chloride (Sodium Chloride 0.9% 10 Ml Flush Syringe) 10 ml IV PRN PRN PRN Reason: LINE FLUSH Zinc Sulfate (Zinc Sulfate 220 Mg Cap) 220 mg PO QDAY [facility] Physical Examination - Physical Exam Narrative exam: Physical exam deferred to minimize COVID-19 transmission during pandemic. ER and internal medicine physical examination notes reviewed. - Constitutional Vitals: Vital Signs Temp Pulse Resp BP Pulse Ox 98.3 F 84 16 142/90 97 09/28/20 13:06 09/28/20 13:06 09/28/20 13:06 09/28/20 13:06 09/28/20 09:45 Temperature -Last 24 Hours Temperature 98.3 F Temperature 99.3 F Temperature 97.8 F Results - Labs CBC & Chem 7: 09/28/20 05:26 09/28/20 05:26 Labs: Abnormal lab results 09/27/20 09/27/20 09/27/20 Range/Units 13:26 13:26 13:26 WBC (4.5-11.0) K/mm3 RBC 2.99 L (3.65-5.03) M/mm3 Hgb 9.5 L (10.1-14.3) gm/dl Hct 27.7 L (30.3-42.9) % RDW 16.2 H (13.2-15.2) % Lymph % (Auto) 12.8 L (13.4-35.0) % [place] % (Auto) 8.2 H (0.0-7.3) % Lymph # (Auto) 0.7 L (1.2-5.4) K/mm3 Seg Neutrophils % 78.0 H (40.0-70.0) % D-Dimer 1208.69 H (0-234) ng/mlDDU Chloride (98-107) mmol/L BUN 44 H (7-17) mg/dL Creatinine 1.5 H (0.6-1.2) mg/dL Glucose (65-100) mg/dL Calcium 7.9 L (8.4-10.2) mg/dL Ferritin (10.0-200.0) ng/mL AST 42 H (5-40) units/L Lactate Dehydrogenase (91-180) units/L Troponin T 0.076 H (0.00-0.029) ng/mL C-Reactive Protein (0.00-1.30) mg/dL Albumin 2.5 L (3.9-5) g/dL 09/27/20 09/27/20 09/27/20 Range/Units 13:26 13:40 17:16 WBC (4.5-11.0) K/mm3 RBC (3.65-5.03) M/mm3 Hgb (10.1-14.3) gm/dl Hct (30.3-42.9) % RDW (13.2-15.2) % Lymph % (Auto) (13.4-35.0) % [place] % (Auto) (0.0-7.3) % Lymph # (Auto) (1.2-5.4) K/mm3 Seg Neutrophils % (40.0-70.0) % D-Dimer (0-234) ng/mlDDU Chloride (98-107) mmol/L BUN (7-17) mg/dL Creatinine (0.6-1.2) mg/dL Glucose (65-100) mg/dL Calcium (8.4-10.2) mg/dL Ferritin > 2000.0 H (10.0-200.0) ng/mL AST (5-40) units/L Lactate Dehydrogenase 267 H (91-180) units/L Troponin T 0.069 H (0.00-0.029) ng/mL C-Reactive Protein 3.40 H (0.00-1.30) mg/dL Albumin (3.9-5) g/dL 09/27/20 09/27/20 09/27/20 Range/Units 17:16 17:16 17:16 WBC (4.5-11.0) K/mm3 RBC (3.65-5.03) M/mm3 Hgb (10.1-14.3) gm/dl Hct (30.3-42.9) % RDW (13.2-15.2) % Lymph % (Auto) (13.4-35.0) % [place] % (Auto) (0.0-7.3) % Lymph # (Auto) (1.2-5.4) K/mm3 Seg Neutrophils % (40.0-70.0) % D-Dimer 1047.78 H (0-234) ng/mlDDU Chloride (98-107) mmol/L BUN (7-17) mg/dL Creatinine (0.6-1.2) mg/dL Glucose 130 H (65-100) mg/dL Calcium (8.4-10.2) mg/dL Ferritin 1998.0 H (10.0-200.0) ng/mL AST (5-40) units/L Lactate Dehydrogenase 290 H (91-180) units/L Troponin T (0.00-0.029) ng/mL C-Reactive Protein 3.00 H (0.00-1.30) mg/dL Albumin (3.9-5) g/dL 09/28/20 09/28/20 Range/Units 05:26 05:26 WBC 3.8 L (4.5-11.0) K/mm3 RBC 3.11 L (3.65-5.03) M/mm3 Hgb 9.7 L (10.1-14.3) gm/dl Hct 29.2 L (30.3-42.9) % RDW 16.4 H (13.2-15.2) % Lymph % (Auto) 8.1 L (13.4-35.0) % [place] % (Auto) (0.0-7.3) % Lymph # (Auto) 0.3 L (1.2-5.4) K/mm3 Seg Neutrophils % 86.5 H (40.0-70.0) % D-Dimer (0-234) ng/mlDDU Chloride 107.9 H (98-107) mmol/L BUN 35 H (7-17) mg/dL Creatinine (0.6-1.2) mg/dL Glucose 138 H (65-100) mg/dL Calcium 7.7 L (8.4-10.2) mg/dL Ferritin (10.0-200.0) ng/mL AST (5-40) units/L Lactate Dehydrogenase (91-180) units/L Troponin T (0.00-0.029) ng/mL C-Reactive Protein (0.00-1.30) mg/dL Albumin (3.9-5) g/dL Assessment and Plan Cultures: Blood culture no growth today SARS CoV2 PCR pending Assessment: 60 years old female with history of hypertension, COPD, GERD, schizophrenia, nutrition, CHF, admitted on 09/27/2020 secondary to altered mental status and shortness of breath, found hypoxic in the ED: #Severe sepsis: Present on admission with fever, tachycardia, severe hypoxia likely due to bilateral pneumonia. Urinalysis negative. Procalcitonin is low. #Bilateral pneumonia: Chest x-ray with increased interstitial markings and left- sided consolidation. Inflammatory markers for COVID-19 elevated. #Acute hypoxemic respiratory failure: O2 sat dropped to 60% on room air. Currently on 2 L nasal cannula. #Elevated LFTs: from COVID #Transaminitis: Unclear etiology, possibly secondary to COVID-19 infection. #KAITLYNN: Likely secondary to sepsis, improving Recommendations: -Consider ruling out DVT and PE, D-dimer elevated -Follow SARS-CoV-2 PCR -Started on Solu-Medrol -If SARS-CoV-2 PCR is positive start Remdesivir for 5 days (CrCl>30 mg/mL) -Monitor inflammatory markers - ferritin, Ddimer, CRP, LDH -Continue anticoagulation per System Protocol -Prone positioning as possible -Obtain SARS CoV-2 IgG to determine length of infection -Will stop ceftriaxone and azithromycin, procalcitonin <0.25 ng/mL in the next 1 to 2 days if SARS-CoV-2 PCR positive All laboratory, cultures and imaging were reviewed. Will follow Tamiko Foley MD Infectious Diseases [facility] ([facility] M [phone] O [phone]
[2020-09-28] MEDS: amLODIPine 10 MG TAB PO SCH (15:45)
[2020-09-28] MEDS: ZINC SULFATE 220 MG CAP PO SCH (15:46)
[2020-09-28] MEDS: SERTRALINE 25 MG TAB PO SCH (15:46)
[2020-09-28] MEDS: CHOLECALCIFEROL (VIT D3) 1000 UNIT (25 mcg) TAB PO SCH (15:47)
[2020-09-28] MEDS: METOPROLOL TARTRATE 25 MG TAB PO SCH ×2 (15:47→22:14)
[2020-09-28] MEDS: cefTRIAXone/NS 2 GM/100 ML 2 GM/100 ML BAG IV SCH (18:00)
--- NOTE | 2020-09-28 18:43 | Progress Note ---
<LESLIEFIDEL HOksana - Last Filed: 09/28/20 18:51> Assessment and Plan Assessment and plan: Sepsis, acute -Presented with fever up to one 101.2, acute kidney injury, probable left lower lobe pneumonia on CXR, hypoxia, tachycardia -Antibiotic therapy -09/27 blood culture x2 pending -09/28 urinalysis negative for leukocyte esterase and nitrates -09/28 sputum culture pending -S/p 2200 mL normal saline per sepsis protocol -Infectious disease consulted, appreciate recommendations Left lower lobe pneumonia, acute -09/27 CXR shows chronic increased interstitial markings diffusely with superimposed pneumonia at the left base -Antibiotic therapy -09/27 procalcitonin less than 0.05 -Antibiotic therapy -Steroids discontinued due to COVID-19 PCR being negative -Pulmonology and infectious disease consulted Acute hypoxic respiratory failure, acute -Reported SPO2 60% on room air by EMS -Supplemental oxygenation as needed -Pulmonary hygiene -Pulmonology consulted, appreciate recommendations -Steroid therapy, rapidly tapering Acute kidney injury, resolving -Presented with a BUN/creatinine 44/1.5 -S/p 2200 mL normal saline bolus -09/28 BUN/creatinine 35/1.1 -Upon review of prior admissions patient's baseline seems to be 0.8-1.1 -Renally dose medication -Avoid nephrotoxic medication -Strict intake and output -Daily weights Leukopenia, acute -09/28 WBC 3.8 -Trend CBC -Abx therapy Hypercholermia, acute -09/28 Cl 107.9 -s/p 2200 mL NS per sepsis protocol -Trend BMP Hypocalcemia, acute -09/27 Ca 7.9, 09/28 Ca 7.7 -Trend Ca Elevated D-dimer, acute -09/27 D-dimer 1208, 1047 -09/28 CTA chest pending COPD, chronic -Pulmonary hygiene -Pulmonology consulted, appreciate recommendations -Twice daily Pulmicort -Supplemental oxygen as needed Elevated troponin, chronic -Cardiology consulted, appreciate recommendations -09/27 Troponin 0.076, 0.069 -Per cardiology troponin measurements are unchanged from prior admission ranging 0.067-0.076 -Per cardiology: No further cardiac interventions indicated at this time -08/2020 echocardiogram showed left ventricular systolic function normal with ejection fraction 60 to 65% -09/28 proBNP 1189 GERD, chronic -Continue home PPI Hypertension, chronic -Resume home antihypertensive regimen and titrate as needed -Blood pressure monitoring per protocol -Hydralazine as needed for SBP greater than 160 Anemia, chronic -Patient had severe anemia on last admission -Trend CBC -Transfuse for hemoglobin less than 7 Severe malnutrition, chronic -BMI 18 -Nutritional supplementation -Supportive care Schizophrenia, chronic -Patient was extremely aggressive on 09/28 towards medical staff -Psych consulted, appreciate recommendations -Per patient's family she does have psychiatric history -Verbal de-escalation and reorientation as needed -Sleep hygiene -S/p Geodon 10 mg x 1 in the ED Depression, chronic -Continue home sertraline -Supportive care Diastolic congestive heart failure, chronic -Per cardiology: No further cardiac interventions indicated at this time -08/2020 echocardiogram showed left ventricular systolic function normal with ejection fraction 60 to 65% -09/28 proBNP 1189 -Continue home cardioprotective regimen - s/p lasix IV x1 DVT prophylaxis -SCDs to bilateral lower extremity while in bed -Heparin subcu COVID-19 PUI, ruled out -09/27 CXR shows chronic increased interstitial markings diffusely, superimposed pneumonia at the left base -09/28 COVID-19 PCR negative -Contact/droplet precautions discontinued History Interval history: 60 YO Female with HTN, COPD, Schizophrenia, GERD, Severe Malnutrution, Diastolic CHF who was transported via EMS on 09/27 for confusion and difficulty breathing. In the emergency department patient was found to have a pulse of oximetry of 60% on room air and was treated with supplemental oxygenation with mild improvement and was placed on a nonrebreather. Patient was admitted to the hospital service with sepsis, toxic metabolic encephalopathy, acute kidney injury and CXR showed pneumonia. Patient was made a COVID-19 PUI and had elevated cardiac enzymes. Cardiology, pulmonology, infectious disease and psychiatry was consulted. Patient was severely agitated in the morning and verbally abusive to medical staff. At the time my examination in the afternoon patient was speaking to her sister and seemed cooperative. Her COVID-19 PCR resulted as negative. I attempted to update the patient on her results but was unable to reach her and she will be transferred to telemetry. Hospitalist Physical - Constitutional Vitals: Temp Pulse Resp BP Pulse Ox 98.3 F 84 16 142/90 97 09/28/20 13:06 09/28/20 13:06 09/28/20 13:06 09/28/20 13:06 09/28/20 09:45 General appearance: Present: no acute distress - EENT Eyes: Present: PERRL, EOM intact ENT: hearing intact, clear oral mucosa, dentition normal - Neck Neck: Present: supple, normal ROM - Respiratory Respiratory effort: normal - Cardiovascular Rhythm: regular - Extremities Extremities: no ischemia, pulses intact, pulses symmetrical, No edema, normal temperature, normal color, Full ROM Peripheral Pulses: within normal limits - Abdominal General gastrointestinal: soft, non-tender, non-distended, normal bowel sounds - Integumentary Integumentary: Present: clear, warm, dry - Psychiatric Psychiatric: cooperative - Neurologic Neurologic: CNII-XII intact, no focal deficits, moves all extremities - Allied Health Allied health notes reviewed: nursing HEART Score - HEART Score Troponin: Troponin T 0.069 ng/mL (0.00-0.029) H 09/27/20 17:16 Results - Labs CBC & Chem 7: 09/28/20 05:26 09/28/20 05:26 Labs: Laboratory Last Values WBC 3.8 K/mm3 (4.5-11.0) L 09/28/20 05:26 RBC 3.11 M/mm3 (3.65-5.03) L 09/28/20 05:26 Hgb 9.7 gm/dl (10.1-14.3) L 09/28/20 05:26 Hct 29.2 % (30.3-42.9) L 09/28/20 05:26 MCV 94 fl (79-97) 09/28/20 05:26 MCH 31 pg (28-32) 09/28/20 05:26 MCHC 33 % (30-34) 09/28/20 05:26 RDW 16.4 % (13.2-15.2) H 09/28/20 05:26 Plt Count 304 K/mm3 (140-440) 09/28/20 05:26 Lymph % (Auto) 8.1 % (13.4-35.0) L 09/28/20 05:26 [place] % (Auto) 4.0 % (0.0-7.3) 09/28/20 05:26 Eos % (Auto) 0.0 % (0.0-4.3) 09/28/20 05:26 Baso % (Auto) 1.4 % (0.0-1.8) 09/28/20 05:26 Lymph # (Auto) 0.3 K/mm3 (1.2-5.4) L 09/28/20 05:26 [place] # (Auto) 0.2 K/mm3 (0.0-0.8) 09/28/20 05:26 Eos # (Auto) 0.0 K/mm3 (0.0-0.4) 09/28/20 05:26 Baso # (Auto) 0.1 K/mm3 (0.0-0.1) 09/28/20 05:26 Seg Neutrophils % 86.5 % (40.0-70.0) H 09/28/20 05:26 Seg Neutrophils # 3.3 K/mm3 (1.8-7.7) 09/28/20 05:26 PT 13.0 Sec. (12.2-14.9) 09/27/20 13:26 INR 0.99 (0.87-1.13) 09/27/20 13:26 APTT 28.1 Sec. (24.2-36.6) 09/27/20 13:26 D-Dimer 1047.78 ng/mlDDU (0-234) H 09/27/20 17:16 Sodium 142 mmol/L (137-145) 09/28/20 05:26 Potassium 4.5 mmol/L (3.6-5.0) 09/28/20 05:26 Chloride 107.9 mmol/L (98-107) H 09/28/20 05:26 Carbon Dioxide 26 mmol/L (22-30) 09/28/20 05:26 Anion Gap 13 mmol/L 09/28/20 05:26 BUN 35 mg/dL (7-17) H 09/28/20 05:26 Creatinine 1.1 mg/dL (0.6-1.2) 09/28/20 05:26 Estimated GFR > 60 ml/min 09/28/20 05:26 BUN/Creatinine Ratio 32 % 09/28/20 05:26 Glucose 138 mg/dL (65-100) H 09/28/20 05:26 Lactic Acid 0.80 mmol/L (0.7-2.0) 09/28/20 05:26 Calcium 7.7 mg/dL (8.4-10.2) L 09/28/20 05:26 Ferritin 1998.0 ng/mL (10.0-200.0) H 09/27/20 17:16 Total Bilirubin 0.30 mg/dL (0.1-1.2) 09/27/20 13:26 Direct Bilirubin < 0.2 mg/dL (0-0.2) 09/27/20 13:26 Indirect Bilirubin 0.1 mg/dL 09/27/20 13:26 AST 42 units/L (5-40) H 09/27/20 13:26 ALT 14 units/L (7-56) 09/27/20 13:26 Alkaline Phosphatase 71 units/L (35-129) 09/27/20 13:26 Lactate Dehydrogenase 290 units/L (91-180) H 09/27/20 17:16 Troponin T 0.069 ng/mL (0.00-0.029) H 09/27/20 17:16 C-Reactive Protein 3.00 mg/dL (0.00-1.30) H 09/27/20 17:16 NT-Pro-B Natriuret Pep 1189 pg/mL (0-900) H 09/28/20 12:23 Total Protein 7.3 g/dL (6.3-8.2) 09/27/20 13:26 Albumin 2.5 g/dL (3.9-5) L 09/27/20 13:26 Albumin/Globulin Ratio 0.5 % 09/27/20 13:26 Triglycerides 108 mg/dL (2-149) 09/27/20 13:26 Cholesterol 117 mg/dL (50-199) 09/27/20 13:26 LDL Cholesterol Direct 59 mg/dL (50-130) 09/27/20 13:26 HDL Cholesterol 40 mg/dL (40-59) 09/27/20 13:26 Cholesterol/HDL Ratio 2.92 % 09/27/20 13:26 Procalcitonin < 0.05 ng/mL (<0.15) 09/27/20 17:16 Urine Color Yellow (Yellow) 09/28/20 Unknown Urine Turbidity Clear (Clear) 09/28/20 Unknown Urine pH 6.0 (5.0-7.0) 09/28/20 Unknown Ur Specific Irwin 1.012 (1.003-1.030) 09/28/20 Unknown Urine Protein 100 mg/dl mg/dL (Negative) 09/28/20 Unknown Urine Glucose (UA) Neg mg/dL (Negative) 09/28/20 Unknown Urine Ketones Neg mg/dL (Negative) 09/28/20 Unknown Urine Blood Sm (Negative) 09/28/20 Unknown Urine Nitrite Neg (Negative) 09/28/20 Unknown Urine Bilirubin Neg (Negative) 09/28/20 Unknown Urine Urobilinogen < 2.0 mg/dL (<2.0) 09/28/20 Unknown Ur Leukocyte Esterase Neg (Negative) 09/28/20 Unknown Urine WBC (Auto) 4.0 /HPF (0.0-6.0) 09/28/20 Unknown Urine RBC (Auto) 22.0 /HPF (0.0-6.0) 09/28/20 Unknown U Epithel Cells (Auto) 1.0 /HPF (0-13.0) 09/28/20 Unknown Urine Bacteria (Auto) 1+ /HPF (Negative) 09/28/20 Unknown Coronavirus (PCR) Negative (Negative) 09/28/20 08:22 Microbiology: Microbiology 09/27/20 13:26 Peripheral/Venous Blood Culture - Preliminary NO GROWTH AFTER 24 HOURS 09/27/20 13:26 Peripheral/Venous Blood Culture - Preliminary NO GROWTH AFTER 24 HOURS Sterling/IV: Voiding Method Incontinent IV Catheter Type [Left INT / Saline Lock Antecubital] Active Medications - Current Medications Current Medications: Generic Name Dose Route Start Last Admin Trade Name Freq PRN Reason Stop Dose Admin Acetaminophen 650 mg 09/27/20 15:23 Acetaminophen 325 Mg Tab PO Q4H PRN Pain MILD(1-3)/Fever >100.5/LORA Albuterol 2.5 mg 09/27/20 15:22 Albuterol 2.5 Mg/3 Ml Nebu IH Q4HRT PRN Shortness Of Breath Amlodipine Besylate 10 mg 09/28/20 10:00 09/28/20 15:45 Amlodipine 10 Mg Tab PO Not Given DAILY [facility] Ascorbic Acid 500 mg 09/27/20 22:00 09/28/20 15:47 Ascorbic Acid 500 Mg Tab PO Not Given BID [facility] Azithromycin 500 mg 09/28/20 18:00 Azithromycin 250 Mg Tab PO 10/01/20 18:01 QPM [facility] Cholecalciferol 1,000 unit 09/28/20 10:00 09/28/20 15:47 Cholecalciferol (Vit D3) 1000 Unit (25 Mcg) Tab PO Not Given QDAY [facility] Famotidine 20 mg 09/27/20 22:00 09/28/20 15:47 Famotidine 20 Mg Tab PO Not Given BID [facility] Heparin Sodium (Porcine) 5,000 unit 09/27/20 22:00 09/28/20 15:46 Heparin 5,000 Unit/1 Ml Vial SUB-Q Not Given Q12HR [facility] Ceftriaxone Sodium 2 gm in 100 mls @ 200 mls/hr 09/27/20 16:00 09/27/20 16:55 Rocephin/Ns 2 Gm/100 Ml IV 200 mls/hr Q24H [facility] Administration Protocol Isosorbide Mononitrate 30 mg 09/29/20 10:00 Isosorbide Mononitrate Er 30 Mg Tab PO QDAY [facility] Melatonin 5 mg 09/27/20 22:00 09/28/20 00:37 Melatonin 5 Mg Tab PO 5 mg QHS [facility] Administration Methylprednisolone Sodium Succinate 40 mg 09/28/20 22:00 Methylprednisolone Sod Succinate 40 Mg/1 Ml Inj IV Q12HR [facility] Metoprolol Tartrate 25 mg 09/28/20 10:00 09/28/20 15:47 Metoprolol Tartrate 25 Mg Tab PO Not Given BID [facility] Ondansetron HCl 4 mg 09/27/20 15:22 Ondansetron 4 Mg/2 Ml Inj IV Q8H PRN Nausea And Vomiting Oxycodone/Acetaminophen 1 tab 09/27/20 15:23 Oxycodone /Acetaminophen 5-325mg Tab PO Q6H PRN Pain, Moderate (4-6) Potassium Chloride 16 meq 09/29/20 10:00 Potassium Chloride Er 8 Meq Tab PO QDAY [facility] Sertraline HCl 25 mg 09/28/20 10:00 09/28/20 15:46 Sertraline 25 Mg Tab PO Not Given QDAY [facility] Sodium Chloride 10 ml 09/27/20 22:00 09/28/20 15:47 Sodium Chloride 0.9% 10 Ml Flush Syringe IV Not Given BID [facility] Sodium Chloride 10 ml 09/27/20 15:22 Sodium Chloride 0.9% 10 Ml Flush Syringe IV PRN PRN LINE FLUSH Zinc Sulfate 220 mg 09/28/20 10:00 09/28/20 15:46 Zinc Sulfate 220 Mg Cap PO Not Given QDAY [facility] Nutrition/Malnutrition Assess - Dietary Evaluation Nutrition/Malnutrition Findings: Nutrition Notes Start: 09/28/20 14:07 Freq: Status: Active Protocol: Document 09/28/20 14:07 CW (Rec: 09/28/20 14:15 CW [id number]) Co-Sign 09/28/20 14:07 MK Nutrition Notes Need for Assessment generated from: powder line repairer,MST Initial or Follow up Assessment Current Diagnosis Acute Kidney Injury,COPD, Sepsis,Hypertension,Heart Failure Other Pertinent Diagnosis acute respiratory failure, AMS , pneu, GERD, COVID PUI Current Diet Cardiac Labs/Tests BUN 35 BG 138 Pertinent Medications Solumedrol Height 4 ft 10 in Weight 40.823 kg Usual Body Weight 61.23 kg [place] Body Weight (kg) 40.90 BMI 18.8 Weight change and time frame 33% wt loss in 2 months, per chart hx Weight Status Underweight Subjective/Other Information RN screen for MST/skin risk. Per RN pt is eating <20% PO. RN denies N/V/D or skin breakdown. Pt tg score is 13. Discussed with RN about sending ONS for pt. Burn Absent Trauma Absent GI Symptoms None Current % PO Negligible Minimum of two criteria Yes Interpretation of Weight Loss (severe) >5% in 1 month Reduced Composite Mechanic Strength Measurably Reduced (severe) #2 Nutrition Diagnosis Malnutrition Etiology chronic illness, AMS As Evidenced by Signs and Symptoms weak casting room helper strength, 33% wt loss in 2 months, BMI of 18.8 #1 Nutrition Diagnosis Inadequate oral intake Etiology AMS As Evidenced by Signs and Symptoms Pt consuming <30% PO Is patient on ventilator? No Is Patient Ambulatory and/or Out of Bed No REE-([facility]-confined to bed) 1046.844 Kcal/Kg value to use for calculation 30 Approximate Energy Requirements Using 1225 kcal/Kg Calculation Used for Recommendations Kcal/kg Additional Notes Protein needs are 1.2-1.5g/kg (49-61g/day) Fluid needs are 1ml/kcal Nutrition Intervention Change Diet Order: Continue + ONS Add Supplement/Snack (indicate name/kcal Ensure BID /protein ) Provides kCal: 700 Provides Protein (gm) 40 Goal #1 Meet at least 75% protein and energy needes via PO/ONS Goal #2 wt gain/ maintenance Anticipated Discharge Needs: Cardiac diet Follow-Up By: 10/02/20 Additional Comments FU for PO/ONS intakes/ tolerance <SHANE NATH - Last Filed: 09/29/20 07:05> Assessment and Plan Assessment and plan: I saw and evaluated the patient. I agree with the findings and the plan of care as documented in the Nurse Practitioner's~note, with the following corrections and additions. Hospitalist Physical - Constitutional Vitals: Temp Pulse Resp BP Pulse Ox 98.3 F 86 18 136/80 92 09/29/20 04:21 09/29/20 04:21 09/29/20 04:21 09/29/20 04:21 09/29/20 04:21 HEART Score - HEART Score Troponin: Troponin T 0.069 ng/mL (0.00-0.029) H 09/27/20 17:16 Results - Labs CBC & Chem 7: 09/28/20 05:26 09/29/20 06:07 Labs: Laboratory Last Values WBC 3.8 K/mm3 (4.5-11.0) L 09/28/20 05:26 RBC 3.11 M/mm3 (3.65-5.03) L 09/28/20 05:26 Hgb 9.7 gm/dl (10.1-14.3) L 09/28/20 05:26 Hct 29.2 % (30.3-42.9) L 09/28/20 05:26 MCV 94 fl (79-97) 09/28/20 05:26 MCH 31 pg (28-32) 09/28/20 05:26 MCHC 33 % (30-34) 09/28/20 05:26 RDW 16.4 % (13.2-15.2) H 09/28/20 05:26 Plt Count 304 K/mm3 (140-440) 09/28/20 05:26 Lymph % (Auto) 8.1 % (13.4-35.0) L 09/28/20 05:26 [place] % (Auto) 4.0 % (0.0-7.3) 09/28/20 05:26 Eos % (Auto) 0.0 % (0.0-4.3) 09/28/20 05:26 Baso % (Auto) 1.4 % (0.0-1.8) 09/28/20 05:26 Lymph # (Auto) 0.3 K/mm3 (1.2-5.4) L 09/28/20 05:26 [place] # (Auto) 0.2 K/mm3 (0.0-0.8) 09/28/20 05:26 Eos # (Auto) 0.0 K/mm3 (0.0-0.4) 09/28/20 05:26 Baso # (Auto) 0.1 K/mm3 (0.0-0.1) 09/28/20 05:26 Seg Neutrophils % 86.5 % (40.0-70.0) H 09/28/20 05:26 Seg Neutrophils # 3.3 K/mm3 (1.8-7.7) 09/28/20 05:26 PT 13.0 Sec. (12.2-14.9) 09/27/20 13:26 INR 0.99 (0.87-1.13) 09/27/20 13:26 APTT 28.1 Sec. (24.2-36.6) 09/27/20 13:26 D-Dimer 1047.78 ng/mlDDU (0-234) H 09/27/20 17:16 Sodium 140 mmol/L (137-145) 09/29/20 06:07 Potassium 3.1 mmol/L (3.6-5.0) L D 09/29/20 06:07 Chloride 107.9 mmol/L (98-107) H 09/29/20 06:07 Carbon Dioxide 22 mmol/L (22-30) 09/29/20 06:07 Anion Gap 13 mmol/L 09/29/20 06:07 BUN 31 mg/dL (7-17) H 09/29/20 06:07 Creatinine 1.0 mg/dL (0.6-1.2) 09/29/20 06:07 Estimated GFR > 60 ml/min 09/29/20 06:07 BUN/Creatinine Ratio 31 % 09/29/20 06:07 Glucose 98 mg/dL (65-100) 09/29/20 06:07 Lactic Acid 0.80 mmol/L (0.7-2.0) 09/28/20 05:26 Calcium 7.8 mg/dL (8.4-10.2) L 09/29/20 06:07 Ferritin 1552.0 ng/mL (10.0-200.0) H 09/29/20 06:07 Total Bilirubin 0.30 mg/dL (0.1-1.2) 09/27/20 13:26 Direct Bilirubin < 0.2 mg/dL (0-0.2) 09/27/20 13:26 Indirect Bilirubin 0.1 mg/dL 09/27/20 13:26 AST 42 units/L (5-40) H 09/27/20 13:26 ALT 14 units/L (7-56) 09/27/20 13:26 Alkaline Phosphatase 71 units/L (35-129) 09/27/20 13:26 Lactate Dehydrogenase 290 units/L (91-180) H 09/27/20 17:16 Troponin T 0.069 ng/mL (0.00-0.029) H 09/27/20 17:16 C-Reactive Protein 3.00 mg/dL (0.00-1.30) H 09/27/20 17:16 NT-Pro-B Natriuret Pep 1189 pg/mL (0-900) H 09/28/20 12:23 Total Protein 7.3 g/dL (6.3-8.2) 09/27/20 13:26 Albumin 2.5 g/dL (3.9-5) L 09/27/20 13:26 Albumin/Globulin Ratio 0.5 % 09/27/20 13:26 Triglycerides 108 mg/dL (2-149) 09/27/20 13:26 Cholesterol 117 mg/dL (50-199) 09/27/20 13:26 LDL Cholesterol Direct 59 mg/dL (50-130) 09/27/20 13:26 HDL Cholesterol 40 mg/dL (40-59) 09/27/20 13:26 Cholesterol/HDL Ratio 2.92 % 09/27/20 13:26 Procalcitonin < 0.05 ng/mL (<0.15) 09/27/20 17:16 Urine Color Yellow (Yellow) 09/28/20 Unknown Urine Turbidity Clear (Clear) 09/28/20 Unknown Urine pH 6.0 (5.0-7.0) 09/28/20 Unknown Ur Specific [place]win 1.012 (1.003-1.030) 09/28/20 Unknown Urine Protein 100 mg/dl mg/dL (Negative) 09/28/20 Unknown Urine Glucose (UA) Neg mg/dL (Negative) 09/28/20 Unknown Urine Ketones Neg mg/dL (Negative) 09/28/20 Unknown Urine Blood Sm (Negative) 09/28/20 Unknown Urine Nitrite Neg (Negative) 09/28/20 Unknown Urine Bilirubin Neg (Negative) 09/28/20 Unknown Urine Urobilinogen < 2.0 mg/dL (<2.0) 09/28/20 Unknown Ur Leukocyte Esterase Neg (Negative) 09/28/20 Unknown Urine WBC (Auto) 4.0 /HPF (0.0-6.0) 09/28/20 Unknown Urine RBC (Auto) 22.0 /HPF (0.0-6.0) 09/28/20 Unknown U Epithel Cells (Auto) 1.0 /HPF (0-13.0) 09/28/20 Unknown Urine Bacteria (Auto) 1+ /HPF (Negative) 09/28/20 Unknown Coronavirus (PCR) Negative (Negative) 09/28/20 08:22 Microbiology: Microbiology 09/27/20 13:26 Peripheral/Venous Blood Culture - Preliminary NO GROWTH AFTER 24 HOURS 09/27/20 13:26 Peripheral/Venous Blood Culture - Preliminary NO GROWTH AFTER 24 HOURS Sterling/IV: Voiding Method Incontinent IV Catheter Type [Left INT / Saline Lock Antecubital] Active Medications - Current Medications Current Medications: Generic Name Dose Route Start Last Admin Trade Name Freq PRN Reason Stop Dose Admin Acetaminophen 650 mg 09/27/20 15:23 Acetaminophen 325 Mg Tab PO Q4H PRN Pain MILD(1-3)/Fever >100.5/LORA Albuterol 2.5 mg 09/27/20 15:22 Albuterol 2.5 Mg/3 Ml Nebu IH Q4HRT PRN Shortness Of Breath Amlodipine Besylate 10 mg 09/28/20 10:00 09/28/20 15:45 Amlodipine 10 Mg Tab PO Not Given DAILY [facility] Ascorbic Acid 500 mg 09/27/20 22:00 09/28/20 22:10 Ascorbic Acid 500 Mg Tab PO 500 mg BID [facility] Administration Azithromycin 500 mg 09/28/20 18:00 09/28/20 18:56 Azithromycin 250 Mg Tab PO 10/01/20 18:01 Not Given QPM [facility] Cholecalciferol 1,000 unit 09/28/20 10:00 09/28/20 15:47 Cholecalciferol (Vit D3) 1000 Unit (25 Mcg) Tab PO Not Given QDAY [facility] Famotidine 20 mg 09/27/20 22:00 09/28/20 22:15 Famotidine 20 Mg Tab PO Not Given BID [facility] Heparin Sodium (Porcine) 5,000 unit 09/27/20 22:00 09/28/20 22:10 Heparin 5,000 Unit/1 Ml Vial SUB-Q 5,000 unit Q12HR [facility] Administration Ceftriaxone Sodium 2 gm in 100 mls @ 200 mls/hr 09/27/20 16:00 09/28/20 18:00 Rocephin/Ns 2 Gm/100 Ml IV Not Given Q24H [facility] Protocol Isosorbide Mononitrate 30 mg 09/29/20 10:00 Isosorbide Mononitrate Er 30 Mg Tab PO QDAY [facility] Melatonin 5 mg 09/27/20 22:00 09/28/20 22:10 Melatonin 5 Mg Tab PO 5 mg QHS [facility] Administration Methylprednisolone Sodium Succinate 40 mg 09/28/20 22:00 09/28/20 22:15 Methylprednisolone Sod Succinate 40 Mg/1 Ml Inj IV Not Given Q12HR [facility] Metoprolol Tartrate 25 mg 09/28/20 10:00 09/28/20 22:14 Metoprolol Tartrate 25 Mg Tab PO Not Given BID [facility] Ondansetron HCl 4 mg 09/27/20 15:22 Ondansetron 4 Mg/2 Ml Inj IV Q8H PRN Nausea And Vomiting Oxycodone/Acetaminophen 1 tab 09/27/20 15:23 Oxycodone /Acetaminophen 5-325mg Tab PO Q6H PRN Pain, Moderate (4-6) Potassium Chloride 16 meq 09/29/20 10:00 Potassium Chloride Er 8 Meq Tab PO QDAY [facility] Sertraline HCl 25 mg 09/28/20 10:00 09/28/20 15:46 Sertraline 25 Mg Tab PO Not Given QDAY [facility] Sodium Chloride 10 ml 09/27/20 22:00 09/28/20 22:15 Sodium Chloride 0.9% 10 Ml Flush Syringe IV Not Given BID [facility] Sodium Chloride 10 ml 09/27/20 15:22 Sodium Chloride 0.9% 10 Ml Flush Syringe IV PRN PRN LINE FLUSH Zinc Sulfate 220 mg 09/28/20 10:00 09/28/20 15:46 Zinc Sulfate 220 Mg Cap PO Not Given QDAY [facility] Nutrition/Malnutrition Assess - Dietary Evaluation Nutrition/Malnutrition Findings: Nutrition Notes Start: 09/28/20 14:07 Freq: Status: Active Protocol: Document 09/28/20 14:07 CW (Rec: 09/28/20 14:15 CW [id number]) Co-Sign 09/28/20 14:07 MK Nutrition Notes Need for Assessment generated from: powder line repairer,MST Initial or Follow up Assessment Current Diagnosis Acute Kidney Injury,COPD, Sepsis,Hypertension,Heart Failure Other Pertinent Diagnosis acute respiratory failure, AMS , pneu, GERD, COVID PUI Current Diet Cardiac Labs/Tests BUN 35 BG 138 Pertinent Medications Solumedrol Height 4 ft 10 in Weight 40.823 kg Usual Body Weight 61.23 kg [place] Body Weight (kg) 40.90 BMI 18.8 Weight change and time frame 33% wt loss in 2 months, per chart hx Weight Status Underweight Subjective/Other Information RN screen for MST/skin risk. Per RN pt is eating <20% PO. RN denies N/V/D or skin breakdown. Pt tg score is 13. Discussed with RN about sending ONS for pt. Burn Absent Trauma Absent GI Symptoms None Current % PO Negligible Minimum of two criteria Yes Interpretation of Weight Loss (severe) >5% in 1 month Reduced Composite Mechanic Strength Measurably Reduced (severe) #2 Nutrition Diagnosis Malnutrition Etiology chronic illness, AMS As Evidenced by Signs and Symptoms weak casting room helper strength, 33% wt loss in 2 months, BMI of 18.8 #1 Nutrition Diagnosis Inadequate oral intake Etiology AMS As Evidenced by Signs and Symptoms Pt consuming <30% PO Is patient on ventilator? No Is Patient Ambulatory and/or Out of Bed No REE-([facility]-confined to bed) 1046.844 Kcal/Kg value to use for calculation 30 Approximate Energy Requirements Using 1225 kcal/Kg Calculation Used for Recommendations Kcal/kg Additional Notes Protein needs are 1.2-1.5g/kg (49-61g/day) Fluid needs are 1ml/kcal Nutrition Intervention Change Diet Order: Continue + ONS Add Supplement/Snack (indicate name/kcal Ensure BID /protein ) Provides kCal: 700 Provides Protein (gm) 40 Goal #1 Meet at least 75% protein and energy needes via PO/ONS Goal #2 wt gain/ maintenance Anticipated Discharge Needs: Cardiac diet Follow-Up By: 10/02/20 Additional Comments FU for PO/ONS intakes/ tolerance
[2020-09-28] MEDS: AZITHROMYCIN 250 MG TAB PO SCH (18:56)
[2020-09-29 06:45] LABS: BUN/Creatinine Ratio 31; Blood Urea Nitrogen 31 mg/dL (7-17); Calcium 7.8 mg/dL (8.4-10.2); Hemolysis Index 4
[2020-09-29] MEDS ORDERED: POTASSIUM CHLORIDE ER 20 MEQ TAB PO SCH (08:30)
[2020-09-29] MEDS: methylPREDNISolone Sod Succinate 40 MG/1 ML INJ IV SCH ×3 (08:51→22:33)
[2020-09-29] MEDS: hydrALAZINE 25 MG TAB PO SCH (08:51)
[2020-09-29] MEDS: FAMOTIDINE 20 MG TAB PO SCH ×2 (09:17→22:31)
[2020-09-29] MEDS: ASCORBIC ACID 500 MG TAB PO SCH ×2 (09:17→22:32)
[2020-09-29] MEDS: amLODIPine 10 MG TAB PO SCH (09:17)
[2020-09-29] MEDS: SERTRALINE 25 MG TAB PO SCH (09:17)
[2020-09-29] MEDS: CHOLECALCIFEROL (VIT D3) 1000 UNIT (25 mcg) TAB PO SCH (09:17)
[2020-09-29] MEDS: HEPARIN 5,000 UNIT/1 ML VIAL SUB-Q SCH ×2 (09:18→22:33)
--- NOTE | 2020-09-29 09:40 | Consultation ---
History of Present Illness - Reason for Consult Consult date: 09/29/20 Reason for consult: MHE Requesting physician: SHANE NATH - Chief Complaint Chief complaint: Confused and cannot breathe - History of Present Psychiatric Illness Per ED Provider: Patient is 60 years old female with history of hypertension, schizophrenia and COPD. Patient brought to the emergency room for evaluation of altered mental status started today according to the EMS report. Patient was recently discharged from the hospital for pneumonia. EMS stated patient was evaluated by fire department and stated that patient was lethargic with an oxygen saturation of 60% that improved to 100% on nonrebreather. EMS stated that patient started to wake up after that. Upon arrival to the ER patient is alert however is confused. Patient only know her name. Patient found to be febrile with a temperature of 101.2. Sepsis protocol initiated. COVID-19 infection is possible also isolation precaution implemented PSYCH HPI Patient is a 60-year-old -[place] female with documented past medical history of hypertension and COPD with past psychiatric history of schizophrenia who was admitted to the hospital for evaluation of hypoxia with consult placed d ue to behavioral disturbances. Patient seen in the room this a.m., patient thinks she is in the house/hotel, she has no idea why she is here, and things were currently not: He states though patient did state that it is September and the new president is biting. Patient stated that she is single has 3 children but lives by herself though she states that her kids does check up on her at times. Patient appears disoriented with intermittent confusion but calm, cooperative and engaging without acute agitation PAST PSYCHIATRIC HISTORY Diagnoses: none reported Suicide attempts or Self-harm behavior: none reported Prior psychiatric hospitalizations: none reported Substance Abuse history: none reported Previous psychiatric medications tried: none reported Outpatient treatment: none reported PAST MEDICAL HISTORY: unknown Family Psychiatric History: None reported or documented SOCIAL HISTORY Marital Status: single Living Arrangements: with self Employment Status: unemployed Access to guns/weapons: none reported Education: Some CO[employer]lege History of Abuse: none reported REVIEW OF SYSTEMS ROS cannot be reliably obtained from the patient due to her confusion and somnolence. MENTAL STATUS EXAMINATION General Appearance and Behavior: Age appropriate, good hygiene, wearing appropriate clothes, uncooperative polite with questioning. Cooperation: Withdrawn Psychomotor Behavior: Psychomotor agitation Mood: N/A Affect and affective range: Flat Thought Process: Tangential Thought Content: Paranoid and confused Speech: Normal volume, Regular rate and rhythm, Intellectual Functioning: Poor Suicidal Ideation: N/A Homicidal Ideation: N/A Impulse Control: Unimpaired Insight and Judgment: Impaired Memory: memory impaired Attention:Distractible, Orientation: Alert, but disoriented and confused Assessment and Plan (1) Unspecified behavioral syndromes associated with physiological disturbances and physical factors Current Visit: Yes Status: Acute F59 (2) 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 PSYCHOTHERAPY: Supportive psychotherapy provided MEDICAL: Per primary team DELIRIUM PRECAUTIONS: Please re-orient patient frequently, keep lights on during the day, and minimize benzodiazepines and opiates as these medications could worsen patient's confusion. 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 Case discussed with Dr. Lam who agrees with current disposition FOLLOW-UP: Will follow for med management Thank you for the consult. Please contact with any questions and/or concerns. Medications and Allergies Allergies Allergy/AdvReac Type Severity Reaction Status Date / Time No Known Allergies Allergy Unverified 08/31/20 22:07 Home Medications Medication Instructions Recorded Confirmed Last Taken Type Lasix TAB 40 mg PO ONCE 09/01/20 09/01/20 08/31/20 History Lopressor 50 mg PO BID 09/01/20 09/01/20 08/31/20 History Pantoprazole 40 mg PO ONCE 09/01/20 09/01/20 08/31/20 History amLODIPine 10 mg PO ONCE 09/01/20 09/01/20 08/31/20 History hydrALAZINE 25 mg PO TID 09/01/20 09/01/20 08/31/20 History Acetaminophen [Acetaminophen TAB] 650 mg PO Q4H PRN tablet 09/11/20 Unknown Rx Furosemide [Lasix TAB] 40 mg PO QDAY #30 tablet 09/11/20 Unknown Rx Melatonin [Melatonin 5MG TAB] 5 mg PO QHS tablet 09/11/20 Unknown Rx Metoprolol [Lopressor TAB] 50 mg PO BID #60 tablet 09/11/20 Unknown Rx Potassium Chloride [Klor-Con M15] 15 meq PO QDAY #3 tab.er.prt 09/11/20 Unknown Rx Sertraline [Zoloft] 25 mg PO QDAY tablet 09/11/20 Unknown Rx amLODIPine 10 mg PO QDAY #30 tablet 09/11/20 Unknown Rx hydrALAZINE [Apresoline TAB] 50 mg PO Q8HR #90 tablet 09/11/20 Unknown Rx oxyCODONE /ACETAMINOPHEN [Percocet 1 tab PO Q6H PRN tablet 09/11/20 Unknown Rx 5/325 mg] predniSONE 10 mg PO QDAY #3 tab 09/11/20 Unknown Rx Active Meds: Active Medications Acetaminophen (Acetaminophen 325 Mg Tab) 650 mg PO Q4H PRN PRN Reason: Pain MILD(1-3)/Fever >100.5/LORA Albuterol (Albuterol 2.5 Mg/3 Ml Nebu) 2.5 mg IH Q4HRT PRN PRN Reason: Shortness Of Breath Amlodipine Besylate (Amlodipine 10 Mg Tab) 10 mg PO DAILY [facility] Last Admin: 09/29/20 09:17 Dose: 10 mg Documented by: Ascorbic Acid (Ascorbic Acid 500 Mg Tab) 500 mg PO BID [facility] Last Admin: 09/29/20 09:17 Dose: 500 mg Documented by: Azithromycin (Azithromycin 250 Mg Tab) 500 mg PO QPM [facility] Stop: 10/01/20 18:01 Last Admin: 09/28/20 18:56 Dose: Not Given Documented by: Cholecalciferol (Cholecalciferol (Vit D3) 1000 Unit (25 Mcg) Tab) 1,000 unit PO QDAY [facility] Last Admin: 09/29/20 09:17 Dose: 1,000 unit Documented by: Famotidine (Famotidine 20 Mg Tab) 20 mg PO BID [facility] Last Admin: 09/29/20 09:17 Dose: 20 mg Documented by: Heparin Sodium (Porcine) (Heparin 5,000 Unit/1 Ml Vial) 5,000 unit SUB-Q Q12HR [facility] Last Admin: 09/29/20 09:18 Dose: 5,000 unit Documented by: Ceftriaxone Sodium (Rocephin/Ns 2 Gm/100 Ml) 2 gm in 100 mls @ 200 mls/hr IV Q24H [facility]; Protocol Last Admin: 09/28/20 18:00 Dose: Not Given Documented by: Isosorbide Mononitrate (Isosorbide Mononitrate Er 30 Mg Tab) 30 mg PO QDAY [facility] Last Admin: 09/29/20 09:17 Dose: 30 mg Documented by: Melatonin (Melatonin 5 Mg Tab) 5 mg PO QHS [facility] Last Admin: 09/28/20 22:10 Dose: 5 mg Documented by: Methylprednisolone Sodium Succinate (Methylprednisolone Sod Succinate 40 Mg/1 Ml Inj) 40 mg IV Q12HR [facility] Last Admin: 09/29/20 09:18 Dose: 40 mg Documented by: Metoprolol Tartrate (Metoprolol Tartrate 25 Mg Tab) 25 mg PO BID [facility] Last Admin: 09/28/20 22:14 Dose: Not Given Documented by: Ondansetron HCl (Ondansetron 4 Mg/2 Ml Inj) 4 mg IV Q8H PRN PRN Reason: Nausea And Vomiting Oxycodone/Acetaminophen (Oxycodone /Acetaminophen 5-325mg Tab) 1 tab PO Q6H PRN PRN Reason: Pain, Moderate (4-6) Potassium Chloride (Potassium Chloride Er 8 Meq Tab) 16 meq PO QDAY [facility] Potassium Chloride (Potassium Chloride Er 20 Meq Tab) 40 meq PO ONCE [facility] Stop: 09/29/20 12:00 Sertraline HCl (Sertraline 25 Mg Tab) 25 mg PO QDAY [facility] Last Admin: 09/29/20 09:17 Dose: 25 mg Documented by: Sodium Chloride (Sodium Chloride 0.9% 10 Ml Flush Syringe) 10 ml IV BID [facility] Last Admin: 09/29/20 09:19 Dose: 10 ml Documented by: Sodium Chloride (Sodium Chloride 0.9% 10 Ml Flush Syringe) 10 ml IV PRN PRN PRN Reason: LINE FLUSH Zinc Sulfate (Zinc Sulfate 220 Mg Cap) 220 mg PO QDAY [facility] Last Admin: 09/28/20 15:46 Dose: Not Given Documented by: Mental Status Exam - Vital signs Last Vital Signs Temp 98.3 F 09/29/20 04:21 Pulse 86 09/29/20 04:21 Resp 18 09/29/20 04:21 BP 136/80 09/29/20 04:21 Pulse Ox 92 09/29/20 04:21 Results Result Diagrams: 09/28/20 05:26 09/29/20 06:07 Abnormal lab results 09/28/20 09/29/20 09/29/20 Range/Units 12:23 06:07 06:07 Potassium 3.1 L D (3.6-5.0) mmol/L Chloride 107.9 H (98-107) mmol/L BUN 31 H (7-17) mg/dL Calcium 7.8 L (8.4-10.2) mg/dL Ferritin 1552.0 H (10.0-200.0) ng/mL NT-Pro-B Natriuret Pep 1189 H (0-900) pg/mL All other labs normal. 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
[2020-09-29] MEDS: ZINC SULFATE 220 MG CAP PO SCH (09:43)
[2020-09-29] MEDS: METOPROLOL TARTRATE 25 MG TAB PO SCH ×2 (09:43→22:32)
[2020-09-29] MEDS: POTASSIUM CHLORIDE ER 8 MEQ TAB PO SCH ×2 (09:44→17:44)
[2020-09-29] MEDS: VALPROIC ACID 250 MG/5 ML ORAL LIQD PO SCH ×2 (12:14→22:33)
--- NOTE | 2020-09-29 13:07 | Progress Note ---
Assessment and Plan Assessment and plan: 60 YO Female with HTN, COPD, Schizophrenia, GERD, Severe Malnutrution, Diastolic CHF who was transported via EMS on 09/27 for confusion and difficulty breathing. In the emergency department patient was found to have a pulse of oximetry of 60% on room air and was treated with supplemental oxygenation with mild improvement and was placed on a nonrebreather. Patient was admitted to the hospital service with sepsis, toxic metabolic encephalopathy, acute kidney injury and CXR showed pneumonia. Patient was made a COVID-19 PUI and had elevated cardiac enzymes. Cardiology, pulmonology, infectious disease and psychiatry was consulted. Patient was severely agitated in the morning and verbally abusive to medical staff. At the time my examination in the afternoon patient was speaking to her sister and seemed cooperative. Her COVID-19 PCR resulted as negative. I attempted to update the patient on her results but was unable to reach her and she will be transferred to telemetry. 09/29: Greaser Helper consult for Tube feed continue to manage tube feeding, will also start free water, aspiration precautions. Discussed with Nursing staff. Sepsis, acute -Presented with fever up to one 101.2, acute kidney injury, probable left lower lobe pneumonia on CXR, hypoxia, tachycardia -Antibiotic therapy -09/27 blood culture x2 pending -09/28 urinalysis negative for leukocyte esterase and nitrates -09/28 sputum culture pending -S/p 2200 mL normal saline per sepsis protocol -Infectious disease consulted, appreciate recommendations Left lower lobe pneumonia, acute -09/27 CXR shows chronic increased interstitial markings diffusely with superimposed pneumonia at the left base -Antibiotic therapy -09/27 procalcitonin less than 0.05 -Antibiotic therapy -Steroids discontinued due to COVID-19 PCR being negative -Pulmonology and infectious disease consulted Acute hypoxic respiratory failure, acute -Reported SPO2 60% on room air by EMS -Supplemental oxygenation as needed -Pulmonary hygiene -Pulmonology consulted, appreciate recommendations -Steroid therapy, rapidly tapering Acute kidney injury, resolving -Presented with a BUN/creatinine 44/1.5 -S/p 2200 mL normal saline bolus -09/28 BUN/creatinine 35/1.1 -Upon review of prior admissions patient's baseline seems to be 0.8-1.1 -Renally dose medication -Avoid nephrotoxic medication -Strict intake and output -Daily weights Leukopenia, acute -09/28 WBC 3.8 -Trend CBC -Abx therapy Hypercholermia, acute -09/28 Cl 107.9 -s/p 2200 mL NS per sepsis protocol -Trend BMP Hypocalcemia, acute -09/27 Ca 7.9, 09/28 Ca 7.7 -Trend Ca Elevated D-dimer, acute -09/27 D-dimer 1208, 1047 -09/28 CTA chest pending COPD, chronic -Pulmonary hygiene -Pulmonology consulted, appreciate recommendations -Twice daily Pulmicort -Supplemental oxygen as needed Elevated troponin, chronic -Cardiology consulted, appreciate recommendations -09/27 Troponin 0.076, 0.069 -Per cardiology troponin measurements are unchanged from prior admission ranging 0.067-0.076 -Per cardiology: No further cardiac interventions indicated at this time -08/2020 echocardiogram showed left ventricular systolic function normal with ejection fraction 60 to 65% -09/28 proBNP 1189 GERD, chronic -Continue home PPI Hypertension, chronic -Resume home antihypertensive regimen and titrate as needed -Blood pressure monitoring per protocol -Hydralazine as needed for SBP greater than 160 Anemia, chronic -Patient had severe anemia on last admission -Trend CBC -Transfuse for hemoglobin less than 7 Severe malnutrition, chronic -BMI 18 -Nutritional supplementation -Supportive care Schizophrenia, chronic -Patient was extremely aggressive on 09/28 towards medical staff -Psych consulted, appreciate recommendations -Per patient's family she does have psychiatric history -Verbal de-escalation and reorientation as needed -Sleep hygiene -S/p Geodon 10 mg x 1 in the ED Depression, chronic -Continue home sertraline -Supportive care Diastolic congestive heart failure, chronic -Per cardiology: No further cardiac interventions indicated at this time -08/2020 echocardiogram showed left ventricular systolic function normal with ejection fraction 60 to 65% -09/28 proBNP 1189 -Continue home cardioprotective regimen - s/p lasix IV x1 DVT prophylaxis -SCDs to bilateral lower extremity while in bed -Heparin subcu COVID-19 PUI, ruled out -09/27 CXR shows chronic increased interstitial markings diffusely, superimposed pneumonia at the left base -09/28 COVID-19 PCR negative -Contact/droplet precautions discontinued History Interval history: Patient seen and examined, remains lethargic, NGT inplace with diet. Hospitalist Physical - Physical exam Narrative exam: General appearance: Present: no acute distress - EENT Eyes: Present: PERRL, EOM intact ENT: hearing intact, clear oral mucosa, dentition normal - Neck Neck: Present: supple, normal ROM - Respiratory Respiratory effort: normal - Cardiovascular Rhythm: regular - Extremities Extremities: no ischemia, pulses intact, pulses symmetrical, No edema, normal temperature, normal color, Full ROM Peripheral Pulses: within normal limits - Abdominal General gastrointestinal: soft, non-tender, non-distended, normal bowel sounds - Integumentary Integumentary: Present: clear, warm, dry - Psychiatric Psychiatric: cooperative - Neurologic Neurologic: CNII-XII intact, no focal deficits, moves all extremities - Allied Health Allied health notes reviewed: nursing - Constitutional Vitals: Temp Pulse Resp BP Pulse Ox 97.9 F 83 18 124/70 96 09/29/20 08:11 09/29/20 08:11 09/29/20 08:11 09/29/20 08:11 09/29/20 10:00 General appearance: Present: no acute distress HEART Score - HEART Score Troponin: Troponin T 0.069 ng/mL (0.00-0.029) H 09/27/20 17:16 Results - Labs CBC & Chem 7: 09/28/20 05:26 09/29/20 06:07 Labs: Laboratory Last Values WBC 3.8 K/mm3 (4.5-11.0) L 09/28/20 05:26 RBC 3.11 M/mm3 (3.65-5.03) L 09/28/20 05:26 Hgb 9.7 gm/dl (10.1-14.3) L 09/28/20 05:26 Hct 29.2 % (30.3-42.9) L 09/28/20 05:26 MCV 94 fl (79-97) 09/28/20 05:26 MCH 31 pg (28-32) 09/28/20 05:26 MCHC 33 % (30-34) 09/28/20 05:26 RDW 16.4 % (13.2-15.2) H 09/28/20 05:26 Plt Count 304 K/mm3 (140-440) 09/28/20 05:26 Lymph % (Auto) 8.1 % (13.4-35.0) L 09/28/20 05:26 [place] % (Auto) 4.0 % (0.0-7.3) 09/28/20 05:26 Eos % (Auto) 0.0 % (0.0-4.3) 09/28/20 05:26 Baso % (Auto) 1.4 % (0.0-1.8) 09/28/20 05:26 Lymph # (Auto) 0.3 K/mm3 (1.2-5.4) L 09/28/20 05:26 [place] # (Auto) 0.2 K/mm3 (0.0-0.8) 09/28/20 05:26 Eos # (Auto) 0.0 K/mm3 (0.0-0.4) 09/28/20 05:26 Baso # (Auto) 0.1 K/mm3 (0.0-0.1) 09/28/20 05:26 Seg Neutrophils % 86.5 % (40.0-70.0) H 09/28/20 05:26 Seg Neutrophils # 3.3 K/mm3 (1.8-7.7) 09/28/20 05:26 PT 13.0 Sec. (12.2-14.9) 09/27/20 13:26 INR 0.99 (0.87-1.13) 09/27/20 13:26 APTT 28.1 Sec. (24.2-36.6) 09/27/20 13:26 D-Dimer 1047.78 ng/mlDDU (0-234) H 09/27/20 17:16 Sodium 140 mmol/L (137-145) 09/29/20 06:07 Potassium 3.1 mmol/L (3.6-5.0) L D 09/29/20 06:07 Chloride 107.9 mmol/L (98-107) H 09/29/20 06:07 Carbon Dioxide 22 mmol/L (22-30) 09/29/20 06:07 Anion Gap 13 mmol/L 09/29/20 06:07 BUN 31 mg/dL (7-17) H 09/29/20 06:07 Creatinine 1.0 mg/dL (0.6-1.2) 09/29/20 06:07 Estimated GFR > 60 ml/min 09/29/20 06:07 BUN/Creatinine Ratio 31 % 09/29/20 06:07 Glucose 98 mg/dL (65-100) 09/29/20 06:07 Lactic Acid 0.80 mmol/L (0.7-2.0) 09/28/20 05:26 Calcium 7.8 mg/dL (8.4-10.2) L 09/29/20 06:07 Ferritin 1552.0 ng/mL (10.0-200.0) H 09/29/20 06:07 Total Bilirubin 0.30 mg/dL (0.1-1.2) 09/27/20 13:26 Direct Bilirubin < 0.2 mg/dL (0-0.2) 09/27/20 13:26 Indirect Bilirubin 0.1 mg/dL 09/27/20 13:26 AST 42 units/L (5-40) H 09/27/20 13:26 ALT 14 units/L (7-56) 09/27/20 13:26 Alkaline Phosphatase 71 units/L (35-129) 09/27/20 13:26 Lactate Dehydrogenase 290 units/L (91-180) H 09/27/20 17:16 Troponin T 0.069 ng/mL (0.00-0.029) H 09/27/20 17:16 C-Reactive Protein 3.00 mg/dL (0.00-1.30) H 09/27/20 17:16 NT-Pro-B Natriuret Pep 1189 pg/mL (0-900) H 09/28/20 12:23 Total Protein 7.3 g/dL (6.3-8.2) 09/27/20 13:26 Albumin 2.5 g/dL (3.9-5) L 09/27/20 13:26 Albumin/Globulin Ratio 0.5 % 09/27/20 13:26 Triglycerides 108 mg/dL (2-149) 09/27/20 13:26 Cholesterol 117 mg/dL (50-199) 09/27/20 13:26 LDL Cholesterol Direct 59 mg/dL (50-130) 09/27/20 13:26 HDL Cholesterol 40 mg/dL (40-59) 09/27/20 13:26 Cholesterol/HDL Ratio 2.92 % 09/27/20 13:26 Procalcitonin < 0.05 ng/mL (<0.15) 09/27/20 17:16 Urine Color Yellow (Yellow) 09/28/20 Unknown Urine Turbidity Clear (Clear) 09/28/20 Unknown Urine pH 6.0 (5.0-7.0) 09/28/20 Unknown Ur Specific [place] 1.012 (1.003-1.030) 09/28/20 Unknown Urine Protein 100 mg/dl mg/dL (Negative) 09/28/20 Unknown Urine Glucose (UA) Neg mg/dL (Negative) 09/28/20 Unknown Urine Ketones Neg mg/dL (Negative) 09/28/20 Unknown Urine Blood Sm (Negative) 09/28/20 Unknown Urine Nitrite Neg (Negative) 09/28/20 Unknown Urine Bilirubin Neg (Negative) 09/28/20 Unknown Urine Urobilinogen < 2.0 mg/dL (<2.0) 09/28/20 Unknown Ur Leukocyte Esterase Neg (Negative) 09/28/20 Unknown Urine WBC (Auto) 4.0 /HPF (0.0-6.0) 09/28/20 Unknown Urine RBC (Auto) 22.0 /HPF (0.0-6.0) 09/28/20 Unknown U Epithel Cells (Auto) 1.0 /HPF (0-13.0) 09/28/20 Unknown Urine Bacteria (Auto) 1+ /HPF (Negative) 09/28/20 Unknown Coronavirus (PCR) Negative (Negative) 09/28/20 08:22 Microbiology: Microbiology 09/27/20 13:26 Peripheral/Venous Blood Culture - Preliminary NO GROWTH AFTER 24 HOURS 09/27/20 13:26 Peripheral/Venous Blood Culture - Preliminary NO GROWTH AFTER 24 HOURS [place]/IV: Voiding Method External Female Catheter IV Catheter Type [Left INT / Saline Lock Antecubital] Active Medications - Current Medications Current Medications: Generic Name Dose Route Start Last Admin Trade Name Freq PRN Reason Stop Dose Admin Acetaminophen 650 mg 09/27/20 15:23 Acetaminophen 325 Mg Tab PO Q4H PRN Pain MILD(1-3)/Fever >100.5/LORA Albuterol 2.5 mg 09/27/20 15:22 Albuterol 2.5 Mg/3 Ml Nebu IH Q4HRT PRN Shortness Of Breath Amlodipine Besylate 10 mg 09/28/20 10:00 09/29/20 09:17 Amlodipine 10 Mg Tab PO 10 mg DAILY [facility] Administration Ascorbic Acid 500 mg 09/27/20 22:00 09/29/20 09:17 Ascorbic Acid 500 Mg Tab PO 500 mg BID [facility] Administration Azithromycin 500 mg 09/28/20 18:00 09/28/20 18:56 Azithromycin 250 Mg Tab PO 10/01/20 18:01 Not Given QPM [facility] Cholecalciferol 1,000 unit 09/28/20 10:00 09/29/20 09:17 Cholecalciferol (Vit D3) 1000 Unit (25 Mcg) Tab PO 1,000 unit QDAY [facility] Administration Famotidine 20 mg 09/27/20 22:00 09/29/20 09:17 Famotidine 20 Mg Tab PO 20 mg BID [facility] Administration Heparin Sodium (Porcine) 5,000 unit 09/27/20 22:00 09/29/20 09:18 Heparin 5,000 Unit/1 Ml Vial SUB-Q 5,000 unit Q12HR [facility] Administration Ceftriaxone Sodium 2 gm in 100 mls @ 200 mls/hr 09/27/20 16:00 09/28/20 18:00 Rocephin/Ns 2 Gm/100 Ml IV Not Given Q24H [facility] Protocol Isosorbide Mononitrate 30 mg 09/29/20 10:00 09/29/20 09:17 Isosorbide Mononitrate Er 30 Mg Tab PO 30 mg QDAY [facility] Administration Melatonin 10 mg 09/29/20 22:00 Melatonin 5 Mg Tab PO QHS [facility] Methylprednisolone Sodium Succinate 40 mg 09/28/20 22:00 09/29/20 09:18 Methylprednisolone Sod Succinate 40 Mg/1 Ml Inj IV 40 mg Q12HR [facility] Administration Metoprolol Tartrate 25 mg 09/28/20 10:00 09/29/20 09:43 Metoprolol Tartrate 25 Mg Tab PO 25 mg BID [facility] Administration Olanzapine 2.5 mg 09/29/20 22:00 Olanzapine 5 Mg Tab PO QHS [facility] Ondansetron HCl 4 mg 09/27/20 15:22 Ondansetron 4 Mg/2 Ml Inj IV Q8H PRN Nausea And Vomiting Oxycodone/Acetaminophen 1 tab 09/27/20 15:23 Oxycodone /Acetaminophen 5-325mg Tab PO Q6H PRN Pain, Moderate (4-6) Potassium Chloride 16 meq 09/29/20 10:00 09/29/20 09:44 Potassium Chloride Er 8 Meq Tab PO Not Given QDAY [facility] Sertraline HCl 25 mg 09/28/20 10:00 09/29/20 09:17 Sertraline 25 Mg Tab PO 25 mg QDAY [facility] Administration Sodium Chloride 10 ml 09/27/20 22:00 09/29/20 09:19 Sodium Chloride 0.9% 10 Ml Flush Syringe IV 10 ml BID [facility] Administration Sodium Chloride 10 ml 09/27/20 15:22 Sodium Chloride 0.9% 10 Ml Flush Syringe IV PRN PRN LINE FLUSH Valproic Acid 250 mg 09/29/20 10:00 09/29/20 12:14 Valproic Acid 250 Mg/5 Ml Oral Liqd PO 250 mg BID [facility] Administration Zinc Sulfate 220 mg 09/28/20 10:00 09/29/20 09:43 Zinc Sulfate 220 Mg Cap PO 220 mg QDAY [facility] Administration Nutrition/Malnutrition Assess - Dietary Evaluation Nutrition/Malnutrition Findings: Nutrition Notes Start: 09/28/20 14:07 Freq: Status: Active Protocol: Document 09/28/20 14:07 CW (Rec: 09/28/20 14:15 CW [id number]) Co-Sign 09/28/20 14:07 MK Nutrition Notes Need for Assessment generated from: head sawyer,MST Initial or Follow up Assessment Current Diagnosis Acute Kidney Injury,COPD, Sepsis,Hypertension,Heart Failure Other Pertinent Diagnosis acute respiratory failure, AMS , pneu, GERD, COVID PUI Current Diet Cardiac Labs/Tests BUN 35 BG 138 Pertinent Medications Solumedrol Height 4 ft 10 in Weight 40.823 kg Usual Body Weight 61.23 kg [place] Body Weight (kg) 40.90 BMI 18.8 Weight change and time frame 33% wt loss in 2 months, per chart hx Weight Status Underweight Subjective/Other Information RN screen for MST/skin risk. Per RN pt is eating <20% PO. RN denies N/V/D or skin breakdown. Pt tg score is 13. Discussed with RN about sending ONS for pt. Burn Absent Trauma Absent GI Symptoms None Current % PO Negligible Minimum of two criteria Yes Interpretation of Weight Loss (severe) >5% in 1 month Reduced Vp Care Management Strength Measurably Reduced (severe) #2 Nutrition Diagnosis Malnutrition Etiology chronic illness, AMS As Evidenced by Signs and Symptoms weak mopper strength, 33% wt loss in 2 months, BMI of 18.8 #1 Nutrition Diagnosis Inadequate oral intake Etiology AMS As Evidenced by Signs and Symptoms Pt consuming <30% PO Is patient on ventilator? No Is Patient Ambulatory and/or Out of Bed No REE-([place]-confined to bed) 1046.844 Kcal/Kg value to use for calculation 30 Approximate Energy Requirements Using 1225 kcal/Kg Calculation Used for Recommendations Kcal/kg Additional Notes Protein needs are 1.2-1.5g/kg (49-61g/day) Fluid needs are 1ml/kcal Nutrition Intervention Change Diet Order: Continue + ONS Add Supplement/Snack (indicate name/kcal Ensure BID /protein ) Provides kCal: 700 Provides Protein (gm) 40 Goal #1 Meet at least 75% protein and energy needes via PO/ONS Goal #2 wt gain/ maintenance Anticipated Discharge Needs: Cardiac diet Follow-Up By: 10/02/20 Additional Comments FU for PO/ONS intakes/ tolerance
--- NOTE | 2020-09-29 14:03 | Cat Scan Report ---
CTA CHEST WITH CONTRAST INDICATION / CLINICAL INFORMATION: Dyspnea. TECHNIQUE: Axial CT images were obtained through the chest after injection of IV contrast. 3 plane DC P and/or 3D reconstructions were produced. All CT scans at this location are performed using CT dose reduction for ALARA by means of automated exposure control. COMPARISON: CT of the chest from 09/07/2020. FINDINGS: PULMONARY ARTERIES: No central or segmental pulmonary embolus. THORACIC AORTA: No significant abnormality. HEART: No significant abnormality. ADENOPATHY: No new or increased adenopathy. LUNGS/PLEURA: There is increased interlobular septal thickening . No new or increasing airspace conso lidation. There is no significant pleural effusion. No pneumothorax. ADDITIONAL FINDINGS: None. UPPER ABDOMEN: No acute findings. SKELETAL STRUCTURES: No significant osseous abnormality. IMPRESSION: 1. Diffuse increased interstitial opacities, may reflect interstitial edema or atypical interstitial infiltrate. No lobar consolidation. 2. Otherwise, no acute chest process. Signer Name: Song Busby MD Signed: 09/29/2020 1:58 PM Workstation Name: [id number]
[2020-09-29] MEDS: cefTRIAXone/NS 2 GM/100 ML 2 GM/100 ML BAG IV SCH (17:10)
[2020-09-29] MEDS: AZITHROMYCIN 250 MG TAB PO SCH (17:44)
--- NOTE | 2020-09-29 19:50 | Progress Note ---
Assessment and Plan Imp: 1. LLL pneumonia 2. Acute respiratory failure, hypoxia 3. Chronic diastolic CHF 4. KAITLYNN 5. COPD Rec: 1. Finish 7 days of empiric ABX 2. Steroid PO taper at d/c 3. On RA so okay for d/c planning [id number] Plan of care reviewed with patient, she understands/agrees Subjective Date of service: 09/29/20 Principal diagnosis: Acute respiratory failure Interval history: No events. On RA. No SOB, chest pain, cough. Active Medications Acetaminophen (Acetaminophen 325 Mg Tab) 650 mg PO Q4H PRN PRN Reason: Pain MILD(1-3)/Fever >100.5/LORA Albuterol (Albuterol 2.5 Mg/3 Ml Nebu) 2.5 mg IH Q4HRT PRN PRN Reason: Shortness Of Breath Amlodipine Besylate (Amlodipine 10 Mg Tab) 10 mg PO DAILY [facility] Last Admin: 09/29/20 09:17 Dose: 10 mg Documented by: Ascorbic Acid (Ascorbic Acid 500 Mg Tab) 500 mg PO BID [facility] Last Admin: 09/29/20 09:17 Dose: 500 mg Documented by: Azithromycin (Azithromycin 250 Mg Tab) 500 mg PO QPM [facility] Stop: 10/01/20 18:01 Last Admin: 09/29/20 17:44 Dose: 500 mg Documented by: Cholecalciferol (Cholecalciferol (Vit D3) 1000 Unit (25 Mcg) Tab) 1,000 unit PO QDAY [facility] Last Admin: 09/29/20 09:17 Dose: 1,000 unit Documented by: Famotidine (Famotidine 20 Mg Tab) 20 mg PO BID [facility] Last Admin: 09/29/20 09:17 Dose: 20 mg Documented by: Heparin Sodium (Porcine) (Heparin 5,000 Unit/1 Ml Vial) 5,000 unit SUB-Q Q12HR [facility] Last Admin: 09/29/20 09:18 Dose: 5,000 unit Documented by: Ceftriaxone Sodium (Rocephin/Ns 2 Gm/100 Ml) 2 gm in 100 mls @ 200 mls/hr IV Q24H [facility]; Protocol Last Admin: 09/29/20 17:10 Dose: 200 mls/hr Documented by: Isosorbide Mononitrate (Isosorbide Mononitrate Er 30 Mg Tab) 30 mg PO QDAY [facility] Last Admin: 09/29/20 09:17 Dose: 30 mg Documented by: Melatonin (Melatonin 5 Mg Tab) 10 mg PO QHS [facility] Methylprednisolone Sodium Succinate (Methylprednisolone Sod Succinate 40 Mg/1 Ml Inj) 40 mg IV Q12HR [facility] Last Admin: 09/29/20 09:18 Dose: 40 mg Documented by: Metoprolol Tartrate (Metoprolol Tartrate 25 Mg Tab) 25 mg PO BID [facility] Last Admin: 09/29/20 09:43 Dose: 25 mg Documented by: Olanzapine (Olanzapine 5 Mg Tab) 2.5 mg PO QHS [facility] Ondansetron HCl (Ondansetron 4 Mg/2 Ml Inj) 4 mg IV Q8H PRN PRN Reason: Nausea And Vomiting Oxycodone/Acetaminophen (Oxycodone /Acetaminophen 5-325mg Tab) 1 tab PO Q6H PRN PRN Reason: Pain, Moderate (4-6) Last Admin: 09/29/20 18:15 Dose: 1 tab Documented by: Potassium Chloride (Potassium Chloride Er 8 Meq Tab) 16 meq PO QDAY [facility] Last Admin: 09/29/20 17:44 Dose: 16 meq Documented by: Sertraline HCl (Sertraline 25 Mg Tab) 25 mg PO QDAY [facility] Last Admin: 09/29/20 09:17 Dose: 25 mg Documented by: Sodium Chloride (Sodium Chloride 0.9% 10 Ml Flush Syringe) 10 ml IV BID [facility] Last Admin: 09/29/20 09:19 Dose: 10 ml Documented by: Sodium Chloride (Sodium Chloride 0.9% 10 Ml Flush Syringe) 10 ml IV PRN PRN PRN Reason: LINE FLUSH Valproic Acid (Valproic Acid 250 Mg/5 Ml Oral Liqd) 250 mg PO BID [facility] Last Admin: 09/29/20 12:14 Dose: 250 mg Documented by: Zinc Sulfate (Zinc Sulfate 220 Mg Cap) 220 mg PO QDAY [facility] Last Admin: 09/29/20 09:43 Dose: 220 mg Documented by: Objective Vital Signs - 12hr 09/29/20 09/29/20 08:11 10:00 Temperature 97.9 F Pulse Rate 83 Respiratory 18 Rate Blood Pressure 124/70 O2 Sat by Pulse 90 96 Oximetry Constitutional: no acute distress, alert Eyes: non-icteric ENT: oropharynx moist Neck: supple Effort: normal Ascultation: Bilateral: clear Cardiovascular: regular rate and rhythm (no mrg) Gastrointestinal: normoactive bowel sounds, soft Integumentary: normal Extremities: no cyanosis, no edema, pink and warm Neurologic: normal mental status, non-focal exam, pupils equal and round, CN II- XII normal Psychiatric: mood appropriate, affect normal CBC and BMP: 09/28/20 05:26 09/29/20 06:07 ABG, PT/INR, D-dimer: PT/INR, D-dimer PT 13.0 Sec. (12.2-14.9) 09/27/20 13:26 INR 0.99 (0.87-1.13) 09/27/20 13:26 D-Dimer 1047.78 ng/mlDDU (0-234) H 09/27/20 17:16 Abnormal lab findings: Abnormal Labs 09/27/20 09/27/20 09/27/20 13:26 13:26 13:26 WBC RBC 2.99 L Hgb 9.5 L Hct 27.7 L RDW 16.2 H Lymph % (Auto) 12.8 L [place] % (Auto) 8.2 H Lymph # (Auto) 0.7 L Seg Neutrophils % 78.0 H D-Dimer 1208.69 H Potassium Chloride BUN 44 H Creatinine 1.5 H Glucose Calcium 7.9 L Ferritin AST 42 H Lactate Dehydrogenase Troponin T 0.076 H C-Reactive Protein NT-Pro-B Natriuret Pep Albumin 2.5 L 09/27/20 09/27/20 09/27/20 13:26 13:40 17:16 WBC RBC Hgb Hct RDW Lymph % (Auto) [place] % (Auto) Lymph # (Auto) Seg Neutrophils % D-Dimer Potassium Chloride BUN Creatinine Glucose Calcium Ferritin > 2000.0 H AST Lactate Dehydrogenase 267 H Troponin T 0.069 H C-Reactive Protein 3.40 H NT-Pro-B Natriuret Pep Albumin 09/27/20 09/27/20 09/27/20 17:16 17:16 17:16 WBC RBC Hgb Hct RDW Lymph % (Auto) [place] % (Auto) Lymph # (Auto) Seg Neutrophils % D-Dimer 1047.78 H Potassium Chloride BUN Creatinine Glucose 130 H Calcium Ferritin 1998.0 H AST Lactate Dehydrogenase 290 H Troponin T C-Reactive Protein 3.00 H NT-Pro-B Natriuret Pep Albumin 09/28/20 09/28/20 09/28/20 05:26 05:26 12:23 WBC 3.8 L RBC 3.11 L Hgb 9.7 L Hct 29.2 L RDW 16.4 H Lymph % (Auto) 8.1 L [place] % (Auto) Lymph # (Auto) 0.3 L Seg Neutrophils % 86.5 H D-Dimer Potassium Chloride 107.9 H BUN 35 H Creatinine Glucose 138 H Calcium 7.7 L Ferritin AST Lactate Dehydrogenase Troponin T C-Reactive Protein NT-Pro-B Natriuret Pep 1189 H Albumin 09/29/20 09/29/20 06:07 06:07 WBC RBC Hgb Hct RDW Lymph % (Auto) [place] % (Auto) Lymph # (Auto) Seg Neutrophils % D-Dimer Potassium 3.1 L D Chloride 107.9 H BUN 31 H Creatinine Glucose Calcium 7.8 L Ferritin 1552.0 H AST Lactate Dehydrogenase Troponin T C-Reactive Protein NT-Pro-B Natriuret Pep Albumin Chest x-ray: report reviewed, image reviewed
[2020-09-29] MEDS: MELATONIN 5 MG TAB PO SCH (22:31)
--- NOTE | 2020-09-30 08:12 | Progress Note ---
Subjective - Reason for Consult Consult date: 09/30/20 Reason for consult: [facility] Requesting physician: SHANE NATH - Chief Complaint Chief complaint: ED FLoor Nurse: Patient received at shift change, alert, responsive and climbing out of bed. Patient confused and wanted to go to the elevator. Patient situated and bed alarm reengaged. Patient tried to pull iv access. PRACTICE SUPPORT SPECIALIST, Valerie notified and restraint order received and applied. Will continue nursing care. Psych Progress Patient in room, patient states she wants to leave and walk down the street to meet up with her sister and get grocery shopping. Patient states she now knows why she is in the hospital, because she was informed she passed out. She states she is self aware of having memory issues and that worries her. REVIEW OF SYSTEMS ROS cannot be reliably obtained from the patient due to her confusion and somnolence. MENTAL STATUS EXAMINATION General Appearance and Behavior: Age appropriate, good hygiene, wearing appropriate clothes, uncooperative polite with questioning. Cooperation: Withdrawn Psychomotor Behavior: Psychomotor agitation Mood: N/A Affect and affective range: Flat Thought Process: Tangential Thought Content: Paranoid and confused Speech: Normal volume, Regular rate and rhythm, Intellectual Functioning: Poor Suicidal Ideation: N/A Homicidal Ideation: N/A Impulse Control: Unimpaired Insight and Judgment: Impaired Memory: memory impaired Attention:Distractible, Orientation: Alert, but disoriented and confused Assessment and Plan (1) Unspecified behavioral syndromes associated with physiological disturbances and physical factors Current Visit: Yes Status: Acute F59 (2) 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 Started on Deparkene, olazanpien and increased melatonin MEDICATIONS: Risks, benefits and alternatives of medications discussed with the patient, questions answered and consent obtained from patient. PSYCHOTHERAPY: Supportive psychotherapy provided MEDICAL: Per primary team DELIRIUM PRECAUTIONS: Please re-orient patient frequently, keep lights on during the day, and minimize benzodiazepines and opiates as these medications could worsen patient's confusion. ADMINISTRATIVE SUPPORT TECHNICIAN: Per medical DISPOSITION: Do Not Recommend acute inpatient psychiatric hospitalization at this time. Case discussed with Dr. Lam who agrees with current disposition FOLLOW-UP: Will follow for med management Thank you for the consult. Please contact with any questions and/or concerns. 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
[2020-09-30 09:22] LABS: C-Reactive Protein 0.9 mg/dL (0.00-1.30)
[2020-09-30] MEDS: METOPROLOL TARTRATE 25 MG TAB PO SCH ×2 (09:34→22:08)
[2020-09-30] MEDS: SERTRALINE 25 MG TAB PO SCH (09:35)
[2020-09-30] MEDS: ZINC SULFATE 220 MG CAP PO SCH (09:35)
[2020-09-30] MEDS: CHOLECALCIFEROL (VIT D3) 1000 UNIT (25 mcg) TAB PO SCH (09:35)
[2020-09-30] MEDS: methylPREDNISolone Sod Succinate 40 MG/1 ML INJ IV SCH (09:36)
[2020-09-30] MEDS: amLODIPine 10 MG TAB PO SCH (09:36)
[2020-09-30] MEDS: ASCORBIC ACID 500 MG TAB PO SCH ×2 (09:36→22:07)
[2020-09-30] MEDS: FAMOTIDINE 20 MG TAB PO SCH ×2 (09:36→22:07)
[2020-09-30] MEDS: VALPROIC ACID 250 MG/5 ML ORAL LIQD PO SCH ×2 (09:36→22:10)
[2020-09-30] MEDS: HEPARIN 5,000 UNIT/1 ML VIAL SUB-Q SCH ×2 (09:37→22:08)
[2020-09-30] MEDS: POTASSIUM CHLORIDE ER 8 MEQ TAB PO SCH (09:53)
--- NOTE | 2020-09-30 12:02 | Progress Note ---
Assessment and Plan Assessment and plan: 60 YO Female with HTN, COPD, Schizophrenia, GERD, Severe Malnutrution, Diastolic CHF who was transported via EMS on 09/27 for confusion and difficulty breathing. In the emergency department patient was found to have a pulse of oximetry of 60% on room air and was treated with supplemental oxygenation with mild improvement and was placed on a nonrebreather. Patient was admitted to the hospital service with sepsis, toxic metabolic encephalopathy, acute kidney injury and CXR showed pneumonia. Patient was made a COVID-19 PUI and had elevated cardiac enzymes. Cardiology, pulmonology, infectious disease and psychiatry was consulted. Patient was severely agitated in the morning and verbally abusive to medical staff. At the time my examination in the afternoon patient was speaking to her sister and seemed cooperative. Her COVID-19 PCR resulted as negative. I attempted to update the patient on her results but was unable to reach her and she will be transferred to telemetry. 09/29: Architecture Technician consult for Tube feed continue to manage tube feeding, will also start free water, aspiration precautions. Discussed with Nursing staff. 09/30: Patient more confused today, ?, on Restraints last night due to unsteady gait and not following commands, Psych input Started on Deparkene, olazanpien and increased melatonin. WILL RE-EVALUATE IN 24 HRS. 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 Sepsis, acute -Presented with fever up to one 101.2, acute kidney injury, probable left lower lobe pneumonia on CXR, hypoxia, tachycardia -Antibiotic therapy -09/27 blood culture x2 pending -09/28 urinalysis negative for leukocyte esterase and nitrates -09/28 sputum culture pending -S/p 2200 mL normal saline per sepsis protocol -Infectious disease consulted, appreciate recommendations Left lower lobe pneumonia, acute -09/27 CXR shows chronic increased interstitial markings diffusely with superimposed pneumonia at the left base -Antibiotic therapy -09/27 procalcitonin less than 0.05 -Antibiotic therapy -Steroids discontinued due to COVID-19 PCR being negative -Pulmonology and infectious disease consulted Acute hypoxic respiratory failure, acute -Reported SPO2 60% on room air by EMS -Supplemental oxygenation as needed -Pulmonary hygiene -Pulmonology consulted, appreciate recommendations -Steroid therapy, rapidly tapering Acute kidney injury, resolving -Presented with a BUN/creatinine 44/1.5 -S/p 2200 mL normal saline bolus -09/28 BUN/creatinine 35/1.1 -Upon review of prior admissions patient's baseline seems to be 0.8-1.1 -Renally dose medication -Avoid nephrotoxic medication -Strict intake and output -Daily weights Leukopenia, acute -09/28 WBC 3.8 -Trend CBC -Abx therapy Hypercholermia, acute -09/28 Cl 107.9 -s/p 2200 mL NS per sepsis protocol -Trend BMP Hypocalcemia, acute -09/27 Ca 7.9, 09/28 Ca 7.7 -Trend Ca Elevated D-dimer, acute -09/27 D-dimer 1208, 1047 -09/28 CTA chest pending COPD, chronic -Pulmonary hygiene -Pulmonology consulted, appreciate recommendations -Twice daily Pulmicort -Supplemental oxygen as needed Elevated troponin, chronic -Cardiology consulted, appreciate recommendations -09/27 Troponin 0.076, 0.069 -Per cardiology troponin measurements are unchanged from prior admission ranging 0.067-0.076 -Per cardiology: No further cardiac interventions indicated at this time -08/2020 echocardiogram showed left ventricular systolic function normal with ejection fraction 60 to 65% -09/28 proBNP 1189 GERD, chronic -Continue home PPI Hypertension, chronic -Resume home antihypertensive regimen and titrate as needed -Blood pressure monitoring per protocol -Hydralazine as needed for SBP greater than 160 Anemia, chronic -Patient had severe anemia on last admission -Trend CBC -Transfuse for hemoglobin less than 7 Severe malnutrition, chronic -BMI 18 -Nutritional supplementation -Supportive care Depression, chronic -Continue home sertraline -Supportive care Diastolic congestive heart failure, chronic -Per cardiology: No further cardiac interventions indicated at this time -08/2020 echocardiogram showed left ventricular systolic function normal with ejection fraction 60 to 65% -09/28 proBNP 1189 -Continue home cardioprotective regimen - s/p lasix IV x1 DVT prophylaxis -SCDs to bilateral lower extremity while in bed -Heparin subcu COVID-19 PUI, ruled out -09/27 CXR shows chronic increased interstitial markings diffusely, superimposed pneumonia at the left base -09/28 COVID- PCR negative -Contact/droplet precautions discontinued History Interval history: Patient seen and examined, little more confused today than yesterday wonder if this is secondary to . She thinks she is [place] Hospitalist Physical - Physical exam Narrative exam: General appearance: Present: no acute distress - EENT Eyes: Present: PERRL, EOM intact ENT: hearing intact, clear oral mucosa, dentition normal - Neck Neck: Present: supple, normal ROM - Respiratory Respiratory effort: normal - Cardiovascular Rhythm: regular - Extremities Extremities: no ischemia, pulses intact, pulses symmetrical, No edema, normal temperature, normal color, Full ROM Peripheral Pulses: within normal limits - Abdominal General gastrointestinal: soft, non-tender, non-distended, normal bowel sounds - Integumentary Integumentary: Present: clear, warm, dry - Psychiatric Psychiatric: cooperative - Neurologic Neurologic: CNII-XII intact, no focal deficits, moves all extremities - Allied Health Allied health notes reviewed: nursing - Constitutional Vitals: Temp Pulse Resp BP Pulse Ox 97.6 F 78 19 146/87 99 09/30/20 08:04 09/30/20 10:00 09/30/20 10:00 09/30/20 09:36 09/30/20 08:37 General appearance: Present: no acute distress HEART Score - HEART Score Troponin: Troponin T 0.069 ng/mL (0.00-0.029) H 09/27/20 17:16 Results - Labs CBC & Chem 7: 09/28/20 05:26 09/29/20 06:07 Labs: Laboratory Last Values WBC 3.8 K/mm3 (4.5-11.0) L 09/28/20 05:26 RBC 3.11 M/mm3 (3.65-5.03) L 09/28/20 05:26 Hgb 9.7 gm/dl (10.1-14.3) L 09/28/20 05:26 Hct 29.2 % (30.3-42.9) L 09/28/20 05:26 MCV 94 fl (79-97) 09/28/20 05:26 MCH 31 pg (28-32) 09/28/20 05:26 MCHC 33 % (30-34) 09/28/20 05:26 RDW 16.4 % (13.2-15.2) H 09/28/20 05:26 Plt Count 304 K/mm3 (140-440) 09/28/20 05:26 Lymph % (Auto) 8.1 % (13.4-35.0) L 09/28/20 05:26 [place] % (Auto) 4.0 % (0.0-7.3) 09/28/20 05:26 Eos % (Auto) 0.0 % (0.0-4.3) 09/28/20 05:26 Baso % (Auto) 1.4 % (0.0-1.8) 09/28/20 05:26 Lymph # (Auto) 0.3 K/mm3 (1.2-5.4) L 09/28/20 05:26 [place] # (Auto) 0.2 K/mm3 (0.0-0.8) 09/28/20 05:26 Eos # (Auto) 0.0 K/mm3 (0.0-0.4) 09/28/20 05:26 Baso # (Auto) 0.1 K/mm3 (0.0-0.1) 09/28/20 05:26 Seg Neutrophils % 86.5 % (40.0-70.0) H 09/28/20 05:26 Seg Neutrophils # 3.3 K/mm3 (1.8-7.7) 09/28/20 05:26 PT 13.0 Sec. (12.2-14.9) 09/27/20 13:26 INR 0.99 (0.87-1.13) 09/27/20 13:26 APTT 28.1 Sec. (24.2-36.6) 09/27/20 13:26 D-Dimer 976.48 ng/mlDDU (0-234) H 09/30/20 07:30 Sodium 140 mmol/L (137-145) 09/29/20 06:07 Potassium 3.1 mmol/L (3.6-5.0) L D 09/29/20 06:07 Chloride 107.9 mmol/L (98-107) H 09/29/20 06:07 Carbon Dioxide 22 mmol/L (22-30) 09/29/20 06:07 Anion Gap 13 mmol/L 09/29/20 06:07 BUN 31 mg/dL (7-17) H 09/29/20 06:07 Creatinine 1.0 mg/dL (0.6-1.2) 09/29/20 06:07 Estimated GFR > 60 ml/min 09/29/20 06:07 BUN/Creatinine Ratio 31 % 09/29/20 06:07 Glucose 98 mg/dL (65-100) 09/29/20 06:07 Lactic Acid 0.80 mmol/L (0.7-2.0) 09/28/20 05:26 Calcium 7.8 mg/dL (8.4-10.2) L 09/29/20 06:07 Ferritin 1552.0 ng/mL (10.0-200.0) H 09/29/20 06:07 Total Bilirubin 0.30 mg/dL (0.1-1.2) 09/27/20 13:26 Direct Bilirubin < 0.2 mg/dL (0-0.2) 09/27/20 13:26 Indirect Bilirubin 0.1 mg/dL 09/27/20 13:26 AST 42 units/L (5-40) H 09/27/20 13:26 ALT 14 units/L (7-56) 09/27/20 13:26 Alkaline Phosphatase 71 units/L (35-129) 09/27/20 13:26 Lactate Dehydrogenase 291 units/L (91-180) H 09/30/20 07:30 Troponin T 0.069 ng/mL (0.00-0.029) H 09/27/20 17:16 C-Reactive Protein 0.90 mg/dL (0.00-1.30) 09/30/20 07:30 NT-Pro-B Natriuret Pep 1189 pg/mL (0-900) H 09/28/20 12:23 Total Protein 7.3 g/dL (6.3-8.2) 09/27/20 13:26 Albumin 2.5 g/dL (3.9-5) L 09/27/20 13:26 Albumin/Globulin Ratio 0.5 % 09/27/20 13:26 Triglycerides 108 mg/dL (2-149) 09/27/20 13:26 Cholesterol 117 mg/dL (50-199) 09/27/20 13:26 LDL Cholesterol Direct 59 mg/dL (50-130) 09/27/20 13:26 HDL Cholesterol 40 mg/dL (40-59) 09/27/20 13:26 Cholesterol/HDL Ratio 2.92 % 09/27/20 13:26 Procalcitonin < 0.05 ng/mL (<0.15) 09/27/20 17:16 Urine Color Yellow (Yellow) 09/28/20 Unknown Urine Turbidity Clear (Clear) 09/28/20 Unknown Urine pH 6.0 (5.0-7.0) 09/28/20 Unknown Ur Specific [place] 1.012 (1.003-1.030) 09/28/20 Unknown Urine Protein 100 mg/dl mg/dL (Negative) 09/28/20 Unknown Urine Glucose (UA) Neg mg/dL (Negative) 09/28/20 Unknown Urine Ketones Neg mg/dL (Negative) 09/28/20 Unknown Urine Blood Sm (Negative) 09/28/20 Unknown Urine Nitrite Neg (Negative) 09/28/20 Unknown Urine Bilirubin Neg (Negative) 09/28/20 Unknown Urine Urobilinogen < 2.0 mg/dL (<2.0) 09/28/20 Unknown Ur Leukocyte Esterase Neg (Negative) 09/28/20 Unknown Urine WBC (Auto) 4.0 /HPF (0.0-6.0) 09/28/20 Unknown Urine RBC (Auto) 22.0 /HPF (0.0-6.0) 09/28/20 Unknown U Epithel Cells (Auto) 1.0 /HPF (0-13.0) 09/28/20 Unknown Urine Bacteria (Auto) 1+ /HPF (Negative) 09/28/20 Unknown Coronavirus (PCR) Negative (Negative) 09/28/20 08:22 Microbiology: Microbiology 09/27/20 13:26 Peripheral/Venous Blood Culture - Preliminary NO GROWTH AFTER 48 HOURS 09/27/20 13:26 Peripheral/Venous Blood Culture - Preliminary NO GROWTH AFTER 48 HOURS Sterling/IV: Voiding Method External Female Catheter IV Catheter Type [Left Upper INT / Saline Lock arm] IV Catheter Type [Left INT / Saline Lock Antecubital] Active Medications - Current Medications Current Medications: Generic Name Dose Route Start Last Admin Trade Name Freq PRN Reason Stop Dose Admin Acetaminophen 650 mg 09/27/20 15:23 Acetaminophen 325 Mg Tab PO Q4H PRN Pain MILD(1-3)/Fever >100.5/LORA Albuterol 2.5 mg 09/27/20 15:22 Albuterol 2.5 Mg/3 Ml Nebu IH Q4HRT PRN Shortness Of Breath Amlodipine Besylate 10 mg 09/28/20 10:00 09/30/20 09:36 Amlodipine 10 Mg Tab PO 10 mg DAILY CINTHIA Administration Ascorbic Acid 500 mg 09/27/20 22:00 09/30/20 09:36 Ascorbic Acid 500 Mg Tab PO 500 mg BID CINTHIA Administration Azithromycin 500 mg 09/28/20 18:00 09/29/20 17:44 Azithromycin 250 Mg Tab PO 10/01/20 18:01 500 mg QPM CINTHIA Administration Cholecalciferol 1,000 unit 09/28/20 10:00 09/30/20 09:35 Cholecalciferol (Vit D3) 1000 Unit (25 Mcg) Tab PO 1,000 unit QDAY CINTHIA Administration Famotidine 20 mg 09/27/20 22:00 09/30/20 09:36 Famotidine 20 Mg Tab PO 20 mg BID CINTHIA Administration Heparin Sodium (Porcine) 5,000 unit 09/27/20 22:00 09/30/20 09:37 Heparin 5,000 Unit/1 Ml Vial SUB-Q 5,000 unit Q12HR CINTHIA Administration Ceftriaxone Sodium 2 gm in 100 mls @ 200 mls/hr 09/27/20 16:00 09/29/20 17:10 Rocephin/Ns 2 Gm/100 Ml IV 200 mls/hr Q24H CINTHIA Administration Protocol Isosorbide Mononitrate 30 mg 09/29/20 10:00 09/30/20 09:35 Isosorbide Mononitrate Er 30 Mg Tab PO 30 mg QDAY [facility] Administration Melatonin 10 mg 09/29/20 22:00 09/29/20 22:31 Melatonin 5 Mg Tab PO 10 mg QHS [facility] Administration Methylprednisolone Sodium Succinate 40 mg 09/28/20 22:00 09/30/20 09:36 Methylprednisolone Sod Succinate 40 Mg/1 Ml Inj IV 40 mg Q12HR CINTHIA Administration Metoprolol Tartrate 25 mg 09/28/20 10:00 09/30/20 09:34 Metoprolol Tartrate 25 Mg Tab PO 25 mg BID CINTHIA Administration Olanzapine 5 mg 09/30/20 22:00 Olanzapine 5 Mg Tab PO QHS [facility] Ondansetron HCl 4 mg 09/27/20 15:22 Ondansetron 4 Mg/2 Ml Inj IV Q8H PRN Nausea And Vomiting Oxycodone/Acetaminophen 1 tab 09/27/20 15:23 09/29/20 18:15 Oxycodone /Acetaminophen 5-325mg Tab PO 1 tab Q6H PRN Administration Pain, Moderate (4-6) Potassium Chloride 16 meq 09/29/20 10:00 09/30/20 09:53 Potassium Chloride Er 8 Meq Tab PO 16 meq QDAY CINTHIA Administration Sertraline HCl 25 mg 09/28/20 10:00 09/30/20 09:35 Sertraline 25 Mg Tab PO 25 mg QDAY CINTHIA Administration Sodium Chloride 10 ml 09/27/20 22:00 09/30/20 09:37 Sodium Chloride 0.9% 10 Ml Flush Syringe IV 10 ml BID CINTHIA Administration Sodium Chloride 10 ml 09/27/20 15:22 Sodium Chloride 0.9% 10 Ml Flush Syringe IV PRN PRN LINE FLUSH Valproic Acid 250 mg 09/29/20 10:00 09/30/20 09:36 Valproic Acid 250 Mg/5 Ml Oral Liqd PO 250 mg BID CINTHIA Administration Zinc Sulfate 220 mg 09/28/20 10:00 09/30/20 09:35 Zinc Sulfate 220 Mg Cap PO 220 mg QDAY CINTHIA Administration Nutrition/Malnutrition Assess - Dietary Evaluation Nutrition/Malnutrition Findings: Nutrition Notes Start: 09/28/20 14:07 Freq: Status: Active Protocol: Document 09/28/20 14:07 CW (Rec: 09/28/20 14:15 CW [id number]) Co-Sign 09/28/20 14:07 MK Nutrition Notes Need for Assessment generated from: manager mobility,MST Initial or Follow up Assessment Current Diagnosis Acute Kidney Injury,COPD, Sepsis,Hypertension,Heart Failure Other Pertinent Diagnosis acute respiratory failure, AMS , pneu, GERD, COVID PUI Current Diet Cardiac Labs/Tests BUN 35 BG 138 Pertinent Medications Solumedrol Height 4 ft 10 in Weight 40.823 kg Usual Body Weight 61.23 kg [place] Body Weight (kg) 40.90 BMI 18.8 Weight change and time frame 33% wt loss in 2 months, per chart hx Weight Status Underweight Subjective/Other Information RN screen for MST/skin risk. Per RN pt is eating <20% PO. RN denies N/V/D or skin breakdown. Pt tg score is 13. Discussed with RN about sending ONS for pt. 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 No Is Patient Ambulatory and/or Out of Bed No REE-([facility]-confined to bed) 1046.844 Kcal/Kg value to use for calculation 30 Approximate Energy Requirements Using 1225 kcal/Kg Calculation Used for Recommendations Kcal/kg Additional Notes Protein needs are 1.2-1.5g/kg (49-61g/day) Fluid needs are 1ml/kcal Nutrition Intervention Change Diet Order: Continue + ONS Add Supplement/Snack (indicate name/kcal Ensure BID /protein ) Provides kCal: 700 Provides Protein (gm) 40 Goal #1 Meet at least 75% protein and energy needes via PO/ONS Goal #2 wt gain/ maintenance Anticipated Discharge Needs: Cardiac diet Follow-Up By: 10/02/20 Additional Comments FU for PO/ONS intakes/ tolerance
[2020-09-30] MEDS: cefTRIAXone/NS 2 GM/100 ML 2 GM/100 ML BAG IV SCH (16:00)
[2020-09-30] MEDS: AZITHROMYCIN 250 MG TAB PO SCH (17:20)
--- NOTE | 2020-09-30 18:11 | Progress Note ---
Assessment and Plan Imp: 1. LLL pneumonia 2. Acute respiratory failure, hypoxia 3. Chronic diastolic CHF 4. KAITLYNN 5. COPD Rec: 1. Finish 7 days of empiric ABX 2. D/c IV steroids given confusion; change to Prednisone 10mg daily 3. On RA so okay for d/c planning [id number] Plan of care reviewed with patient, she understands/agrees Subjective Date of service: 09/30/20 Principal diagnosis: Acute respiratory failure Interval history: No events. On RA. No SOB, chest pain, cough. Confused, oriented to person only. Active Medications Acetaminophen (Acetaminophen 325 Mg Tab) 650 mg PO Q4H PRN PRN Reason: Pain MILD(1-3)/Fever >100.5/LORA Albuterol (Albuterol 2.5 Mg/3 Ml Nebu) 2.5 mg IH Q4HRT PRN PRN Reason: Shortness Of Breath Amlodipine Besylate (Amlodipine 10 Mg Tab) 10 mg PO DAILY [facility] Last Admin: 09/30/20 09:36 Dose: 10 mg Documented by: Ascorbic Acid (Ascorbic Acid 500 Mg Tab) 500 mg PO BID [facility] Last Admin: 09/30/20 09:36 Dose: 500 mg Documented by: Azithromycin (Azithromycin 250 Mg Tab) 500 mg PO QPM [facility] Stop: 10/01/20 18:01 Last Admin: 09/30/20 17:20 Dose: 500 mg Documented by: Cholecalciferol (Cholecalciferol (Vit D3) 1000 Unit (25 Mcg) Tab) 1,000 unit PO QDAY [facility] Last Admin: 09/30/20 09:35 Dose: 1,000 unit Documented by: Famotidine (Famotidine 20 Mg Tab) 20 mg PO BID [facility] Last Admin: 09/30/20 09:36 Dose: 20 mg Documented by: Heparin Sodium (Porcine) (Heparin 5,000 Unit/1 Ml Vial) 5,000 unit SUB-Q Q12HR [facility] Last Admin: 09/30/20 09:37 Dose: 5,000 unit Documented by: Ceftriaxone Sodium (Rocephin/Ns 2 Gm/100 Ml) 2 gm in 100 mls @ 200 mls/hr IV Q24H [facility]; Protocol Stop: 10/01/20 16:29 Last Admin: 09/30/20 16:00 Dose: 200 mls/hr Documented by: Isosorbide Mononitrate (Isosorbide Mononitrate Er 30 Mg Tab) 30 mg PO QDAY [facility] Last Admin: 09/30/20 09:35 Dose: 30 mg Documented by: Melatonin (Melatonin 5 Mg Tab) 10 mg PO QHS [facility] Last Admin: 09/29/20 22:31 Dose: 10 mg Documented by: Metoprolol Tartrate (Metoprolol Tartrate 25 Mg Tab) 25 mg PO BID [facility] Last Admin: 09/30/20 09:34 Dose: 25 mg Documented by: Olanzapine (Olanzapine 5 Mg Tab) 5 mg PO QHS [facility] Ondansetron HCl (Ondansetron 4 Mg/2 Ml Inj) 4 mg IV Q8H PRN PRN Reason: Nausea And Vomiting Oxycodone/Acetaminophen (Oxycodone /Acetaminophen 5-325mg Tab) 1 tab PO Q6H PRN PRN Reason: Pain, Moderate (4-6) Last Admin: 09/29/20 18:15 Dose: 1 tab Documented by: Potassium Chloride (Potassium Chloride Er 8 Meq Tab) 16 meq PO QDAY [facility] Last Admin: 09/30/20 09:53 Dose: 16 meq Documented by: Prednisone (Prednisone 10 Mg Tab) 10 mg PO QDAY [facility] Sertraline HCl (Sertraline 25 Mg Tab) 25 mg PO QDAY [facility] Last Admin: 09/30/20 09:35 Dose: 25 mg Documented by: Sodium Chloride (Sodium Chloride 0.9% 10 Ml Flush Syringe) 10 ml IV BID [facility] Last Admin: 09/30/20 09:37 Dose: 10 ml Documented by: Sodium Chloride (Sodium Chloride 0.9% 10 Ml Flush Syringe) 10 ml IV PRN PRN PRN Reason: LINE FLUSH Valproic Acid (Valproic Acid 250 Mg/5 Ml Oral Liqd) 250 mg PO BID [facility] Last Admin: 09/30/20 09:36 Dose: 250 mg Documented by: Zinc Sulfate (Zinc Sulfate 220 Mg Cap) 220 mg PO QDAY [facility] Last Admin: 09/30/20 09:35 Dose: 220 mg Documented by: Objective Vital Signs - 12hr 09/30/20 09/30/20 09/30/20 08:04 08:37 09:34 Temperature 97.6 F Pulse Rate 80 81 Pulse Rate [ Left Radial] Pulse Rate [ Right Radial] Respiratory 18 Rate Blood Pressure 164/94 146/87 O2 Sat by Pulse 93 99 97 Oximetry 09/30/20 09/30/20 09/30/20 09:35 09:36 10:00 Temperature Pulse Rate 82 82 80 Pulse Rate [ 78 Left Radial] Pulse Rate [ 78 Right Radial] Respiratory 19 Rate Blood Pressure 146/87 146/87 O2 Sat by Pulse Oximetry 09/30/20 11:16 Temperature 97.6 F Pulse Rate 86 Pulse Rate [ Left Radial] Pulse Rate [ Right Radial] Respiratory 18 Rate Blood Pressure 142/83 O2 Sat by Pulse 94 Oximetry Constitutional: no acute distress, alert Eyes: non-icteric ENT: oropharynx moist Neck: supple Effort: normal Ascultation: Bilateral: clear Cardiovascular: regular rate and rhythm (no mrg) Gastrointestinal: normoactive bowel sounds, soft Integumentary: normal Extremities: no cyanosis, no edema, pink and warm Neurologic: normal mental status, non-focal exam, pupils equal and round, CN II- XII normal Psychiatric: mood appropriate, affect normal CBC and BMP: 09/28/20 05:26 09/29/20 06:07 ABG, PT/INR, D-dimer: PT/INR, D-dimer PT 13.0 Sec. (12.2-14.9) 09/27/20 13:26 INR 0.99 (0.87-1.13) 09/27/20 13:26 D-Dimer 976.48 ng/mlDDU (0-234) H 09/30/20 07:30 Abnormal lab findings: Abnormal Labs 09/27/20 09/27/20 09/27/20 13:26 13:26 13:26 WBC RBC 2.99 L Hgb 9.5 L Hct 27.7 L RDW 16.2 H Lymph % (Auto) 12.8 L [place] % (Auto) 8.2 H Lymph # (Auto) 0.7 L Seg Neutrophils % 78.0 H D-Dimer 1208.69 H Potassium Chloride BUN 44 H Creatinine 1.5 H Glucose Calcium 7.9 L Ferritin AST 42 H Lactate Dehydrogenase Troponin T 0.076 H C-Reactive Protein NT-Pro-B Natriuret Pep Albumin 2.5 L 09/27/20 09/27/20 09/27/20 13:26 13:40 17:16 WBC RBC Hgb Hct RDW Lymph % (Auto) [place] % (Auto) Lymph # (Auto) Seg Neutrophils % D-Dimer Potassium Chloride BUN Creatinine Glucose Calcium Ferritin > 2000.0 H AST Lactate Dehydrogenase 267 H Troponin T 0.069 H C-Reactive Protein 3.40 H NT-Pro-B Natriuret Pep Albumin 09/27/20 09/27/20 09/27/20 17:16 17:16 17:16 WBC RBC Hgb Hct RDW Lymph % (Auto) [place] % (Auto) Lymph # (Auto) Seg Neutrophils % D-Dimer 1047.78 H Potassium Chloride BUN Creatinine Glucose 130 H Calcium Ferritin 1998.0 H AST Lactate Dehydrogenase 290 H Troponin T C-Reactive Protein 3.00 H NT-Pro-B Natriuret Pep Albumin 09/28/20 09/28/20 09/28/20 05:26 05:26 12:23 WBC 3.8 L RBC 3.11 L Hgb 9.7 L Hct 29.2 L RDW 16.4 H Lymph % (Auto) 8.1 L [place] % (Auto) Lymph # (Auto) 0.3 L Seg Neutrophils % 86.5 H D-Dimer Potassium Chloride 107.9 H BUN 35 H Creatinine Glucose 138 H Calcium 7.7 L Ferritin AST Lactate Dehydrogenase Troponin T C-Reactive Protein NT-Pro-B Natriuret Pep 1189 H Albumin 09/29/20 09/29/20 09/30/20 06:07 06:07 07:30 WBC RBC Hgb Hct RDW Lymph % (Auto) [place] % (Auto) Lymph # (Auto) Seg Neutrophils % D-Dimer 976.48 H Potassium 3.1 L D Chloride 107.9 H BUN 31 H Creatinine Glucose Calcium 7.8 L Ferritin 1552.0 H AST Lactate Dehydrogenase Troponin T C-Reactive Protein NT-Pro-B Natriuret Pep Albumin 09/30/20 07:30 WBC RBC Hgb Hct RDW Lymph % (Auto) [place] % (Auto) Lymph # (Auto) Seg Neutrophils % D-Dimer Potassium Chloride BUN Creatinine Glucose Calcium Ferritin AST Lactate Dehydrogenase 291 H Troponin T C-Reactive Protein NT-Pro-B Natriuret Pep Albumin Chest x-ray: report reviewed, image reviewed CT scan - chest: report reviewed, image reviewed
[2020-09-30] MEDS: MELATONIN 5 MG TAB PO SCH (22:07)
[2020-10-01 08:38] LABS: BUN/Creatinine Ratio 22; Blood Urea Nitrogen 22 mg/dL (7-17); Calcium 8.5 mg/dL (8.4-10.2); Hemolysis Index 5
--- NOTE | 2020-10-01 08:47 | Cat Scan Report ---
NONENHANCED CT SCAN OF THE HEAD: INDICATION / CLINICAL INFORMATION: 60 years Female; confusion. TECHNIQUE: Routine CT head without contrast. All CT scans at this location are performed using CT dos e reduction for ALARA by means of automated exposure control. COMPARISON: None. FINDINGS: BRAIN / INTRACRANIAL CONTENTS: No acute hemorrhage, mass effect, midline shift, hydrocephalus, or acu te, large territorial infarct. No chronic infarct or encephalomalacia. Volume loss in the medial temp oral lobes bilaterally more on the right side; both sylvian fissures are prominent more on the left s natalie suggesting perisylvian volume loss; extensive periventricular white matter low attenuation due to chronic small vessel disease; CRANIOCERVICAL JUNCTION: No significant abnormality. ORBITS: No significant abnormality of visualized orbits. SINUSES / MASTOIDS: No significant abnormality of the visualized paranasal sinuses or mastoid air juan ls. ADDITIONAL FINDINGS: Expanded diploic space prominent in the frontal bones and in the occipital bones Sickle cell disease IMPRESSION: No acute focal parenchymal lesion in the brain Signer Name: Estelle Samuels MD Signed: 10/01/2020 8:42 AM Workstation Name: [id number]
--- NOTE | 2020-10-01 09:03 | Progress Note ---
Subjective - Reason for Consult Consult date: 10/01/20 Reason for consult: MHE Requesting physician: SHANE NATH - Chief Complaint Chief complaint: ED FLoor Nurse: 19:20 Report given to Heidy LedesmaPatient lying on bed, hallucination still noted, confused on conversation. Still on Restraints. Safety measures maintained, bed lock and alarm on. Psych Progress Patient seen in room, lookig through the window and appears to be talking to people not there, patient states she would like to go over there, when asked where she states [place]. Patient also states her dogs are in backyard and need to be fed. Patient continues to be confused, behviorally disturbed and disoriented. REVIEW OF SYSTEMS ROS cannot be reliably obtained from the patient due to her confusion and somnolence. MENTAL STATUS EXAMINATION General Appearance and Behavior: Age appropriate, good hygiene, wearing appropriate clothes, uncooperative polite with questioning. Cooperation: Withdrawn Psychomotor Behavior: Psychomotor agitation Mood: N/A Affect and affective range: Flat Thought Process: Tangential Thought Content: Paranoid and confused Speech: Normal volume, Regular rate and rhythm, Intellectual Functioning: Poor Suicidal Ideation: N/A Homicidal Ideation: N/A Impulse Control: Unimpaired Insight and Judgment: Impaired Memory: memory impaired Attention:Distractible, Orientation: Alert, but disoriented and confused Assessment and Plan (1) Unspecified behavioral syndromes associated with physiological disturbances and physical factors Current Visit: Yes Status: Acute F59 (2) 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 Started on Deparkene, olazanpine switched to risperidone MEDICATIONS: Risks, benefits and alternatives of medications discussed with the patient, questions answered and consent obtained from patient. PSYCHOTHERAPY: Supportive psychotherapy provided MEDICAL: Per primary team DELIRIUM PRECAUTIONS: Please re-orient patient frequently, keep lights on during the day, and minimize benzodiazepines and opiates as these medications could worsen patient's confusion. [employer]ODU[employer]SEM[employer]ER: Per medical DISPOSITION: Do Not Recommend acute inpatient psychiatric hospitalization at this time. Case discussed with Dr. Lam who agrees with current disposition FOLLOW-UP: Will follow for med management Thank you for the consult. Please contact with any questions and/or concerns. 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
--- NOTE | 2020-10-01 10:16 | Progress Note ---
<LESLIEFIDELOksana - Last Filed: 10/01/20 15:04> Assessment and Plan Assessment and plan: Sepsis, acute -Presented with fever up to one 101.2, acute kidney injury, probable left lower lobe pneumonia on CXR, hypoxia, tachycardia -s/p Antibiotic therapy -09/27 blood culture x2 NGTD -09/28 urinalysis negative for leukocyte esterase and nitrates -09/28 sputum culture NGTD -S/p 2200 mL normal saline per sepsis protocol -Infectious disease consulted, appreciate recommendations Left lower lobe pneumonia, acute -09/27 CXR shows chronic increased interstitial markings diffusely with superimposed pneumonia at the left base -Antibiotic therapy -09/27 procalcitonin less than 0.05 -Steroids discontinued due to COVID-19 PCR being negative -Pulmonology and infectious disease consulted Unspecified behavioral syndromes associated with physiological disturbances and physical factors; 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 No chronic infarct or and encephalomalacia. Volume loss in the medial temporal lobes bilaterally more on the right, bilateral sylvian fissures more on the left suggesting perisylvian volume loss, extensive periventricular white matter low-attenuation due to chronic small vessel disease, expanded dipoliac space prominent in the frontal bones and in the occipital bones -PT/OT consults pending -Psych does not recommend inpatient hospitalization at this time -1013 hold Leukopenia, acute -09/28 WBC 3.8 -Trend CBC -Abx therapy Hypercholermia, acute -09/28 Cl 107.9 -s/p 2200 mL NS per sepsis protocol -Trend BMP Hypernatremia, acute -10/01 sodium 146 -Trend BMP Hypocalcemia, acute -09/27 Ca 7.9, 09/28 Ca 7.7 -Trend Ca Elevated D-dimer, acute -09/27 D-dimer 1208, 1047 -09/28 CTA chest pending COPD, chronic -Pulmonary hygiene -Pulmonology consulted, appreciate recommendations -Twice daily Pulmicort -Supplemental oxygen as needed Elevated troponin, chronic -Cardiology consulted, appreciate recommendations -09/27 Troponin 0.076, 0.069 -Per cardiology troponin measurements are unchanged from prior admission ranging 0.067-0.076 -Per cardiology: No further cardiac interventions indicated at this time -08/2020 echocardiogram showed left ventricular systolic function normal with e jection fraction 60 to 65% -09/28 proBNP 1189 GERD, chronic -Continue home PPI Hypertension, chronic -Resume home antihypertensive regimen and titrate as needed -Blood pressure monitoring per protocol -Hydralazine as needed for SBP greater than 160 Anemia, chronic -Patient had severe anemia on last admission -Trend CBC -Transfuse for hemoglobin less than 7 Severe malnutrition, chronic -BMI 18 -Nutritional supplementation -Supportive care Depression, chronic -Continue home sertraline -Supportive care Diastolic congestive heart failure, chronic -Per cardiology: No further cardiac interventions indicated at this time -08/2020 echocardiogram showed left ventricular systolic function normal with ejection fraction 60 to 65% -09/28 proBNP 1189 -Continue home cardioprotective regimen - s/p lasix IV x1 DVT prophylaxis -SCDs to bilateral lower extremity while in bed -Heparin subcu COVID-19 PUI, ruled out -09/27 CXR shows chronic increased interstitial markings diffusely, superimposed pneumonia at the left base -09/28 COVID-19 PCR negative -Contact/droplet precautions discontinued Acute hypoxic respiratory failure, resolved -Reported SPO2 60% on room air by EMS -Supplemental oxygenation as needed -Pulmonary hygiene -Pulmonology consulted, appreciate recommendations -Steroid therapy, rapidly tapering for psychosis Acute kidney injury, resolved -Presented with a BUN/creatinine 44/1.5 -S/p 2200 mL normal saline bolus -09/28 BUN/creatinine 35/1.1 -Upon review of prior admissions patient's baseline seems to be 0.8-1.1 -Renally dose medication -Avoid nephrotoxic medication -Strict intake and output -Daily weights History Interval history: 60 YO Female with HTN, COPD, Schizophrenia, GERD, Severe Malnutrution, Diastolic CHF who was transported via EMS on 09/27 for confusion and difficulty breathing. In the emergency department patient was found to have a pulse of oximetry of 60% on room air and was treated with supplemental oxygenation with mild improvement and was placed on a nonrebreather. Patient was admitted to the hospital service with sepsis, toxic metabolic encephalopathy, acute kidney injury and CXR showed pneumonia. Patient was made a COVID-19 PUI and had elevated cardiac enzymes. Cardiology, pulmonology, infectious disease and psychiatry was consulted. This morning the time of examination patient still remains confused to location and current events. CT head was obtained today and neurology was consulted for continued AMS. I spoke to her sister this morning who is adamant that the patient does not have any psych history and does not want the patient to be medicated with psych medications. 09/29: Mix [employer]ender consult for Tube feed continue to manage tube feeding, will also start free water, aspiration precautions. Discussed with Nursing staff. 09/30: Patient more confused today, ?, on Restraints last night due to unsteady gait and not following commands, Psych input Started on Deparkene, keli zanpien and increased melatonin. WILL RE-EVALUATE IN 24 HRS. Replace K for noted Hypokalemia Hospitalist Physical - Constitutional Vitals: Temp Pulse Resp BP Pulse Ox 98.3 F 66 18 144/79 96 10/01/20 04:02 10/01/20 04:02 10/01/20 04:02 10/01/20 04:02 10/01/20 04:02 General appearance: Present: no acute distress - EENT Eyes: Present: PERRL, EOM intact ENT: hearing intact, dentition normal - Neck Neck: Present: normal ROM - Respiratory Respiratory effort: normal Respiratory: bilateral: CTA - Cardiovascular Rhythm: regular Heart Sounds: Present: S1 & S2 - Extremities Extremities: no ischemia, pulses intact, pulses symmetrical, No edema, normal temperature, normal color, Full ROM Peripheral Pulses: within normal limits - Abdominal General gastrointestinal: soft, non-tender, normal bowel sounds - Integumentary Integumentary: Present: clear, warm, dry - Psychiatric Psychiatric: no memory intact, cooperative, other (confused) - Neurologic Neurologic: no focal deficits, moves all extremities HEART Score - HEART Score Troponin: Troponin T 0.069 ng/mL (0.00-0.029) H 09/27/20 17:16 Results - Labs CBC & Chem 7: 09/28/20 05:26 10/01/20 07:10 Labs: Laboratory Last Values WBC 3.8 K/mm3 (4.5-11.0) L 09/28/20 05:26 RBC 3.11 M/mm3 (3.65-5.03) L 09/28/20 05:26 Hgb 9.7 gm/dl (10.1-14.3) L 09/28/20 05:26 Hct 29.2 % (30.3-42.9) L 09/28/20 05:26 MCV 94 fl (79-97) 09/28/20 05:26 MCH 31 pg (28-32) 09/28/20 05:26 MCHC 33 % (30-34) 09/28/20 05:26 RDW 16.4 % (13.2-15.2) H 09/28/20 05:26 Plt Count 304 K/mm3 (140-440) 09/28/20 05:26 Lymph % (Auto) 8.1 % (13.4-35.0) L 09/28/20 05:26 Braxton % (Auto) 4.0 % (0.0-7.3) 09/28/20 05:26 Eos % (Auto) 0.0 % (0.0-4.3) 09/28/20 05:26 Baso % (Auto) 1.4 % (0.0-1.8) 09/28/20 05:26 Lymph # (Auto) 0.3 K/mm3 (1.2-5.4) L 09/28/20 05:26 Braxton # (Auto) 0.2 K/mm3 (0.0-0.8) 09/28/20 05:26 Eos # (Auto) 0.0 K/mm3 (0.0-0.4) 09/28/20 05:26 Baso # (Auto) 0.1 K/mm3 (0.0-0.1) 09/28/20 05:26 Seg Neutrophils % 86.5 % (40.0-70.0) H 09/28/20 05:26 Seg Neutrophils # 3.3 K/mm3 (1.8-7.7) 09/28/20 05:26 PT 13.0 Sec. (12.2-14.9) 09/27/20 13:26 INR 0.99 (0.87-1.13) 09/27/20 13:26 APTT 28.1 Sec. (24.2-36.6) 09/27/20 13:26 D-Dimer 976.48 ng/mlDDU (0-234) H 09/30/20 07:30 Sodium 146 mmol/L (137-145) H 10/01/20 07:10 Potassium 4.0 mmol/L (3.6-5.0) D 10/01/20 07:10 Chloride 111.5 mmol/L (98-107) H 10/01/20 07:10 Carbon Dioxide 25 mmol/L (22-30) 10/01/20 07:10 Anion Gap 14 mmol/L 10/01/20 07:10 BUN 22 mg/dL (7-17) H 10/01/20 07:10 Creatinine 1.0 mg/dL (0.6-1.2) 10/01/20 07:10 Estimated GFR > 60 ml/min 10/01/20 07:10 BUN/Creatinine Ratio 22 % 10/01/20 07:10 Glucose 85 mg/dL (65-100) 10/01/20 07:10 Lactic Acid 0.80 mmol/L (0.7-2.0) 09/28/20 05:26 Calcium 8.5 mg/dL (8.4-10.2) 10/01/20 07:10 Ferritin 1678.0 ng/mL (10.0-200.0) H 10/01/20 07:10 Total Bilirubin 0.30 mg/dL (0.1-1.2) 09/27/20 13:26 Direct Bilirubin < 0.2 mg/dL (0-0.2) 09/27/20 13:26 Indirect Bilirubin 0.1 mg/dL 09/27/20 13:26 AST 42 units/L (5-40) H 09/27/20 13:26 ALT 14 units/L (7-56) 09/27/20 13:26 Alkaline Phosphatase 71 units/L (35-129) 09/27/20 13:26 Lactate Dehydrogenase 291 units/L (91-180) H 09/30/20 07:30 Troponin T 0.069 ng/mL (0.00-0.029) H 09/27/20 17:16 C-Reactive Protein 0.90 mg/dL (0.00-1.30) 09/30/20 07:30 NT-Pro-B Natriuret Pep 1189 pg/mL (0-900) H 09/28/20 12:23 Total Protein 7.3 g/dL (6.3-8.2) 09/27/20 13:26 Albumin 2.5 g/dL (3.9-5) L 09/27/20 13:26 Albumin/Globulin Ratio 0.5 % 09/27/20 13:26 Triglycerides 108 mg/dL (2-149) 09/27/20 13:26 Cholesterol 117 mg/dL (50-199) 09/27/20 13:26 LDL Cholesterol Direct 59 mg/dL (50-130) 09/27/20 13:26 HDL Cholesterol 40 mg/dL (40-59) 09/27/20 13:26 Cholesterol/HDL Ratio 2.92 % 09/27/20 13:26 Procalcitonin < 0.05 ng/mL (<0.15) 09/27/20 17:16 Urine Color Yellow (Yellow) 09/28/20 Unknown Urine Turbidity Clear (Clear) 09/28/20 Unknown Urine pH 6.0 (5.0-7.0) 09/28/20 Unknown Ur Specific [place] 1.012 (1.003-1.030) 09/28/20 Unknown Urine Protein 100 mg/dl mg/dL (Negative) 09/28/20 Unknown Urine Glucose (UA) Neg mg/dL (Negative) 09/28/20 Unknown Urine Ketones Neg mg/dL (Negative) 09/28/20 Unknown Urine Blood Sm (Negative) 09/28/20 Unknown Urine Nitrite Neg (Negative) 09/28/20 Unknown Urine Bilirubin Neg (Negative) 09/28/20 Unknown Urine Urobilinogen < 2.0 mg/dL (<2.0) 09/28/20 Unknown Ur Leukocyte Esterase Neg (Negative) 09/28/20 Unknown Urine WBC (Auto) 4.0 /HPF (0.0-6.0) 09/28/20 Unknown Urine RBC (Auto) 22.0 /HPF (0.0-6.0) 09/28/20 Unknown U Epithel Cells (Auto) 1.0 /HPF (0-13.0) 09/28/20 Unknown Urine Bacteria (Auto) 1+ /HPF (Negative) 09/28/20 Unknown Coronavirus (PCR) Negative (Negative) 09/28/20 08:22 Microbiology: Microbiology 09/27/20 13:26 Peripheral/Venous Blood Culture - Preliminary NO GROWTH AFTER 72 HOURS 09/27/20 13:26 Peripheral/Venous Blood Culture - Preliminary NO GROWTH AFTER 72 HOURS Sterling/IV: Voiding Method External Female Catheter IV Catheter Type [Left Upper INT / Saline Lock arm] IV Catheter Type [Left INT / Saline Lock Antecubital] Active Medications - Current Medications Current Medications: Generic Name Dose Route Start Last Admin Trade Name Freq PRN Reason Stop Dose Admin Acetaminophen 650 mg 09/27/20 15:23 Acetaminophen 325 Mg Tab PO Q4H PRN Pain MILD(1-3)/Fever >100.5/LORA Albuterol 2.5 mg 09/27/20 15:22 Albuterol 2.5 Mg/3 Ml Nebu IH Q4HRT PRN Shortness Of Breath Amlodipine Besylate 10 mg 09/28/20 10:00 09/30/20 09:36 Amlodipine 10 Mg Tab PO 10 mg DAILY CINTHIA Administration Ascorbic Acid 500 mg 09/27/20 22:00 09/30/20 22:07 Ascorbic Acid 500 Mg Tab PO 500 mg BID CINTHIA Administration Azithromycin 500 mg 09/28/20 18:00 09/30/20 17:20 Azithromycin 250 Mg Tab PO 10/01/20 18:01 500 mg QPM CINTHIA Administration Cholecalciferol 1,000 unit 09/28/20 10:00 09/30/20 09:35 Cholecalciferol (Vit D3) 1000 Unit (25 Mcg) Tab PO 1,000 unit QDAY CINTHIA Administration Famotidine 20 mg 09/27/20 22:00 09/30/20 22:07 Famotidine 20 Mg Tab PO 20 mg BID CINTHIA Administration Heparin Sodium (Porcine) 5,000 unit 09/27/20 22:00 09/30/20 22:08 Heparin 5,000 Unit/1 Ml Vial SUB-Q 5,000 unit Q12HR CINTHIA Administration Ceftriaxone Sodium 2 gm in 100 mls @ 200 mls/hr 09/27/20 16:00 09/30/20 16:00 Rocephin/Ns 2 Gm/100 Ml IV 10/01/20 16:29 200 mls/hr Q24H CINTHIA Administration Protocol Isosorbide Mononitrate 30 mg 09/29/20 10:00 09/30/20 09:35 Isosorbide Mononitrate Er 30 Mg Tab PO 30 mg QDAY CINTHIA Administration Melatonin 10 mg 09/29/20 22:00 09/30/20 22:07 Melatonin 5 Mg Tab PO 10 mg QHS CINTHIA Administration Metoprolol Tartrate 25 mg 09/28/20 10:00 09/30/20 22:08 Metoprolol Tartrate 25 Mg Tab PO 25 mg BID CINTHIA Administration Olanzapine 5 mg 09/30/20 22:00 09/30/20 22:07 Olanzapine 5 Mg Tab PO 5 mg QHS CINTHIA Administration Ondansetron HCl 4 mg 09/27/20 15:22 Ondansetron 4 Mg/2 Ml Inj IV Q8H PRN Nausea And Vomiting Oxycodone/Acetaminophen 1 tab 09/27/20 15:23 09/29/20 18:15 Oxycodone /Acetaminophen 5-325mg Tab PO 1 tab Q6H PRN Administration Pain, Moderate (4-6) Potassium Chloride 16 meq 09/29/20 10:00 09/30/20 09:53 Potassium Chloride Er 8 Meq Tab PO 16 meq QDAY CINTHIA Administration Prednisone 10 mg 10/01/20 10:00 Prednisone 10 Mg Tab PO QDAY CINTHIA Sertraline HCl 25 mg 09/28/20 10:00 09/30/20 09:35 Sertraline 25 Mg Tab PO 25 mg QDAY CINTHIA Administration Sodium Chloride 10 ml 09/27/20 22:00 09/30/20 22:07 Sodium Chloride 0.9% 10 Ml Flush Syringe IV 10 ml BID CINTHIA Administration Sodium Chloride 10 ml 09/27/20 15:22 Sodium Chloride 0.9% 10 Ml Flush Syringe IV PRN PRN LINE FLUSH Valproic Acid 250 mg 09/29/20 10:00 09/30/20 22:10 Valproic Acid 250 Mg/5 Ml Oral Liqd PO 250 mg BID CINTHIA Administration Zinc Sulfate 220 mg 09/28/20 10:00 09/30/20 09:35 Zinc Sulfate 220 Mg Cap PO 220 mg QDAY CINTHIA Administration Nutrition/Malnutrition Assess - Dietary Evaluation Nutrition/Malnutrition Findings: Nutrition Notes Start: 09/28/20 14:07 Freq: Status: Active Protocol: Document 09/28/20 14:07 CW (Rec: 09/28/20 14:15 CW [id number]) Co-Sign 09/28/20 14:07 MK Nutrition Notes Need for Assessment generated from: silo filler,MST Initial or Follow up Assessment Current Diagnosis Acute Kidney Injury,COPD, Sepsis,Hypertension,Heart Failure Other Pertinent Diagnosis acute respiratory failure, AMS , pneu, GERD, COVID PUI Current Diet Cardiac Labs/Tests BUN 35 BG 138 Pertinent Medications Solumedrol Height 4 ft 10 in Weight 40.823 kg Usual Body Weight 61.23 kg [place] Body Weight (kg) 40.90 BMI 18.8 Weight change and time frame 33% wt loss in 2 months, per chart hx Weight Status Underweight Subjective/Other Information RN screen for MST/skin risk. Per RN pt is eating <20% PO. RN denies N/V/D or skin breakdown. Pt tg score is 13. Discussed with RN about sending ONS for pt. 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 No Is Patient Ambulatory and/or Out of Bed No REE-([facility]-confined to bed) 1046.844 Kcal/Kg value to use for calculation 30 Approximate Energy Requirements Using 1225 kcal/Kg Calculation Used for Recommendations Kcal/kg Additional Notes Protein needs are 1.2-1.5g/kg (49-61g/day) Fluid needs are 1ml/kcal Nutrition Intervention Change Diet Order: Continue + ONS Add Supplement/Snack (indicate name/kcal Ensure BID /protein ) Provides kCal: 700 Provides Protein (gm) 40 Goal #1 Meet at least 75% protein and energy needes via PO/ONS Goal #2 wt gain/ maintenance Anticipated Discharge Needs: Cardiac diet Follow-Up By: 10/02/20 Additional Comments FU for PO/ONS intakes/ tolerance <SHANE NATH - Last Filed: 10/02/20 07:12> Assessment and Plan Assessment and plan: I saw and evaluated the patient. I agree with the findings and the plan of care as documented in the Nurse Practitioner's~note, with the following corrections and additions. Hospitalist Physical - Constitutional Vitals: Temp Pulse Resp BP Pulse Ox 98.0 F 72 18 172/93 99 10/02/20 04:24 10/02/20 04:24 10/02/20 04:24 10/02/20 04:24 10/02/20 04:24 HEART Score - HEART Score Troponin: Troponin T 0.069 ng/mL (0.00-0.029) H 09/27/20 17:16 Results - Labs CBC & Chem 7: 09/28/20 05:26 10/02/20 05:12 Labs: Laboratory Last Values WBC 3.8 K/mm3 (4.5-11.0) L 09/28/20 05:26 RBC 3.11 M/mm3 (3.65-5.03) L 09/28/20 05:26 Hgb 9.7 gm/dl (10.1-14.3) L 09/28/20 05:26 Hct 29.2 % (30.3-42.9) L 09/28/20 05:26 MCV 94 fl (79-97) 09/28/20 05:26 MCH 31 pg (28-32) 09/28/20 05:26 MCHC 33 % (30-34) 09/28/20 05:26 RDW 16.4 % (13.2-15.2) H 09/28/20 05:26 Plt Count 304 K/mm3 (140-440) 09/28/20 05:26 Lymph % (Auto) 8.1 % (13.4-35.0) L 09/28/20 05:26 Braxton % (Auto) 4.0 % (0.0-7.3) 09/28/20 05:26 Eos % (Auto) 0.0 % (0.0-4.3) 09/28/20 05:26 Baso % (Auto) 1.4 % (0.0-1.8) 09/28/20 05:26 Lymph # (Auto) 0.3 K/mm3 (1.2-5.4) L 09/28/20 05:26 Braxton # (Auto) 0.2 K/mm3 (0.0-0.8) 09/28/20 05:26 Eos # (Auto) 0.0 K/mm3 (0.0-0.4) 09/28/20 05:26 Baso # (Auto) 0.1 K/mm3 (0.0-0.1) 09/28/20 05:26 Seg Neutrophils % 86.5 % (40.0-70.0) H 09/28/20 05:26 Seg Neutrophils # 3.3 K/mm3 (1.8-7.7) 09/28/20 05:26 PT 13.0 Sec. (12.2-14.9) 09/27/20 13:26 INR 0.99 (0.87-1.13) 09/27/20 13:26 APTT 28.1 Sec. (24.2-36.6) 09/27/20 13:26 D-Dimer 741.35 ng/mlDDU (0-234) H 10/02/20 05:12 Sodium 145 mmol/L (137-145) 10/02/20 05:12 Potassium 3.3 mmol/L (3.6-5.0) L 10/02/20 05:12 Chloride 111.3 mmol/L (98-107) H 10/02/20 05:12 Carbon Dioxide 24 mmol/L (22-30) 10/02/20 05:12 Anion Gap 13 mmol/L 10/02/20 05:12 BUN 18 mg/dL (7-17) H 10/02/20 05:12 Creatinine 0.9 mg/dL (0.6-1.2) 10/02/20 05:12 Estimated GFR > 60 ml/min 10/02/20 05:12 BUN/Creatinine Ratio 20 % 10/02/20 05:12 Glucose 82 mg/dL (65-100) 10/02/20 05:12 POC Glucose 113 mg/dL (70-105) H 10/01/20 12:21 Lactic Acid 0.80 mmol/L (0.7-2.0) 09/28/20 05:26 Calcium 8.2 mg/dL (8.4-10.2) L 10/02/20 05:12 Ferritin 1678.0 ng/mL (10.0-200.0) H 10/01/20 07:10 Total Bilirubin 0.30 mg/dL (0.1-1.2) 09/27/20 13:26 Direct Bilirubin < 0.2 mg/dL (0-0.2) 09/27/20 13:26 Indirect Bilirubin 0.1 mg/dL 09/27/20 13:26 AST 42 units/L (5-40) H 09/27/20 13:26 ALT 14 units/L (7-56) 09/27/20 13:26 Alkaline Phosphatase 71 units/L (35-129) 09/27/20 13:26 Lactate Dehydrogenase 216 units/L (91-180) H 10/02/20 05:12 Troponin T 0.069 ng/mL (0.00-0.029) H 09/27/20 17:16 C-Reactive Protein 0.40 mg/dL (0.00-1.30) 10/02/20 05:12 NT-Pro-B Natriuret Pep 1189 pg/mL (0-900) H 09/28/20 12:23 Total Protein 7.3 g/dL (6.3-8.2) 09/27/20 13:26 Albumin 2.5 g/dL (3.9-5) L 09/27/20 13:26 Albumin/Globulin Ratio 0.5 % 09/27/20 13:26 Triglycerides 108 mg/dL (2-149) 09/27/20 13:26 Cholesterol 117 mg/dL (50-199) 09/27/20 13:26 LDL Cholesterol Direct 59 mg/dL (50-130) 09/27/20 13:26 HDL Cholesterol 40 mg/dL (40-59) 09/27/20 13:26 Cholesterol/HDL Ratio 2.92 % 09/27/20 13:26 Procalcitonin < 0.05 ng/mL (<0.15) 09/27/20 17:16 Urine Color Yellow (Yellow) 09/28/20 Unknown Urine Turbidity Clear (Clear) 09/28/20 Unknown Urine pH 6.0 (5.0-7.0) 09/28/20 Unknown Ur Specific [place] 1.012 (1.003-1.030) 09/28/20 Unknown Urine Protein 100 mg/dl mg/dL (Negative) 09/28/20 Unknown Urine Glucose (UA) Neg mg/dL (Negative) 09/28/20 Unknown Urine Ketones Neg mg/dL (Negative) 09/28/20 Unknown Urine Blood Sm (Negative) 09/28/20 Unknown Urine Nitrite Neg (Negative) 09/28/20 Unknown Urine Bilirubin Neg (Negative) 09/28/20 Unknown Urine Urobilinogen < 2.0 mg/dL (<2.0) 09/28/20 Unknown Ur Leukocyte Esterase Neg (Negative) 09/28/20 Unknown Urine WBC (Auto) 4.0 /HPF (0.0-6.0) 09/28/20 Unknown Urine RBC (Auto) 22.0 /HPF (0.0-6.0) 09/28/20 Unknown U Epithel Cells (Auto) 1.0 /HPF (0-13.0) 09/28/20 Unknown Urine Bacteria (Auto) 1+ /HPF (Negative) 09/28/20 Unknown Coronavirus (PCR) Negative (Negative) 09/28/20 08:22 Microbiology: Microbiology 09/27/20 13:26 Peripheral/Venous Blood Culture - Preliminary NO GROWTH AFTER 4 DAYS 09/27/20 13:26 Peripheral/Venous Blood Culture - Preliminary NO GROWTH AFTER 4 DAYS Sterling/IV: Voiding Method Incontinent IV Catheter Type [Left Upper INT / Saline Lock arm] IV Catheter Type [Left INT / Saline Lock Antecubital] Active Medications - Current Medications Current Medications: Generic Name Dose Route Start Last Admin Trade Name Freq PRN Reason Stop Dose Admin Acetaminophen 650 mg 09/27/20 15:23 Acetaminophen 325 Mg Tab PO Q4H PRN Pain MILD(1-3)/Fever >100.5/LORA Albuterol 2.5 mg 09/27/20 15:22 Albuterol 2.5 Mg/3 Ml Nebu IH Q4HRT PRN Shortness Of Breath Amlodipine Besylate 10 mg 09/28/20 10:00 10/01/20 10:42 Amlodipine 10 Mg Tab PO 10 mg DAILY CINTHIA Administration Ascorbic Acid 500 mg 09/27/20 22:00 10/01/20 21:52 Ascorbic Acid 500 Mg Tab PO 500 mg BID CINTHIA Administration Cholecalciferol 1,000 unit 09/28/20 10:00 10/01/20 10:42 Cholecalciferol (Vit D3) 1000 Unit (25 Mcg) Tab PO 1,000 unit QDAY CINTHIA Administration Famotidine 20 mg 09/27/20 22:00 10/01/20 21:52 Famotidine 20 Mg Tab PO 20 mg BID CINTHIA Administration Heparin Sodium (Porcine) 5,000 unit 09/27/20 22:00 10/01/20 21:53 Heparin 5,000 Unit/1 Ml Vial SUB-Q 5,000 unit Q12HR CINTHIA Administration Isosorbide Mononitrate 30 mg 09/29/20 10:00 10/01/20 10:42 Isosorbide Mononitrate Er 30 Mg Tab PO 30 mg QDAY CINTHIA Administration Melatonin 10 mg 09/29/20 22:00 10/01/20 21:52 Melatonin 5 Mg Tab PO 10 mg QHS CINTHIA Administration Metoprolol Tartrate 25 mg 09/28/20 10:00 10/01/20 21:52 Metoprolol Tartrate 25 Mg Tab PO 25 mg BID CINTHIA Administration Ondansetron HCl 4 mg 09/27/20 15:22 Ondansetron 4 Mg/2 Ml Inj IV Q8H PRN Nausea And Vomiting Oxycodone/Acetaminophen 1 tab 09/27/20 15:23 09/29/20 18:15 Oxycodone /Acetaminophen 5-325mg Tab PO 1 tab Q6H PRN Administration Pain, Moderate (4-6) Potassium Chloride 16 meq 09/29/20 10:00 10/01/20 10:41 Potassium Chloride Er 8 Meq Tab PO 16 meq QDAY CINTHIA Administration Prednisone 10 mg 10/01/20 10:00 10/01/20 10:41 Prednisone 10 Mg Tab PO 10 mg QDAY CINTHIA Administration Risperidone 2 mg 10/01/20 11:00 10/01/20 21:51 Risperidone 1 Mg/1 Ml Oral Liqd PO 2 mg BID CINTHIA Administration Sertraline HCl 25 mg 09/28/20 10:00 10/01/20 10:43 Sertraline 25 Mg Tab PO 25 mg QDAY CINTHIA Administration Sodium Chloride 10 ml 09/27/20 22:00 10/01/20 21:53 Sodium Chloride 0.9% 10 Ml Flush Syringe IV 10 ml BID CINTHIA Administration Sodium Chloride 10 ml 09/27/20 15:22 Sodium Chloride 0.9% 10 Ml Flush Syringe IV PRN PRN LINE FLUSH Valproic Acid 500 mg 10/01/20 11:00 10/01/20 21:55 Valproic Acid 250 Mg/5 Ml Oral Liqd PO 500 mg BID CINTHIA Administration Zinc Sulfate 220 mg 09/28/20 10:00 10/01/20 10:42 Zinc Sulfate 220 Mg Cap PO 220 mg QDAY CINTHIA Administration Nutrition/Malnutrition Assess - Dietary Evaluation Nutrition/Malnutrition Findings: Nutrition Notes Start: 09/28/20 14:07 Freq: Status: Active Protocol: Document 09/28/20 14:07 CW (Rec: 09/28/20 14:15 CW [id number]) Co-Sign 09/28/20 14:07 MK Nutrition Notes Need for Assessment generated from: silo filler,MST Initial or Follow up Assessment Current Diagnosis Acute Kidney Injury,COPD, Sepsis,Hypertension,Heart Failure Other Pertinent Diagnosis acute respiratory failure, AMS , pneu, GERD, COVID PUI Current Diet Cardiac Labs/Tests BUN 35 BG 138 Pertinent Medications Solumedrol Height 4 ft 10 in Weight 40.823 kg Usual Body Weight 61.23 kg [place] Body Weight (kg) 40.90 BMI 18.8 Weight change and time frame 33% wt loss in 2 months, per chart hx Weight Status Underweight Subjective/Other Information RN screen for MST/skin risk. Per RN pt is eating <20% PO. RN denies N/V/D or skin breakdown. Pt tg score is 13. Discussed with RN about sending ONS for pt. 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 No Is Patient Ambulatory and/or Out of Bed No REE-([facility]-confined to bed) 1046.844 Kcal/Kg value to use for calculation 30 Approximate Energy Requirements Using 1225 kcal/Kg Calculation Used for Recommendations Kcal/kg Additional Notes Protein needs are 1.2-1.5g/kg (49-61g/day) Fluid needs are 1ml/kcal Nutrition Intervention Change Diet Order: Continue + ONS Add Supplement/Snack (indicate name/kcal Ensure BID /protein ) Provides kCal: 700 Provides Protein (gm) 40 Goal #1 Meet at least 75% protein and energy needes via PO/ONS Goal #2 wt gain/ maintenance Anticipated Discharge Needs: Cardiac diet Follow-Up By: 10/02/20 Additional Comments FU for PO/ONS intakes/ tolerance
[2020-10-01] MEDS: predniSONE 10 MG TAB PO SCH (10:41)
[2020-10-01] MEDS: POTASSIUM CHLORIDE ER 8 MEQ TAB PO SCH (10:41)
[2020-10-01] MEDS: VALPROIC ACID 250 MG/5 ML ORAL LIQD PO SCH ×2 (10:41→21:55)
[2020-10-01] MEDS: ZINC SULFATE 220 MG CAP PO SCH (10:42)
[2020-10-01] MEDS: amLODIPine 10 MG TAB PO SCH (10:42)
[2020-10-01] MEDS: CHOLECALCIFEROL (VIT D3) 1000 UNIT (25 mcg) TAB PO SCH (10:42)
[2020-10-01] MEDS: FAMOTIDINE 20 MG TAB PO SCH ×2 (10:43→21:52)
[2020-10-01] MEDS: SERTRALINE 25 MG TAB PO SCH (10:43)
[2020-10-01] MEDS: ASCORBIC ACID 500 MG TAB PO SCH ×2 (10:43→21:52)
[2020-10-01] MEDS: HEPARIN 5,000 UNIT/1 ML VIAL SUB-Q SCH ×2 (10:43→21:53)
[2020-10-01] MEDS: risperiDONE 1 MG/1 ML ORAL LIQD PO SCH ×2 (10:56→21:51)
[2020-10-01] MEDS: METOPROLOL TARTRATE 25 MG TAB PO SCH ×2 (10:59→21:52)
--- NOTE | 2020-10-01 11:57 | Progress Note ---
Assessment and Plan - Patient Problems (1) Elevated troponin Current Visit: No Status: Acute Plan to address problem: Patient presented with acute febrile illness and shortness of breath and hypoxemia due to an acute pneumonia. No active cardiac issues, left ventricular ejection fraction 60 to 65% on echocardiogram done during this presentation. No further cardiac interventions, will sign off and follow as needed. Subjective Date of service: 10/01/20 Principal diagnosis: Acute respiratory failure Interval history: Patient is comfortable, no cardiac complaints. Objective Vital Signs Temp Pulse Resp BP Pulse Ox 10/01/20 10:59 57 L 10/01/20 08:40 97.6 F 58 L 20 152/74 94 10/01/20 04:02 98.3 F 66 18 144/79 96 09/30/20 23:23 98.2 F 68 16 135/76 96 09/30/20 22:08 70 131/81 09/30/20 19:16 98.0 F 86 18 131/81 96 09/30/20 16:24 98.0 F 78 18 154/89 96 - Physical Examination General: No Apparent Distress HEENT: Positive: PERRL Neck: Positive: neck supple Cardiac: Positive: Reg Rate and Rhythm Lungs: Positive: Decreased Breath Sounds Abdomen: Positive: Soft Skin: Positive: Clear Extremities: Absent: edema - Labs and Meds Comprehensive Metabolic Panel 10/01/20 Range/Units 07:10 Sodium 146 H (137-145) mmol/L Potassium 4.0 D (3.6-5.0) mmol/L Chloride 111.5 H (98-107) mmol/L Carbon Dioxide 25 (22-30) mmol/L BUN 22 H (7-17) mg/dL Creatinine 1.0 (0.6-1.2) mg/dL Glucose 85 (65-100) mg/dL Calcium 8.5 (8.4-10.2) mg/dL
--- NOTE | 2020-10-01 13:14 | Progress Note ---
Assessment and Plan Cultures: Blood culture no growth today SARS CoV2 PCR neg Assessment: 60 years old female with history of hypertension, COPD, GERD, schizophrenia, nutrition, CHF, admitted on 09/27/2020 secondary to altered mental status and shortness of breath, found hypoxic in the ED: #Severe sepsis: Present on admission with fever, tachycardia, severe hypoxia likely due to bilateral pneumonia. Urinalysis negative. Procalcitonin is low. #Bilateral pneumonia: SARS CoV2 PCR neg. Likley CAP. Chest x-ray with increased interstitial markings and left-sided consolidation. CTA no PE with positive ariel infiltrates. #Acute hypoxemic respiratory failure: O2 sat dropped to 60% on room air. Now on room air. #Elevated LFTs: from COVID #Transaminitis: Unclear etiology, better #KAITLYNN: Likely secondary to sepsis, improving Recommendations: -continue ceftriaxone x 5 days and azithromycin x 3 days -if patient is ready to discharge ok to do levaquin 750 mg qday to complete 5 days Will follow Tamiko Foley MD Infectious Diseases Watch [employer]) M [phone] O [phone] Subjective Date of service: 10/01/20 Principal diagnosis: Acute respiratory failure Interval history: Patient feels much better, denies any cough, shortness of breath, fever. Objective - Exam Narrative Exam: General appearance: Alert in NAD pleasant Eyes: anicteric sclerae, moist conjunctivae; no lid-lag; PERRLA HENT: Normocephalic, Atraumatic; normal external ears, nares open, oropharynx clear Neck: supple, tracheal midline, no JVD Lungs: CTA, with normal respiratory effort and no intercostal retractions CV: RRR no murmur Abdomen: Soft, non-tender; no masses or hepatosplenomegaly Extremities: no edema, no cyanosis Skin: No rash. Psych: no agitated Neuro: alert and oriented x 3. Moving all extermities - Constitutional Vitals: Vital Signs Temp Pulse Resp BP Pulse Ox 96.2 F L 91 H 18 139/82 95 10/01/20 12:30 10/01/20 12:30 10/01/20 12:30 10/01/20 12:30 10/01/20 12:30 Temperature -Last 24 Hours Temperature 96.2 F Temperature 97.6 F Temperature 98.3 F Temperature 98.2 F Temperature 98.0 F Temperature 98.0 F - Labs CBC & Chem 7: 09/28/20 05:26 10/01/20 07:10 Labs: Abnormal lab results 10/01/20 10/01/20 10/01/20 Range/Units 07:10 07:10 12:21 Sodium 146 H (137-145) mmol/L Chloride 111.5 H (98-107) mmol/L BUN 22 H (7-17) mg/dL POC Glucose 113 H (70-105) mg/dL Ferritin 1678.0 H (10.0-200.0) ng/mL
--- NOTE | 2020-10-01 16:02 | Vascular Lab Report ---
DUPLEX DOPPLER LOWER EXTREMITY VEINS, BILATERAL INDICATION / CLINICAL INFORMATION: dvt. Sepsis, hypertension, CHF TECHNIQUE: Duplex doppler imaging was performed through the veins of both lower extremities using venous daniel nereida and other maneuvers. COMPARISON: None available. FINDINGS: RIGHT COMMON FEMORAL VEIN: Negative. RIGHT FEMORAL VEIN: Negative. RIGHT POPLITEAL VEIN: Negative. RIGHT CALF VEINS: Negative. LEFT COMMON FEMORAL VEIN: Negative. LEFT FEMORAL VEIN: Negative. LEFT POPLITEAL VEIN: Negative. LEFT CALF VEINS: Negative. ADDITIONAL FINDINGS: None. IMPRESSION: 1. No sonographic evidence for DVT in either lower extremity. Signer Name: Bang Ross MD Signed: 10/01/2020 3:58 PM Workstation Name: [id number]
[2020-10-01] MEDS: cefTRIAXone/NS 2 GM/100 ML 2 GM/100 ML BAG IV SCH (16:30)
[2020-10-01] MEDS: AZITHROMYCIN 250 MG TAB PO SCH (17:33)
--- NOTE | 2020-10-01 20:29 | Consultation ---
History of Present Illness Consult date: 10/01/20 Reason for Consult: AMS Chief complaint: AMS History of present illness: 60 yo female with htn, schizophrenia, anemia, copd, gerd, who presents with noted encephalopathy. Patient notes she is not sure why she is admitted to the hospital. Notes significant weight loss but not able to state the onset or the duration of time of the weight loss. Per ED notes: "EMS stated patient was evaluated by fire department and stated that patient was lethargic with an oxygen saturation of 60% that improved to 100% on nonrebreather. EMS stated that patient started to wake up after that. Upon arrival to the ER patient is alert however is confused. Patient only know her name. Patient found to be febrile with a temperature of 101.2. Sepsis protocol initiated. COVID-19 infection is possible also isolation precaution im plemented." During this hospitalization, noted with pneumonia, sepsis, garry, chf, hypernatremia, and behavioral disturbance. Per sister, the patient may not have a psychiatric history. Patient currently notes no symptoms. Past History Past Medical History: anemia, COPD, GERD, hypertension Past Surgical History: No surgical history Social history: single. denies: smoking, alcohol abuse, prescription drug abuse Family history: hypertension Medications and Allergies Allergies Allergy/AdvReac Type Severity Reaction Status Date / Time No Known Allergies Allergy Unverified 08/31/20 22:07 Home Medications Medication Instructions Recorded Confirmed Last Taken Type Lasix TAB 40 mg PO ONCE 09/01/20 09/30/20 08/31/20 History Lopressor 50 mg PO BID 09/01/20 09/30/20 09/30/20 10:10 History Pantoprazole 40 mg PO ONCE 09/01/20 09/30/20 09/30/20 10:09 History amLODIPine 10 mg PO ONCE 09/01/20 09/30/20 09/30/20 10:10 History hydrALAZINE 25 mg PO TID 09/01/20 09/30/20 09/30/20 10:10 History Acetaminophen [Acetaminophen TAB] 650 mg PO Q4H PRN tablet 09/11/20 09/30/20 Unknown Rx Furosemide [Lasix TAB] 40 mg PO QDAY #30 tablet 09/11/20 09/30/20 Unknown Rx Melatonin [Melatonin 5MG TAB] 5 mg PO QHS tablet 09/11/20 09/30/20 Unknown Rx Metoprolol [Lopressor TAB] 50 mg PO BID #60 tablet 09/11/20 09/30/20 09/30/20 10:10 Rx Potassium Chloride [Klor-Con M15] 15 meq PO QDAY #3 tab.er.prt 09/11/20 09/30/20 09/30/20 10:09 Rx Sertraline [Zoloft] 25 mg PO QDAY tablet 09/11/20 09/30/20 09/30/20 10:09 Rx amLODIPine 10 mg PO QDAY #30 tablet 09/11/20 09/30/20 Unknown Rx hydrALAZINE [Apresoline TAB] 50 mg PO Q8HR #90 tablet 09/11/20 09/30/20 Unknown Rx oxyCODONE /ACETAMINOPHEN [Percocet 1 tab PO Q6H PRN tablet 09/11/20 09/30/20 Unknown Rx 5/325 mg] predniSONE 10 mg PO QDAY #3 tab 09/11/20 09/30/20 Unknown Rx Active Meds: Active Medications Acetaminophen (Acetaminophen 325 Mg Tab) 650 mg PO Q4H PRN PRN Reason: Pain MILD(1-3)/Fever >100.5/LORA Albuterol (Albuterol 2.5 Mg/3 Ml Nebu) 2.5 mg IH Q4HRT PRN PRN Reason: Shortness Of Breath Amlodipine Besylate (Amlodipine 10 Mg Tab) 10 mg PO DAILY [facility] Last Admin: 10/01/20 10:42 Dose: 10 mg Documented by: Ascorbic Acid (Ascorbic Acid 500 Mg Tab) 500 mg PO BID [facility] Last Admin: 10/01/20 10:43 Dose: 500 mg Documented by: Cholecalciferol (Cholecalciferol (Vit D3) 1000 Unit (25 Mcg) Tab) 1,000 unit PO QDAY [facility] Last Admin: 10/01/20 10:42 Dose: 1,000 unit Documented by: Famotidine (Famotidine 20 Mg Tab) 20 mg PO BID [facility] Last Admin: 10/01/20 10:43 Dose: 20 mg Documented by: Heparin Sodium (Porcine) (Heparin 5,000 Unit/1 Ml Vial) 5,000 unit SUB-Q Q12HR [facility] Last Admin: 10/01/20 10:43 Dose: 5,000 unit Documented by: Isosorbide Mononitrate (Isosorbide Mononitrate Er 30 Mg Tab) 30 mg PO QDAY [facility] Last Admin: 10/01/20 10:42 Dose: 30 mg Documented by: Melatonin (Melatonin 5 Mg Tab) 10 mg PO QHS [facility] Last Admin: 09/30/20 22:07 Dose: 10 mg Documented by: Metoprolol Tartrate (Metoprolol Tartrate 25 Mg Tab) 25 mg PO BID [facility] Last Admin: 10/01/20 10:59 Dose: Not Given Documented by: Ondansetron HCl (Ondansetron 4 Mg/2 Ml Inj) 4 mg IV Q8H PRN PRN Reason: Nausea And Vomiting Oxycodone/Acetaminophen (Oxycodone /Acetaminophen 5-325mg Tab) 1 tab PO Q6H PRN PRN Reason: Pain, Moderate (4-6) Last Admin: 09/29/20 18:15 Dose: 1 tab Documented by: Potassium Chloride (Potassium Chloride Er 8 Meq Tab) 16 meq PO QDAY [facility] Last Admin: 10/01/20 10:41 Dose: 16 meq Documented by: Prednisone (Prednisone 10 Mg Tab) 10 mg PO QDAY [facility] Last Admin: 10/01/20 10:41 Dose: 10 mg Documented by: Risperidone (Risperidone 1 Mg/1 Ml Oral Liqd) 2 mg PO BID [facility] Last Admin: 10/01/20 10:56 Dose: 2 mg Documented by: Sertraline HCl (Sertraline 25 Mg Tab) 25 mg PO QDAY [facility] Last Admin: 10/01/20 10:43 Dose: 25 mg Documented by: Sodium Chloride (Sodium Chloride 0.9% 10 Ml Flush Syringe) 10 ml IV BID [facility] Last Admin: 10/01/20 10:43 Dose: 10 ml Documented by: Sodium Chloride (Sodium Chloride 0.9% 10 Ml Flush Syringe) 10 ml IV PRN PRN PRN Reason: LINE FLUSH Valproic Acid (Valproic Acid 250 Mg/5 Ml Oral Liqd) 500 mg PO BID [facility] Last Admin: 10/01/20 10:41 Dose: 500 mg Documented by: Zinc Sulfate (Zinc Sulfate 220 Mg Cap) 220 mg PO QDAY [facility] Last Admin: 10/01/20 10:42 Dose: 220 mg Documented by: Review of Systems All systems: negative (as per HPI;) Physical Examination - Vital Signs Vital Signs: Vital Signs Pulse Resp BP Pulse Ox 90 21 114/74 100 01/21/21 12:21 09/27/20 12:21 09/27/20 12:21 09/27/20 12:21 - Physical Exam Narrative exam: Gen: nad, thin; Head: normocephalic; Eyes: no gaze deviation; no ptosis; ENT: normal vocalization; CVS: warm and well-perfused; Pulm: no respiratory distress; GI: non-distended, non-protuberant; Ext: no cyanosis at distal extremities; Skin: no acute rash at distal extremities; Heme: no pathologic bruising at distal extremities; Neuro: alert, oriented to name, but not month, year, hospital name ([place]); no dysarthria, receptive aphasia huyen w/ complex commands; +perseveration; CN 2 - PERRL, visual parker grossly intact, CN 3, 4, 6 - EOMI, CN 5 - facial sensation symmetric to light touch, CN 7 - facial movement symmetric except a mild left orolabial droop, CN 8 - hearing grossly intact, CN 9, 10 - uvula midline, CN 11 - shrug symmetric, CN 12 - tongue midline; Motor - at least 4-/5 in all exts w/ bilatearl arms w/ mild drift w/ 3/5 skatesman on left and 4/5 skatesman on right; BLE drift noted; Sensory - tingling sensation of left>right arm & bilateral loewr extremities; Cerebellar - difficulty with right fnf; difficulty w/ hts secondary to aphasia; Gait - deferred secondary to fall risk; Results - Laboratory Findings CBC and BMP: 09/28/20 05:26 10/01/20 07:10 Abnormal Lab Findings: Abnormal Labs 09/27/20 09/27/20 09/27/20 13:26 13:26 13:26 WBC RBC 2.99 L Hgb 9.5 L Hct 27.7 L RDW 16.2 H Lymph % (Auto) 12.8 L [place] % (Auto) 8.2 H Lymph # (Auto) 0.7 L Seg Neutrophils % 78.0 H D-Dimer 1208.69 H Sodium Potassium Chloride BUN 44 H Creatinine 1.5 H Glucose POC Glucose Calcium 7.9 L Ferritin AST 42 H Lactate Dehydrogenase Troponin T 0.076 H C-Reactive Protein NT-Pro-B Natriuret Pep Albumin 2.5 L 09/27/20 09/27/20 09/27/20 13:26 13:40 17:16 WBC RBC Hgb Hct RDW Lymph % (Auto) [place] % (Auto) Lymph # (Auto) Seg Neutrophils % D-Dimer Sodium Potassium Chloride BUN Creatinine Glucose POC Glucose Calcium Ferritin > 2000.0 H AST Lactate Dehydrogenase 267 H Troponin T 0.069 H C-Reactive Protein 3.40 H NT-Pro-B Natriuret Pep Albumin 09/27/20 09/27/20 09/27/20 17:16 17:16 17:16 WBC RBC Hgb Hct RDW Lymph % (Auto) [place] % (Auto) Lymph # (Auto) Seg Neutrophils % D-Dimer 1047.78 H Sodium Potassium Chloride BUN Creatinine Glucose 130 H POC Glucose Calcium Ferritin 1998.0 H AST Lactate Dehydrogenase 290 H Troponin T C-Reactive Protein 3.00 H NT-Pro-B Natriuret Pep Albumin 09/28/20 09/28/20 09/28/20 05:26 05:26 12:23 WBC 3.8 L RBC 3.11 L Hgb 9.7 L Hct 29.2 L RDW 16.4 H Lymph % (Auto) 8.1 L [place] % (Auto) Lymph # (Auto) 0.3 L Seg Neutrophils % 86.5 H D-Dimer Sodium Potassium Chloride 107.9 H BUN 35 H Creatinine Glucose 138 H POC Glucose Calcium 7.7 L Ferritin AST Lactate Dehydrogenase Troponin T C-Reactive Protein NT-Pro-B Natriuret Pep 1189 H Albumin 09/29/20 09/29/20 09/30/20 06:07 06:07 07:30 WBC RBC Hgb Hct RDW Lymph % (Auto) [place] % (Auto) Lymph # (Auto) Seg Neutrophils % D-Dimer 976.48 H Sodium Potassium 3.1 L D Chloride 107.9 H BUN 31 H Creatinine Glucose POC Glucose Calcium 7.8 L Ferritin 1552.0 H AST Lactate Dehydrogenase Troponin T C-Reactive Protein NT-Pro-B Natriuret Pep Albumin 09/30/20 10/01/20 10/01/20 07:30 07:10 07:10 WBC RBC Hgb Hct RDW Lymph % (Auto) [place] % (Auto) Lymph # (Auto) Seg Neutrophils % D-Dimer Sodium 146 H Potassium Chloride 111.5 H BUN 22 H Creatinine Glucose POC Glucose Calcium Ferritin 1678.0 H AST Lactate Dehydrogenase 291 H Troponin T C-Reactive Protein NT-Pro-B Natriuret Pep Albumin 10/01/20 12:21 WBC RBC Hgb Hct RDW Lymph % (Auto) [place] % (Auto) Lymph # (Auto) Seg Neutrophils % D-Dimer Sodium Potassium Chloride BUN Creatinine Glucose POC Glucose 113 H Calcium Ferritin AST Lactate Dehydrogenase Troponin T C-Reactive Protein NT-Pro-B Natriuret Pep Albumin Assessment and Plan 60 yo female with htn, schizophrenia, copd, anemia, gerd, who presents w/ fever and concern for sepsis / sirs and noted with encephalopathy. 1. Metabolic Encephalopathy / Delirium - in the setting of underlying infection; recommend b12, folate, tsh-t4, thiamine, 25-OH vitamin d, rpr, esr, crp, ua w/ culture. 2. Encephalitis - recommend a MRI Brain w/ wo contrast (if no contraindications) and EEG; may need to consider a LP if patient does not improve to her baseline and if no abnormalities are noted with labs, imaging, and eeg. 3. Weight Loss - high risk of nutritional deficiences and/or underlying metabolic or neoplastic etiologies, per primary team. 4. Hx of Schizophrenia - per psychiatry. Jose D Wilson MD Neurology
[2020-10-01] MEDS: MELATONIN 5 MG TAB PO SCH (21:52)
[2020-10-02 05:50] LABS: BUN/Creatinine Ratio 20; Blood Urea Nitrogen 18 mg/dL (7-17); Calcium 8.2 mg/dL (8.4-10.2); Hemolysis Index 6
[2020-10-02] MEDS ORDERED: POTASSIUM CHLORIDE ER 10 MEQ TAB PO NR (08:00)
[2020-10-02] MEDS: ASCORBIC ACID 500 MG TAB PO SCH ×2 (10:00→23:22)
[2020-10-02] MEDS: risperiDONE 1 MG/1 ML ORAL LIQD PO SCH ×2 (10:00→23:32)
[2020-10-02] MEDS: CHOLECALCIFEROL (VIT D3) 1000 UNIT (25 mcg) TAB PO SCH (10:00)
[2020-10-02] MEDS: FAMOTIDINE 20 MG TAB PO SCH ×2 (10:00→23:23)
[2020-10-02] MEDS: HEPARIN 5,000 UNIT/1 ML VIAL SUB-Q SCH ×2 (10:01→23:23)
[2020-10-02] MEDS: POTASSIUM CHLORIDE ER 8 MEQ TAB PO SCH (10:01)
[2020-10-02] MEDS: SERTRALINE 25 MG TAB PO SCH (10:01)
[2020-10-02] MEDS: amLODIPine 10 MG TAB PO SCH (10:01)
[2020-10-02] MEDS: METOPROLOL TARTRATE 25 MG TAB PO SCH ×2 (10:01→23:23)
[2020-10-02] MEDS: VALPROIC ACID 250 MG/5 ML ORAL LIQD PO SCH ×2 (10:02→23:32)
[2020-10-02] MEDS: predniSONE 10 MG TAB PO SCH (10:04)
[2020-10-02] MEDS: ZINC SULFATE 220 MG CAP PO SCH (10:09)
--- NOTE | 2020-10-02 10:21 | Progress Note ---
Assessment and Plan Cultures: Blood culture no growth today SARS CoV2 PCR neg Assessment: 60 years old female with history of hypertension, COPD, GERD, schizophrenia, nutrition, CHF, admitted on 09/27/2020 secondary to altered mental status and shortness of breath, found hypoxic in the ED: #Severe sepsis: Present on admission with fever, tachycardia, severe hypoxia likely due to bilateral pneumonia. Urinalysis negative. Procalcitonin is low. #Bilateral pneumonia: SARS CoV2 PCR neg. Likley CAP. Chest x-ray with increased interstitial markings and left-sided consolidation. CTA no PE with positive ariel infiltrates. #Acute hypoxemic respiratory failure: O2 sat dropped to 60% on room air. Now on room air. #Elevated LFTs: From sepsis. #Transaminitis: Unclear etiology, better #KAITLYNN: Likely secondary to sepsis, resolved. #Acute encephalopathy: Resolved. Recommendations: -S/p ceftriaxone x 5 days and azithromycin x 3 days Will sign off please call us if any question Tamiko Foley MD Infectious Diseases [employer] Consultant [facility] ([facility]) M [phone] O [phone] Subjective Date of service: 10/02/20 Principal diagnosis: Acute respiratory failure Interval history: Patient feels better, no cough no chest pain no shortness of breath. She is currently on room air. Objective - Exam Narrative Exam: General appearance: Alert in NAD Eyes: anicteric sclerae, moist conjunctivae; no lid-lag; PERRLA HENT: Normocephalic, Atraumatic; normal external ears, nares open, oropharynx clear Neck: supple, tracheal midline, no JVD Lungs: Clear to auscultation bilaterally CV: RRR no murmur Abdomen: Soft, non-tender; no masses or hepatosplenomegaly Extremities: no edema, no cyanosis Skin: No rash. Psych: no agitated Neuro: alert and oriented x 3. Moving all extermities - Constitutional Vitals: Vital Signs Temp Pulse Resp BP Pulse Ox 98.3 F 71 20 148/83 100 10/02/20 09:13 10/02/20 09:13 10/02/20 09:13 10/02/20 09:13 10/02/20 09:13 Temperature -Last 24 Hours Temperature 98.3 F Temperature 98.0 F Temperature 98.0 F Temperature 98.0 F Temperature 95.9 F Temperature 96.2 F - Labs CBC & Chem 7: 09/28/20 05:26 10/02/20 05:12 Labs: Abnormal lab results 10/01/20 10/02/20 10/02/20 Range/Units 12: 05:12 05:12 D-Dimer 741.35 H (0-234) ng/mlDDU Potassium 3.3 L (3.6-5.0) mmol/L Chloride 111.3 H (98-107) mmol/L BUN 18 H (7-17) mg/dL POC Glucose 113 H (70-105) mg/dL Calcium 8.2 L (8.4-10.2) mg/dL Lactate Dehydrogenase 216 H (91-180) units/L Vitamin B12 (211-911) pg/mL 10/02/20 Range/Units 08:03 D-Dimer (0-234) ng/mlDDU Potassium (3.6-5.0) mmol/L Chloride (98-107) mmol/L BUN (7-17) mg/dL POC Glucose (70-105) mg/dL Calcium (8.4-10.2) mg/dL Lactate Dehydrogenase (91-180) units/L Vitamin B12 1167 H (211-911) pg/mL
--- NOTE | 2020-10-02 10:54 | Progress Note ---
Subjective - Reason for Consult Consult date: 10/02/20 Reason for consult: MHE Requesting physician: SHANE NATH - Chief Complaint Chief complaint: ED FLoor Nurse: 19:20 Report given to Heidy LedesmaPatient lying on bed, hallucination still noted, confused on conversation. Still on Restraints. Safety measures maintained, bed lock and alarm on. Psych Progress Patient seen in room, again she appears to be calling names and talking to someone close to the window even though room is located on 4th floor. She is not agitated or restless. Visual hallucinations most in presentation. Patient still disoriented to facility. REVIEW OF SYSTEMS ROS cannot be reliably obtained from the patient due to her confusion and somnolence. MENTAL STATUS EXAMINATION General Appearance and Behavior: Age appropriate, good hygiene, wearing appropriate clothes, uncooperative polite with questioning. Cooperation: Withdrawn Psychomotor Behavior: Psychomotor agitation Mood: good Affect and affective range: incongruent with mood Thought Process: Tangential Thought Content: Paranoid and hallucinations Speech: Normal volume, Regular rate and rhythm, Intellectual Functioning: Poor Suicidal Ideation: N/A Homicidal Ideation: N/A Impulse Control: Unimpaired Insight and Judgment: Impaired Memory: memory impaired Attention:Distractible, Orientation: Alert, but disoriented and confused Assessment and Plan (1) Unspecified behavioral syndromes associated with physiological disturbances and physical factors Current Visit: Yes Status: Acute F59 (2) 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 Continue current medications. MEDICATIONS: Risks, benefits and alternatives of medications discussed with the patient, questions answered and consent obtained from patient. PSYCHOTHERAPY: Supportive psychotherapy provided MEDICAL: Per primary team DELIRIUM PRECAUTIONS: Please re-orient patient frequently, keep lights on during the day, and minimize benzodiazepines and opiates as these medications could worsen patient's confusion. PUTTY MAKER: Per medical DISPOSITION: Do Not Recommend acute inpatient psychiatric hospitalization at this time. Case discussed with Dr. Lam who agrees with current disposition FOLLOW-UP: Will follow for med management Thank you for the consult. Please contact with any questions and/or concerns. 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
--- NOTE | 2020-10-02 12:58 | Progress Note ---
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 No chronic infarct or and encephalomalacia. Volume loss in the medial temporal lobes bilaterally more on the right, bilateral sylvian fissures more on the left suggesting perisylvian volume loss, extensive periventricular white matter low-attenuation due to chronic small vessel disease, expanded dipoliac space prominent in the frontal bones and in the occipital bones -PT/OT consults pending -Psych does not recommend inpatient hospitalization at this time -1013 hold -10/02 MRI pending -10/02 LP pending -10/02 Vitamin B1, ESR, Folate 12, Syphilis antibody nonreactive, T4/Free T4/TSH 8.4/1.3/2, Vit B 12 1167 Hypokalemia, acute -10/02 potassium 3.3 -Repleted -Trend BMP Leukopenia, acute -09/28 WBC 3.8 -Trend CBC -Abx therapy Hypercholermia, acute -09/28 Cl 107.9 -s/p 2200 mL NS per sepsis protocol -Trend BMP Hypernatremia, acute -10/01 sodium 146 -Trend BMP Hypocalcemia, acute -09/27 Ca 7.9, 09/28 Ca 7.7 -Trend Ca Elevated D-dimer, acute -09/27 D-dimer 1208, 1047 -09/28 CTA chest shows no PE COPD, chronic -Pulmonary hygiene -Pulmonology consulted, appreciate recommendations -Twice daily Pulmicort -Supplemental oxygen as needed Elevated troponin, chronic -Cardiology consulted, appreciate recommendations -09/27 Troponin 0.076, 0.069 -Per cardiology troponin measurements are unchanged from prior admission ranging 0.067-0.076 -Per cardiology: No further cardiac interventions indicated at this time -08/2020 echocardiogram showed left ventricular systolic function normal with ejection fraction 60 to 65% -09/28 proBNP 1189 GERD, chronic -Continue home PPI Hypertension, chronic -Resume home antihypertensive regimen and titrate as needed -Blood pressure monitoring per protocol -Hydralazine as needed for SBP greater than 160 Anemia, chronic -Patient had severe anemia on last admission -Trend CBC -Transfuse for hemoglobin less than 7 Severe malnutrition, chronic -BMI 18 -Nutritional supplementation -Supportive care Depression, chronic -Continue home sertraline -Supportive care Diastolic congestive heart failure, chronic -Per cardiology: No further cardiac interventions indicated at this time -08/2020 echocardiogram showed left ventricular systolic function normal with ejection fraction 60 to 65% -09/28 proBNP 1189 -Continue home cardioprotective regimen - s/p lasix IV x1 DVT prophylaxis -SCDs to bilateral lower extremity while in bed -Heparin subcu COVID-19 PUI, ruled out -09/27 CXR shows chronic increased interstitial markings diffusely, superimposed pneumonia at the left base -09/28 COVID-19 PCR negative -Contact/droplet precautions discontinued Acute hypoxic respiratory failure, resolved -Reported SPO2 60% on room air by EMS -Supplemental oxygenation as needed -Pulmonary hygiene -Pulmonology consulted, appreciate recommendations -Steroid therapy, rapidly tapering for psychosis Acute kidney injury, resolved -Presented with a BUN/creatinine 44/1.5 -S/p 2200 mL normal saline bolus -09/28 BUN/creatinine 35/1.1 -Upon review of prior admissions patient's baseline seems to be 0.8-1.1 -Renally dose medication -Avoid nephrotoxic medication -Strict intake and output -Daily weights Left lower lobe pneumonia, resolved -09/27 CXR shows chronic increased interstitial markings diffusely with superimposed pneumonia at the left base -s/p Antibiotic therapy -09/27 procalcitonin less than 0.05 -Steroids discontinued due to COVID-19 PCR being negative -Pulmonology and infectious disease consulted History Interval history: 60 YO Female with HTN, COPD, Schizophrenia, GERD, Severe Malnutrution, Diastolic CHF who was transported via EMS on 09/27 for confusion and difficulty breathing. In the emergency department patient was found to have a pulse of oximetry of 60% on room air and was treated with supplemental oxygenation with mild improvement and was placed on a nonrebreather. Patient was admitted to the hospital service with sepsis, toxic metabolic encephalopathy, acute kidney injury and CXR showed pneumonia. Patient was made a COVID-19 PUI and had elevated cardiac enzymes. Cardiology, pulmonology, infectious disease and psychiatry was consulted. This morning the time of examination patient still remains confused to location and current events. CT head was obtained today and neurology was consulted for continued AMS. I spoke to her sister this morning who is adamant that the patient does not have any psych history and does not want the patient to be medicated with psych medications. 09/29: Blue Print Control Clerk consult for Tube feed continue to manage tube feeding, will also start free water, aspiration precautions. Discussed with Nursing staff. 09/30: Patient more confused today, ?, on Restraints last night due to unsteady gait and not following commands, Psych input Started on Deparkene, olazanpien and increased melatonin. WILL RE-EVALUATE IN 24 HRS. Replace K for no gurmeet Hospitalist Physical - Constitutional Vitals: Temp Pulse Resp BP Pulse Ox 98.3 F 71 20 148/83 100 10/02/20 09:13 10/02/20 10:01 10/02/20 09:13 10/02/20 10:01 10/02/20 09:13 General appearance: Present: no acute distress - EENT Eyes: Present: PERRL, EOM intact ENT: hearing intact, clear oral mucosa - Neck Neck: Present: supple, normal ROM - Respiratory Respiratory effort: normal Respiratory: bilateral: CTA - Cardiovascular Rhythm: regular Heart Sounds: Present: S1 & S2. Absent: systolic murmur, diastolic murmur - Extremities Extremities: no ischemia, pulses intact, pulses symmetrical, No edema, normal temperature, normal color, Full ROM Peripheral Pulses: within normal limits - Abdominal General gastrointestinal: soft, non-tender, non-distended, normal bowel sounds - Integumentary Integumentary: Present: clear, warm, dry - Psychiatric Psychiatric: no appropriate mood/affect, cooperative (Patient is orienated to self, location, current events but still has visual hallucination at the time of my exam) - Neurologic Neurologic: CNII-XII intact, no focal deficits, moves all extremities HEART Score - HEART Score Troponin: Troponin T 0.069 ng/mL (0.00-0.029) H 09/27/20 17:16 Results - Labs CBC & Chem 7: 09/28/20 05:26 10/02/20 05:12 Labs: Laboratory Last Values WBC 3.8 K/mm3 (4.5-11.0) L 09/28/20 05:26 RBC 3.11 M/mm3 (3.65-5.03) L 09/28/20 05:26 Hgb 9.7 gm/dl (10.1-14.3) L 09/28/20 05:26 Hct 29.2 % (30.3-42.9) L 09/28/20 05:26 MCV 94 fl (79-97) 09/28/20 05:26 MCH 31 pg (28-32) 09/28/20 05:26 MCHC 33 % (30-34) 09/28/20 05:26 RDW 16.4 % (13.2-15.2) H 09/28/20 05:26 Plt Count 304 K/mm3 (140-440) 09/28/20 05:26 Lymph % (Auto) 8.1 % (13.4-35.0) L 09/28/20 05:26 [place] % (Auto) 4.0 % (0.0-7.3) 09/28/20 05:26 Eos % (Auto) 0.0 % (0.0-4.3) 09/28/20 05:26 Baso % (Auto) 1.4 % (0.0-1.8) 09/28/20 05:26 Lymph # (Auto) 0.3 K/mm3 (1.2-5.4) L 09/28/20 05:26 [place] # (Auto) 0.2 K/mm3 (0.0-0.8) 09/28/20 05:26 Eos # (Auto) 0.0 K/mm3 (0.0-0.4) 09/28/20 05:26 Baso # (Auto) 0.1 K/mm3 (0.0-0.1) 09/28/20 05:26 Seg Neutrophils % 86.5 % (40.0-70.0) H 09/28/20 05:26 Seg Neutrophils # 3.3 K/mm3 (1.8-7.7) 09/28/20 05:26 ESR > 140.0 mm/Hr (0-20) 10/02/20 08:03 PT 13.0 Sec. (12.2-14.9) 09/27/20 13:26 INR 0.99 (0.87-1.13) 09/27/20 13:26 APTT 28.1 Sec. (24.2-36.6) 09/27/20 13:26 D-Dimer 741.35 ng/mlDDU (0-234) H 10/02/20 05:12 Sodium 145 mmol/L (137-145) 10/02/20 05:12 Potassium 3.3 mmol/L (3.6-5.0) L 10/02/20 05:12 Chloride 111.3 mmol/L (98-107) H 10/02/20 05:12 Carbon Dioxide 24 mmol/L (22-30) 10/02/20 05:12 Anion Gap 13 mmol/L 10/02/20 05:12 BUN 18 mg/dL (7-17) H 10/02/20 05:12 Creatinine 0.9 mg/dL (0.6-1.2) 10/02/20 05:12 Estimated GFR > 60 ml/min 10/02/20 05:12 BUN/Creatinine Ratio 20 % 10/02/20 05:12 Glucose 82 mg/dL (65-100) 10/02/20 05:12 POC Glucose 113 mg/dL (70-105) H 10/01/20 12:21 Lactic Acid 0.80 mmol/L (0.7-2.0) 09/28/20 05:26 Calcium 8.2 mg/dL (8.4-10.2) L 10/02/20 05:12 Ferritin 1678.0 ng/mL (10.0-200.0) H 10/01/20 07:10 Total Bilirubin 0.30 mg/dL (0.1-1.2) 09/27/20 13:26 Direct Bilirubin < 0.2 mg/dL (0-0.2) 09/27/20 13:26 Indirect Bilirubin 0.1 mg/dL 09/27/20 13:26 AST 42 units/L (5-40) H 09/27/20 13:26 ALT 14 units/L (7-56) 09/27/20 13:26 Alkaline Phosphatase 71 units/L (35-129) 09/27/20 13:26 Lactate Dehydrogenase 216 units/L (91-180) H 10/02/20 05:12 Troponin T 0.069 ng/mL (0.00-0.029) H 09/27/20 17:16 C-Reactive Protein 0.40 mg/dL (0.00-1.30) 10/02/20 05:12 NT-Pro-B Natriuret Pep 1189 pg/mL (0-900) H 09/28/20 12:23 Total Protein 7.3 g/dL (6.3-8.2) 09/27/20 13:26 Albumin 2.5 g/dL (3.9-5) L 09/27/20 13:26 Albumin/Globulin Ratio 0.5 % 09/27/20 13:26 Triglycerides 108 mg/dL (2-149) 09/27/20 13:26 Cholesterol 117 mg/dL (50-199) 09/27/20 13:26 LDL Cholesterol Direct 59 mg/dL (50-130) 09/27/20 13:26 HDL Cholesterol 40 mg/dL (40-59) 09/27/20 13:26 Cholesterol/HDL Ratio 2.92 % 09/27/20 13:26 Vitamin B12 1167 pg/mL (211-911) H 10/02/20 08:03 Folate 12.47 ng/mL (7.3-26.0) 10/02/20 08:03 Procalcitonin < 0.05 ng/mL (<0.15) 09/27/20 17:16 TSH 2.070 mlU/mL (0.270-4.200) 10/02/20 08:03 Free T4 1.35 ng/dL (0.76-1.46) 10/02/20 08:03 Thyroxine (T4) 8.4 ug/dL (4.0-12.0) 10/02/20 08:03 Urine Color Yellow (Yellow) 09/28/20 Unknown Urine Turbidity Clear (Clear) 09/28/20 Unknown Urine pH 6.0 (5.0-7.0) 09/28/20 Unknown Ur Specific [place] 1.012 (1.003-1.030) 09/28/20 Unknown Urine Protein 100 mg/dl mg/dL (Negative) 09/28/20 Unknown Urine Glucose (UA) Neg mg/dL (Negative) 09/28/20 Unknown Urine Ketones Neg mg/dL (Negative) 09/28/20 Unknown Urine Blood Sm (Negative) 09/28/20 Unknown Urine Nitrite Neg (Negative) 09/28/20 Unknown Urine Bilirubin Neg (Negative) 09/28/20 Unknown Urine Urobilinogen < 2.0 mg/dL (<2.0) 09/28/20 Unknown Ur Leukocyte Esterase Neg (Negative) 09/28/20 Unknown Urine WBC (Auto) 4.0 /HPF (0.0-6.0) 09/28/20 Unknown Urine RBC (Auto) 22.0 /HPF (0.0-6.0) 09/28/20 Unknown U Epithel Cells (Auto) 1.0 /HPF (0-13.0) 09/28/20 Unknown Urine Bacteria (Auto) 1+ /HPF (Negative) 09/28/20 Unknown Syphilis IgG Antibody Nonreactive (NonReactive) 10/02/20 08:03 Coronavirus (PCR) Negative (Negative) 09/28/20 08:22 Microbiology: Microbiology 09/27/20 13:26 Peripheral/Venous Blood Culture - Preliminary NO GROWTH AFTER 4 DAYS 09/27/20 13:26 Peripheral/Venous Blood Culture - Preliminary NO GROWTH AFTER 4 DAYS [place]/IV: Voiding Method Incontinent IV Catheter Type [Left Upper INT / Saline Lock arm] IV Catheter Type [Left INT / Saline Lock Antecubital] Active Medications - Current Medications Current Medications: Generic Name Dose Route Start Last Admin Trade Name Freq PRN Reason Stop Dose Admin Acetaminophen 650 mg 09/27/20 15:23 Acetaminophen 325 Mg Tab PO Q4H PRN Pain MILD(1-3)/Fever >100.5/LORA Albuterol 2.5 mg 09/27/20 15:22 Albuterol 2.5 Mg/3 Ml Nebu IH Q4HRT PRN Shortness Of Breath Amlodipine Besylate 10 mg 09/28/20 10:00 10/02/20 10:01 Amlodipine 10 Mg Tab PO 10 mg DAILY CINTHIA Administration Ascorbic Acid 500 mg 09/27/20 22:00 10/02/20 10:00 Ascorbic Acid 500 Mg Tab PO 500 mg BID CINTHIA Administration Cholecalciferol 1,000 unit 09/28/20 10:00 10/02/20 10:00 Cholecalciferol (Vit D3) 1000 Unit (25 Mcg) Tab PO 1,000 unit QDAY CINTHIA Administration Famotidine 20 mg 09/27/20 22:00 10/02/20 10:00 Famotidine 20 Mg Tab PO 20 mg BID CINTHIA Administration Heparin Sodium (Porcine) 5,000 unit 09/27/20 22:00 10/02/20 10:01 Heparin 5,000 Unit/1 Ml Vial SUB-Q 5,000 unit Q12HR CINTHIA Administration Isosorbide Mononitrate 30 mg 09/29/20 10:00 10/02/20 10:01 Isosorbide Mononitrate Er 30 Mg Tab PO 30 mg QDAY CINTHIA Administration Melatonin 10 mg 09/29/20 22:00 10/01/20 21:52 Melatonin 5 Mg Tab PO 10 mg QHS CINTHIA Administration Metoprolol Tartrate 25 mg 09/28/20 10:00 10/02/20 10:01 Metoprolol Tartrate 25 Mg Tab PO 25 mg BID CINTHIA Administration Ondansetron HCl 4 mg 09/27/20 15:22 Ondansetron 4 Mg/2 Ml Inj IV Q8H PRN Nausea And Vomiting Oxycodone/Acetaminophen 1 tab 09/27/20 15:23 09/29/20 18:15 Oxycodone /Acetaminophen 5-325mg Tab PO 1 tab Q6H PRN Administration Pain, Moderate (4-6) Potassium Chloride 16 meq 09/29/20 10:00 10/02/20 10:01 Potassium Chloride Er 8 Meq Tab PO 16 meq QDAY CINTHIA Administration Prednisone 10 mg 10/01/20 10:00 10/02/20 10:04 Prednisone 10 Mg Tab PO 10 mg QDAY CINTHIA Administration Risperidone 2 mg 10/01/20 11:00 10/02/20 10:00 Risperidone 1 Mg/1 Ml Oral Liqd PO 2 mg BID CINTHIA Administration Sertraline HCl 25 mg 09/28/20 10:00 10/02/20 10:01 Sertraline 25 Mg Tab PO 25 mg QDAY CINTHIA Administration Sodium Chloride 10 ml 09/27/20 22:00 10/02/20 10:07 Sodium Chloride 0.9% 10 Ml Flush Syringe IV 10 ml BID CINTHIA Administration Sodium Chloride 10 ml 09/27/20 15:22 Sodium Chloride 0.9% 10 Ml Flush Syringe IV PRN PRN LINE FLUSH Valproic Acid 500 mg 10/01/20 11:00 10/02/20 10:02 Valproic Acid 250 Mg/5 Ml Oral Liqd PO 500 mg BID CINTHIA Administration Zinc Sulfate 220 mg 09/28/20 10:00 10/02/20 10:09 Zinc Sulfate 220 Mg Cap PO 220 mg QDAY CINTHIA Administration Nutrition/Malnutrition Assess - Dietary Evaluation Nutrition/Malnutrition Findings: Nutrition Notes Start: 09/28/20 14:07 Freq: Status: Active Protocol: Document 10/02/20 12:39 MONSE (Rec: 10/02/20 12:45 MONSE [id number]) Co-Sign 10/02/20 12:39 LP Nutrition Notes Initial or Follow up Reassessment Current Diagnosis Acute Kidney Injury,COPD, Sepsis,Hypertension,Heart Failure Other Pertinent Diagnosis acute respiratory failure, AMS , pneu, GERD, COVID (-) Current Diet Cardiac Labs/Tests BUN 18 BG 113 K 3.3 Pertinent Medications Prednisone Klor-Con8 16 mEq K-Dur 30 mEq Height 4 ft 10 in Weight 41.2 kg Usual Body Weight 61.23 kg [place] Body Weight (kg) 40.90 BMI 19.0 Weight change and time frame 33% wt loss in 2 months, per chart hx Weight Status Underweight Subjective/Other Information F/u intakes and ONS. Pt now on cl liq diet. Pt requires restriants and unable to self feed. 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 No Is Patient Ambulatory and/or Out of Bed No REE-([place]-confined to bed) 1051.368 Kcal/Kg value to use for calculation 30 Approximate Energy Requirements Using 1236 kcal/Kg Calculation Used for Recommendations Kcal/kg Additional Notes Protein needs are 1.2-1.5g/kg (49-61g/day) Fluid needs are 1ml/kcal Nutrition Intervention Change Diet Order: Advance diet once medically able Add Supplement/Snack (indicate name/kcal Ensure Clear TID /protein ) Provides kCal: 720 Provides Protein (gm) 24 Goal #1 Diet advancement Goal #2 ONS tolerance Goal #3 wt gain/ maintenance Anticipated Discharge Needs: Unable to determine at this time Follow-Up By: 10/04/20 Additional Comments F/u diet advancement, ONS needs <SHANE NATH - Last Filed: 10/08/20 07:47> Assessment and Plan Assessment and plan: I saw and evaluated the patient. I agree with the findings and the plan of care as documented in the Nurse Practitioner's~note, with the following corrections and additions. Hospitalist Physical - Constitutional Vitals: Temp Pulse Resp BP Pulse Ox 97.7 F 65 18 164/82 95 10/05/20 18:03 10/05/20 18:03 10/05/20 18:03 10/05/20 18:03 10/05/20 18:03 HEART Score - HEART Score Troponin: Troponin T 0.069 ng/mL (0.00-0.029) H 09/27/20 17:16 Results - Labs CBC & Chem 7: 10/04/20 06:58 10/04/20 06:58 Labs: Laboratory Last Values WBC 4.3 K/mm3 (4.5-11.0) L 10/04/20 06:58 RBC 3.15 M/mm3 (3.65-5.03) L 10/04/20 06:58 Hgb 10.0 gm/dl (10.1-14.3) L 10/04/20 06:58 Hct 29.6 % (30.3-42.9) L 10/04/20 06:58 MCV 94 fl (79-97) 10/04/20 06:58 MCH 32 pg (28-32) 10/04/20 06:58 MCHC 34 % (30-34) 10/04/20 06:58 RDW 17.2 % (13.2-15.2) H 10/04/20 06:58 Plt Count 353 K/mm3 (140-440) 10/04/20 06:58 Lymph % (Auto) 8.1 % (13.4-35.0) L 09/28/20 05:26 [place] % (Auto) 4.0 % (0.0-7.3) 09/28/20 05:26 Eos % (Auto) 0.0 % (0.0-4.3) 09/28/20 05:26 Baso % (Auto) 1.4 % (0.0-1.8) 09/28/20 05:26 Lymph # (Auto) 0.3 K/mm3 (1.2-5.4) L 09/28/20 05:26 [place] # (Auto) 0.2 K/mm3 (0.0-0.8) 09/28/20 05:26 Eos # (Auto) 0.0 K/mm3 (0.0-0.4) 09/28/20 05:26 Baso # (Auto) 0.1 K/mm3 (0.0-0.1) 09/28/20 05:26 Seg Neutrophils % 86.5 % (40.0-70.0) H 09/28/20 05:26 Seg Neutrophils # 3.3 K/mm3 (1.8-7.7) 09/28/20 05:26 ESR > 140.0 mm/Hr (0-20) 10/02/20 08:03 PT 13.0 Sec. (12.2-14.9) 09/27/20 13:26 INR 0.99 (0.87-1.13) 09/27/20 13:26 APTT 28.1 Sec. (24.2-36.6) 09/27/20 13:26 D-Dimer 741.35 ng/mlDDU (0-234) H 10/02/20 05:12 Sodium 148 mmol/L (137-145) H 10/04/20 06:58 Potassium 3.6 mmol/L (3.6-5.0) 10/04/20 06:58 Chloride 112.6 mmol/L (98-107) H 10/04/20 06:58 Carbon Dioxide 26 mmol/L (22-30) 10/04/20 06:58 Anion Gap 13 mmol/L 10/04/20 06:58 BUN 21 mg/dL (7-17) H 10/04/20 06:58 Creatinine 1.0 mg/dL (0.6-1.2) 10/04/20 06:58 Estimated GFR > 60 ml/min 10/04/20 06:58 BUN/Creatinine Ratio 21 % 10/04/20 06:58 Glucose 93 mg/dL (65-100) 10/04/20 06:58 POC Glucose 116 mg/dL (70-105) H 10/03/20 18:28 Lactic Acid 0.80 mmol/L (0.7-2.0) 09/28/20 05:26 Calcium 8.8 mg/dL (8.4-10.2) 10/04/20 06:58 Ferritin 1678.0 ng/mL (10.0-200.0) H 10/01/20 07:10 Total Bilirubin 0.30 mg/dL (0.1-1.2) 09/27/20 13:26 Direct Bilirubin < 0.2 mg/dL (0-0.2) 09/27/20 13:26 Indirect Bilirubin 0.1 mg/dL 09/27/20 13:26 AST 42 units/L (5-40) H 09/27/20 13:26 ALT 14 units/L (7-56) 09/27/20 13:26 Alkaline Phosphatase 71 units/L (35-129) 09/27/20 13:26 Lactate Dehydrogenase 216 units/L (91-180) H 10/02/20 05:12 Troponin T 0.069 ng/mL (0.00-0.029) H 09/27/20 17:16 C-Reactive Protein 0.40 mg/dL (0.00-1.30) 10/02/20 05:12 NT-Pro-B Natriuret Pep 1189 pg/mL (0-900) H 09/28/20 12:23 Total Protein 7.3 g/dL (6.3-8.2) 09/27/20 13:26 Albumin 2.5 g/dL (3.9-5) L 09/27/20 13:26 Albumin/Globulin Ratio 0.5 % 09/27/20 13:26 Triglycerides 108 mg/dL (2-149) 09/27/20 13:26 Cholesterol 117 mg/dL (50-199) 09/27/20 13:26 LDL Cholesterol Direct 59 mg/dL (50-130) 09/27/20 13:26 HDL Cholesterol 40 mg/dL (40-59) 09/27/20 13:26 Cholesterol/HDL Ratio 2.92 % 09/27/20 13:26 Vitamin B1 10 nmol/L (8-30) 10/02/20 08:03 Vitamin B12 1167 pg/mL (211-911) H 10/02/20 08:03 Folate 12.47 ng/mL (7.3-26.0) 10/02/20 08:03 Procalcitonin < 0.05 ng/mL (<0.15) 09/27/20 17:16 TSH 2.070 mlU/mL (0.270-4.200) 10/02/20 08:03 Free T4 1.35 ng/dL (0.76-1.46) 10/02/20 08:03 Thyroxine (T4) 8.4 ug/dL (4.0-12.0) 10/02/20 08:03 Urine Color Yellow (Yellow) 09/28/20 Unknown Urine Turbidity Clear (Clear) 09/28/20 Unknown Urine pH 6.0 (5.0-7.0) 09/28/20 Unknown Ur Specific [place] 1.012 (1.003-1.030) 09/28/20 Unknown Urine Protein 100 mg/dl mg/dL (Negative) 09/28/20 Unknown Urine Glucose (UA) Neg mg/dL (Negative) 09/28/20 Unknown Urine Ketones Neg mg/dL (Negative) 09/28/20 Unknown Urine Blood Sm (Negative) 09/28/20 Unknown Urine Nitrite Neg (Negative) 09/28/20 Unknown Urine Bilirubin Neg (Negative) 09/28/20 Unknown Urine Urobilinogen < 2.0 mg/dL (<2.0) 09/28/20 Unknown Ur Leukocyte Esterase Neg (Negative) 09/28/20 Unknown Urine WBC (Auto) 4.0 /HPF (0.0-6.0) 09/28/20 Unknown Urine RBC (Auto) 22.0 /HPF (0.0-6.0) 09/28/20 Unknown U Epithel Cells (Auto) 1.0 /HPF (0-13.0) 09/28/20 Unknown Urine Bacteria (Auto) 1+ /HPF (Negative) 09/28/20 Unknown Valproic Acid 92.6 ug/mL (50-100) 10/03/20 10:53 Syphilis IgG Antibody Nonreactive (NonReactive) 10/02/20 08:03 Coronavirus (PCR) Negative (Negative) 09/28/20 08:22 [place]/IV: Voiding Method External Female Catheter IV Catheter Type [Left Upper INT / Saline Lock arm] IV Catheter Type [Left INT / Saline Lock Antecubital] Nutrition/Malnutrition Assess - Dietary Evaluation Nutrition/Malnutrition Findings: Nutrition Notes Start: 09/28/20 14:07 Freq: Status: Discharge Protocol: Document 10/05/20 12:21 MONSE (Rec: 10/05/20 12:26 MONSE [id number]) Co-Sign 10/05/20 12:21 MK Nutrition Notes Initial or Follow up Reassessment Current Diagnosis Acute Kidney Injury,COPD, Sepsis,Hypertension,Heart Failure Other Pertinent Diagnosis acute respiratory failure, AMS , pneu, GERD, COVID (-) Current Diet Clear liquids Labs/Tests Reviewed Pertinent Medications Reviewed Height 4 ft 10 in Weight 40.823 kg [place] Body Weight (kg) 40.90 BMI 18.8 Weight change and time frame 33% wt loss in 2 months, per chart hx Weight Status Underweight Subjective/Other Information F/u diet advancement, ONS needs, Spoke with patient, she wants to go home. She reported no chewing or swallowing difficulties. This AM she drank one juice cup. I asked her what I could get her to eat if she was still here for lunch. She said she would drink an Ensure chocolate. Got verbal permission to upgrade diet order from PUBLIC SPEAKER Marcelino. 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 No Is Patient Ambulatory and/or Out of Bed No REE-([place]-confined to bed) 1046.844 Kcal/Kg value to use for calculation 30 Approximate Energy Requirements Using 1225 kcal/Kg Calculation Used for Recommendations Kcal/kg Additional Notes Protein needs are 1.2-1.5g/kg (49-61g/day) Fluid needs are 1ml/kcal Nutrition Intervention Change Diet Order: Update to full liquid diet Add Supplement/Snack (indicate name/kcal Ensure Enlive chocolate TID /protein ) Provides kCal: 1,050 Provides Protein (gm) 60 Goal #1 Diet advancement Goal #2 ONS tolerance Goal #3 wt gain/ maintenance Anticipated Discharge Needs: Unable to determine at this time Follow-Up By: 10/08/20 Additional Comments F/u diet advancement, ONS tolerance
--- NOTE | 2020-10-02 13:45 | Event Note ---
I updated her sister over the phone yesterday and answered all her questions. also updated the patient's sister in the morning.
--- NOTE | 2020-10-02 13:47 | Event Note ---
updated the patient's sister in the morning and ordered additional tests. At the time she was agreeable to LP and MRI.
[2020-10-02] MEDS: MELATONIN 5 MG TAB PO SCH (23:23)
[2020-10-03 05:58] LABS: BUN/Creatinine Ratio 17; Blood Urea Nitrogen 19 mg/dL (7-17); Calcium 8.5 mg/dL (8.4-10.2); Hemolysis Index 8
[2020-10-03] MEDS: risperiDONE 1 MG/1 ML ORAL LIQD PO SCH (10:05)
[2020-10-03] MEDS: ZINC SULFATE 220 MG CAP PO SCH (10:05)
[2020-10-03] MEDS: VALPROIC ACID 250 MG/5 ML ORAL LIQD PO SCH (10:05)
[2020-10-03] MEDS: POTASSIUM CHLORIDE ER 8 MEQ TAB PO SCH (10:05)
[2020-10-03] MEDS: ASCORBIC ACID 500 MG TAB PO SCH ×2 (10:06→21:27)
--- NOTE | 2020-10-03 10:06 | Progress Note ---
Subjective - Reason for Consult Consult date: 10/03/20 Reason for consult: MHE Requesting physician: SHANE NATH - Chief Complaint Chief complaint: ED FLoor Nurse: Patient is more quiet tonight, patient woke up, took her meds and one apple juice, refused apple sauce and pudding. Patient had some procedures that was not completed during the day, patient is not oriented to sign consent, family is involved in decision making Patient is on soft wrist restraint for being impulsive, agitated and not following commands. Continue to monitor and treat per order. Psych Progress Patient seen this AM, alert but withdrawn to self, thinks she is another and says she has been thinking of leaving, has no specific place in mind today. Will make medication adjustments. REVIEW OF SYSTEMS ROS cannot be reliably obtained from the patient due to her confusion and somnolence. MENTAL STATUS EXAMINATION General Appearance and Behavior: Age appropriate, good hygiene, wearing appropriate clothes, Cooperation: Withdrawn Psychomotor Behavior: Psychomotor retardation Mood: neutral Affect and affective range: flat Thought Process: Tangential, loose associations Thought Content: delusional Speech: Normal volume, Regular rate and rhythm, Intellectual Functioning: Poor Suicidal Ideation: N/A Homicidal Ideation: N/A Impulse Control: Unimpaired Insight and Judgment: Impaired Memory: memory impaired Attention:Distractible, Orientation: Alert, but disoriented and confused Assessment and Plan (1) Unspecified behavioral syndromes associated with physiological disturbances and physical factors Current Visit: Yes Status: Acute F59 (2) 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 Reduced risperidone to 1mg BID from 2mg and also deparkote from 500 to 400mg. MEDICATIONS: Risks, benefits and alternatives of medications discussed with the patient, questions answered and consent obtained from patient. PSYCHOTHERAPY: Supportive psychotherapy provided MEDICAL: Per primary team DELIRIUM PRECAUTIONS: Please re-orient patient frequently, keep lights on during the day, and minimize benzodiazepines and opiates as these medications could worsen patient's confusion. BOBTAILER: Per medical DISPOSITION: Do Not Recommend acute inpatient psychiatric hospitalization at this time. Case discussed with Dr. Lam who agrees with current disposition FOLLOW-UP: Will follow for med management Thank you for the consult. Please contact with any questions and/or concerns. 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
[2020-10-03] MEDS: SERTRALINE 25 MG TAB PO SCH (10:07)
[2020-10-03] MEDS: HEPARIN 5,000 UNIT/1 ML VIAL SUB-Q SCH ×2 (10:07→21:27)
[2020-10-03] MEDS: CHOLECALCIFEROL (VIT D3) 1000 UNIT (25 mcg) TAB PO SCH (10:08)
[2020-10-03] MEDS: predniSONE 10 MG TAB PO SCH (10:08)
[2020-10-03] MEDS: FAMOTIDINE 20 MG TAB PO SCH ×2 (10:08→21:26)
[2020-10-03] MEDS: METOPROLOL TARTRATE 25 MG TAB PO SCH ×2 (10:10→21:26)
[2020-10-03] MEDS: amLODIPine 10 MG TAB PO SCH (10:10)
[2020-10-03] MEDS ORDERED: risperiDONE 1 MG/1 ML ORAL LIQD PO SCH (11:00)
[2020-10-03] MEDS ORDERED: VALPROIC ACID 250 MG/5 ML ORAL LIQD PO SCH (11:00)
--- NOTE | 2020-10-03 12:39 | Progress Note ---
Assessment and Plan Cultures: Blood culture no growth today SARS CoV2 PCR neg Assessment: 60 years old female with history of hypertension, COPD, GERD, schizophrenia, nutrition, CHF, admitted on 09/27/2020 secondary to altered mental status and shortness of breath, found hypoxic in the ED: #Severe sepsis: Present on admission with fever, tachycardia, severe hypoxia likely due to bilateral pneumonia. Urinalysis negative. Procalcitonin is low. #Bilateral pneumonia: SARS CoV2 PCR neg. Likley CAP. Chest x-ray with increased interstitial markings and left-sided consolidation. CTA no PE with positive ariel infiltrates. #Acute hypoxemic respiratory failure: O2 sat dropped to 60% on room air. Now on room air. #Elevated LFTs: From sepsis. #Transaminitis: Unclear etiology, better #KAITLYNN: Likely secondary to sepsis, resolved. #Acute encephalopathy: worsening now with slurred speech Recommendations: -S/p ceftriaxone x 5 days and azithromycin x 3 days -MRI ordered cannot be done due to lack of consent -Neuro requested LP -monitor off abx for now Will follow Tamiko Foley MD Infectious Diseases [employer] [facility] [phone] Subjective Date of service: 10/03/20 Principal diagnosis: Acute respiratory failure Interval history: Patient is somnolent and slurred speech, no fever Objective - Exam Narrative Exam: General appearance: somnolent slurred speech in NAD Eyes: anicteric sclerae, moist conjunctivae; no lid-lag; PERRLA HENT: Normocephalic, Atraumatic; normal external ears, nares open, oropharynx clear Neck: supple, tracheal midline, no JVD Lungs: Clear to auscultation bilaterally CV: RRR no murmur Abdomen: Soft, non-tender; no masses or hepatosplenomegaly Extremities: no edema, no cyanosis Skin: No rash. Psych: no agitated Neuro: somnolent slurred speech - Constitutional Vitals: Vital Signs Temp Pulse Resp BP Pulse Ox 97.3 F L 76 18 106/63 90 10/03/20 11:40 10/03/20 11:40 10/03/20 11:40 10/03/20 11:40 10/03/20 11:40 Temperature -Last 24 Hours Temperature 97.3 F Temperature 98.1 F Temperature 98.2 F Temperature 97.9 F Temperature 97.6 F Temperature 98.0 F - Labs CBC & Chem 7: 09/28/20 05:26 10/03/20 05:02 Labs: Abnormal lab results 10/03/20 Range/Units 05:02 Sodium 146 H (137-145) mmol/L Chloride 112.8 H (98-107) mmol/L BUN 19 H (7-17) mg/dL
--- NOTE | 2020-10-03 13:18 | Progress Note ---
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 No chronic infarct or and encephalomalacia. Volume loss in the medial temporal lobes bilaterally more on the right, bilateral sylvian fissures more on the left suggesting perisylvian volume loss, extensive periventricular white matter low-attenuation due to chronic small vessel disease, expanded dipoliac space prominent in the frontal bones and in the occipital bones -PT/OT consulted; PT recommends home health physical therapy and occupational therapy recommends subacute rehab -Psych does not recommend inpatient hospitalization at this time -1013 hold -10/02 MRI pending -10/02 LP pending -10/02 Vitamin B1, ESR, Folate 12, Syphilis antibody nonreactive, T4/Free T4/TSH 8.4/1.3/2, Vit B 12 1167 Leukopenia, acute -09/28 WBC 3.8 -Trend CBC -s/p Abx therapy Hypoxic respiratory failure, acute -Supplemental oxygen as needed -SPO2 monitoring -Pulmonary hygiene -09/27 CXR shows chronic increased interstitial markings diffusely and superimposed pneumonia left base. -10/03 CXR pending Hypercholermia, acute -09/28 Cl 107.9 -s/p 2200 mL NS per sepsis protocol -Trend BMP Hypernatremia, acute -10/01 sodium 146 -Trend BMP Hypocalcemia, acute -09/27 Ca 7.9, 09/28 Ca 7.7 -Trend Ca Elevated D-dimer, acute -09/27 D-dimer 1208, 1047 -09/28 CTA chest shows no PE COPD, chronic -Pulmonary hygiene -Pulmonology consulted, appreciate recommendations -Twice daily Pulmicort -Supplemental oxygen as needed Elevated troponin, chronic -Cardiology consulted, appreciate recommendations -09/27 Troponin 0.076, 0.069 -Per cardiology troponin measurements are unchanged from prior admission ranging 0.067-0.076 -Per cardiology: No further cardiac interventions indicated at this time -08/2020 echocardiogram showed left ventricular systolic function normal with ejection fraction 60 to 65% -09/28 proBNP 1189 GERD, chronic -Continue home PPI Hypertension, chronic -Resume home antihypertensive regimen and titrate as needed -Blood pressure monitoring per protocol -Hydralazine as needed for SBP greater than 160 Anemia, chronic -Patient had severe anemia on last admission -Trend CBC -Transfuse for hemoglobin less than 7 Severe malnutrition, chronic -BMI 18 -Nutritional supplementation -Supportive care Depression, chronic -Continue home sertraline -Supportive care Diastolic congestive heart failure, chronic -Per cardiology: No further cardiac interventions indicated at this time -08/2020 echocardiogram showed left ventricular systolic function normal with ejection fraction 60 to 65% -09/28 proBNP 1189 -Continue home cardioprotective regimen -09/28 s/p lasix IV x1 DVT prophylaxis -SCDs to bilateral lower extremity while in bed -Heparin subcu COVID-19 PUI, ruled out -09/27 CXR shows chronic increased interstitial markings diffusely, superimposed pneumonia at the left base -09/28 COVID-19 PCR negative -Contact/droplet precautions discontinued Acute hypoxic respiratory failure, resolved -Reported SPO2 60% on room air by EMS -Supplemental oxygenation as needed -Pulmonary hygiene -Pulmonology consulted, appreciate recommendations -Steroid therapy, rapidly tapering for psychosis Acute kidney injury, resolved -Presented with a BUN/creatinine 44/1.5 -S/p 2200 mL normal saline bolus -09/28 BUN/creatinine 35/1.1 -Upon review of prior admissions patient's baseline seems to be 0.8-1.1 -Renally dose medication -Avoid nephrotoxic medication -Strict intake and output -Daily weights Left lower lobe pneumonia, resolved -09/27 CXR shows chronic increased interstitial markings diffusely with superimposed pneumonia at the left base -s/p Antibiotic therapy -09/27 procalcitonin less than 0.05 -Steroids discontinued due to COVID-19 PCR being negative -Pulmonology and infectious disease consulted Hypokalemia, resolved -10/02 potassium 3.3 -Repleted -Trend BMP -10/03 K 3.8 History Interval history: 60 YO Female with HTN, COPD, Schizophrenia, GERD, Severe Malnutrution, Diastolic CHF who was transported via EMS on 09/27 for confusion and difficulty breathing. In the emergency department patient was found to have a pulse of oximetry of 60% on room air and was treated with supplemental oxygenation with mild improvement and was placed on a nonrebreather. Patient was admitted to the hospital service with sepsis, toxic metabolic encephalopathy, acute kidney injury and CXR showed pneumonia. Patient was made a COVID-19 PUI and had elevated cardiac enzymes. Cardiology, pulmonology, infectious disease and psychiatry was consulted. Today at the time my examination patient was sleepy and awakened to physical stimuli. Patient still remains confused. Patient sister refused to consent for MRI brain and LP. No acute events reported overnight. Patient remains in bilateral wrist restraints. 09/29: Medical Clerical Assistant consult for Tube feed continue to manage tube feeding, will also start free water, aspiration precautions. Discussed with Nursing staff. 09/30: Patient more confused today, ?, on Restraints last night due to unsteady gait and not following commands, Psych input Started on Deparkene, olazanpien and increased melatonin. WILL RE-EVALUATE IN 24 HRS. Replace K 10/01: Remains confused to location and current events. CT head was obtained today and neurology was consulted for continued AMS. I spoke to her sister this morning who is adamant that the patient does not have any psych history and does not want the patient to be medicated with psych medications. 10/02: Patient remains confused and neurology has recommended MRI brain, EEG and further lab studies which have been ordered. An lumbar puncture was also ordered. Hypokalemia Hospitalist Physical - Constitutional Vitals: Temp Pulse Resp BP Pulse Ox 97.3 F L 76 18 106/63 90 10/03/20 11:40 10/03/20 11:40 10/03/20 11:40 10/03/20 11:40 10/03/20 11:40 General appearance: Present: no acute distress HEART Score - HEART Score Troponin: Troponin T 0.069 ng/mL (0.00-0.029) H 09/27/20 17:16 Results - Labs CBC & Chem 7: 09/28/20 05:26 10/03/20 05:02 Labs: Laboratory Last Values WBC 3.8 K/mm3 (4.5-11.0) L 09/28/20 05:26 RBC 3.11 M/mm3 (3.65-5.03) L 09/28/20 05:26 Hgb 9.7 gm/dl (10.1-14.3) L 09/28/20 05:26 Hct 29.2 % (30.3-42.9) L 09/28/20 05:26 MCV 94 fl (79-97) 09/28/20 05:26 MCH 31 pg (28-32) 09/28/20 05:26 MCHC 33 % (30-34) 09/28/20 05:26 RDW 16.4 % (13.2-15.2) H 09/28/20 05:26 Plt Count 304 K/mm3 (140-440) 09/28/20 05:26 Lymph % (Auto) 8.1 % (13.4-35.0) L 09/28/20 05:26 [place] % (Auto) 4.0 % (0.0-7.3) 09/28/20 05:26 Eos % (Auto) 0.0 % (0.0-4.3) 09/28/20 05:26 Baso % (Auto) 1.4 % (0.0-1.8) 09/28/20 05:26 Lymph # (Auto) 0.3 K/mm3 (1.2-5.4) L 09/28/20 05:26 [place] # (Auto) 0.2 K/mm3 (0.0-0.8) 09/28/20 05:26 Eos # (Auto) 0.0 K/mm3 (0.0-0.4) 09/28/20 05:26 Baso # (Auto) 0.1 K/mm3 (0.0-0.1) 09/28/20 05:26 Seg Neutrophils % 86.5 % (40.0-70.0) H 09/28/20 05:26 Seg Neutrophils # 3.3 K/mm3 (1.8-7.7) 09/28/20 05:26 ESR > 140.0 mm/Hr (0-20) 10/02/20 08:03 PT 13.0 Sec. (12.2-14.9) 09/27/20 13:26 INR 0.99 (0.87-1.13) 09/27/20 13:26 APTT 28.1 Sec. (24.2-36.6) 09/27/20 13:26 D-Dimer 741.35 ng/mlDDU (0-234) H 10/02/20 05:12 Sodium 146 mmol/L (137-145) H 10/03/20 05:02 Potassium 3.8 mmol/L (3.6-5.0) 10/03/20 05:02 Chloride 112.8 mmol/L (98-107) H 10/03/20 05:02 Carbon Dioxide 25 mmol/L (22-30) 10/03/20 05:02 Anion Gap 12 mmol/L 10/03/20 05:02 BUN 19 mg/dL (7-17) H 10/03/20 05:02 Creatinine 1.1 mg/dL (0.6-1.2) 10/03/20 05:02 Estimated GFR > 60 ml/min 10/03/20 05:02 BUN/Creatinine Ratio 17 % 10/03/20 05:02 Glucose 91 mg/dL (65-100) 10/03/20 05:02 POC Glucose 113 mg/dL (70-105) H 10/01/20 12:21 Lactic Acid 0.80 mmol/L (0.7-2.0) 09/28/20 05:26 Calcium 8.5 mg/dL (8.4-10.2) 10/03/20 05:02 Ferritin 1678.0 ng/mL (10.0-200.0) H 10/01/20 07:10 Total Bilirubin 0.30 mg/dL (0.1-1.2) 09/27/20 13:26 Direct Bilirubin < 0.2 mg/dL (0-0.2) 09/27/20 13:26 Indirect Bilirubin 0.1 mg/dL 09/27/20 13:26 AST 42 units/L (5-40) H 09/27/20 13:26 ALT 14 units/L (7-56) 09/27/20 13:26 Alkaline Phosphatase 71 units/L (35-129) 09/27/20 13:26 Lactate Dehydrogenase 216 units/L (91-180) H 10/02/20 05:12 Troponin T 0.069 ng/mL (0.00-0.029) H 09/27/20 17:16 C-Reactive Protein 0.40 mg/dL (0.00-1.30) 10/02/20 05:12 NT-Pro-B Natriuret Pep 1189 pg/mL (0-900) H 09/28/20 12:23 Total Protein 7.3 g/dL (6.3-8.2) 09/27/20 13:26 Albumin 2.5 g/dL (3.9-5) L 09/27/20 13:26 Albumin/Globulin Ratio 0.5 % 09/27/20 13:26 Triglycerides 108 mg/dL (2-149) 09/27/20 13:26 Cholesterol 117 mg/dL (50-199) 09/27/20 13:26 LDL Cholesterol Direct 59 mg/dL (50-130) 09/27/20 13:26 HDL Cholesterol 40 mg/dL (40-59) 09/27/20 13:26 Cholesterol/HDL Ratio 2.92 % 09/27/20 13:26 Vitamin B12 1167 pg/mL (211-911) H 10/02/20 08:03 Folate 12.47 ng/mL (7.3-26.0) 10/02/20 08:03 Procalcitonin < 0.05 ng/mL (<0.15) 09/27/20 17:16 TSH 2.070 mlU/mL (0.270-4.200) 10/02/20 08:03 Free T4 1.35 ng/dL (0.76-1.46) 10/02/20 08:03 Thyroxine (T4) 8.4 ug/dL (4.0-12.0) 10/02/20 08:03 Urine Color Yellow (Yellow) 09/28/20 Unknown Urine Turbidity Clear (Clear) 09/28/20 Unknown Urine pH 6.0 (5.0-7.0) 09/28/20 Unknown Ur Specific [place] 1.012 (1.003-1.030) 09/28/20 Unknown Urine Protein 100 mg/dl mg/dL (Negative) 09/28/20 Unknown Urine Glucose (UA) Neg mg/dL (Negative) 09/28/20 Unknown Urine Ketones Neg mg/dL (Negative) 09/28/20 Unknown Urine Blood Sm (Negative) 09/28/20 Unknown Urine Nitrite Neg (Negative) 09/28/20 Unknown Urine Bilirubin Neg (Negative) 09/28/20 Unknown Urine Urobilinogen < 2.0 mg/dL (<2.0) 09/28/20 Unknown Ur Leukocyte Esterase Neg (Negative) 09/28/20 Unknown Urine WBC (Auto) 4.0 /HPF (0.0-6.0) 09/28/20 Unknown Urine RBC (Auto) 22.0 /HPF (0.0-6.0) 09/28/20 Unknown U Epithel Cells (Auto) 1.0 /HPF (0-13.0) 09/28/20 Unknown Urine Bacteria (Auto) 1+ /HPF (Negative) 09/28/20 Unknown Valproic Acid 92.6 ug/mL (50-100) 10/03/20 10:53 Syphilis IgG Antibody Nonreactive (NonReactive) 10/02/20 08:03 Coronavirus (PCR) Negative (Negative) 09/28/20 08:22 Microbiology: Microbiology 09/27/20 13:26 Peripheral/Venous Blood Culture - Final NO GROWTH AFTER 5 DAYS 09/27/20 13:26 Peripheral/Venous Blood Culture - Final NO GROWTH AFTER 5 DAYS [place]/IV: Voiding Method Incontinent IV Catheter Type [Left Upper INT / Saline Lock arm] IV Catheter Type [Left INT / Saline Lock Antecubital] Active Medications - Current Medications Current Medications: Generic Name Dose Route Start Last Admin Trade Name Freq PRN Reason Stop Dose Admin Acetaminophen 650 mg 09/27/20 15:23 Acetaminophen 325 Mg Tab PO Q4H PRN Pain MILD(1-3)/Fever >100.5/LORA Albuterol 2.5 mg 09/27/20 15:22 Albuterol 2.5 Mg/3 Ml Nebu IH Q4HRT PRN Shortness Of Breath Amlodipine Besylate 10 mg 09/28/20 10:00 10/03/20 10:10 Amlodipine 10 Mg Tab PO 10 mg DAILY CINTHIA Administration Ascorbic Acid 500 mg 09/27/20 22:00 10/03/20 10:06 Ascorbic Acid 500 Mg Tab PO 500 mg BID CINTHIA Administration Cholecalciferol 1,000 unit 09/28/20 10:00 10/03/20 10:08 Cholecalciferol (Vit D3) 1000 Unit (25 Mcg) Tab PO 1,000 unit QDAY CINTHIA Administration Famotidine 20 mg 09/27/20 22:00 10/03/20 10:08 Famotidine 20 Mg Tab PO 20 mg BID CINTHIA Administration Heparin Sodium (Porcine) 5,000 unit 09/27/20 22:00 10/03/20 10:07 Heparin 5,000 Unit/1 Ml Vial SUB-Q 5,000 unit Q12HR CINTHIA Administration Isosorbide Mononitrate 30 mg 09/29/20 10:00 10/03/20 10:06 Isosorbide Mononitrate Er 30 Mg Tab PO 30 mg QDAY CINTHIA Administration Metoprolol Tartrate 25 mg 09/28/20 10:00 10/03/20 10:10 Metoprolol Tartrate 25 Mg Tab PO Not Given BID CINTHIA Ondansetron HCl 4 mg 09/27/20 15:22 Ondansetron 4 Mg/2 Ml Inj IV Q8H PRN Nausea And Vomiting Oxycodone/Acetaminophen 1 tab 09/27/20 15:23 09/29/20 18:15 Oxycodone /Acetaminophen 5-325mg Tab PO 1 tab Q6H PRN Administration Pain, Moderate (4-6) Potassium Chloride 16 meq 09/29/20 10:00 10/03/20 10:05 Potassium Chloride Er 8 Meq Tab PO 16 meq QDAY CINTHIA Administration Prednisone 10 mg 10/01/20 10:00 10/03/20 10:08 Prednisone 10 Mg Tab PO 10 mg QDAY CINTHIA Administration Sertraline HCl 25 mg 09/28/20 10:00 10/03/20 10:07 Sertraline 25 Mg Tab PO 25 mg QDAY CINTHIA Administration Sodium Chloride 10 ml 09/27/20 22:00 10/03/20 10:09 Sodium Chloride 0.9% 10 Ml Flush Syringe IV 10 ml BID CINTHIA Administration Sodium Chloride 10 ml 09/27/20 15:22 Sodium Chloride 0.9% 10 Ml Flush Syringe IV PRN PRN LINE FLUSH Zinc Sulfate 220 mg 09/28/20 10:00 10/03/20 10:05 Zinc Sulfate 220 Mg Cap PO 220 mg QDAY CINTHIA Administration Nutrition/Malnutrition Assess - Dietary Evaluation Nutrition/Malnutrition Findings: Nutrition Notes Start: 09/28/20 14:07 Freq: Status: Active Protocol: Document 10/02/20 12:39 MONSE (Rec: 10/02/20 12:45 MONSE [id number]) Co-Sign 10/02/20 12:39 LP Nutrition Notes Initial or Follow up Reassessment Current Diagnosis Acute Kidney Injury,COPD, Sepsis,Hypertension,Heart Failure Other Pertinent Diagnosis acute respiratory failure, AMS , pneu, GERD, COVID (-) Current Diet Cardiac Labs/Tests BUN 18 BG 113 K 3.3 Pertinent Medications Prednisone Klor-Con8 16 mEq K-Dur 30 mEq Height 4 ft 10 in Weight 41.2 kg Usual Body Weight 61.23 kg [place] Body Weight (kg) 40.90 BMI 19.0 Weight change and time frame 33% wt loss in 2 months, per chart hx Weight Status Underweight Subjective/Other Information F/u intakes and ONS. Pt now on cl liq diet. Pt requires restriants and unable to self feed. 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 No Is Patient Ambulatory and/or Out of Bed No REE-([facility]-confined to bed) 1051.368 Kcal/Kg value to use for calculation 30 Approximate Energy Requirements Using 1236 kcal/Kg Calculation Used for Recommendations Kcal/kg Additional Notes Protein needs are 1.2-1.5g/kg (49-61g/day) Fluid needs are 1ml/kcal Nutrition Intervention Change Diet Order: Advance diet once medically able Add Supplement/Snack (indicate name/kcal Ensure Clear TID /protein ) Provides kCal: 720 Provides Protein (gm) 24 Goal #1 Diet advancement Goal #2 ONS tolerance Goal #3 wt gain/ maintenance Anticipated Discharge Needs: Unable to determine at this time Follow-Up By: 10/04/20 Additional Comments F/u diet advancement, ONS needs
--- NOTE | 2020-10-03 13:28 | XRay Report ---
CHEST 1 VIEW 10/03/2020 1:07 PM INDICATION / CLINICAL INFORMATION: decreased O2 sat. COMPARISON: Chest one view from 09/27/2020. FINDINGS: SUPPORT DEVICES: None. HEART / MEDIASTINUM: No significant abnormality. LUNGS / PLEURA: Diffuse bilateral interstitial opacities are again noted with improved aeration of th e left lung base. No significant pleural effusion. No pneumothorax. ADDITIONAL FINDINGS: No significant additional findings. IMPRESSION: Improved aeration of the left lung base with otherwise unchanged generalized bilateral interstitial o pacities, which could represent chronic interstitial lung disease or interstitial edema. Signer Name: Humberto Juarez MD Signed: 10/03/2020 1:24 PM Workstation Name: [id number]
[2020-10-04 07:32] LABS: Hematocrit 29.6 % (30.3-42.9); Mean Corpuscular HGB Conc 34 % (30-34); Mean Corpuscular Volume 94 fl (79-97); Platelet Count 353 K/mm3 (140-440); Red Blood Count 3.15 M/mm3 (3.65-5.03); Red Cell Distribution Width 17.2 % (13.2-15.2)
[2020-10-04 07:45] LABS: BUN/Creatinine Ratio 21; Blood Urea Nitrogen 21 mg/dL (7-17); Calcium 8.8 mg/dL (8.4-10.2); Hemolysis Index 2
--- NOTE | 2020-10-04 11:03 | Progress Note ---
Assessment and Plan Cultures: Blood culture no growth today SARS CoV2 PCR neg Assessment: 60 years old female with history of hypertension, COPD, GERD, schizophrenia, nutrition, CHF, admitted on 09/27/2020 secondary to altered mental status and shortness of breath, found hypoxic in the ED: #Severe sepsis: Present on admission with fever, tachycardia, severe hypoxia likely due to bilateral pneumonia. Urinalysis negative. Procalcitonin is low. #Bilateral pneumonia: SARS CoV2 PCR neg. Likley CAP. Chest x-ray with increased interstitial markings and left-sided consolidation. CTA no PE with positive ariel infiltrates. #Acute hypoxemic respiratory failure: O2 sat dropped to 60% on room air. Now on room air. #Elevated LFTs: From sepsis. #Transaminitis: Unclear etiology, better #KAITLYNN: Likely secondary to sepsis, resolved. #Acute encephalopathy: Not better, neurology on board Recommendations: -S/p ceftriaxone x 5 days and azithromycin x 3 days -MRI ordered cannot be done due to lack of consent -Neuro requested LP -monitor off abx for now Will follow Tamiko Foley MD Infectious Diseases Billing Coordinator [facility] M [phone] O [phone] Subjective Date of service: 10/04/20 Principal diagnosis: Acute respiratory failure Interval history: Remains somnolent, less interactive, no fever. No tachycardia no hypotension. Objective - Exam Narrative Exam: General appearance: somnolent in NAD Eyes: anicteric sclerae, moist conjunctivae; no lid-lag; PERRLA HENT: Normocephalic, Atraumatic; normal external ears, nares open, oropharynx clear Neck: supple, tracheal midline, no JVD Lungs: Clear to auscultation bilaterally CV: RRR no murmur Abdomen: Soft, non-tender; no masses or hepatosplenomegaly Extremities: no edema, no cyanosis Skin: No rash. Psych: no agitated Neuro: somnolent confused - Constitutional Vitals: Vital Signs Temp Pulse Resp BP Pulse Ox 97.0 F L 66 18 186/94 100 10/04/20 09:01 10/04/20 09:01 10/04/20 09:01 10/04/20 09:01 10/04/20 09:01 Temperature -Last 24 Hours Temperature 97.0 F Temperature 97.9 F Temperature 98.1 F Temperature 97.8 F Temperature 98.6 F Temperature 97.3 F - Labs CBC & Chem 7: 10/04/20 06:58 10/04/20 06:58 Labs: Abnormal lab results 10/03/20 10/04/20 10/04/20 Range/Units 18:28 06:58 06:58 WBC 4.3 L (4.5-11.0) K/mm3 RBC 3.15 L (3.65-5.03) M/mm3 Hgb 10.0 L (10.1-14.3) gm/dl Hct 29.6 L (30.3-42.9) % RDW 17.2 H (13.2-15.2) % Sodium 148 H (137-145) mmol/L Chloride 112.6 H (98-107) mmol/L BUN 21 H (7-17) mg/dL POC Glucose 116 H (70-105) mg/dL
--- NOTE | 2020-10-04 14:44 | Progress Note ---
Subjective - Reason for Consult Consult date: 10/04/20 Reason for consult: MHE Requesting physician: SHANE NATH - Chief Complaint Chief complaint: ED FLoor Nurse: Received call from Martha Bunch. family contact. family stated that she does not want pt. on any Psych meds.Will inform hospitalist. Psych Progress Patient seen this AM, sleeping without disturbances. Family informed nurses they do not want any psych medications at this time. REVIEW OF SYSTEMS ROS cannot be reliably obtained from the patient due to her confusion and somnolence. MENTAL STATUS EXAMINATION General Appearance and Behavior: Age appropriate, good hygiene, wearing appropriate clothes, Cooperation: Withdrawn Psychomotor Behavior: Psychomotor retardation Mood: neutral Affect and affective range: flat Thought Process: Tangential, loose associations Thought Content: delusional Speech: Normal volume, Regular rate and rhythm, Intellectual Functioning: Poor Suicidal Ideation: N/A Homicidal Ideation: N/A Impulse Control: Unimpaired Insight and Judgment: Impaired Memory: memory impaired Attention:Distractible, Orientation: Alert, but disoriented and confused Assessment and Plan (1) Unspecified behavioral syndromes associated with physiological disturbances and physical factors Current Visit: Yes Status: Acute F59 (2) 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 Reduced risperidone to 1mg BID from 2mg and also deparkote from 500 to 400mg. MEDICATIONS: Risks, benefits and alternatives of medications discussed with the patient, questions answered and consent obtained from patient. PSYCHOTHERAPY: Supportive psychotherapy provided MEDICAL: Per primary team DELIRIUM PRECAUTIONS: Please re-orient patient frequently, keep lights on during the day, and minimize benzodiazepines and opiates as these medications could worsen patient's confusion. FISHING GAME WARDEN: Per medical DISPOSITION: Do Not Recommend acute inpatient psychiatric hospitalization at this time. Case discussed with Dr. Lam who agrees with current disposition FOLLOW-UP: Will follow for med management Thank you for the consult. Please contact with any questions and/or concerns. 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
[2020-10-04] MEDS: SERTRALINE 25 MG TAB PO SCH (15:36)
[2020-10-04] MEDS: amLODIPine 10 MG TAB PO SCH (15:37)
[2020-10-04] MEDS: FAMOTIDINE 20 MG TAB PO SCH ×2 (15:39→21:24)
[2020-10-04] MEDS: ASCORBIC ACID 500 MG TAB PO SCH ×2 (15:39→21:24)
[2020-10-04] MEDS: predniSONE 10 MG TAB PO SCH (15:39)
[2020-10-04] MEDS: POTASSIUM CHLORIDE ER 8 MEQ TAB PO SCH (15:43)
[2020-10-04] MEDS: ZINC SULFATE 220 MG CAP PO SCH (15:43)
[2020-10-04] MEDS: HEPARIN 5,000 UNIT/1 ML VIAL SUB-Q SCH ×2 (15:44→21:24)
[2020-10-04] MEDS: CHOLECALCIFEROL (VIT D3) 1000 UNIT (25 mcg) TAB PO SCH (15:47)
[2020-10-04] MEDS: METOPROLOL TARTRATE 25 MG TAB PO SCH ×2 (15:55→21:24)
--- NOTE | 2020-10-04 17:32 | Progress Note ---
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 No chronic infarct or and encephalomalacia. Volume loss in the medial temporal lobes bilaterally more on the right, bilateral sylvian fissures more on the left suggesting perisylvian volume loss, extensive periventricular white matter low-attenuation due to chronic small vessel disease, expanded dipoliac space prominent in the frontal bones and in the occipital bones -PT/OT consulted; recommends home health physical therapy and aqua therapy -Psych does not recommend inpatient hospitalization at this time -1013 hold -10/02 MRI unable to be obtained due to family refusal to consent -10/02 LP unable to be obtained due to refusal to consent per family -10/02 Vitamin B1, ESR, Folate 12, Syphilis antibody nonreactive, T4/Free T4/TSH 8.4/1.3/2, Vit B 12 1167 Leukopenia, acute -09/28 WBC 3.8 -Trend CBC -s/p Abx therapy Hypoxic respiratory failure, acute -Supplemental oxygen as needed -SPO2 monitoring -Pulmonary hygiene -09/27 CXR shows chronic increased interstitial markings diffusely and superimposed pneumonia left base. -10/03 CXR pending Hypercholermia, acute -09/28 Cl 107.9 -s/p 2200 mL NS per sepsis protocol -Trend BMP Hypernatremia, acute -10/01 sodium 146 -Trend BMP Elevated D-dimer, acute -09/27 D-dimer 1208, 1047 -09/28 CTA chest shows no PE COPD, chronic -Pulmonary hygiene -Pulmonology consulted, appreciate recommendations -Twice daily Pulmicort -Supplemental oxygen as needed Elevated troponin, chronic -Cardiology consulted, appreciate recommendations -09/27 Troponin 0.076, 0.069 -Per cardiology troponin measurements are unchanged from prior admission ranging 0.067-0.076 -Per cardiology: No further cardiac interventions indicated at this time -08/2020 echocardiogram showed left ventricular systolic function normal with ejection fraction 60 to 65% -09/28 proBNP 1189 GERD, chronic -Continue home PPI Hypertension, chronic -Resume home antihypertensive regimen and titrate as needed -Blood pressure monitoring per protocol -Hydralazine as needed for SBP greater than 160 Anemia, chronic -Patient had severe anemia on last admission -Trend CBC -Transfuse for hemoglobin less than 7 Severe malnutrition, chronic -BMI 18 -Nutritional supplementation -Supportive care Depression, chronic -Stop home sertraline per patient's family request -Supportive care Diastolic congestive heart failure, chronic -Per cardiology: No further cardiac interventions indicated at this time -08/2020 echocardiogram showed left ventricular systolic function normal with ejection fraction 60 to 65% -09/28 proBNP 1189 -Continue home cardioprotective regimen -09/28 s/p lasix IV x1 DVT prophylaxis -SCDs to bilateral lower extremity while in bed -Heparin subcu COVID-19 PUI, ruled out -09/27 CXR shows chronic increased interstitial markings diffusely, superimposed pneumonia at the left base -09/28 COVID-19 PCR negative -Contact/droplet precautions discontinued Acute hypoxic respiratory failure, resolved -Reported SPO2 60% on room air by EMS -Supplemental oxygenation as needed -Pulmonary hygiene -Pulmonology consulted, appreciate recommendations -Steroid therapy, rapidly tapering for psychosis Acute kidney injury, resolved -Presented with a BUN/creatinine 44/1.5 -S/p 2200 mL normal saline bolus -09/28 BUN/creatinine 35/1.1 -Upon review of prior admissions patient's baseline seems to be 0.8-1.1 -Renally dose medication -Avoid nephrotoxic medication -Strict intake and output -Daily weights Left lower lobe pneumonia, resolved -09/27 CXR shows chronic increased interstitial markings diffusely with superimposed pneumonia at the left base -s/p Antibiotic therapy -09/27 procalcitonin less than 0.05 -Steroids discontinued due to COVID-19 PCR being negative -Pulmonology and infectious disease consulted Hypokalemia, resolved -10/02 potassium 3.3 -Repleted -Trend BMP -10/03 K 3.8 Hypocalcemia, resolved -09/27 Ca 7.9, 09/28 Ca 7.7 -Trend Ca -10/01 calcium 8.5 History Interval history: 60 YO Female with HTN, COPD, Schizophrenia, GERD, Severe Malnutrution, Diastolic CHF who was transported via EMS on 09/27 for confusion and difficulty breathing. In the emergency department patient was found to have a pulse of oximetry of 60% on room air and was treated with supplemental oxygenation with mild improvement and was placed on a nonrebreather. Patient was admitted to the hospital service with sepsis, toxic metabolic encephalopathy, acute kidney injury and CXR showed pneumonia. Patient was made a COVID-19 PUI and had elevated cardiac enzymes. Cardiology, pulmonology, infectious disease and psychiatry was consulted. Patient still remains confused however her degree of confusion waxes and wanes. Patient's family was again updated by Dr. Robledo and refinery operator crude unit. On her psych medications have been stopped on behalf of family request. 09/29: Digital Data Analyst consult for Tube feed continue to manage tube feeding, will also start free water, aspiration precautions. Discussed with Nursing staff. 09/30: Patient more confused today, ?, on Restraints last night due to u nsteady gait and not following commands, Psych input Started on Deparkene, olazanpien and increased melatonin. WILL RE-EVALUATE IN 24 HRS. Replace K 10/01: Remains confused to location and current events. CT head was obtained today and neurology was consulted for continued AMS. I spoke to her sister this morning who is adamant that the patient does not have any psych history and does not want the patient to be medicated with psych medications. 10/02: Patient remains confused and neurology has recommended MRI brain, EEG and further lab studies which have been ordered. An lumbar puncture was also ordered. Hypokalemia 10/03: Today at the time my examination patient was sleepy and awakened to physical stimuli. Patient still remains confused. Patient sister refused to consent for MRI brain and LP. No acute events reported overnight. Patient remains in bilateral wrist restraints. Hospitalist Physical - Constitutional Vitals: Temp Pulse Resp BP Pulse Ox 96.9 F L 78 18 139/83 100 10/04/20 15:36 10/04/20 15:55 10/04/20 15:36 10/04/20 15:55 10/04/20 15:36 General appearance: Present: no acute distress - EENT Eyes: Present: PERRL, EOM intact ENT: clear oral mucosa - Neck Neck: Present: normal ROM - Respiratory Respiratory effort: normal Respiratory: bilateral: CTA - Cardiovascular Rhythm: regular Heart Sounds: Present: S1 & S2. Absent: systolic murmur, diastolic murmur - Extremities Extremities: no ischemia, pulses intact, pulses symmetrical, No edema, normal color Peripheral Pulses: within normal limits - Abdominal General gastrointestinal: soft, non-tender, non-distended, normal bowel sounds - Integumentary Integumentary: Present: clear, warm, dry - Psychiatric Psychiatric: no memory intact, cooperative - Neurologic Neurologic: CNII-XII intact, no focal deficits, moves all extremities - Allied Health Allied health notes reviewed: nursing HEART Score - HEART Score Troponin: Troponin T 0.069 ng/mL (0.00-0.029) H 09/27/20 17:16 Results - Labs CBC & Chem 7: 10/04/20 06:58 10/04/20 06:58 Labs: Laboratory Last Values WBC 4.3 K/mm3 (4.5-11.0) L 10/04/20 06:58 RBC 3.15 M/mm3 (3.65-5.03) L 10/04/20 06:58 Hgb 10.0 gm/dl (10.1-14.3) L 10/04/20 06:58 Hct 29.6 % (30.3-42.9) L 10/04/20 06:58 MCV 94 fl (79-97) 10/04/20 06:58 MCH 32 pg (28-32) 10/04/20 06:58 MCHC 34 % (30-34) 10/04/20 06:58 RDW 17.2 % (13.2-15.2) H 10/04/20 06:58 Plt Count 353 K/mm3 (140-440) 10/04/20 06:58 Lymph % (Auto) 8.1 % (13.4-35.0) L 09/28/20 05:26 [place] % (Auto) 4.0 % (0.0-7.3) 09/28/20 05:26 Eos % (Auto) 0.0 % (0.0-4.3) 09/28/20 05:26 Baso % (Auto) 1.4 % (0.0-1.8) 09/28/20 05:26 Lymph # (Auto) 0.3 K/mm3 (1.2-5.4) L 09/28/20 05:26 [place] # (Auto) 0.2 K/mm3 (0.0-0.8) 09/28/20 05:26 Eos # (Auto) 0.0 K/mm3 (0.0-0.4) 09/28/20 05:26 Baso # (Auto) 0.1 K/mm3 (0.0-0.1) 09/28/20 05:26 Seg Neutrophils % 86.5 % (40.0-70.0) H 09/28/20 05:26 Seg Neutrophils # 3.3 K/mm3 (1.8-7.7) 09/28/20 05:26 ESR > 140.0 mm/Hr (0-20) 10/02/20 08:03 PT 13.0 Sec. (12.2-14.9) 09/27/20 13:26 INR 0.99 (0.87-1.13) 09/27/20 13:26 APTT 28.1 Sec. (24.2-36.6) 09/27/20 13:26 D-Dimer 741.35 ng/mlDDU (0-234) H 10/02/20 05:12 Sodium 148 mmol/L (137-145) H 10/04/20 06:58 Potassium 3.6 mmol/L (3.6-5.0) 10/04/20 06:58 Chloride 112.6 mmol/L (98-107) H 10/04/20 06:58 Carbon Dioxide 26 mmol/L (22-30) 10/04/20 06:58 Anion Gap 13 mmol/L 10/04/20 06:58 BUN 21 mg/dL (7-17) H 10/04/20 06:58 Creatinine 1.0 mg/dL (0.6-1.2) 10/04/20 06:58 Estimated GFR > 60 ml/min 10/04/20 06:58 BUN/Creatinine Ratio 21 % 10/04/20 06:58 Glucose 93 mg/dL (65-100) 10/04/20 06:58 POC Glucose 116 mg/dL (70-105) H 10/03/20 18:28 Lactic Acid 0.80 mmol/L (0.7-2.0) 09/28/20 05:26 Calcium 8.8 mg/dL (8.4-10.2) 10/04/20 06:58 Ferritin 1678.0 ng/mL (10.0-200.0) H 10/01/20 07:10 Total Bilirubin 0.30 mg/dL (0.1-1.2) 09/27/20 13:26 Direct Bilirubin < 0.2 mg/dL (0-0.2) 09/27/20 13:26 Indirect Bilirubin 0.1 mg/dL 09/27/20 13:26 AST 42 units/L (5-40) H 09/27/20 13:26 ALT 14 units/L (7-56) 09/27/20 13:26 Alkaline Phosphatase 71 units/L (35-129) 09/27/20 13:26 Lactate Dehydrogenase 216 units/L (91-180) H 10/02/20 05:12 Troponin T 0.069 ng/mL (0.00-0.029) H 09/27/20 17:16 C-Reactive Protein 0.40 mg/dL (0.00-1.30) 10/02/20 05:12 NT-Pro-B Natriuret Pep 1189 pg/mL (0-900) H 09/28/20 12:23 Total Protein 7.3 g/dL (6.3-8.2) 09/27/20 13:26 Albumin 2.5 g/dL (3.9-5) L 09/27/20 13:26 Albumin/Globulin Ratio 0.5 % 09/27/20 13:26 Triglycerides 108 mg/dL (2-149) 09/27/20 13:26 Cholesterol 117 mg/dL (50-199) 09/27/20 13:26 LDL Cholesterol Direct 59 mg/dL (50-130) 09/27/20 13:26 HDL Cholesterol 40 mg/dL (40-59) 09/27/20 13:26 Cholesterol/HDL Ratio 2.92 % 09/27/20 13:26 Vitamin B12 1167 pg/mL (211-911) H 10/02/20 08:03 Folate 12.47 ng/mL (7.3-26.0) 10/02/20 08:03 Procalcitonin < 0.05 ng/mL (<0.15) 09/27/20 17:16 TSH 2.070 mlU/mL (0.270-4.200) 10/02/20 08:03 Free T4 1.35 ng/dL (0.76-1.46) 10/02/20 08:03 Thyroxine (T4) 8.4 ug/dL (4.0-12.0) 10/02/20 08:03 Urine Color Yellow (Yellow) 09/28/20 Unknown Urine Turbidity Clear (Clear) 09/28/20 Unknown Urine pH 6.0 (5.0-7.0) 09/28/20 Unknown Ur Specific Walker 1.012 (1.003-1.030) 09/28/20 Unknown Urine Protein 100 mg/dl mg/dL (Negative) 09/28/20 Unknown Urine Glucose (UA) Neg mg/dL (Negative) 09/28/20 Unknown Urine Ketones Neg mg/dL (Negative) 09/28/20 Unknown Urine Blood Sm (Negative) 09/28/20 Unknown Urine Nitrite Neg (Negative) 09/28/20 Unknown Urine Bilirubin Neg (Negative) 09/28/20 Unknown Urine Urobilinogen < 2.0 mg/dL (<2.0) 09/28/20 Unknown Ur Leukocyte Esterase Neg (Negative) 09/28/20 Unknown Urine WBC (Auto) 4.0 /HPF (0.0-6.0) 09/28/20 Unknown Urine RBC (Auto) 22.0 /HPF (0.0-6.0) 09/28/20 Unknown U Epithel Cells (Auto) 1.0 /HPF (0-13.0) 09/28/20 Unknown Urine Bacteria (Auto) 1+ /HPF (Negative) 09/28/20 Unknown Valproic Acid 92.6 ug/mL (50-100) 10/03/20 10:53 Syphilis IgG Antibody Nonreactive (NonReactive) 10/02/20 08:03 Coronavirus (PCR) Negative (Negative) 09/28/20 08:22 [place]/IV: Voiding Method Incontinent IV Catheter Type [Left Upper INT / Saline Lock arm] IV Catheter Type [Left INT / Saline Lock Antecubital] Active Medications - Current Medications Current Medications: Generic Name Dose Route Start Last Admin Trade Name Freq PRN Reason Stop Dose Admin Acetaminophen 650 mg 09/27/20 15:23 Acetaminophen 325 Mg Tab PO Q4H PRN Pain MILD(1-3)/Fever >100.5/LORA Albuterol 2.5 mg 09/27/20 15:22 Albuterol 2.5 Mg/3 Ml Nebu IH Q4HRT PRN Shortness Of Breath Amlodipine Besylate 10 mg 09/28/20 10:00 10/04/20 15:37 Amlodipine 10 Mg Tab PO 10 mg DAILY CINTHIA Administration Ascorbic Acid 500 mg 09/27/20 22:00 10/04/20 15:39 Ascorbic Acid 500 Mg Tab PO 500 mg BID CINTHIA Administration Cholecalciferol 1,000 unit 09/28/20 10:00 10/04/20 15:47 Cholecalciferol (Vit D3) 1000 Unit (25 Mcg) Tab PO 1,000 unit QDAY CINTHIA Administration Famotidine 20 mg 09/27/20 22:00 10/04/20 15:39 Famotidine 20 Mg Tab PO 20 mg BID CINTHIA Administration Heparin Sodium (Porcine) 5,000 unit 09/27/20 22:00 10/04/20 15:44 Heparin 5,000 Unit/1 Ml Vial SUB-Q 5,000 unit Q12HR CINTHIA Administration Isosorbide Mononitrate 30 mg 09/29/20 10:00 10/04/20 15:38 Isosorbide Mononitrate Er 30 Mg Tab PO 30 mg QDAY COUNTS INCLUDE 234 BEDS AT THE [facility] Administration Metoprolol Tartrate 25 mg 09/28/20 10:00 10/04/20 15:55 Metoprolol Tartrate 25 Mg Tab PO 25 mg BID CINTHIA Administration Ondansetron HCl 4 mg 09/27/20 15:22 Ondansetron 4 Mg/2 Ml Inj IV Q8H PRN Nausea And Vomiting Oxycodone/Acetaminophen 1 tab 09/27/20 15:23 09/29/20 18:15 Oxycodone /Acetaminophen 5-325mg Tab PO 1 tab Q6H PRN Administration Pain, Moderate (4-6) Potassium Chloride 15 meq 10/05/20 10:00 Potassium Chloride 20 Meq Packet PO QDAY CINTHIA Sertraline HCl 25 mg 09/28/20 10:00 10/04/20 15:36 Sertraline 25 Mg Tab PO 25 mg QDAY CINTHIA Administration Sodium Chloride 10 ml 09/27/20 22:00 10/04/20 15:40 Sodium Chloride 0.9% 10 Ml Flush Syringe IV 10 ml BID CINTHIA Administration Sodium Chloride 10 ml 09/27/20 15:22 Sodium Chloride 0.9% 10 Ml Flush Syringe IV PRN PRN LINE FLUSH Zinc Sulfate 220 mg 09/28/20 10:00 10/04/20 15:43 Zinc Sulfate 220 Mg Cap PO 220 mg QDAY CINTHIA Administration Nutrition/Malnutrition Assess - Dietary Evaluation Nutrition/Malnutrition Findings: Nutrition Notes Start: 09/28/20 14:07 Freq: Status: Active Protocol: Document 10/04/20 13:25 MONSE (Rec: 10/04/20 13:31 MONSE [id number]) Co-Sign 10/04/20 13:25 MK Nutrition Notes Initial or Follow up Reassessment Current Diagnosis Acute Kidney Injury,COPD, Sepsis,Hypertension,Heart Failure Other Pertinent Diagnosis acute respiratory failure, AMS , pneu, GERD, COVID (-) Current Diet Clear liquids Labs/Tests Na 148 BUN 21 Pertinent Medications Reviewed Height 4 ft 10 in Weight 40.823 kg [place] Body Weight (kg) 40.90 BMI 18.8 Weight change and time frame 33% wt loss in 2 months, per chart hx Weight Status Underweight Subjective/Other Information F/u diet advancement and ONS tolerance. Pt did not respond to video intern at time of visit. Multiple ONS on meal tray, some unopened. None empty. Per chart, pt has been uncooperative and has refused food previously. No indication that clear liquid diet is still neccessary. H&P notes positive gag reflex. Paged MD for POC. Pt may need TF if poor intakes continue. Day 6 poor intakes. Burn Absent Trauma Absent GI Symptoms None Current % PO Negligible Minimum of two criteria Yes Energy Intake (severe) < or equal to 50% Estimated Energy Requirement > or equal to 5 days Interpretation of Weight Loss (severe) >5% in 1 month Muscle Mass Moderate Depletion (severe) Reduced Automotive Buyer Strength Measurably Reduced (severe) #2 Nutrition Diagnosis Malnutrition Diagnosis Progress(for reassessment Continues documentation) #1 Nutrition Diagnosis Inadequate oral intake Diagnosis Progress(for reassessment Continues documentation) Is patient on ventilator? No Is Patient Ambulatory and/or Out of Bed No REE-([place]-confined to bed) 1046.844 Kcal/Kg value to use for calculation 30 Approximate Energy Requirements Using 1225 kcal/Kg Calculation Used for Recommendations Kcal/kg Additional Notes Protein needs are 1.2-1.5g/kg (49-61g/day) Fluid needs are 1ml/kcal Nutrition Intervention Change Diet Order: Advance diet once medically able Add Supplement/Snack (indicate name/kcal Ensure Clear TID /protein ) Provides kCal: 720 Provides Protein (gm) 24 Goal #1 Diet advancement Goal #2 ONS tolerance Goal #3 wt gain/ maintenance Anticipated Discharge Needs: Unable to determine at this time Follow-Up By: 10/05/20 Additional Comments F/u diet advancement, ONS needs
--- NOTE | 2020-10-05 09:59 | Progress Note ---
Subjective - Reason for Consult Consult date: 10/05/20 Reason for consult: delirium - Chief Complaint Chief complaint: Hospitalist FLEX Lilly: Family states they do not want the patient on any psych medications. Psych Progress The patient was seen today. She is calm and cooperative. She is polite. She asked for something to drink. I gave her some apple juice. She says "I'm okay, but I'm still not home yet." She says "I feel better thought." The patient says she slept good. She denies SI/HI or hallucinations of any kind. REVIEW OF SYSTEMS ROS cannot be reliably obtained from the patient due to her confusion and somnolence. MENTAL STATUS EXAMINATION General Appearance and Behavior: Age appropriate, good hygiene, wearing appropriate clothes Cooperation: cooperative Psychomotor Behavior: Psychomotor retardation Mood: better Affect and affective range: congruent with stated mood Thought Process: confused at times Thought Content: None Speech: Normal volume, Regular rate and rhythm, Suicidal Ideation: Denies Homicidal Ideation: Denies Impulse Control: Limited Insight and Judgment: Limited Memory: memory impaired Attention: Normal Orientation: Alert, but disoriented and confused Assessment and Plan (1) Unspecified behavioral syndromes associated with physiological disturbances and physical factors Current Visit: Yes Status: Acute F59 (2) 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 PSYCHOTHERAPY: Supportive psychotherapy provided MEDICAL: Per primary team DELIRIUM PRECAUTIONS: Please re-orient patient frequently, keep lights on during the day, and minimize benzodiazepines and opiates as these medications could worsen patient's confusion. HOSPICE CLINICAL MARKETER: Per medical DISPOSITION: Do Not Recommend acute inpatient psychiatric hospitalization at this time. Case discussed with Dr. Lam who agrees with current disposition Will sign off. There is no need to continue to follow this patient if medication management being refused by family Thank you for the consult. Please contact with any questions and/or concerns. Mental Status Exam - Vital signs Last Vital Signs Temp 98.6 F 10/05/20 03:59 Pulse 67 10/05/20 03:59 Resp 18 10/05/20 03:59 BP 168/95 10/05/20 04:00 Pulse Ox 100 10/05/20 03:59
[2020-10-05] MEDS ORDERED: POTASSIUM CHLORIDE 20 MEQ PACKET PO SCH (10:00)
[2020-10-05] MEDS: METOPROLOL TARTRATE 25 MG TAB PO SCH (10:45)
[2020-10-05] MEDS: CHOLECALCIFEROL (VIT D3) 1000 UNIT (25 mcg) TAB PO SCH (10:45)
[2020-10-05] MEDS: FAMOTIDINE 20 MG TAB PO SCH (10:45)
[2020-10-05] MEDS: HEPARIN 5,000 UNIT/1 ML VIAL SUB-Q SCH (10:45)
[2020-10-05] MEDS: ASCORBIC ACID 500 MG TAB PO SCH (10:45)
[2020-10-05] MEDS: amLODIPine 10 MG TAB PO SCH (10:45)
--- NOTE | 2020-10-05 11:29 | Progress Note ---
Assessment and Plan Cultures: Blood culture no growth today SARS CoV2 PCR neg Assessment: 60 years old female with history of hypertension, COPD, GERD, schizophrenia, nutrition, CHF, admitted on 09/27/2020 secondary to altered mental status and shortness of breath, found hypoxic in the ED: #Severe sepsis: Present on admission with fever, tachycardia, severe hypoxia likely due to bilateral pneumonia. Urinalysis negative. Procalcitonin is low. #Bilateral pneumonia: SARS CoV2 PCR neg. Likley CAP. Chest x-ray with increased interstitial markings and left-sided consolidation. CTA no PE with positive ariel infiltrates. #Acute hypoxemic respiratory failure: O2 sat dropped to 60% on room air. Now on room air. #Elevated LFTs: From sepsis. #Transaminitis: Unclear etiology, better #KAITLYNN: Likely secondary to sepsis, resolved. #Acute encephalopathy: Improved. Recommendations: -S/p ceftriaxone x 5 days and azithromycin x 3 days -monitor off abx for now Will sign off, please call us with any question Tamiko Foley MD Infectious Diseases Customer Support Representative [facility] [phone] O [phone] Subjective Date of service: 10/05/20 Principal diagnosis: Acute respiratory failure Interval history: Patient is more alert, oriented, wants to go home, no complaints. Objective - Exam Narrative Exam: General appearance: Alert in no acute distress Eyes: anicteric sclerae, moist conjunctivae; no lid-lag; PERRLA HENT: Normocephalic, Atraumatic; normal external ears, nares open, oropharynx clear Neck: supple, tracheal midline, no JVD Lungs: Clear to auscultation bilaterally CV: RRR no murmur Abdomen: Soft, non-tender; no masses or hepatosplenomegaly Extremities: no edema, no cyanosis Skin: No rash. Psych: no agitated Neuro: Alert, oriented x3, moving all extremities - Constitutional Vitals: Vital Signs Temp Pulse Resp BP Pulse Ox 98.6 F 67 18 168/95 100 10/05/20 03:59 10/05/20 03:59 10/05/20 03:59 10/05/20 04:00 10/05/20 03:59 Temperature -Last 24 Hours Temperature 98.6 F Temperature 96.9 F Temperature 96.9 F - Labs CBC & Chem 7: 01/28/21 06:58 10/04/20 06:58
--- NOTE | 2020-10-05 14:51 | Progress Note ---
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 No chronic infarct or and encephalomalacia. Volume loss in the medial temporal lobes bilaterally more on the right, bilateral sylvian fissures more on the left suggesting perisylvian volume loss, extensive periventricular white matter low-attenuation due to chronic small vessel disease, expanded dipoliac space prominent in the frontal bones and in the occipital bones -PT/OT consulted; recommends home health physical therapy and aqua therapy -Psych does not recommend inpatient hospitalization at this time -1013 hold -10/02 MRI unable to be obtained due to family refusal to consent -10/02 LP unable to be obtained due to refusal to consent per family -10/02 Vitamin B1, ESR, Folate 12, Syphilis antibody nonreactive, T4/Free T4/TSH 8.4/1.3/2, Vit B 12 1167 Vascular dementia -As evident by CT head which shows volume loss and extensive periventricular white matter low-attenuation due to chronic small vessel disease -Supportive care -Reorientation as needed -Aspiration and fall precautions -Patient's family is refusing further work-up Leukopenia, acute -09/28 WBC 3.8 -Trend CBC -s/p Abx therapy Hypoxic respiratory failure, resolved -Supplemental oxygen as needed -SPO2 monitoring -Pulmonary hygiene -09/27 CXR shows chronic increased interstitial markings diffusely and superimposed pneumonia left base. -10/03 CXR shows improved aeration of the left lung base with otherwise unchanged generalized bilateral interstitial opacities, which could represent chronic interstitial lung disease or interstitial edema. Hypercholermia, acute -09/28 Cl 107.9 -s/p 2200 mL NS per sepsis protocol -Trend BMP Hypernatremia, acute -10/01 sodium 146 -Trend BMP Elevated D-dimer, acute -09/27 D-dimer 1208, 1047 -09/28 CTA chest shows no PE COPD, chronic -Pulmonary hygiene -Pulmonology consulted, appreciate recommendations -Twice daily Pulmicort -Supplemental oxygen as needed Elevated troponin, chronic -Cardiology consulted, appreciate recommendations -09/27 Troponin 0.076, 0.069 -Per cardiology troponin measurements are unchanged from prior admission ranging 0.067-0.076 -Per cardiology: No further cardiac interventions indicated at this time -08/2020 echocardiogram showed left ventricular systolic function normal with ejection fraction 60 to 65% -09/28 proBNP 1189 GERD, chronic -Continue home PPI Hypertension, chronic -Resume home antihypertensive regimen and titrate as needed -Blood pressure monitoring per protocol -Hydralazine as needed for SBP greater than 160 Anemia, chronic -Patient had severe anemia on last admission -Trend CBC -Transfuse for hemoglobin less than 7 Severe malnutrition, chronic -BMI 18 -Nutritional supplementation -Supportive care Depression, chronic -Stop home sertraline per patient's family request -Supportive care Diastolic congestive heart failure, chronic -Per cardiology: No further cardiac interventions indicated at this time -08/2020 echocardiogram showed left ventricular systolic function normal with ejection fraction 60 to 65% -09/28 proBNP 1189 -Continue home cardioprotective regimen -09/28 s/p lasix IV x1 DVT prophylaxis -SCDs to bilateral lower extremity while in bed -Heparin subcu COVID-19 PUI, ruled out -09/27 CXR shows chronic increased interstitial markings diffusely, superimposed pneumonia at the left base -09/28 COVID-19 PCR negative -Contact/droplet precautions discontinued Acute hypoxic respiratory failure, resolved -Reported SPO2 60% on room air by EMS -Supplemental oxygenation as needed -Pulmonary hygiene -Pulmonology consulted, appreciate recommendations -Steroid therapy, rapidly tapering for psychosis Acute kidney injury, resolved -Presented with a BUN/creatinine 44/1.5 -S/p 2200 mL normal saline bolus -09/28 BUN/creatinine 35/1.1 -Upon review of prior admissions patient's baseline seems to be 0.8-1.1 -Renally dose medication -Avoid nephrotoxic medication -Strict intake and output -Daily weights Left lower lobe pneumonia, resolved -09/27 CXR shows chronic increased interstitial markings diffusely with superimposed pneumonia at the left base -s/p Antibiotic therapy -09/27 procalcitonin less than 0.05 -Steroids discontinued due to COVID-19 PCR being negative -Pulmonology and infectious disease consulted -10/03 CXR shows improved aeration of the left lung base with otherwise unchanged generalized bilateral interstitial opacities, which could represent chronic interstitial lung disease or interstitial edema. Hypokalemia, resolved -10/02 potassium 3.3 -Repleted -Trend BMP -10/03 K 3.8 Hypocalcemia, resolved -09/27 Ca 7.9, 09/28 Ca 7.7 -Trend Ca -10/01 calcium 8.5 History Interval history: 60 YO Female with HTN, COPD, Schizophrenia, GERD, Severe Malnutrution, Diastolic CHF who was transported via EMS on 09/27 for confusion and difficulty breathing. In the emergency department patient was found to have a pulse of oximetry of 60% on room air and was treated with supplemental oxygenation with mild improvement and was placed on a nonrebreather. Patient was admitted to the hospital service with sepsis, toxic metabolic encephalopathy, acute kidney injury and CXR showed pneumonia. Patient was made a COVID-19 PUI and had elevated cardiac enzymes. Cardiology, pulmonology, infectious disease and psychiatry was consulted. 09/29: Intermodal Owner Operator Truck Driver consult for Tube feed continue to manage tube feeding, will also start free water, aspiration precautions. Discussed with Nursing staff. 09/30: Patient more confused today, ?, on Restraints last night due to unsteady gait and not following commands, Psych input Started on Deparkene, olazanpien and increased melatonin. WILL RE-EVALUATE IN 24 HRS. Replace K 10/01: Remains confused to location and current events. CT head was obtained today and neurology was consulted for continued AMS. I spoke to her sister this morning who is adamant that the patient does not have any psych history and does not want the patient to be medicated with psych medications. 10/02: Patient remains confused and neurology has recommended MRI brain, EEG and further lab studies which have been ordered. An lumbar puncture was also ordered. Hypokalemia 10/03: Today at the time my examination patient was sleepy and awakened to physical stimuli. Patient still remains confused. Patient sister refused to consent for MRI brain and LP. No acute events reported overnight. Patient remains in bilateral wrist restraints. 10/04: Patient still remains confused however her degree of confusion waxes and wanes. Patient's family was again updated by Dr. Robledo and community service manager. On her psych medications have been stopped on behalf of family request. 10/05: At the time of my examination patient's orientation continues to wax and wane. Psych has signed off today as family is refusing medication at this time and does not recommend inpatient hospitalization at this time. No acute events reported overnight. Patient does not have her bilateral wrist restraints in place. Hospitalist Physical - Constitutional Vitals: Temp Pulse Resp BP Pulse Ox 98.6 F 67 18 168/95 100 10/05/20 03:59 10/05/20 03:59 10/05/20 03:59 10/05/20 04:00 10/05/20 03:59 General appearance: Present: no acute distress - EENT Eyes: Present: PERRL, EOM intact ENT: hearing decreased, poor dentition - Neck Neck: Present: normal ROM - Respiratory Respiratory effort: normal Respiratory: bilateral: CTA - Cardiovascular Rhythm: regular Heart Sounds: Present: S1 & S2. Absent: systolic murmur, diastolic murmur - Extremities Extremities: no ischemia, pulses intact, pulses symmetrical, No edema, normal temperature, normal color, Full ROM Peripheral Pulses: within normal limits - Abdominal General gastrointestinal: soft, non-tender, non-distended, normal bowel sounds - Integumentary Integumentary: Present: clear, warm, dry - Psychiatric Psychiatric: cooperative - Neurologic Neurologic: CNII-XII intact, no focal deficits, moves all extremities - Allied Health Allied health notes reviewed: nursing HEART Score - HEART Score Troponin: Troponin T 0.069 ng/mL (0.00-0.029) H 09/27/20 17:16 Results - Labs CBC & Chem 7: 10/04/20 06:58 10/04/20 06:58 Labs: Laboratory Last Values WBC 4.3 K/mm3 (4.5-11.0) L 10/04/20 06:58 RBC 3.15 M/mm3 (3.65-5.03) L 10/04/20 06:58 Hgb 10.0 gm/dl (10.1-14.3) L 10/04/20 06:58 Hct 29.6 % (30.3-42.9) L 10/04/20 06:58 MCV 94 fl (79-97) 10/04/20 06:58 MCH 32 pg (28-32) 10/04/20 06:58 MCHC 34 % (30-34) 10/04/20 06:58 RDW 17.2 % (13.2-15.2) H 10/04/20 06:58 Plt Count 353 K/mm3 (140-440) 10/04/20 06:58 Lymph % (Auto) 8.1 % (13.4-35.0) L 09/28/20 05:26 Major % (Auto) 4.0 % (0.0-7.3) 09/28/20 05:26 Eos % (Auto) 0.0 % (0.0-4.3) 09/28/20 05:26 Baso % (Auto) 1.4 % (0.0-1.8) 09/28/20 05:26 Lymph # (Auto) 0.3 K/mm3 (1.2-5.4) L 09/28/20 05:26 Major # (Auto) 0.2 K/mm3 (0.0-0.8) 09/28/20 05:26 Eos # (Auto) 0.0 K/mm3 (0.0-0.4) 09/28/20 05:26 Baso # (Auto) 0.1 K/mm3 (0.0-0.1) 09/28/20 05:26 Seg Neutrophils % 86.5 % (40.0-70.0) H 09/28/20 05:26 Seg Neutrophils # 3.3 K/mm3 (1.8-7.7) 09/28/20 05:26 ESR > 140.0 mm/Hr (0-20) 10/02/20 08:03 PT 13.0 Sec. (12.2-14.9) 09/27/20 13:26 INR 0.99 (0.87-1.13) 09/27/20 13:26 APTT 28.1 Sec. (24.2-36.6) 09/27/20 13:26 D-Dimer 741.35 ng/mlDDU (0-234) H 10/02/20 05:12 Sodium 148 mmol/L (137-145) H 10/04/20 06:58 Potassium 3.6 mmol/L (3.6-5.0) 10/04/20 06:58 Chloride 112.6 mmol/L (98-107) H 10/04/20 06:58 Carbon Dioxide 26 mmol/L (22-30) 10/04/20 06:58 Anion Gap 13 mmol/L 10/04/20 06:58 BUN 21 mg/dL (7-17) H 10/04/20 06:58 Creatinine 1.0 mg/dL (0.6-1.2) 10/04/20 06:58 Estimated GFR > 60 ml/min 10/04/20 06:58 BUN/Creatinine Ratio 21 % 10/04/20 06:58 Glucose 93 mg/dL (65-100) 10/04/20 06:58 POC Glucose 116 mg/dL (70-105) H 10/03/20 18:28 Lactic Acid 0.80 mmol/L (0.7-2.0) 09/28/20 05:26 Calcium 8.8 mg/dL (8.4-10.2) 10/04/20 06:58 Ferritin 1678.0 ng/mL (10.0-200.0) H 10/01/20 07:10 Total Bilirubin 0.30 mg/dL (0.1-1.2) 09/27/20 13:26 Direct Bilirubin < 0.2 mg/dL (0-0.2) 09/27/20 13:26 Indirect Bilirubin 0.1 mg/dL 09/27/20 13:26 AST 42 units/L (5-40) H 09/27/20 13:26 ALT 14 units/L (7-56) 09/27/20 13:26 Alkaline Phosphatase 71 units/L (35-129) 09/27/20 13:26 Lactate Dehydrogenase 216 units/L (91-180) H 10/02/20 05:12 Troponin T 0.069 ng/mL (0.00-0.029) H 09/27/20 17:16 C-Reactive Protein 0.40 mg/dL (0.00-1.30) 10/02/20 05:12 NT-Pro-B Natriuret Pep 1189 pg/mL (0-900) H 09/28/20 12:23 Total Protein 7.3 g/dL (6.3-8.2) 09/27/20 13:26 Albumin 2.5 g/dL (3.9-5) L 09/27/20 13:26 Albumin/Globulin Ratio 0.5 % 09/27/20 13:26 Triglycerides 108 mg/dL (2-149) 09/27/20 13:26 Cholesterol 117 mg/dL (50-199) 09/27/20 13:26 LDL Cholesterol Direct 59 mg/dL (50-130) 09/27/20 13:26 HDL Cholesterol 40 mg/dL (40-59) 09/27/20 13:26 Cholesterol/HDL Ratio 2.92 % 09/27/20 13:26 Vitamin B12 1167 pg/mL (211-911) H 10/02/20 08:03 Folate 12.47 ng/mL (7.3-26.0) 10/02/20 08:03 Procalcitonin < 0.05 ng/mL (<0.15) 09/27/20 17:16 TSH 2.070 mlU/mL (0.270-4.200) 10/02/20 08:03 Free T4 1.35 ng/dL (0.76-1.46) 10/02/20 08:03 Thyroxine (T4) 8.4 ug/dL (4.0-12.0) 10/02/20 08:03 Urine Color Yellow (Yellow) 09/28/20 Unknown Urine Turbidity Clear (Clear) 09/28/20 Unknown Urine pH 6.0 (5.0-7.0) 09/28/20 Unknown Ur Specific [place] 1.012 (1.003-1.030) 09/28/20 Unknown Urine Protein 100 mg/dl mg/dL (Negative) 09/28/20 Unknown Urine Glucose (UA) Neg mg/dL (Negative) 09/28/20 Unknown Urine Ketones Neg mg/dL (Negative) 09/28/20 Unknown Urine Blood Sm (Negative) 09/28/20 Unknown Urine Nitrite Neg (Negative) 09/28/20 Unknown Urine Bilirubin Neg (Negative) 09/28/20 Unknown Urine Urobilinogen < 2.0 mg/dL (<2.0) 09/28/20 Unknown Ur Leukocyte Esterase Neg (Negative) 09/28/20 Unknown Urine WBC (Auto) 4.0 /HPF (0.0-6.0) 09/28/20 Unknown Urine RBC (Auto) 22.0 /HPF (0.0-6.0) 09/28/20 Unknown U Epithel Cells (Auto) 1.0 /HPF (0-13.0) 09/28/20 Unknown Urine Bacteria (Auto) 1+ /HPF (Negative) 09/28/20 Unknown Valproic Acid 92.6 ug/mL (50-100) 10/03/20 10:53 Syphilis IgG Antibody Nonreactive (NonReactive) 10/02/20 08:03 Coronavirus (PCR) Negative (Negative) 09/28/20 08:22 [place]/IV: Voiding Method External Female Catheter IV Catheter Type [Left Upper INT / Saline Lock arm] IV Catheter Type [Left INT / Saline Lock Antecubital] Active Medications - Current Medications Current Medications: Generic Name Dose Route Start Last Admin Trade Name Freq PRN Reason Stop Dose Admin Acetaminophen 650 mg 09/27/20 15:23 Acetaminophen 325 Mg Tab PO Q4H PRN Pain MILD(1-3)/Fever >100.5/LORA Albuterol 2.5 mg 09/27/20 15:22 Albuterol 2.5 Mg/3 Ml Nebu IH Q4HRT PRN Shortness Of Breath Amlodipine Besylate 10 mg 09/28/20 10:00 10/05/20 10:45 Amlodipine 10 Mg Tab PO 10 mg DAILY CINTHIA Administration Ascorbic Acid 500 mg 09/27/20 22:00 10/05/20 10:45 Ascorbic Acid 500 Mg Tab PO 500 mg BID CINTHIA Administration Cholecalciferol 1,000 unit 09/28/20 10:00 10/05/20 10:45 Cholecalciferol (Vit D3) 1000 Unit (25 Mcg) Tab PO 1,000 unit QDAY CINTHIA Administration Famotidine 20 mg 09/27/20 22:00 10/05/20 10:45 Famotidine 20 Mg Tab PO 20 mg BID CINTHIA Administration Heparin Sodium (Porcine) 5,000 unit 09/27/20 22:00 10/05/20 10:45 Heparin 5,000 Unit/1 Ml Vial SUB-Q 5,000 unit Q12HR CINTHIA Administration Isosorbide Mononitrate 30 mg 10/05/20 08:30 10/05/20 10:45 Isosorbide Mononitrate Er 30 Mg Tab PO 30 mg QDAY CINTHIA Administration Metoprolol Tartrate 25 mg 09/28/20 10:00 10/05/20 10:45 Metoprolol Tartrate 25 Mg Tab PO 25 mg BID CINTHIA Administration Ondansetron HCl 4 mg 09/27/20 15:22 Ondansetron 4 Mg/2 Ml Inj IV Q8H PRN Nausea And Vomiting Oxycodone/Acetaminophen 1 tab 09/27/20 15:23 09/29/20 18:15 Oxycodone /Acetaminophen 5-325mg Tab PO 1 tab Q6H PRN Administration Pain, Moderate (4-6) Sodium Chloride 10 ml 09/27/20 22:00 10/05/20 10:45 Sodium Chloride 0.9% 10 Ml Flush Syringe IV 10 ml BID CINTHIA Administration Sodium Chloride 10 ml 09/27/20 15:22 Sodium Chloride 0.9% 10 Ml Flush Syringe IV PRN PRN LINE FLUSH Zinc Sulfate 220 mg 09/28/20 10:00 10/04/20 15:43 Zinc Sulfate 220 Mg Cap PO 220 mg QDAY CINTHIA Administration Nutrition/Malnutrition Assess - Dietary Evaluation Nutrition/Malnutrition Findings: Nutrition Notes Start: 09/28/20 14 :07 Freq: Status: Active Protocol: Document 10/05/20 12:21 MONSE (Rec: 10/05/20 12:26 MONSE [id number]) Co-Sign 10/05/20 12:21 Nutrition Notes Initial or Follow up Reassessment Current Diagnosis Acute Kidney Injury,COPD, Sepsis,Hypertension,Heart Failure Other Pertinent Diagnosis acute respiratory failure, AMS , pneu, GERD, COVID (-) Current Diet Clear liquids Labs/Tests Reviewed Pertinent Medications Reviewed Height 4 ft 10 in Weight 40.823 kg [place] Body Weight (kg) 40.90 BMI 18.8 Weight change and time frame 33% wt loss in 2 months, per chart hx Weight Status Underweight Subjective/Other Information F/u diet advancement, ONS needs, Spoke with patient, she wants to go home. She reported no chewing or swallowing difficulties. This AM she drank one juice cup. I asked her what I could get her to eat if she was still here for lunch. She said she would drink an Ensure chocolate. Got verbal permission to upgrade diet order from FLEX Benson. Burn Absent Trauma Absent GI Symptoms None Current % PO Negligible Minimum of two criteria Yes Energy Intake (severe) < or equal to 50% Estimated Energy Requirement > or equal to 5 days Interpretation of Weight Loss (severe) >5% in 1 month Muscle Mass Moderate Depletion (severe) Reduced Math Tutor Strength Measurably Reduced (severe) #2 Nutrition Diagnosis Malnutrition Diagnosis Progress(for reassessment Continues documentation) #1 Nutrition Diagnosis Inadequate oral intake Diagnosis Progress(for reassessment Continues documentation) Is patient on ventilator? No Is Patient Ambulatory and/or Out of Bed No REE-([facility]-confined to bed) 1046.844 Kcal/Kg value to use for calculation 30 Approximate Energy Requirements Using 1225 kcal/Kg Calculation Used for Recommendations Kcal/kg Additional Notes Protein needs are 1.2-1.5g/kg (49-61g/day) Fluid needs are 1ml/kcal Nutrition Intervention Change Diet Order: Update to full liquid diet Add Supplement/Snack (indicate name/kcal Ensure Enlive chocolate TID /protein ) Provides kCal: 1,050 Provides Protein (gm) 60 Goal #1 Diet advancement Goal #2 ONS tolerance Goal #3 wt gain/ maintenance Anticipated Discharge Needs: Unable to determine at this time Follow-Up By: 10/08/20 Additional Comments F/u diet advancement, ONS tolerance
[2020-10-05] MEDS: ZINC SULFATE 220 MG CAP PO SCH (15:45)
--- NOTE | 2020-10-05 16:05 | Discharge Summary ---
Providers - Providers Date of Admission: 09/27/20 15:22 Date of discharge: 10/05/20 Attending physician: GEORGETTE JUARDO 09/27/20 15:22 Consult to Physician [CONS] Routine Comment: Consulting Provider: ALEXUS LOUISE Physician Instructions: Reason For Exam: pui 09/28/20 10:47 Consult to Physician [CONS] Routine Comment: Consulting Provider: VELIA MURCIA Physician Instructions: Reason For Exam: encephalopathy, delirium 09/28/20 10:53 Consult to Mental Health [CONS] Routine Reason For Exam: pyschosis 09/29/20 08:08 Occupational Therapy Evaluate and Treat [CONS] Routine Comment: Reason For Exam: debility Physical Therapy Evaluation and Treat [CONS] Routine Comment: Reason For Exam: debility 10/01/20 09:55 Consult to Physician [CONS] Routine Comment: Consulting Provider: HUMPHREY SMITH Physician Instructions: Reason For Exam: AMS Primary care physician: MORTGAGE FUNDER Hospitalization Condition: Stable Hospital course: History Interval history: 60 YO Female with HTN, COPD, Schizophrenia, GERD, Severe Malnutrution, Diastolic CHF who was transported via EMS on 09/27 for confusion and difficulty breathing. In the emergency department patient was found to have a pulse of oximetry of 60% on room air and was treated with supplemental oxygenation with mild improvement and was placed on a nonrebreather. Patient was admitted to the hospital service with sepsis, toxic metabolic encephalopathy, acute kidney injury and CXR showed pneumonia. Patient was made a COVID-19 PUI and had elevated cardiac enzymes. Cardiology, pulmonology, infectious disease and psychiatry was consulted. 09/29: Access Clinician consult for Tube feed continue to manage tube feeding, will also start free water, aspiration precautions. Discussed with Nursing staff. 09/30: Patient more confused today, ?, on Restraints last night due to unsteady gait and not following commands, Psych input Started on Deparkene, olazanpien and increased melatonin. WILL RE-EVALUATE IN 24 HRS. Replace K 10/01: Remains confused to location and current events. CT head was obtained today and neurology was consulted for continued AMS. I spoke to her sister this morning who is adamant that the patient does not have any psych history and does not want the patient to be medicated with psych medications. 10/02: Patient remains confused and neurology has recommended MRI brain, EEG and further lab studies which have been ordered. An lumbar puncture was also order ed. Hypokalemia 10/03: Today at the time my examination patient was sleepy and awakened to physical stimuli. Patient still remains confused. Patient sister refused to consent for MRI brain and LP. No acute events reported overnight. Patient remains in bilateral wrist restraints. 10/04: Patient still remains confused however her degree of confusion waxes and wanes. Patient's family was again updated by Dr. Robledo and unit aide tech. On her psych medications have been stopped on behalf of family request. 10/05: At the time of my examination patient's orientation continues to wax and wane. Psych has signed off today as family is refusing medication at this time and does not recommend inpatient hospitalization at this time. No acute events reported overnight. Patient does not have her bilateral wrist restraints in place. 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 No chronic infarct or and encephalomalacia. Volume loss in the medial temporal lobes bilaterally more on the right, bilateral sylvian fissures more on the left suggesting perisylvian volume loss, extensive periventricular white matter low-attenuation due to chronic small vessel disease, expanded dipoliac space prominent in the frontal bones and in the occipital bones -PT/OT consulted; recommends home health physical therapy and aqua therapy -Psych does not recommend inpatient hospitalization at this time -1013 hold -10/02 MRI unable to be obtained due to family refusal to consent -10/02 LP unable to be obtained due to refusal to consent per family -10/02 Vitamin B1, ESR, Folate 12, Syphilis antibody nonreactive, T4/Free T4/TSH 8.4/1.3/2, Vit B 12 1167 Dementia with agitation Psychosis associated with vascular dementia Vascular dementia -As evident by CT head which shows volume loss and extensive periventricular white matter low-attenuation due to chronic small vessel disease -Supportive care -Reorientation as needed -Aspiration and fall precautions -Patient's family is refusing further work-up Leukopenia, acute -09/28 WBC 3.8 -Trend CBC -s/p Abx therapy Hypoxic respiratory failure, resolved -Supplemental oxygen as needed -SPO2 monitoring -Pulmonary hygiene -09/27 CXR shows chronic increased interstitial markings diffusely and superimposed pneumonia left base. -10/03 CXR shows improved aeration of the left lung base with otherwise unchanged generalized bilateral interstitial opacities, which could represent chronic interstitial lung disease or interstitial edema. Hypercholermia, acute -09/28 Cl 107.9 -s/p 2200 mL NS per sepsis protocol -Trend BMP Hypernatremia, acute -10/01 sodium 146 -Trend BMP Elevated D-dimer, acute -09/27 D-dimer 1208, 1047 -09/28 CTA chest shows no PE COPD, chronic -Pulmonary hygiene -Pulmonology consulted, appreciate recommendations -Twice daily Pulmicort -Supplemental oxygen as needed Elevated troponin, chronic -Cardiology consulted, appreciate recommendations -09/27 Troponin 0.076, 0.069 -Per cardiology troponin measurements are unchanged from prior admission ranging 0.067-0.076 -Per cardiology: No further cardiac interventions indicated at this time -08/2020 echocardiogram showed left ventricular systolic function normal with ejection fraction 60 to 65% -09/28 proBNP 1189 GERD, chronic -Continue home PPI Hypertension, chronic -Resume home antihypertensive regimen and titrate as needed -Blood pressure monitoring per protocol -Hydralazine as needed for SBP greater than 160 Anemia, chronic -Patient had severe anemia on last admission -Trend CBC -Transfuse for hemoglobin less than 7 Severe malnutrition, chronic -BMI 18 -Nutritional supplementation -Supportive care Depression, chronic -Stop home sertraline per patient's family request -Supportive care Diastolic congestive heart failure, chronic -Per cardiology: No further cardiac interventions indicated at this time -08/2020 echocardiogram showed left ventricular systolic function normal with ejection fraction 60 to 65% -09/28 proBNP 1189 -Continue home cardioprotective regimen -09/28 s/p lasix IV x1 DVT prophylaxis -SCDs to bilateral lower extremity while in bed -Heparin subcu COVID-19 PUI, ruled out -09/27 CXR shows chronic increased interstitial markings diffusely, superimposed pneumonia at the left base -09/28 COVID-19 PCR negative -Contact/droplet precautions discontinued Acute hypoxic respiratory failure, resolved -Reported SPO2 60% on room air by EMS -Supplemental oxygenation as needed -Pulmonary hygiene -Pulmonology consulted, appreciate recommendations -Steroid therapy, rapidly tapering for psychosis Acute kidney injury, resolved -Presented with a BUN/creatinine 44/1.5 -S/p 2200 mL normal saline bolus -09/28 BUN/creatinine 35/1.1 -Upon review of prior admissions patient's baseline seems to be 0.8-1.1 -Renally dose medication -Avoid nephrotoxic medication -Strict intake and output -Daily weights Left lower lobe pneumonia, resolved -09/27 CXR shows chronic increased interstitial markings diffusely with superimposed pneumonia at the left base -s/p Antibiotic therapy -09/27 procalcitonin less than 0.05 -Steroids discontinued due to COVID-19 PCR being negative -Pulmonology and infectious disease consulted -10/03 CXR shows improved aeration of the left lung base with otherwise unchanged generalized bilateral interstitial opacities, which could represent chronic interstitial lung disease or interstitial edema. Hypokalemia, resolved -10/02 potassium 3.3 -Repleted -Trend BMP -10/03 K 3.8 Hypocalcemia, resolved -09/27 Ca 7.9, 09/28 Ca 7.7 -Trend Ca -10/01 calcium 8.5 Talked with Sister Martha Bunch at [phone] Sister not willing to accept the diagnosis of vascular dementia with psychosis and she does not want any psych medicines Sister wants to take the risk and take her home Agreed on discharge home as there is nothing more to be done in this facility Disposition: DC-01 TO HOME OR SELFCARE - Discharge Diagnoses (1) Acute hypoxemic respiratory failure Status: Acute (2) Acute kidney injury (KA[place]NN) with acute tubular necrosis (ATN) Status: Acute (3) Left lower lobe pneumonia Status: Acute (4) Mood disorder due to known physiological condition, unspecified Status: Acute Core Measure Documentation - Palliative Care Palliative Care/ Comfort Measures: Not Applicable - Core Measures Any of the following diagnoses?: none Exam - Constitutional Vitals: Temp Pulse Resp BP Pulse Ox 98.6 F 67 18 168/95 100 10/05/20 03:59 10/05/20 03:59 10/05/20 03:59 10/05/20 04:00 10/05/20 03:59 General appearance: Present: no acute distress, well-nourished - EENT Eyes: Present: PERRL ENT: hearing intact, clear oral mucosa - Neck Neck: Present: supple, normal ROM - Respiratory Respiratory effort: normal Respiratory: bilateral: CTA - Cardiovascular Heart rate: 29 Rhythm: regular Heart Sounds: Present: S1 & S2. Absent: rub, click - Extremities Extremities: pulses symmetrical, No edema Peripheral Pulses: within normal limits - Abdominal General gastrointestinal: Present: soft, non-tender, non-distended, normal bowel sounds Female genitourinary: Present: normal - Rectal Rectal Exam: deferred - Integumentary Integumentary: Present: clear, warm, dry - Musculoskeletal Musculoskeletal: gait normal, strength equal bilaterally - Psychiatric Psychiatric: appropriate mood/affect, intact judgment & insight - Neurologic Neurologic: CNII-XII intact, moves all extremities - Allied Health Allied health notes reviewed: nursing, case management Plan Activity: no restrictions Diet: regular Follow up with: [facility] [Outside] - 7 Days PRIMARY CARE, [Primary Care Provider] - 3-5 Days VELIA MURCIA MD [Staff Physician] - 7 Days JILLIAN LARA MD [Staff Physician] - 7 Days Prescriptions: VALPROIC ACID Liq [DepaKENE Liq] 500 mg PO BID 30 Days oral.liqd ISOSORBIDE MONOnitrate [Imdur ER] 30 mg PO QDAY #30 tablet levoFLOXacin [Levaquin] 750 mg PO QDAY #5 tablet Metoprolol [Lopressor TAB] 25 mg PO BID #60 tablet Famotidine [Pepcid] 20 mg PO BID #60 tablet risperiDONE [RisperDAL ORAL LIQD] 2 mg PO BID 30 Days ml Ascorbic Acid [Vitamin C] 500 mg PO BID #60 tablet Cholecalciferol Vit D3 [Vitamin D3 1,000 UNIT TAB] 1,000 unit PO QDAY #30 tablet
[2020-10-05 18:05] VITALS: BP 164/82
== END 2020-10-05 18:00 | disposition home health service (06) | DRG 871 ==
LOC: ED 12:12 → 3A 15:22 → 4A 09-28 20:43
PROVIDERS: ADMIT Internal Medicine; ATTEND Internal Medicine
DX: A41.9 Sepsis, unspecified organism (principal); J96.01 Acute respiratory failure with hypoxia; J18.9 Pneumonia, unspecified organism; N17.0 Acute kidney failure with tubular necrosis; G92 Toxic encephalopathy; E43 Unspecified severe protein-calorie malnutrition; G04.90 Encephalitis and encephalomyelitis, unspecified; J44.0 Chronic obstructive pulmonary disease with (acute) lower respiratory infection; Z68.1 Body mass index [BMI] 19.9 or less, adult; E87.0 Hyperosmolality and hypernatremia; I50.32 Chronic diastolic (congestive) heart failure; Z20.822 Contact with and (suspected) exposure to COVID-19; F20.9 Schizophrenia, unspecified; K21.9 Gastro-esophageal reflux disease without esophagitis; I11.0 Hypertensive heart disease with heart failure; F29 Unspecified psychosis not due to a substance or known physiological condition; F39 Unspecified mood [affective] disorder; R65.20 Severe sepsis without septic shock; R74.01 Elevation of levels of liver transaminase levels; E83.51 Hypocalcemia; D63.8 Anemia in other chronic diseases classified elsewhere; Z82.49 Family history of ischemic heart disease and other diseases of the circulatory system; Z79.899 Other long term (current) drug therapy
CPT/HCPCS: 36415; 70450; 71045; 71275; 80048; 80061; 80076; 80164; 81001; 82140; 82607; 82728; 82747; 82947; 82962; 83615; 83880; 84145; 84425; 84436; 84439; 84443; 84484; 85025; 85027; 85379; 85610; 85652; 85730; 86140; 86592; 87040; 93005; 93970; 94760; 95819; 96365; 96367; 96375; G0378; J0456; J0696; J1170; J1644; J1956; J2920; J3486; J7030; J7512; Q9967; U0003